=== PATIENT | male | born 1960 | race Caucasian/White ===

== ENCOUNTER 2019-07-16 10:10 | Outpatient (CLI) | payer MEDICARE, MEDICAID, SELFPAY ==
--- NOTE | 2019-07-16 11:00 | NEURO_ITS ---
Patient Number: [id number] Impression: # Known diabetic complains of numbness and feet jerking. # Left Carpal Tunnel Syndrome. # Needle/EMG exam revealed mild neurogenic changes. No fibs or myotonic. # Peroneal responses are of low amplitude Nerve Conduction Studies Anti Sensory Summary Table Stim Site NR Peak (ms) P-T Amp (?V) Site1 Site2 Delta-P (ms) Dist (cm) Nii (m/s) Left Median Anti Sensory (2-3nd Digit) Wrist 4.4 20.1 Wrist 2-3nd Digit 4.4 14.0 32 Wrist 4.2 31.4 Wrist 2-3nd Digit 4.4 14.0 32 Right Median Anti Sensory (2-3nd Digit) Wrist 3.7 17.5 Wrist 2-3nd Digit 3.7 14.0 38 Wrist 3.8 17.8 Wrist 2-3nd Digit 3.7 14.0 38 Left Radial Anti Sensory (Base 1st Digit) Wrist 2.8 22.2 Wrist Base 1st Digit 2.8 0.0 Right Radial Anti Sensory (Base 1st Digit) Wrist 3.1 9.0 Wrist Base 1st Digit 3.1 0.0 Left Sup Fibular Anti Sensory (Ant Lat Mall) 14 cm 3.3 11.8 14 cm Ant Lat Mall 3.3 16.0 48 Right Sup Fibular Anti Sensory (Ant Lat Mall) 14 cm 4.0 4.0 14 cm Ant Lat Mall 4.0 16.0 40 Left Sural Anti Sensory (Lat Mall) Calf 3.8 5.3 Calf Lat Mall 3.8 16.0 42 Right Sural Anti Sensory (Lat Mall) Calf 3.7 10.9 Calf Lat Mall 3.7 16.0 43 Left Ulnar Anti Sensory (5th Digit) Wrist 2.8 32.2 Wrist 5th Digit 2.8 14.0 50 Right Ulnar Anti Sensory (5th Digit) Wrist 3.1 17.2 Wrist 5th Digit 3.1 14.0 45 Motor Summary Table Stim Site NR Onset (ms) O-P Amp (mV) Site1 Site2 Delta-0 (ms) Dist (cm) Nii (m/s) Left Median Motor (Abd Poll Brev) Wrist 5.6 2.0 Elbow Wrist 6.2 29.0 47 Elbow 11.8 0.8 Right Median Motor (Abd Poll Brev) Wrist 3.7 3.2 Elbow Wrist 5.8 28.0 48 Elbow 9.5 1.8 Left Peroneal Motor (Vastus Med) Ankle 5.0 0.3 Popit Ankle 10.4 42.0 40 Popit 15.4 0.5 Right Peroneal Motor (Vastus Med) Ankle 6.2 0.2 Popit Ankle 11.3 47.0 42 Popit 17.5 0.6 Left Tibial Motor (Abd Maynard Brev) Ankle 5.1 0.4 Knee Ankle 10.7 43.0 40 Knee 15.8 1.0 Right Tibial Motor (Abd Maynard Brev) Ankle 6.7 1.5 Knee Ankle 11.1 44.0 40 Knee 17.8 1.6 Left Ulnar Motor (Abd Dig Minimi) Wrist 2.9 5.6 A Elbow Wrist 7.7 33.0 43 A Elbow 10.6 5.1 B Elbow Wrist 5.6 27.0 48 B Elbow 8.5 5.2 Right Ulnar Motor (Abd Dig Minimi) Wrist 3.2 4.4 A Elbow Wrist 6.3 30.0 48 A Elbow 9.5 3.5 F Wave Studies NR F-Lat (ms) L-R F-Lat (ms) Left Median (Mrkrs) (Abd Poll Brev) 33.03 1.29 Right Median (Mrkrs) (Abd Poll Brev) 31.74 1.29 Left Peroneal (Mrkrs) (EDB) 63.51 1.75 Right Peroneal (Mrkrs) (EDB) 65.26 1.75 Left Tibial (Mrkrs) (Abd Hallucis) 62.36 3.55 Right Tibial (Mrkrs) (Abd Hallucis) 65.91 3.55 Left Ulnar (Mrkrs) (Abd Dig Min) 32.50 0.35 Right Ulnar (Mrkrs) (Abd Dig Min) 32.86 0.35 EMG Side Muscle Nerve Root Ins Act Fibs Amp Dur Recrt Comment Right 1stDorInt Ulnar C8-T1 Nml Nml Nml >12ms Nml Right Ext Indicis Radial (Post Int) C7-8 Nml Nml Nml Nml Nml Right Ext Digitorum Radial (Post Int) C7-8 Nml Nml Nml Nml Nml Right BrachioRad Radial C5-6 Nml Nml Nml Nml Nml Right PronatorTeres Median C6-7 Nml Nml Nml Nml Nml Right Abd Poll Brev Median C8-T1 Nml Nml Nml >12ms
== END 2019-07-16 10:11 | disposition home or self-care (01) ==
PROVIDERS: PCP Internal Medicine Infectious Disease; Visit Provider Psychiatry & Neurology Neurology
DX: G56.02 Carpal tunnel syndrome, left upper limb (principal)
CPT/HCPCS: 95886; 95913

== ENCOUNTER 2019-11-11 18:01 | Outpatient (CLI) | payer MEDICARE, MEDICAID, SELFPAY ==
--- NOTE | ~2019-11-11 | CT_ITS ---
EXAMINATION: CT cervical spine wo con DATE: 11/11/2019 19:04 INDICATION: Neck pain. TECHNIQUE: Computed tomography (CT) of the cervical spine was performed without intravenous contrast. Automated exposure control and iterative reconstruction technique were employed. The dose-length pro duct was 476.11 mGy-cm. COMPARISON: Cervical spine MRI 06/05/2017 FINDINGS: There is 5 degrees levocurvature of cervical spine. Vertebral body heights are normal. Ther e is mildly decreased disc height at C2-C3, C3-C4, and C4-C5, severely decreased disc height at C5-C6 , and mildly decreased disc height at C6-C7. There is developmental osseous central canal stenosis fr om C1 to C6. The following disc levels are specifically discussed: C2-C3: There is severe right and mild left uncovertebral joint osteoarthritis. There is severe right and mild left facet joint osteoarthritis. There is mild right neural foraminal stenosis. There is no central canal stenosis. C3-C4: There is severe right and mild left uncovertebral joint osteoarthritis. There is mild right an d severe left facet joint osteoarthritis. There is mild bilateral neural foraminal stenosis. There is mild central canal stenosis. C4-C5: There is mild bilateral uncovertebral joint osteoarthritis. There is mild right and severe lef t facet joint osteoarthritis. There is mild bilateral neural foraminal stenosis. There is mild centra l canal stenosis. C5-C6: There is severe bilateral uncovertebral joint osteoarthritis. There is moderate bilateral face t joint osteoarthritis. There is mild bilateral neural foraminal stenosis. There is moderate central canal stenosis. C6-C7: There is no uncovertebral joint osteoarthritis. There is severe right and mild left facet join t osteoarthritis. There is mild right neural foraminal stenosis. There is no central canal stenosis. C7-T1: There is no uncovertebral joint osteoarthritis. There is mild bilateral facet joint osteoarthr itis. There is no neural foraminal stenosis. There is no central canal stenosis. IMPRESSION: 1. Severe cervical spondylosis, stable from 06/05/2017. Reviewed, dictated and finalized at location A.
--- NOTE | ~2019-11-11 | CT_ITS ---
EXAMINATION: CT thoracic spine wo con DATE: 11/11/2019 19:03 INDICATION: Back pain. TECHNIQUE: Computed tomography (CT) of the thoracic spine was performed without intravenous contrast. Automated exposure control and iterative reconstruction technique were employed. The dose-length pro duct was 1680.65 mGy-cm. COMPARISON: Chest CT 11/09/2017 FINDINGS: There is mild emphysema. Calcified right hilar lymph nodes are consistent with old granulom atous disease. There are coronary artery calcifications. Bone alignment is normal. There is mild burn nurse magnus anterior wedging of T12 and L1 vertebral bodies. There is mildly decreased disc height from T1-T2 through T10-T11. There is multilevel mild facet joint osteoarthritis. There is mild right neural for aminal stenosis at T2-T3, T3-T4, T4-T5, T5-T6, T7-T8, T8-T9, T9-T10, and T10-T11. There is mild left neural foraminal stenosis at T2-T3, T3-T4, T4-T5, T5-T6, T8-T9, T9-T10, and T10-T11. No central canal stenosis. IMPRESSION: 1. Mild thoracic spondylosis. Reviewed, dictated and finalized at location A.
== END 2019-11-11 18:02 | disposition home or self-care (01) ==
PROVIDERS: Visit Provider Psychiatry & Neurology Neurology
DX: M47.894 Other spondylosis, thoracic region (principal); M47.892 Other spondylosis, cervical region
CPT/HCPCS: 72125; 72128

== ENCOUNTER 2020-04-23 15:51 | Inpatient (IN) | payer MEDICARE, MEDICAID, SELFPAY ==
[2020-04-23] VITALS (24 sets, daily range): BP systolic 142–257; BP diastolic 76–126; PULSE 104–132; RESP 11–22; TEMP 37.1–37.3; O2SAT 92–100; BMI 32.5
--- NOTE | ~2020-04-23 | CT_ITS ---
EXAMINATION: CT abdomen pelvis w con INDICATION: Epigastric abdominal pain TECHNIQUE: Computed tomographic images of the abdomen and pelvis were obtained after the administrati on of 100 cc of Omnipaque 350 intravenous contrast. The dose-length product (DLP) was 1039.07 mGy-cm. Automated exposure control and iterative reconstruction technique were employed. COMPARISON: 05/27/2016 FINDINGS: The lung bases are clear. The heart size is normal. The gallbladder is surgically absent. T he liver is diffusely low in attenuation when compared with the spleen, consistent with hepatic steat osis. Punctate calcifications in an otherwise normal spleen likely represent healed granulomatous dis ease. The pancreas and adrenal glands are normal. The right kidney is unremarkable. Cysts of the left kidney measure up to 2.1 cm. There is circumferential wall thickening of the distal esophagus with a small amount of fluid in the distal esophagus. There is circumferential wall thickening of the desce nding and distal transverse colon with adjacent inflammatory fat stranding. There are changes of inte rval right inguinal hernia repair. A fat-containing left inguinal hernia is noted. The appendix is no rmal. There are no dilated loops of bowel. No free intraperitoneal gas is identified. No pathological ly enlarged abdominal or pelvic lymph nodes are identified. There is mild lumbar spondylosis. IMPRESSION: 1. Colitis of the descending and distal transverse colon. 2. Circumferential thickening of the distal esophagus which could reflect esophagitis. Reviewed, dictated and finalized at location A. MENTATION NURSE IMPRESSION: 1. Colitis of the descending and distal transverse colon. 2. Circumferential thickening of the distal esophagus which could reflect esoph agitis.
[2020-04-23 16:16] LABS: Basophils Absolute Auto 0.1 K/mm3 (0.0-0.1); Basophils Percent Auto 0.3 % (0.2-1.2); Hematocrit 54.7 % (42.0-52.0); Hemoglobin 19.4 g/dL (14.0-18.0); Immature Granulocyte Absolute 0.16 K/mm3 (0.00-0.031); Immature Granulocyte Percent A 0.7 % (0-0.5); Lymphocytes Absolute Auto 3.44 K/mm3 (0.9-3.2); Lymphocytes Percent Auto 14.2 % (18.3-44.2); Mean Corpuscular HGB Conc 35.5 g/dl (32-36); Mean Corpuscular Hemoglobin 29.3 pg (26-34); Mean Corpuscular Volume 82.8 fl (80-100); Mean Platelet Volume 9.5 fl (7.4-10.4); Monocytes Absolute Auto 1.4 K/mm3 (0.1-0.6); Monocytes Percent Auto 5.6 % (2.6-8.5); Neutrophils Absolute Auto 19.2 K/mm3 (1.3-6.7); Neutrophils Percent Auto 79.2 % (45.5-73.1); Platelet Count Result 366 k/mm3 (150-375); Red Blood Count 6.61 M/mm3 (4.6-6.20); Red Cell Distribution Width 14.6 % (11.5-14.5); White Blood Count 24.2 K/mm3 (4.5-10.0)
[2020-04-23 16:36] LABS: Alanine Aminotransferase 50 U/L (4-50); Alkaline Phosphatase 79 U/L (38-126); Anion Gap 12 mmol/L (8-16); Aspartate Amino Transferase 54 U/L (17-59); Bilirubin,Total 0.8 mg/dL (0.2-1.3); Blood Urea Nitrogen 24 mg/dL (9-20); Calcium 9.8 mg/dL (8.4-10.2); Carbon Dioxide 29 mmol/L (22-30); Chloride 96 mmol/L (98-107); Estimated CRCL calculation 77 ml/min; Estimated Glomerular Filt Rate > 60; Glucose 295 mg/dL (75-110); Lipase 37 U/L (23-300); Potassium 2.9 mmol/L (3.4-5.0); Sodium 137 mmol/L (137-145)
[2020-04-23 17:05] LABS: Add Urine Microscopic? YES; Appearance Urine Clear (Clear); Bilirubin Urine Negative (Negative); Blood Urine 1+ (Negative); Color Urine Yellow (Yellow); Glucose Urine UA 3+ mg/dL (Negative); Ketones Urine Trace mg/dL (Negative); Leukocyte Esterase Ur Negative LEU/UL (Negative); Mucus Urine Rare /lpf; Nitrate Urine Negative (Negative); Protein Urine 3+ mg/dL (Negative); Specific Grav Ur 1.028 (1.001-1.035); Urobilinogen Urine Negative mg/dL (<2.0); WBC Urine 0-3 /hpf
--- NOTE | 2020-04-23 17:05 | ED.NAVMDI ---
HPI - Nausea/Vomiting/Diarrhea General Chief complaint: Nausea/Vomiting/Diarrhea Stated complaint: vomiting black stuff Time Seen by Provider: 04/23/20 15:59 History of Present Illness HPI Narrative: Patient is a 60-year-old male who presents to the ER with vomiting black stuff. Is been occurring since yesterday. Associated with one large bowel movement yesterday and he has had no additional bowel movement since then. Does not think that his bowel movement was bloody or black yesterday. Said no loss of consciousness. Denies take any blood thinners but he does have clopidogrel on his med list. Denies any NSAIDs. Does report increase in acid reflux-like symptoms over the last several days. Reports upon calling his doctor he was referred here due to vomiting black. He does not think it looks like coffee grounds. Related Data Home Medications Medication Instructions Recorded Confirmed Aspir-81 81 mg PO DAILY 04/23/20 amlodipine 10 mg PO DAILY 04/23/20 clonazepam 1 mg PO TID 04/23/20 clopidogrel 75 mg PO DAILY 04/23/20 fluticasone propion-salmeterol 1 inh INHALATION BID 04/23/20 glimepiride 2 mg PO DAILY 04/23/20 hydrocodone-acetaminophen 1 tablet PO TID PRN 04/23/20 04/23/20 lisinopril-hydrochlorothiazide 1 tablet PO DAILY 04/23/20 04/23/20 metoprolol succinate 25 mg PO DAILY 04/23/20 tizanidine 2 mg PO TID 04/23/20 Allergies Allergy/AdvReac Type Severity Reaction Status Date / Time indomethacin Allergy Unknown Unknown Verified 04/23/20 16:56 Review of Systems Review of Systems: All systems reviewed & are unremarkable except as noted in HPI and below Constitutional: Constitutional: Denies chills, Denies fever(s) and Denies night sweats Cardiovascular: Cardiovascular: Denies chest pain, Denies irregular heart rhythm and Denies dyspnea on exertion Respiratory: Respiratory: Denies cough, Denies hemoptysis and Denies dyspnea Gastrointestinal: Gastrointestinal: Reports abdominal pain, Denies melena, Reports heartburn and Reports vomiting Musculoskeletal: Musculoskeletal: Denies back pain, Denies myalgias and Denies muscle weakness [facility] Past Medical History Medical History (Updated 04/23/20 @ 18:40 by Leo Hermosillo MD) Asthma Bipolar disorder Diabetes GERD (gastroesophageal reflux disease) Hypercholesterolemia Hypertension Surgical History Surgical History (Updated 04/23/20 @ 18:35 by Leo Hermosillo MD) History of cholecystectomy Family History Family History (Updated 01/07/15 @ 10:56 by DOCTOR UNKNOWN) Father Family history of congestive heart failure Sibling Family history of congestive heart failure Other Diabetes mellitus Family history of cardiovascular disease Family history of chronic obstructive pulmonary disease Family history of coronary artery disease Family history of kidney disease Family history of malignant neoplasm Family history of mental disorder Hypertension Social History Social History Smoking status: Current every day smoker Smoking end date: 02/20/06 Alcohol intake: current Exam Narrative: Exam Narrative: GENERAL: Well-appearing, well-nourished, and in no acute distress. HEAD: Normocephalic, atraumatic. EYES: PERRL and EOMI. Left eye strabismus CHEST: Clear to auscultation. No respiratory distress. HEART: R tachycardic and regular. Normal peripheral pulses. ABDOMEN: Soft, nontender, nondistended, heme positive stool on guaiac. EXTREMITIES: Normal range of motion. No edema. SKIN: Warm, dry, no rash. NEURO Alert and oriented x3. PSYCH: Normal mood and affect. Course Course Emergency Course: Admit to the hospitalist service. Patient may be very hemoconcentrated or he could have a primary blood disorder causing his elevated white blood cell count and hemoglobin as past blood counts also appear high. Patient occult positive on BRIAN will be started on IV Protonix. He will be placed on clear liquid diet. Zosyn for colitis. Delaney
[2020-04-23] MEDS: SODIUM CHLORIDE 0.9% IV 1,000 ML 999 ML IV CONT (17:16)
[2020-04-23] MEDS: PROMETHAZINE HCL 25 MG/ML AMPUL 12.5 MG IV PUSH (17:37)
[2020-04-23] MEDS: PANTOPRAZOLE SODIUM IV 40 MG VIAL IV PUSH (19:35)
--- NOTE | 2020-04-23 20:55 | ADMGEN ---
This patient, Rob Banks, was admitted to Medical Room 251-. Patient/family oriented to hospital policies and general routines including ID bracelet, bed and alarms, visiting hours, pain management, procedures, bathroom and other care routines, personal items, smoking policy, room service/diet, and visiting hours. Information on how to activate the Rapid Response Team has been discussed. Patient/Family are encouraged to report perceived risks to care and to ask questions if they do not understand what they are told or what they should do.
--- NOTE | 2020-04-23 21:30 | PM.IMHP ---
H&P: HPI History of Present Illness Date/Time: 04/23/20 21:30 Chief Complaint: Abdominal pain, nausea, vomiting. Narrative: This is a 60-year-old male with gastroesophageal reflux disease, coronary artery disease, diabetes, and hypertension who presented to the emergency department earlier today from home with complaints of abdominal pain, nausea, and vomiting. Yesterday afternoon he passed a large stool, which was loose towards the and and but was otherwise unremarkable. Not long thereafter he developed diffuse abdominal discomfort, which he has a difficult time describing, followed by nausea and vomiting. He describes as emesis is ?black? and he has had innumerable bouts of such since that time. His GERD has been especially bad since the vomiting began, with significant burning pain throughout the epigastrium and up into the throat. He is not on daily medication for GERD, but does take Prilosec here and there as needed. He is on both aspirin and clopidogrel since having a stent placed last year. He takes no NSAIDs and denies significant caffeine and alcohol use. He denies fever, sick contacts, and recent antibiotic use. Review of Systems Review of Systems: Narrative: Twelve systems were reviewed with pertinent positives and negatives as per HPI. No recent cold or flu symptoms. No exposure to those positive for COVID-19 recently. He denies chest pain and shortness of breath. No dysuria. He has not had a bowel movement since yesterday. He believes his diabetes is well controlled. No blurry vision, polydipsia, or polyuria. Except as documented, all other systems were reviewed and are negative. [facility] Past Medical History Medical History (Updated 04/23/20 @ 21:40 by Cherelle Lin PA-C) Anxiety Asthma Bipolar disorder Chronic back pain Coronary artery disease Status post stent x1. Degenerative disc disease Gastroesophageal reflux disease Hypercholesterolemia Hypertension Obstructive sleep apnea Does not use CPAP ?because I toss and turn? due to chronic back pain. Type 2 diabetes mellitus Surgical History Surgical History (Updated 04/23/20 @ 21:36 by Cherelle Lin PA-C) History of arthroscopy of left knee History of cholecystectomy History of heart artery stent Family History Family History Father Family history of congestive heart failure Sibling Family history of congestive heart failure Other Diabetes mellitus Family history of cardiovascular disease Family history of chronic obstructive pulmonary disease Family history of coronary artery disease Family history of kidney disease Family history of malignant neoplasm Family history of mental disorder Hypertension Social History Social History (Updated 04/23/20 @ 21:37 by Cherelle Lin PA-C) Social History: The patient lives in [place] with his and sister. He is on disability. Former cigarette smoker, quit about 25 years ago. Endorses smoking marijuana. No alcohol abuse. His , Carol Banks, as his surrogate decision maker. He wishes to be a full code. Meds Home Medications and Allergies Home Medications Medication Instructions Recorded Confirmed Type Aspir-81 81 mg PO DAILY 04/23/20 04/23/20 History amlodipine 10 mg PO DAILY 04/23/20 04/23/20 History clonazepam 1 mg PO TID 04/23/20 04/23/20 History clopidogrel 75 mg PO DAILY 04/23/20 04/23/20 History fluticasone propion-salmeterol 1 inh INHALATION BID 04/23/20 04/23/20 History glimepiride 2 mg PO DAILY 04/23/20 04/23/20 History hydrocodone-acetaminophen 1 tablet PO TID PRN 04/23/20 04/23/20 History lisinopril-hydrochlorothiazide 1 tablet PO DAILY 04/23/20 04/23/20 History metoprolol succinate 25 mg PO DAILY 04/23/20 04/23/20 History tizanidine 2 mg PO TID 04/23/20 04/23/20 History Allergies Allergy/AdvReac Type Severity Reaction Status Date / Time indomethacin Allergy Unknown Unknown Verifi
[2020-04-23] MEDS: SODIUM CHLORIDE 0.9% IV 1,000 ML 125 ML IV CONT (21:36)
[2020-04-23 22:19] LABS: Hematocrit 52.8 % (42.0-52.0); Hemoglobin 18.6 g/dL (14.0-18.0)
[2020-04-23] MEDS: clonazePAM (*CRX) 0.5 MG TABLET 1 MG PO (22:22)
[2020-04-23 22:28] LABS: Hemoglobin A1C 5.4 % (<5.7)
[2020-04-24] VITALS (12 sets, daily range): BP systolic 124–173; BP diastolic 58–94; PULSE 75–118; RESP 16–18; TEMP 36.1–37; O2SAT 96–98
[2020-04-24] MEDS: hydrALAZINE HCL 20 MG/ML VIAL 10 MG IV PUSH ×2 (00:07→06:53)
[2020-04-24] MEDS: TIZANIDINE HCL 2 MG TABLET PO ×4 (00:08→17:00)
[2020-04-24] MEDS: ONDANSETRON INJ 4 MG/2 ML VIAL IV PUSH ×3 (00:16→15:25)
[2020-04-24 01:06] LABS: Glucose Point of Care 276 (65-105)
[2020-04-24 05:28] LABS: Hematocrit 50.8 % (42.0-52.0); Hemoglobin 17.8 g/dL (14.0-18.0); Mean Corpuscular Hemoglobin 29.4 pg (26-34); Mean Corpuscular Volume 83.8 fl (80-100); Mean Platelet Volume 9.1 fl (7.4-10.4); Platelet Count Result 271 k/mm3 (150-375); Red Blood Count 6.06 M/mm3 (4.6-6.20); Red Cell Distribution Width 14.1 % (11.5-14.5)
[2020-04-24 05:49] LABS: Alanine Aminotransferase 43 U/L (4-50); Albumin Level 4.4 g/dL (3.5-5.1); Alkaline Phosphatase 61 U/L (38-126); Anion Gap 7 mmol/L (8-16); Aspartate Amino Transferase 46 U/L (17-59); Bilirubin,Total 0.9 mg/dL (0.2-1.3); Blood Urea Nitrogen 19 mg/dL (9-20); Carbon Dioxide 28 mmol/L (22-30); Chloride 103 mmol/L (98-107); Estimated CRCL calculation 91 ml/min; Estimated Glomerular Filt Rate > 60; Glucose 169 mg/dL (75-110); Magnesium 2.1 mg/dL (1.6-2.3); Sodium 138 mmol/L (137-145)
[2020-04-24] MEDS: PANTOPRAZOLE SODIUM IV 40 MG VIAL IV PUSH ×2 (07:39→21:07)
[2020-04-24] MEDS: FLUTICASONE/SALMETEROL 45-21 MCG (*SP) INHALER 2 PUFF INHALATION ×2 (07:49→20:17)
[2020-04-24] MEDS: clonazePAM (*CRX) 0.5 MG TABLET 1 MG PO ×3 (07:54→16:59)
[2020-04-24] MEDS: amLODIPine BESYLATE 5 MG TABLET 10 MG PO (07:54)
[2020-04-24] MEDS: METOPROLOL SUCCINATE EXT REL 25 MG TABCR PO (07:54)
[2020-04-24] MEDS: lisinopriL 20 MG TABLET PO (07:54)
[2020-04-24 07:59] LABS: Glucose Point of Care 172 (65-105)
[2020-04-24] MEDS: hydroCHLOROthiazide 12.5 MG CAPSULE PO (09:25)
[2020-04-24] MEDS: SODIUM CHLORIDE 0.9% IV 1,000 ML 125 ML IV CONT ×2 (09:25→16:58)
[2020-04-24 10:09] LABS: Hematocrit 49.2 % (42.0-52.0)
[2020-04-24] MEDS: POTASSIUM CHLORIDE 20 MEQ TABLET 40 MEQ PO (11:44)
[2020-04-24 12:25] LABS: Glucose Point of Care 186 (65-105)
--- NOTE | 2020-04-24 14:59 | PM.IMPN ---
Progress Note: A&P Assessment and Plan (1) Colitis: Code(s): K52.9 - Noninfective gastroenteritis and colitis, unspecified Status: Acute Assessment and Plan: Evident on CT abdomen/pelvis of the descending and distal transverse colon. Etiology unclear at this time. He has marked leukocytosis, therefore infectious etiology considered. He has been having regular bowel movements. Stool was Hemoccult positive in ED Continue IV Zosyn Gentle IV fluids Clear liquid diet Evaluate fecal occult blood test Gastroenterology has been consulted and recommendations are appreciated. (2) Esophagitis: Code(s): K20.90 - Esophagitis, unspecified without bleeding Status: Acute Assessment and Plan: Also evident on CT scan. He noted an episode of black emesis prior to presentation. He complains of constant GERD symptoms. Continue Protonix IV b.i.d. Fecal occult blood test pending Appreciate gastroenterology recommendations Avoid NSAIDs and aspirin (3) Acute hypokalemia: Code(s): E87.6 - Hypokalemia Status: Acute Assessment and Plan: Likely secondary to poor PO intake. Potassium 3.0 today. Replaced with a total of 60 mEq today and then continue with 20 mg once b.i.d. scheduled Monitor serum potassium closely (4) Polycythemia: Code(s): D75.1 - Secondary polycythemia Status: Acute Assessment and Plan: Likely due to hemoconcentration. H&H is within normal limits at this time following IV fluid rehydration. Trend H&H (5) Hypertension: Code(s): I10 - Essential (primary) hypertension Status: Inactive Assessment and Plan: Blood pressure reviewed and is elevated above target. Seems to be improving today, although still quite elevated. Continue amlodipine, lisinopril, metoprolol, and hydrochlorothiazide Monitor BP trends and adjust medication regimen as needed (6) Type 2 diabetes mellitus: Code(s): E11.9 - Type 2 diabetes mellitus without complications Status: Chronic Assessment and Plan: A1c is 5.4. Blood sugars evaluated and have been fairly well controlled today. Continue with Accu-Cheks, sliding scale insulin, hypoglycemic protocol Glimepiride is on hold (7) Coronary artery disease: Code(s): I25.10 - Atherosclerotic heart disease of [place] coronary artery without angina pectoris Status: Inactive Assessment and Plan: S/p coronary artery stent x1 approximately 1 year ago Aspirin and Plavix is on hold given suspected hematemesis. Resume when clinically appropriate Subjective Date/time seen: 04/24/20 14:59 Interval history: Date of service: 04/24/2020 Rob Puente is a 60-year-old male history of CAD, GERD, hyperlipidemia, hypertension, KOURTNEY, type 2 diabetes mellitus who is seen in follow-up for colitis. He is feeling better today. He is still complaining of pretty significant indigestion and heartburn. He denies any abdominal pain. He had a regular, formed bowel movement yesterday. He is passing flatus today. He is still endorsing nausea and is only tolerating small amounts of clear liquids. He has had no episodes of emesis today. He also complains of back pain, which is chronic for him. Otherwise he has no additional concerns. He denies shortness of breath or chest pain. He denies dizziness, lightheadedness, weakness, instability, numbness, or tingling. No fevers or chills. Review of Systems Review of Systems: All systems reviewed & are unremarkable except as noted in HPI and below Exam Narrative: Exam Narrative: Mr. Banks is a well-nourished, well-appearing 60-year-old male who is lying supine in bed. He appears comfortable and is in NARD. HR 88, BP 173/94, R 18, T 97.7?, 97% on room air Neuro: awake, alert and oriented x4, speech clear, no focal neuro deficits noted HEENMT: normocephalic, atraumatic, EOMI, sclerae anicteric, moist oral m
[2020-04-24 16:18] LABS: Hematocrit 51.8 % (42.0-52.0); Hemoglobin 18.2 g/dL (14.0-18.0)
[2020-04-24 16:54] LABS: Glucose Point of Care 144 (65-105)
[2020-04-24] MEDS: POTASSIUM CHLORIDE 20 MEQ TABLET.ER PO (17:00)
--- NOTE | 2020-04-24 17:02 | WPDGICN ---
Assessment and Plan Assessment and plan (1) Esophagitis: Code(s): K20.90 - Esophagitis, unspecified without bleeding Status: Acute Assessment and Plan: CT scan concerning for esophagitis, also more gerd symptoms and had coffee ground emesis still nauseous continue with iv protonix bid will do EGD this Monday (2) Coffee ground emesis: Code(s): K92.0 - Hematemesis Status: Acute Assessment and Plan: iv protonix, stable hb- probably dehydration with hemoconcentration on admission (3) Abnormal CT scan, colon: Code(s): R93.3 - Abnormal findings on diagnostic imaging of other parts of digestive tract Status: Acute Assessment and Plan: possible colitis, no much abdominal pain or more diarrhea (if any then will need stool samples) he never had a colonoscopy, proceed with one this Monday (4) Leukocytosis: Code(s): D72.829 - Elevated white blood cell count, unspecified Status: Acute Assessment and Plan: on antibiotics, monitor (5) Colitis: Code(s): K52.9 - Noninfective gastroenteritis and colitis, unspecified Status: Acute (6) Acute hypokalemia: Code(s): E87.6 - Hypokalemia Status: Acute Assessment and Plan: repleting GI Consult Note Consult date/time: 04/24/20 17:02 Reason for consult: coffee ground emesis, n/v HPI: Rob Banks is a 60 year old male with history of gastroesophageal reflux disease, coronary artery disease on aspirin and plavix, diabetes, and hypertension who came to the emergency department with new onset of severe abdominal pain, nausea, and vomiting of dark color, also yesterday passed a large loose stool, also having more burning sensation in epigastric area, never had egd or colonoscopy. He takes prilosec only as needed basis. He had leukocytosis of 25k, hb 17. CT scan reviewed and showed colitis of the descending and distal transverse colon, circumferential thickening of the distal esophagus which could reflect esophagitis. He is able to tolerate only liquids, feeling slightly better, also started on antibiotics. Denies sick contacts, he thinks that ate a bad chicken Review of Systems Constitutional: Constitutional: Reports no additional constitutional complaints Eyes: Eyes: Reports no additional eye complaints ENT: Reports system reviewed and no additional complaints, except as documented Cardiovascular: Cardiovascular: Denies chest pain Respiratory: Respiratory: Denies dyspnea Gastrointestinal: Gastrointestinal: Reports abdominal pain, Reports nausea and Reports vomiting Genitourinary: Genitourinary: Denies dysuria Musculoskeletal: Musculoskeletal: Reports no additional musculoskeletal complaints Integumentary/Breasts: Skin/Breast: Denies dry skin Neurologic: Reports system reviewed and no additional complaints, except as documented Psychiatric: Psychiatric: Reports no additional psychiatric complaints [facility] Past Medical History Medical History (Updated 04/24/20 @ 17:07 by George Luz MD) Abnormal CT scan, colon Anxiety Asthma Bipolar disorder Chronic back pain Coffee ground emesis Coronary artery disease Status post stent x1. Degenerative disc disease Gastroesophageal reflux disease Hypercholesterolemia Hypertension Leukocytosis Obstructive sleep apnea Does not use CPAP ?because I toss and turn? due to chronic back pain. Type 2 diabetes mellitus Surgical History Surgical History (Updated 04/23/20 @ 21:36 by Cherelle Lin PA-C) History of arthroscopy of left knee History of cholecystectomy History of heart artery stent Family History Family History Father Family history of congestive heart failure Sibling Family history of congestive heart failure Other Diabetes mellitus Family history of cardiovascular disease Family history of chronic obstructive pulmonary disease Family hist
[2020-04-24 22:05] LABS: Glucose Point of Care 109 (65-105)
[2020-04-25] VITALS (8 sets, daily range): BP systolic 127–183; BP diastolic 76–97; PULSE 60–94; RESP 18–20; TEMP 36.1–36.7; O2SAT 97–99
[2020-04-25] MEDS: ONDANSETRON INJ 4 MG/2 ML VIAL IV PUSH ×2 (02:06→11:36)
[2020-04-25] MEDS: SODIUM CHLORIDE 0.9% IV 1,000 ML 125 ML IV CONT (02:06)
[2020-04-25 05:55] LABS: Hemoglobin 15.9 g/dL (14.0-18.0); Mean Corpuscular HGB Conc 33.8 g/dl (32-36); Mean Corpuscular Hemoglobin 28.3 pg (26-34); Mean Corpuscular Volume 83.8 fl (80-100); Mean Platelet Volume 9.3 fl (7.4-10.4); Platelet Count Result 230 k/mm3 (150-375); Red Blood Count 5.61 M/mm3 (4.6-6.20); Red Cell Distribution Width 13.7 % (11.5-14.5); White Blood Count 17.9 K/mm3 (4.5-10.0)
[2020-04-25 06:09] LABS: Anion Gap 7 mmol/L (8-16); Blood Urea Nitrogen 16 mg/dL (9-20); Calcium 8.2 mg/dL (8.4-10.2); Carbon Dioxide 26 mmol/L (22-30); Chloride 105 mmol/L (98-107); Estimated CRCL calculation 91 ml/min; Estimated Glomerular Filt Rate > 60; Glucose 98 mg/dL (75-110); Potassium 3.3 mmol/L (3.4-5.0); Sodium 138 mmol/L (137-145)
[2020-04-25] MEDS: HYDROcodone/acetaminophen (*CRX) 10-325 MG TABLET 1 TAB PO ×2 (06:13→15:51)
[2020-04-25] MEDS: clonazePAM (*CRX) 0.5 MG TABLET 1 MG PO ×3 (08:07→17:26)
[2020-04-25] MEDS: PANTOPRAZOLE SODIUM IV 40 MG VIAL IV PUSH ×2 (08:07→20:52)
[2020-04-25] MEDS: TIZANIDINE HCL 2 MG TABLET PO ×3 (08:08→17:26)
[2020-04-25] MEDS: amLODIPine BESYLATE 5 MG TABLET 10 MG PO (08:08)
[2020-04-25] MEDS: POTASSIUM CHLORIDE 20 MEQ TABLET.ER PO ×2 (08:08→17:26)
[2020-04-25] MEDS: METOPROLOL SUCCINATE EXT REL 25 MG TABCR PO (08:09)
[2020-04-25] MEDS: hydroCHLOROthiazide 12.5 MG CAPSULE PO (08:10)
[2020-04-25] MEDS: lisinopriL 20 MG TABLET PO (08:10)
[2020-04-25 08:17] LABS: Glucose Point of Care 103 (65-105)
[2020-04-25] MEDS: FLUTICASONE/SALMETEROL 45-21 MCG (*SP) INHALER 2 PUFF INHALATION (08:18)
--- NOTE | 2020-04-25 10:58 | PM.IMPN ---
Progress Note: A&P Assessment and Plan (1) Colitis: Code(s): K52.9 - Noninfective gastroenteritis and colitis, unspecified Status: Acute Assessment and Plan: Evident on CT abdomen/pelvis of the descending and distal transverse colon. Etiology unclear at this time. He has marked leukocytosis, therefore infectious etiology considered. He has been having regular bowel movements. Stool was Hemoccult positive in ED. Leukocytosis slowly improving Continue IV Zosyn Gentle IV fluids Full liquid diet Fecal occult blood test and stool cultures have been ordered, awaiting stool specimen Gastroenterology has been consulted and recommendations are appreciated. Planning for colonoscopy on Monday (2) Esophagitis: Code(s): K20.90 - Esophagitis, unspecified without bleeding Status: Acute Assessment and Plan: Also evident on CT scan. He noted an episode of black emesis prior to presentation. He complains of constant GERD symptoms. Of hematemesis. Nausea/vomiting improved but continues to complain indigestion. Continue Protonix IV b.i.d. Fecal occult blood test pending Appreciate gastroenterology recommendations Avoid NSAIDs and aspirin Plan for EGD on Monday (3) Acute hypokalemia: Code(s): E87.6 - Hypokalemia Status: Acute Assessment and Plan: Likely secondary to poor PO intake and nausea/vomiting. Potassium 3.3 today. Continue with 20 mEq KCl b.i.d. PO scheduled Monitor serum potassium closely (4) Polycythemia: Code(s): D75.1 - Secondary polycythemia Status: Acute Assessment and Plan: Likely due to hemoconcentration secondary to dehydration. H&H is within normal limits at this time following IV fluid rehydration. Trend H&H (5) Hypertension: Code(s): I10 - Essential (primary) hypertension Status: Inactive Assessment and Plan: Blood pressure reviewed and is elevated above target. Significant improvement in BP control today. Last BP 145/80. Continue amlodipine, lisinopril, metoprolol, and hydrochlorothiazide Monitor BP trends and adjust medication regimen as needed (6) Type 2 diabetes mellitus: Code(s): E11.9 - Type 2 diabetes mellitus without complications Status: Chronic Assessment and Plan: A1c is 5.4. Blood sugars evaluated and have been well controlled today. Continue with Accu-Cheks, sliding scale insulin, hypoglycemic protocol Glimepiride is on hold (7) Coronary artery disease: Code(s): I25.10 - Atherosclerotic heart disease of [place] coronary artery without angina pectoris Status: Inactive Assessment and Plan: S/p coronary artery stent x1 approximately 1 year ago Aspirin and Plavix is on hold given suspected hematemesis. Resume when clinically appropriate Subjective Date/time seen: 04/25/20 10:58 Interval history: Date of service: 04/25/2020 Rob Puente is a 60-year-old male history of CAD, GERD, hyperlipidemia, hypertension, KOURTNEY, type 2 diabetes mellitus who is seen in follow-up for colitis. He continues to feel a bit better but is still complains of indigestion. He denies nausea, vomiting, or abdominal pain. He has been tolerating his full liquid diet. He has not had a bowel movement. Last BM 2 days ago. No episodes of hematemesis or other episodes of bleeding. Denies dizziness, lightheadedness, shortness of breath, weakness, fatigue. He has been able to ambulate to the restroom without difficulty. He has been sleeping well. No additional concerns. Review of Systems Review of Systems: All systems reviewed & are unremarkable except as noted in HPI and below Exam Narrative: Exam Narrative: Mr. Banks is a well-nourished, well-appearing 60-year-old male who is lying supine in bed. He appears comfortable and is in NARD. HR 74, BP 145/80, R 20 and T 98.0?, 98% on room air Neuro: awake, alert and oriented x4, speech cl
[2020-04-25] MEDS: SODIUM CHLORIDE 0.9% IV 1,000 ML 100 ML IV CONT ×2 (11:36→23:41)
[2020-04-25 11:44] LABS: Glucose Point of Care 87 (65-105)
[2020-04-25] MEDS: SIMETHICONE 80 MG TAB.CHEW PO (13:51)
[2020-04-25] MEDS: PROMETHAZINE HCL 25 MG/ML AMPUL 12.5 MG IV PUSH (15:49)
[2020-04-25] MEDS: hydrALAZINE HCL 20 MG/ML VIAL 10 MG IV PUSH (15:51)
--- NOTE | 2020-04-25 16:00 | PC.NURSE ---
Home medication, Latmayra, tubed down to pharmacy for verification.
--- NOTE | 2020-04-25 16:05 | PHAR ---
The patient's home med of Lurasidone [Latuda] 120 mg tablet has been verified.
[2020-04-25 17:39] LABS: Glucose Point of Care 158 (65-105)
[2020-04-25 21:02] LABS: Glucose Point of Care 122 (65-105)
[2020-04-26] MEDS: PROMETHAZINE HCL 25 MG/ML AMPUL 12.5 MG IV PUSH ×3 (01:24→14:58)
--- NOTE | 2020-04-26 03:11 | PC.NURSE ---
pt did not want advair inhaler this evening, 04/26, kept the medication open in case pt changed his mind. Pt stated he felt fine and did not need a dose. I non administered this dose.
[2020-04-26 05:29] VITALS: BP 144/64; PULSE 74; RESP 18; TEMP 36.1; O2SAT 97
[2020-04-26] MEDS: ONDANSETRON INJ 4 MG/2 ML VIAL IV PUSH ×2 (05:31→16:34)
[2020-04-26 05:40] LABS: Hematocrit 47.4 % (42.0-52.0); Hemoglobin 16.4 g/dL (14.0-18.0); Mean Corpuscular HGB Conc 34.6 g/dl (32-36); Mean Corpuscular Hemoglobin 29.7 pg (26-34); Mean Corpuscular Volume 85.7 fl (80-100); Mean Platelet Volume 9.2 fl (7.4-10.4); Platelet Count Result 216 k/mm3 (150-375); Red Blood Count 5.53 M/mm3 (4.6-6.20); Red Cell Distribution Width 13.8 % (11.5-14.5); White Blood Count 14.9 K/mm3 (4.5-10.0)
[2020-04-26 05:54] LABS: Anion Gap 7 mmol/L (8-16); Blood Urea Nitrogen 16 mg/dL (9-20); Calcium 8.6 mg/dL (8.4-10.2); Carbon Dioxide 23 mmol/L (22-30); Chloride 108 mmol/L (98-107); Estimated CRCL calculation 102 ml/min; Estimated Glomerular Filt Rate > 60; Glucose 103 mg/dL (75-110); Potassium 3.2 mmol/L (3.4-5.0); Sodium 138 mmol/L (137-145)
[2020-04-26] MEDS: HYDROcodone/acetaminophen (*CRX) 10-325 MG TABLET 1 TAB PO ×2 (07:16→19:58)
[2020-04-26 07:53] LABS: Glucose Point of Care 139 (65-105)
[2020-04-26] MEDS: POTASSIUM CHLORIDE 20 MEQ TABLET.ER PO ×2 (07:54→16:14)
[2020-04-26] MEDS: clonazePAM (*CRX) 0.5 MG TABLET 1 MG PO ×3 (07:54→16:21)
[2020-04-26] MEDS: TIZANIDINE HCL 2 MG TABLET PO ×3 (07:55→16:14)
[2020-04-26] MEDS: FLUTICASONE/SALMETEROL 45-21 MCG (*SP) INHALER 2 PUFF INHALATION ×2 (07:55→20:03)
[2020-04-26] MEDS: amLODIPine BESYLATE 5 MG TABLET 10 MG PO (07:55)
[2020-04-26] MEDS: lisinopriL 20 MG TABLET PO (07:55)
[2020-04-26] MEDS: hydroCHLOROthiazide 12.5 MG CAPSULE PO (07:55)
[2020-04-26 07:56] VITALS: PULSE 72
[2020-04-26] MEDS: PANTOPRAZOLE SODIUM IV 40 MG VIAL IV PUSH ×2 (07:56→21:51)
[2020-04-26] MEDS: METOPROLOL SUCCINATE EXT REL 25 MG TABCR PO (07:56)
[2020-04-26] MEDS: SODIUM CHLORIDE 0.9% IV 1,000 ML 100 ML IV CONT (09:45)
--- NOTE | 2020-04-26 10:22 | P.PNIM_ITS ---
Progress Note: A&P Assessment and Plan (1) Colitis: Code(s): K52.9 - Noninfective gastroenteritis and colitis, unspecified Status: Acute Assessment and Plan: Evident on CT abdomen/pelvis of the descending and distal transverse colon. Etiology unclear at this time. He has marked leukocytosis, therefore infectious etiology considered. He denies diarrhea. Stool was Hemoccult positive in ED. Leukocytosis slowly improving * Continue IV Zosyn, started on 04/23/20 * Gentle IV fluids * Full liquid diet * Fecal occult blood test and stool cultures have been ordered, awaiting stool specimen * Gastroenterology has been consulted and recommendations are appreciated. * Planning for colonoscopy tomorrow. Begin prep today and NPO at midnight. * Analgesics and antiemetics as needed for pain (2) Esophagitis: Code(s): K20.90 - Esophagitis, unspecified without bleeding Status: Acute Assessment and Plan: Also evident on CT scan. He noted an episode of black emesis prior to presentation. He complains of constant GERD symptoms. No further episodes of hematemesis. Continues to endorse indigestion and nausea * Continue Protonix IV b.i.d. * Fecal occult blood test pending * Appreciate gastroenterology recommendations * Avoid NSAIDs and aspirin * Plan for EGD on Monday (3) Acute hypokalemia: Code(s): E87.6 - Hypokalemia Status: Acute Assessment and Plan: Likely secondary to poor PO intake and nausea/vomiting. Potassium 3.2 today. * Continue with 20 mEq KCl b.i.d. PO scheduled * Add 40 mEq PO KCl one time dose. * Monitor serum potassium closely (4) Polycythemia: Code(s): D75.1 - Secondary polycythemia Status: Acute Assessment and Plan: Likely due to hemoconcentration secondary to dehydration. H&H now within normal limits following IV fluid rehydration. * Trend H&H (5) Hypertension: Code(s): I10 - Essential (primary) hypertension Status: Inactive Assessment and Plan: Blood pressure reviewed and had been elevated above target. Significant improvement in BP control today. Last BP 144/64. * Continue amlodipine, lisinopril, metoprolol, and hydrochlorothiazide * Monitor BP trends and adjust medication regimen as needed (6) Type 2 diabetes mellitus: Code(s): E11.9 - Type 2 diabetes mellitus without complications Status: Chronic Assessment and Plan: A1c is 5.4. Blood sugars evaluated and have been well controlled today. * Continue with Accu-Cheks, sliding scale insulin, hypoglycemic protocol * Glimepiride is on hold (7) Coronary artery disease: Code(s): I25.10 - Atherosclerotic heart disease of [place] coronary artery without angina pectoris Status: Inactive Assessment and Plan: S/p coronary artery stent x1 approximately 1 year ago * Aspirin and Plavix is on hold given suspected hematemesis. Resume when clinically appropriate Subjective Date/time seen: 04/26/20 10:22 Interval history: Date of service: 04/26/2020 Rob Banks is a 60-year-old male with a history of CAD, GERD, hyperlipidemia, hypertension, KOURTNEY, and type 2 diabetes mellitus who is seen in follow-up for colitis. He reports feeling better today. He is still having nausea and could not keep down his oral potassium pill today. Aside from this, no episodes of emesis. He complains of indigestion and epigastric pain. He has been tolerating full liquids. He has not had a bowel movement since just prior to presentatio
--- NOTE | 2020-04-26 10:22 | PM.IMPN ---
Progress Note: A&P Assessment and Plan (1) Colitis: Code(s): K52.9 - Noninfective gastroenteritis and colitis, unspecified Status: Acute Assessment and Plan: Evident on CT abdomen/pelvis of the descending and distal transverse colon. Etiology unclear at this time. He has marked leukocytosis, therefore infectious etiology considered. He denies diarrhea. Stool was Hemoccult positive in ED. Leukocytosis slowly improving Continue IV Zosyn, started on 04/23/20 Gentle IV fluids Full liquid diet Fecal occult blood test and stool cultures have been ordered, awaiting stool specimen Gastroenterology has been consulted and recommendations are appreciated. Planning for colonoscopy tomorrow. Begin prep today and NPO at midnight. Analgesics and antiemetics as needed for pain (2) Esophagitis: Code(s): K20.90 - Esophagitis, unspecified without bleeding Status: Acute Assessment and Plan: Also evident on CT scan. He noted an episode of black emesis prior to presentation. He complains of constant GERD symptoms. No further episodes of hematemesis. Continues to endorse indigestion and nausea Continue Protonix IV b.i.d. Fecal occult blood test pending Appreciate gastroenterology recommendations Avoid NSAIDs and aspirin Plan for EGD on Monday (3) Acute hypokalemia: Code(s): E87.6 - Hypokalemia Status: Acute Assessment and Plan: Likely secondary to poor PO intake and nausea/vomiting. Potassium 3.2 today. Continue with 20 mEq KCl b.i.d. PO scheduled Add 40 mEq PO KCl one time dose. Monitor serum potassium closely (4) Polycythemia: Code(s): D75.1 - Secondary polycythemia Status: Acute Assessment and Plan: Likely due to hemoconcentration secondary to dehydration. H&H now within normal limits following IV fluid rehydration. Trend H&H (5) Hypertension: Code(s): I10 - Essential (primary) hypertension Status: Inactive Assessment and Plan: Blood pressure reviewed and had been elevated above target. Significant improvement in BP control today. Last BP 144/64. Continue amlodipine, lisinopril, metoprolol, and hydrochlorothiazide Monitor BP trends and adjust medication regimen as needed (6) Type 2 diabetes mellitus: Code(s): E11.9 - Type 2 diabetes mellitus without complications Status: Chronic Assessment and Plan: A1c is 5.4. Blood sugars evaluated and have been well controlled today. Continue with Accu-Cheks, sliding scale insulin, hypoglycemic protocol Glimepiride is on hold (7) Coronary artery disease: Code(s): I25.10 - Atherosclerotic heart disease of [place] coronary artery without angina pectoris Status: Inactive Assessment and Plan: S/p coronary artery stent x1 approximately 1 year ago Aspirin and Plavix is on hold given suspected hematemesis. Resume when clinically appropriate Subjective Date/time seen: 04/26/20 10:22 Interval history: Date of service: 04/26/2020 Rob Banks is a 60-year-old male with a history of CAD, GERD, hyperlipidemia, hypertension, KOURTNEY, and type 2 diabetes mellitus who is seen in follow-up for colitis. He reports feeling better today. He is still having nausea and could not keep down his oral potassium pill today. Aside from this, no episodes of emesis. He complains of indigestion and epigastric pain. He has been tolerating full liquids. He has not had a bowel movement since just prior to presentation. He will begin bowel prep for colonoscopy tonight. Denies dizziness, lightheadedness, weakness, fevers, chills. He has back pain which is chronic. He reports he could not sleep last night. Review of Systems Review of Systems: All systems reviewed & are unremarkable except as noted in HPI and below Exam Narrative: Exam Narrative: Mr. Banks is a well-nourished, well-appearing 60-year-old male who is lying supine in bed. H
[2020-04-26] MEDS: POTASSIUM CHLORIDE 20 MEQ TABLET 40 MEQ PO (11:38)
[2020-04-26 12:20] LABS: Glucose Point of Care 161 (65-105)
[2020-04-26 13:56] VITALS: BP 150/64; PULSE 87; RESP 16; TEMP 36.4; O2SAT 97
[2020-04-26] MEDS: BISACODYL 5 MG TABLET EC 20 MG PO (16:14)
[2020-04-26] MEDS: SIMETHICONE 80 MG TAB.CHEW PO (16:21)
[2020-04-26] MEDS: PEG (High)/E-LYTE SOLN 4,000 ML BTL 4000 ML PO (16:30)
[2020-04-26 17:27] LABS: Glucose Point of Care 113 (65-105)
[2020-04-26 17:27] LABS: Glucose Point of Care 124 (65-105)
[2020-04-26 20:00] VITALS: PULSE 72; RESP 18; O2SAT 98
[2020-04-26 21:49] VITALS: BP 134/78; PULSE 72; RESP 18; TEMP 36.1; O2SAT 98
[2020-04-27] VITALS (9 sets, daily range): BP systolic 106–207; BP diastolic 60–95; PULSE 60–89; RESP 14–20; TEMP 36.1–36.9; O2SAT 96–99
[2020-04-27] MEDS: SODIUM CHLORIDE 0.9% IV 1,000 ML 100 ML IV CONT ×3 (00:15→21:54)
[2020-04-27 00:41] LABS: IFOB Positive Control Positive; Immunochemical Fecal Occult Bl Positive (N)
[2020-04-27 02:13] LABS: Glucose Point of Care 139 (65-105)
[2020-04-27 06:24] LABS: Anion Gap 8 mmol/L (8-16); Blood Urea Nitrogen 16 mg/dL (9-20); Calcium 8.6 mg/dL (8.4-10.2); Carbon Dioxide 25 mmol/L (22-30); Chloride 105 mmol/L (98-107); Estimated CRCL calculation 91 ml/min; Estimated Glomerular Filt Rate > 60; Glucose 130 mg/dL (75-110); Magnesium 2.1 mg/dL (1.6-2.3); Sodium 138 mmol/L (137-145)
--- NOTE | 2020-04-27 06:47 | PC.NURSE ---
called dr faulkner through [facility] and notified him of bowel prep progress. no new orders.
[2020-04-27 06:52] LABS: Hematocrit 46.6 % (42.0-52.0); Mean Corpuscular HGB Conc 34.3 g/dl (32-36); Mean Corpuscular Hemoglobin 28.8 pg (26-34); Mean Platelet Volume 9.3 fl (7.4-10.4); Platelet Count Result 256 k/mm3 (150-375); Red Blood Count 5.55 M/mm3 (4.6-6.20); Red Cell Distribution Width 13.5 % (11.5-14.5); White Blood Count 12.3 K/mm3 (4.5-10.0)
[2020-04-27 07:56] LABS: Glucose Point of Care 117 (65-105)
[2020-04-27] MEDS: FLUTICASONE/SALMETEROL 45-21 MCG (*SP) INHALER 2 PUFF INHALATION ×2 (08:35→21:13)
[2020-04-27] MEDS: clonazePAM (*CRX) 0.5 MG TABLET 1 MG PO ×3 (08:41→16:54)
[2020-04-27] MEDS: lisinopriL 20 MG TABLET PO (10:07)
[2020-04-27] MEDS: PANTOPRAZOLE SODIUM IV 40 MG VIAL IV PUSH ×2 (10:07→20:44)
[2020-04-27] MEDS: hydroCHLOROthiazide 12.5 MG CAPSULE PO (10:07)
[2020-04-27] MEDS: METOPROLOL SUCCINATE EXT REL 25 MG TABCR PO (10:07)
[2020-04-27] MEDS: amLODIPine BESYLATE 5 MG TABLET 10 MG PO (10:07)
[2020-04-27 10:26] LABS: Glucose Point of Care 112 (65-105)
[2020-04-27] MEDS: LACTATED RINGERS 1,000 ML 150 ML IV CONT (10:34)
--- NOTE | 2020-04-27 10:49 | WPDANESEPPF ---
Anes - Initial Pre Proc Eval Procedure: Operation Date: 04/27/20 11:30 Proposed Procedures p Esophagogastroduodenoscopy & Colonoscopy - George Luz MD Date/Time: 04/27/20 10:49 Surgeon: Chance Avery MD Pre Op Diagnosis: colitis, hypokalemia, esophagitis Patient Data Age: 60 Gender: M Height: 5 ft 9 in Weight: 99.9 kg Last Vital Signs Temp 98.5 F 04/27/20 10:28 Pulse 76 04/27/20 10:28 Resp 18 04/27/20 10:28 BP 157/78 H 04/27/20 10:28 Pulse Ox 98 04/27/20 10:28 Allergies Allergy/AdvReac Type Severity Reaction Status Date / Time indomethacin Allergy Unknown Unknown Verified 04/23/20 16:56 Home Medications Medication Instructions Recorded Confirmed Type Aspir-81 81 mg PO DAILY 04/23/20 04/23/20 History amlodipine 10 mg PO DAILY 04/23/20 04/23/20 History clonazepam 1 mg PO TID 04/23/20 04/23/20 History clopidogrel 75 mg PO DAILY 04/23/20 04/23/20 History fluticasone propion-salmeterol 1 inh INHALATION BID 04/23/20 04/23/20 History glimepiride 2 mg PO DAILY 04/23/20 04/23/20 History hydrocodone-acetaminophen 1 tablet PO TID PRN 04/23/20 04/23/20 History lisinopril-hydrochlorothiazide 1 tablet PO DAILY 04/23/20 04/23/20 History metoprolol succinate 25 mg PO DAILY 04/23/20 04/23/20 History tizanidine 2 mg PO TID 04/23/20 04/23/20 History lurasidone [Latuda] 120 mg PO QPM 04/25/20 04/25/20 History Laboratory Tests 04/26/20 04/26/20 04/26/20 12:17 17:01 17:22 WBC RBC Hgb Hct MCV MCH MCHC RDW Plt Count MPV Sodium Potassium Chloride Carbon Dioxide Anion Gap BUN Creatinine Estim Creat Clear Calc Estimated GFR Glucose POC Capillary Glucose 161 mg/dl H mg/dl 113 mg/dl H mg/dl 124 mg/dl H mg/dl (65-105) (65-105) (65-105) Calcium Magnesium Stl Occult Blood (IFOB) 04/26/20 04/26/20 04/27/20 20:05 23:55 06:03 WBC 12.3 K/mm3 H K/mm3 (4.5-10.0) RBC 5.55 M/mm3 M/mm3 (4.6-6.20) Hgb 16.0 g/dL g/dL (14.0-18.0) Hct 46.6 % % (42.0-52.0) MCV 84.0 fl fl (80-100) MCH 28.8 pg pg (26-34) MCHC 34.3 g/dl g/dl (32-36) RDW 13.5 % % (11.5-14.5) Plt Count 256 k/mm3 k/mm3 (150-375) MPV 9.3 fl fl (7.4-10.4) Sodium Potassium Chloride Carbon Dioxide Anion Gap BUN Creatinine Estim Creat Clear Calc Estimated GFR Glucose POC Capillary Glucose 139 mg/dl H mg/dl (65-105) Calcium Magnesium Stl Occult Blood (IFOB) Positive H (N) 04/27/20 04/27/20 04/27/20 06:03 07:51 10:24 WBC RBC Hgb Hct MCV MCH MCHC RDW Plt Count MPV Sodium 138 mmol/L mmol/L (137-145) Potassium 3.0 mmol/L L mmol/L (3.4-5.0) Chloride 105 mmol/L mmol/L (98-107) Carbon Dioxide 25 mmol/L mmol/L (22-30) Anion Gap 8 mmol/L mmol/L (8-16) BUN 16 mg/dL mg/dL (9-20) Creatinine 0.90 mg/dL mg/dL (0.7-1.3) Estim Creat Clear Calc 91 ml/min ml/min Estimated GFR > 60 (59 - ) Glucose 130 mg/dL H mg/dL (75-110) POC Capillary Glucose 117 mg/dl H mg/dl 112 mg/dl H mg/dl (65-105) (65-105) Calcium 8.6 mg/dL mg/dL (8.4-10.2) Magnesium 2.1 mg/dL mg/dL (1.6-2.3) Stl Occult Blood (IFOB) Patient hx anesthesia problems: none Family hx anesthesia problems: none PMFSH [facility]
--- NOTE | 2020-04-27 11:20 | SUR.OPER ---
EGD COMPLETED AT 1117, COLONOSCOPY STARTED AT 1121
[2020-04-27 11:49] LABS: Glucose Point of Care 105 (65-105)
[2020-04-27] MEDS: SIMETHICONE 80 MG TAB.CHEW PO ×2 (13:26→16:18)
[2020-04-27] MEDS: ONDANSETRON INJ 4 MG/2 ML VIAL IV PUSH (13:26)
[2020-04-27] MEDS: hydrALAZINE HCL 20 MG/ML VIAL 10 MG IV PUSH (14:09)
[2020-04-27] MEDS: SUCRALFATE SUSP 100 MG/ML 10 ML UDC 1000 MG PO ×2 (16:18→20:44)
--- NOTE | 2020-04-27 16:28 | P.PNIM_ITS ---
Progress Note: A&P Assessment and Plan (1) Colitis: Code(s): K52.9 - Noninfective gastroenteritis and colitis, unspecified Status: Acute Assessment and Plan: Evident on CT abdomen/pelvis of the descending and distal transverse colon. Etiology unclear at this time. He has marked leukocytosis, therefore infectious etiology considered. He denies diarrhea. Stool was Hemoccult positive in ED and FOBT positive. Leukocytosis slowly improving. He underwent colonoscopy today which showed mild localized colitis probably affecting 5 cm of the descending colon. * Continue IV Zosyn, started on 04/23/20. Plan to transition to p.o. antibiotics tomorrow with hopeful discharge. * Advance diet * Stool cultures pending * Gastroenterology has been consulted and recommendations are appreciated. * Analgesics and antiemetics as needed for pain * Repeat colonoscopy in 5 years. (2) Esophagitis: Code(s): K20.90 - Esophagitis, unspecified without bleeding Status: Acute Assessment and Plan: Evident on CT scan. He noted an episode of black emesis prior to presentation. He complains of constant GERD symptoms. No further episodes of hematemesis. Continues to endorse indigestion and nausea. He had EGD today by Dr. Ramos which showed reflux esophagitis without evidence of bleeding. * Continue Protonix IV b.i.d. This will need to be continue long-term * Carafate with meals for 2 weeks * Appreciate gastroenterology recommendations * Avoid NSAIDs and aspirin * Repeat EGD in 4 months to assess for healing * Advanced to heart healthy diet as tolerated (3) Acute hypokalemia: Code(s): E87.6 - Hypokalemia Status: Acute Assessment and Plan: Likely secondary to poor PO intake and nausea/vomiting, as well as bowel prep. Potassium 3.0 today. * Continue with 20 mEq KCl b.i.d. PO scheduled * Add 40 mEq PO KCl one time dose. * Monitor serum potassium closely (4) Polycythemia: Code(s): D75.1 - Secondary polycythemia Status: Acute Assessment and Plan: Likely due to hemoconcentration secondary to dehydration. H&H now within normal limits following IV fluid rehydration. * Trend H&H (5) Hypertension: Code(s): I10 - Essential (primary) hypertension Status: Inactive Assessment and Plan: Blood pressure reviewed and had been elevated above target initially with overall improvement. Today, BP significantly elevated again following procedure, with highest BP 207/95. Improved following IV hydralazine. * Continue amlodipine, lisinopril, metoprolol, and hydrochlorothiazide * Monitor BP trends and adjust medication regimen as needed * Hydralazine prn SBP >170 (6) Type 2 diabetes mellitus: Code(s): E11.9 - Type 2 diabetes mellitus without complications Status: Chronic Assessment and Plan: A1c is 5.4. Blood sugars evaluated and have been well controlled today. * Continue with Accu-Cheks, sliding scale insulin, hypoglycemic protocol * Glimepiride is on hold (7) Coronary artery disease: Code(s): I25.10 - Atherosclerotic heart disease of [place] coronary artery without angina pectoris Status: Inactive Assessment and Plan: S/p coronary artery stent x1 approximately 1 year ago * Aspirin and Plavix is on hold given suspected hematemesis. Resume when clinically appropriate Subjective Date/time seen: 04/27/20 16:28 Interval history: Date of service: 04/27/2020 Rob Banks is a 60-year-old male with
--- NOTE | 2020-04-27 16:28 | PM.IMPN ---
Progress Note: A&P Assessment and Plan (1) Colitis: Code(s): K52.9 - Noninfective gastroenteritis and colitis, unspecified Status: Acute Assessment and Plan: Evident on CT abdomen/pelvis of the descending and distal transverse colon. Etiology unclear at this time. He has marked leukocytosis, therefore infectious etiology considered. He denies diarrhea. Stool was Hemoccult positive in ED and FOBT positive. Leukocytosis slowly improving. He underwent colonoscopy today which showed mild localized colitis probably affecting 5 cm of the descending colon. Continue IV Zosyn, started on 04/23/20. Plan to transition to p.o. antibiotics tomorrow with hopeful discharge. Advance diet Stool cultures pending Gastroenterology has been consulted and recommendations are appreciated. Analgesics and antiemetics as needed for pain Repeat colonoscopy in 5 years. (2) Esophagitis: Code(s): K20.90 - Esophagitis, unspecified without bleeding Status: Acute Assessment and Plan: Evident on CT scan. He noted an episode of black emesis prior to presentation. He complains of constant GERD symptoms. No further episodes of hematemesis. Continues to endorse indigestion and nausea. He had EGD today by Dr. Ramos which showed reflux esophagitis without evidence of bleeding. Continue Protonix IV b.i.d. This will need to be continue long-term Carafate with meals for 2 weeks Appreciate gastroenterology recommendations Avoid NSAIDs and aspirin Repeat EGD in 4 months to assess for healing Advanced to heart healthy diet as tolerated (3) Acute hypokalemia: Code(s): E87.6 - Hypokalemia Status: Acute Assessment and Plan: Likely secondary to poor PO intake and nausea/vomiting, as well as bowel prep. Potassium 3.0 today. Continue with 20 mEq KCl b.i.d. PO scheduled Add 40 mEq PO KCl one time dose. Monitor serum potassium closely (4) Polycythemia: Code(s): D75.1 - Secondary polycythemia Status: Acute Assessment and Plan: Likely due to hemoconcentration secondary to dehydration. H&H now within normal limits following IV fluid rehydration. Trend H&H (5) Hypertension: Code(s): I10 - Essential (primary) hypertension Status: Inactive Assessment and Plan: Blood pressure reviewed and had been elevated above target initially with overall improvement. Today, BP significantly elevated again following procedure, with highest BP 207/95. Improved following IV hydralazine. Continue amlodipine, lisinopril, metoprolol, and hydrochlorothiazide Monitor BP trends and adjust medication regimen as needed Hydralazine prn SBP >170 (6) Type 2 diabetes mellitus: Code(s): E11.9 - Type 2 diabetes mellitus without complications Status: Chronic Assessment and Plan: A1c is 5.4. Blood sugars evaluated and have been well controlled today. Continue with Accu-Cheks, sliding scale insulin, hypoglycemic protocol Glimepiride is on hold (7) Coronary artery disease: Code(s): I25.10 - Atherosclerotic heart disease of [place] coronary artery without angina pectoris Status: Inactive Assessment and Plan: S/p coronary artery stent x1 approximately 1 year ago Aspirin and Plavix is on hold given suspected hematemesis. Resume when clinically appropriate Subjective Date/time seen: 04/27/20 16:28 Interval history: Date of service: 04/27/2020 Rob Banks is a 60-year-old male with a history of CAD, GERD, hyperlipidemia, hypertension, KOURTNEY, and type 2 diabetes mellitus who is seen in follow-up for colitis. He underwent. He is still endorsing some nausea following the procedure. He continues to complain of indigestion. He denies any abdominal pain today. He does have chronic pain in back which he is currently rating is 6/10. Denies shortness breath, cough, chest pain, dizziness, lightheadedness, fevers, chills. He has
[2020-04-27] MEDS: HYDROcodone/acetaminophen (*CRX) 10-325 MG TABLET 1 TAB PO (16:53)
[2020-04-27] MEDS: POTASSIUM CHLORIDE 20 MEQ TABLET.ER PO (16:54)
[2020-04-27] MEDS: TIZANIDINE HCL 2 MG TABLET PO (16:56)
[2020-04-27] MEDS: POTASSIUM CHLORIDE 20 MEQ TABLET 40 MEQ PO (16:59)
[2020-04-27 19:03] LABS: Glucose Point of Care 156 (65-105)
[2020-04-27] MEDS: MELATONIN 3 MG TABLET PO (20:44)
[2020-04-27 21:57] LABS: Glucose Point of Care 123 (65-105)
[2020-04-28 05:19] LABS: Hematocrit 43.9 % (42.0-52.0); Hemoglobin 15.4 g/dL (14.0-18.0); Mean Corpuscular HGB Conc 35.1 g/dl (32-36); Mean Corpuscular Hemoglobin 29.4 pg (26-34); Mean Corpuscular Volume 83.8 fl (80-100); Platelet Count Result 243 k/mm3 (150-375); Red Blood Count 5.24 M/mm3 (4.6-6.20); Red Cell Distribution Width 13.5 % (11.5-14.5); White Blood Count 12.9 K/mm3 (4.5-10.0)
[2020-04-28 05:40] LABS: Anion Gap 6 mmol/L (8-16); Blood Urea Nitrogen 17 mg/dL (9-20); Calcium 8.4 mg/dL (8.4-10.2); Carbon Dioxide 28 mmol/L (22-30); Chloride 105 mmol/L (98-107); Estimated CRCL calculation 70 ml/min; Estimated Glomerular Filt Rate > 60; Glucose 113 mg/dL (75-110); Potassium 3.2 mmol/L (3.4-5.0); Sodium 139 mmol/L (137-145)
[2020-04-28 06:00] VITALS: BP 149/69; PULSE 62; RESP 20; TEMP 36.2; O2SAT 98
[2020-04-28] MEDS: SIMETHICONE 80 MG TAB.CHEW PO (06:01)
[2020-04-28] MEDS: SUCRALFATE SUSP 100 MG/ML 10 ML UDC 1000 MG PO ×2 (06:40→11:12)
[2020-04-28] MEDS: HYDROcodone/acetaminophen (*CRX) 10-325 MG TABLET 1 TAB PO ×2 (06:43→11:12)
[2020-04-28 08:01] LABS: Glucose Point of Care 130 (65-105)
[2020-04-28] MEDS: POTASSIUM CHLORIDE 20 MEQ TABLET 40 MEQ PO (08:30)
[2020-04-28 08:31] VITALS: PULSE 84
[2020-04-28] MEDS: FLUTICASONE/SALMETEROL 45-21 MCG (*SP) INHALER 2 PUFF INHALATION (08:31)
[2020-04-28] MEDS: POTASSIUM CHLORIDE 20 MEQ TABLET.ER PO (08:31)
[2020-04-28] MEDS: hydroCHLOROthiazide 12.5 MG CAPSULE PO (08:31)
[2020-04-28] MEDS: lisinopriL 20 MG TABLET PO (08:31)
[2020-04-28] MEDS: clonazePAM (*CRX) 0.5 MG TABLET 1 MG PO ×2 (08:31→13:06)
[2020-04-28] MEDS: TIZANIDINE HCL 2 MG TABLET PO ×2 (08:31→13:06)
[2020-04-28] MEDS: METOPROLOL SUCCINATE EXT REL 25 MG TABCR PO (08:31)
[2020-04-28] MEDS: amLODIPine BESYLATE 5 MG TABLET 10 MG PO (08:31)
[2020-04-28] MEDS: PANTOPRAZOLE SODIUM IV 40 MG VIAL IV PUSH (08:32)
[2020-04-28 11:20] LABS: Glucose Point of Care 184 (65-105)
--- NOTE | 2020-04-28 11:59 | PM.DS ---
DS: Admitting Diagnosis Admitting Diagnosis Admitting Diagnosis: Colitis DS: Discharge Diagnosis Discharge Diagnosis (1) Colitis: Code(s): K52.9 - Noninfective gastroenteritis and colitis, unspecified Status: Acute Assessment and Plan: Evident on CT abdomen/pelvis of the descending and distal transverse colon. He had marked leukocytosis, therefore infectious etiology considered and he was started on IV Zosyn. He did not have diarrhea. Stool was Hemoccult positive in ED and FOBT positive. His leukocytosis slowly improved with antibiotics. He underwent colonoscopy on 04/27/[address] Ramos which showed mild localized colitis probably affecting 5 cm of the descending colon. He will continue p.o. Cipro and Flagyl for 3 more days as an outpatient to complete a full course. Stool cultures negative. Blood cultures negative. Diet was advanced and he was able to tolerate a regular diet. He will need a repeat colonoscopy in 5 years. (2) Esophagitis: Code(s): K20.90 - Esophagitis, unspecified without bleeding Status: Acute Assessment and Plan: Evident on CT scan. He noted an episode of black emesis prior to presentation. He complained of constant GERD symptoms, as well as occasional indigestion and nausea. He had EGD on 04/27/[address] Ramos which showed reflux esophagitis without evidence of bleeding. He will continue with Protonix 40 mg b.i.d. long-term as well as Carafate with meals for 2 weeks. NSAIDs should be avoided. Aspirin will be held for 1 week. Need repeat EGD in 4 months to assess for healing. Outpatient GI follow-up. (3) Acute hypokalemia: Code(s): E87.6 - Hypokalemia Status: Acute Assessment and Plan: Likely secondary to poor PO intake and nausea/vomiting, as well as bowel prep. Potassium was replaced and monitored closely. He will continue with 20 mEq KCl b.i.d. and repeat BMP in 1 week to monitor potassium levels. (4) Polycythemia: Code(s): D75.1 - Secondary polycythemia Status: Acute Assessment and Plan: Evident on presentation, likely due to hemoconcentration secondary to dehydration. H&H improved with IV fluid rehydration (5) Hypertension: Code(s): I10 - Essential (primary) hypertension Status: Inactive Assessment and Plan: Blood pressure reviewed and was generally well controlled. He did have a few readings were elevated far above target, requiring IV hydralazine which did improve BP. He is on a BP regimen including amlodipine, lisinopril, metoprolol, and hydrochlorothiazide. He should continue. I encouraged him to monitor his BP at home regularly and provide a log to his PCP for further adjustment. (6) Type 2 diabetes mellitus: Code(s): E11.9 - Type 2 diabetes mellitus without complications Status: Chronic Assessment and Plan: A1c is 5.4. Blood sugars evaluated and were well controlled today. Continue glimepiride (7) Coronary artery disease: Code(s): I25.10 - Atherosclerotic heart disease of [place] coronary artery without angina pectoris Status: Inactive Assessment and Plan: S/p coronary artery stent x1 approximately 1 year ago. Aspirin and Plavix held given suspected hematemesis. Plavix resumed upon discharge. Aspirin will be held for 1 further week and then be resumed. DS: Summary Hospital Course Reason for hospitalization: Nausea/vomiting Hospital Course: Date of admission: 04/23/2020 Date of discharge: 04/28/2020 Rob Bnaks is a 60-year-old male history of CAD, GERD, hyperlipidemia, hypertension, KOURTNEY, type 2 diabetes mellitus who presented to the emergency department on 04/23/2020 with complaints of hematemesis and GERD symptoms. Upon presentation to the emergency department, he was tachycardic and BP was elevated with additional vital signs stable, WBC was 24.2, hemoglobin 19.4, hematocrit 54.7, platelets 366, potassium low at 2.9 with add
--- NOTE | 2020-04-28 13:53 | WPDANESPN ---
Anes - Prog Note Post-Op Date/Time: 04/28/20 13:53 Cardiovascular status: normal Respiratory status: normal Airway patency: baseline Mental status: baseline Post-Op hydration status: normal Vital Signs: Last Vital Signs Temp 36.2 C L 04/28/20 06:00 Pulse 84 04/28/20 08:31 Resp 20 04/28/20 06:00 BP 149/69 H 04/28/20 06:00 Pulse Ox 98 04/28/20 06:00 Pain Score (VAS): 03/01 I/O: Intake & Output 04/27/20 04/28/20 04/28/20 23:59 07:59 15:59 Intake Total 1790 850 720 Output Total 1900 1000 Balance -110 -150 720 Laboratory Tests 04/28/20 05:01 04/28/20 05:01 04/27/20 04/27/20 04/28/20 18:57 20:56 05:01 WBC 12.9 H RBC 5.24 Hgb 15.4 Hct 43.9 MCV 83.8 MCH 29.4 MCHC 35.1 RDW 13.5 Plt Count 243 MPV 9.0 Sodium Potassium Chloride Carbon Dioxide Anion Gap BUN Creatinine Estim Creat Clear Calc Estimated GFR Glucose POC Capillary Glucose 156 H 123 H Calcium 04/28/20 04/28/20 04/28/20 05:01 07:52 11:17 WBC RBC Hgb Hct MCV MCH MCHC RDW Plt Count MPV Sodium 139 Potassium 3.2 L Chloride 105 Carbon Dioxide 28 Anion Gap 6 L BUN 17 Creatinine 1.20 Estim Creat Clear Calc 70 Estimated GFR > 60 Glucose 113 H POC Capillary Glucose 130 H 184 H Calcium 8.4 Microbiology 04/26/20 23:55 Stool Stool for WBCs - Final Post-procedural complaints: none Patient Feedback: Patient satisfied with anesthetic care.
== END 2020-04-28 14:02 | disposition home or self-care (01) | DRG 392 ==
LOC: ANHED 18:40 → ANH2MED 21:02
PROVIDERS: Internal Medicine Gastroenterology; Physician Assistant; Admitting Provider Family Medicine; Emergency Provider Emergency Medicine; PCP Internal Medicine; Visit Provider Internal Medicine
PROC: 0DJ08ZZ Inspection of Upper Intestinal Tract, Via Natural or Artificial Opening Endoscopic (ICD-10-PCS; CPT 43235; principal; 2020-04-27 11:30)
DX: K52.9 Noninfective gastroenteritis and colitis, unspecified (principal); K92.0 Hematemesis; K57.30 Diverticulosis of large intestine without perforation or abscess without bleeding; K63.5 Polyp of colon; K64.8 Other hemorrhoids; K21.00 Gastro-esophageal reflux disease with esophagitis, without bleeding; K29.70 Gastritis, unspecified, without bleeding; K44.9 Diaphragmatic hernia without obstruction or gangrene; G89.29 Other chronic pain; M54.9 Dorsalgia, unspecified; I25.10 Atherosclerotic heart disease of native coronary artery without angina pectoris; E78.5 Hyperlipidemia, unspecified; G47.33 Obstructive sleep apnea (adult) (pediatric); I10 Essential (primary) hypertension; E11.9 Type 2 diabetes mellitus without complications; D75.1 Secondary polycythemia; E87.6 Hypokalemia; Z79.82 Long term (current) use of aspirin; Z79.899 Other long term (current) drug therapy; Z87.891 Personal history of nicotine dependence; Z95.5 Presence of coronary angioplasty implant and graft
CPT/HCPCS: 36415; 74177; 80048; 80053; 81001; 82274; 82948; 83036; 83690; 83735; 85014; 85018; 85025; 85027; 87040; 87045; 87046; 87427; 88305; 89055; 94640; 96361; 96374; 99285; A9270; C9113; J0131; J0360; J2001; J2405; J2543; J2550; J2704; J3480; J7030; J7120; Q9967

== ENCOUNTER 2020-05-23 15:18 | Emergency (ER) | payer MEDICARE, MEDICAID, SELFPAY ==
[2020-05-23 15:19] VITALS: BP 159/94; PULSE 91; RESP 18; TEMP 36.2; O2SAT 99
--- NOTE | 2020-05-23 16:30 | ED.GENADULT ---
HPI - General Adult General Chief complaint: Skin/Abscess/Foreign Body Stated complaint: rash on face Time Seen by Provider: 05/23/20 15:37 History of Present Illness HPI narrative: Patient is a 60-year-old male who presents ER with rash to his face. On 05/19 started having discomfort in his left ear and face. He contacted his PCP yesterday who started him on antibiotic for an ear infection. Patient then started develop pain going into his forehead top of his head developed rash today. He also reports pressure behind his left eye for the last couple of days. No change in vision or hearing. He has noticed that his eyelid is starting to droop slightly on the left side. Patient has had chickenpox as a child. Related Data Home Medications Medication Instructions Recorded Confirmed Aspir-81 81 mg PO DAILY 04/23/20 04/23/20 amlodipine 10 mg PO DAILY 04/23/20 04/23/20 clonazepam 1 mg PO TID 04/23/20 04/23/20 clopidogrel 75 mg PO DAILY 04/23/20 04/23/20 fluticasone propion-salmeterol 1 inh INHALATION BID 04/23/20 04/23/20 glimepiride 2 mg PO DAILY 04/23/20 04/23/20 hydrocodone-acetaminophen 1 tablet PO TID PRN 04/23/20 04/23/20 lisinopril-hydrochlorothiazide 1 tablet PO DAILY 04/23/20 04/23/20 metoprolol succinate 25 mg PO DAILY 04/23/20 04/23/20 tizanidine 2 mg PO TID 04/23/20 04/23/20 lurasidone [Latuda] 120 mg PO QPM 04/25/20 04/25/20 Allergies Allergy/AdvReac Type Severity Reaction Status Date / Time indomethacin Allergy Unknown Unknown Verified 05/23/20 15:32 Review of Systems Review of Systems: All systems reviewed & are unremarkable except as noted in HPI and below Constitutional: Constitutional: Denies chills, Denies fever(s) and Denies weakness Eyes: Eyes: Denies change in vision and Denies photophobia Comments: Eye pain Gastrointestinal: Gastrointestinal: Denies nausea and Denies vomiting Integumentary/Breasts: Skin/Breast: Denies pruritus, Reports erythema and Reports rash [facility] Past Medical History Medical History (Updated 05/23/20 @ 17:32 by Leo Hermosillo MD) Abnormal CT scan, colon Anxiety Asthma Bipolar disorder Chronic back pain Coffee ground emesis Coronary artery disease Status post stent x1. Degenerative disc disease Gastroesophageal reflux disease Hypercholesterolemia Hypertension Leukocytosis Obstructive sleep apnea Does not use CPAP ?because I toss and turn? due to chronic back pain. Type 2 diabetes mellitus Surgical History Surgical History (Updated 04/23/20 @ 21:36 by Cherelle Lin PA-C) History of arthroscopy of left knee History of cholecystectomy History of heart artery stent Family History Family History Father Family history of congestive heart failure Sibling Family history of congestive heart failure Other Diabetes mellitus Family history of cardiovascular disease Family history of chronic obstructive pulmonary disease Family history of coronary artery disease Family history of kidney disease Family history of malignant neoplasm Family history of mental disorder Hypertension Social History Social History (Updated 04/23/20 @ 21:37 by Cherelle Lin PA-C) Social History: The patient lives in [place] with his and sister. He is on disability. Former cigarette smoker, quit about 25 years ago. Endorses smoking marijuana. No alcohol abuse. His , Carol Banks, as his surrogate decision maker. He wishes to be a full code. Smoking packs per day: 2 Smoking cigarettes per day: 40.0 Years smoked: 20 Smoking pack-years: 40.00 Smoking status: Former smoker Tobacco type: cigarettes Second hand tobacco smoke exposure: Yes Alcohol intake: never Substance use: never Substance use type: marijuana Spiritual care concerns: No Exam Narrative: Exam Narrative: GENERAL: Well-appearing, well-nourished, and in no acute distress. HEAD: Normocephalic, a
[2020-05-23 16:36] LABS: Basophils Absolute Auto 0.1 K/mm3 (0.0-0.1); Basophils Percent Auto 0.7 % (0.2-1.2); Eosinophils Percent Auto 0.2 % (0-4.4); Hematocrit 48.2 % (42.0-52.0); Immature Granulocyte Absolute 0.06 K/mm3 (0.00-0.031); Immature Granulocyte Percent A 0.5 % (0-0.5); Lymphocytes Absolute Auto 1.74 K/mm3 (0.9-3.2); Lymphocytes Percent Auto 14.7 % (18.3-44.2); Mean Corpuscular HGB Conc 35.3 g/dl (32-36); Mean Corpuscular Hemoglobin 29.3 pg (26-34); Mean Corpuscular Volume 83.1 fl (80-100); Monocytes Absolute Auto 0.7 K/mm3 (0.1-0.6); Monocytes Percent Auto 5.7 % (2.6-8.5); Neutrophils Absolute Auto 9.3 K/mm3 (1.3-6.7); Neutrophils Percent Auto 78.2 % (45.5-73.1); Platelet Count Result 213 k/mm3 (150-375); Red Cell Distribution Width 13.3 % (11.5-14.5); White Blood Count 11.9 K/mm3 (4.5-10.0)
[2020-05-23 16:58] LABS: Anion Gap 11 mmol/L (8-16); Blood Urea Nitrogen 13 mg/dL (9-20); Calcium 8.9 mg/dL (8.4-10.2); Carbon Dioxide 25 mmol/L (22-30); Chloride 101 mmol/L (98-107); Estimated CRCL calculation 116 ml/min; Estimated Glomerular Filt Rate > 60; Glucose 148 mg/dL (75-110); Potassium 3.4 mmol/L (3.4-5.0); Sodium 137 mmol/L (137-145)
== END 2020-05-23 17:47 | disposition home or self-care (01) ==
PROVIDERS: Emergency Provider Emergency Medicine; PCP Internal Medicine
DX: B02.9 Zoster without complications (principal); J45.909 Unspecified asthma, uncomplicated; E78.00 Pure hypercholesterolemia, unspecified; K21.9 Gastro-esophageal reflux disease without esophagitis; G47.33 Obstructive sleep apnea (adult) (pediatric); E11.9 Type 2 diabetes mellitus without complications; I25.10 Atherosclerotic heart disease of native coronary artery without angina pectoris; F31.9 Bipolar disorder, unspecified; F41.9 Anxiety disorder, unspecified; Z95.5 Presence of coronary angioplasty implant and graft; Z87.891 Personal history of nicotine dependence; Z79.84 Long term (current) use of oral hypoglycemic drugs
CPT/HCPCS: 36415; 80048; 85025; 99283

== ENCOUNTER 2022-05-24 11:30 | Outpatient (CLI) | payer MEDICARE, MEDICAID, SELFPAY ==
--- NOTE | ~2022-05-24 | XR_ITS ---
EXAMINATION: XR_RIBSBI_CR INDICATION: Bilateral lower rib pain TECHNIQUE: AP view of the chest and three views of the bilateral ribs are obtained. COMPARISON: None available FINDINGS: The lungs are free of acute opacities. No pleural effusion or pneumothorax. The cardiomedia stinal silhouette is normal. Calcified pulmonary nodules and calcified right hilar lymph nodes are co nsistent with old granulomatous disease. The visualized bones and soft tissues are unremarkable. No displaced rib fracture is identified. There is moderate osteoarthritis of the shoulders. IMPRESSION: 1. No acute cardiopulmonary abnormality or evidence of displaced rib fracture. Reviewed, dictated and finalized at location L.
--- NOTE | ~2022-05-24 | CT_ITS ---
EXAMINATION: CT thoracic spine wo con DATE: 05/24/2022 12:05 INDICATION: Back pain. TECHNIQUE: Computed tomography (CT) of the thoracic spine was performed without intravenous contrast. Automated exposure control and iterative reconstruction technique were employed. The dose-length pro duct was 1562.14 mGy-cm. COMPARISON: Thoracic spine CT 11/11/2019 FINDINGS: Calcified right hilar lymph nodes are consistent with old adenomatous disease. Calcificatio ns in the spleen are consistent with old granulomatous disease. Bone alignment is normal. There is mi ld chronic anterior wedging of T2, T3, T12, and L1 vertebral bodies. There is mildly decreased disc h eight at multiple levels. There is moderately decreased disc height from T3-T4 through T6-T7. There i s multilevel mild facet joint osteoarthritis. There is mild neural foraminal stenosis at multiple lev els bilaterally. No central canal stenosis in thoracic spine. IMPRESSION: 1. Moderate thoracic spondylosis. Reviewed, dictated and finalized at location A.
== END 2022-05-24 11:31 | disposition home or self-care (01) ==
PROVIDERS: PCP Internal Medicine
DX: R07.81 Pleurodynia (principal); M47.894 Other spondylosis, thoracic region
CPT/HCPCS: 71110; 72128

== ENCOUNTER 2022-05-26 09:25 | Outpatient (CLI) | payer MEDICARE, MEDICAID, SELFPAY ==
--- NOTE | ~2022-05-26 | NM_ITS ---
EXAMINATION: NM bone scan whole body DATE: 05/26/2022 13:09 INDICATION: Back pain TECHNIQUE: 25.6 mCi Tc-99m HDP was administered intravenously. Delayed whole-body scintigrams were o btained. COMPARISON: Thoracic spine CT and rib radiographs dated 05/24/2022 FINDINGS: Mild likely degenerative joint centered uptake at the bilateral acromioclavicular joints. Minimal lik cain enthesopathic uptake at the bilateral patellae. Otherwise physiologic distribution of bone and so ft tissue uptake. No abnormal uptake along the ribs or spine to explain reported back pain. IMPRESSION: 1. No abnormal uptake along the ribs or spine to explain reported back pain. Reviewed, dictated and finalized at location A.
== END 2022-05-26 09:26 | disposition home or self-care (01) ==
PROVIDERS: PCP Internal Medicine
DX: M54.9 Dorsalgia, unspecified (principal)
CPT/HCPCS: 78306; A9503

== ENCOUNTER → 2022-06-10 14:05 | Outpatient (CLI) | payer MEDICARE, MEDICAID, SELFPAY ==
--- NOTE | ~2022-06-10 | CT_ITS ---
Noncontrast CT scan of the lumbar spine CLINICAL HISTORY: Spondylosis TECHNIQUE: Axial noncontrast imaging of the lumbar spine was performed. Sagittal and coronal reformat thais images were constructed. Dose reduction technique was used on this scan by utilizing automated ex posure control and iterative reconstruction technique. The dose-length product (DLP) was 916.41 mGy-c m. FINDINGS: There is no fracture or subluxation of the lumbar spine. Vertebral bodies maintain normal h eight and alignment. There are probable Schmorl's nodes at the superior and inferior plates of L1. Th ere is moderate degenerative disc narrowing at L1-L2. Remaining disc spaces are relatively well-prese rved. At L1-L2, there is no disc bulge or herniation. There is minimal facet joint degenerative change. No spinal canal stenosis or definite neural foraminal narrowing. At L2-L3, there is no significant disc bulge or herniation. There is mild facet joint hypertrophy. No spinal canal stenosis or neural foraminal narrowing. At L3-L4, there is minimal disc bulge with moderate facet arthropathy. No spinal canal stenosis or de finite neural foraminal narrowing. At L4-L5, there is mild disc bulge and mild facet arthropathy. No spinal canal stenosis. There is mod erate left neural foraminal narrowing and probable minimal right neural foraminal narrowing. At L5-S1, there is no significant disc bulge or herniation. There is mild facet arthropathy. No spina l canal stenosis. There is moderate right neural foraminal narrowing and probable minimal left neural foraminal narrowing. Paravertebral soft tissues are unremarkable. Impression: Mild degenerative spondylosis, as above. Reviewed, dictated and finalized at location M. Impression: Mild degenerative spondylosis, as above.
== END ==
PROVIDERS: PCP Internal Medicine; Visit Provider Anesthesiology Pain Medicine
DX: M47.816 Spondylosis without myelopathy or radiculopathy, lumbar region (principal)
CPT/HCPCS: 72131

== ENCOUNTER → 2022-07-19 10:35 | Outpatient (CLI) | payer MEDICARE, MEDICAID, SELFPAY ==
--- NOTE | ~2022-07-19 | CT_ITS ---
EXAMINATION: CT cervical spine wo con DATE: 07/19/2022 10:58 INDICATION: Cervical radiculopathy. TECHNIQUE: Computed tomography (CT) of the cervical spine was performed without intravenous contrast. Automated exposure control and iterative reconstruction technique were employed. The dose-length pro duct was 307.74 mGy-cm. COMPARISON: Cervical spine CT 11/11/2019 FINDINGS: There is 3 degrees levocurvature of cervical spine. There is mild chronic anterior wedging of C5 and C6 vertebral bodies. There is mildly decreased disc height at C3-C4 and C4-C5, severely dec reased disc height at C5-C6, mildly decreased disc height at C6-C7 and C7-T1. The following disc leve ls are specifically discussed: C2-C3: There is severe right uncovertebral joint osteoarthritis. There is severe right and mild left facet joint osteoarthritis. There is moderate right neural foraminal stenosis. There is mild central canal stenosis. C3-C4: There is moderate bilateral uncovertebral joint osteoarthritis. There is moderate right and se aggie left facet joint osteoarthritis. There is mild bilateral neural foraminal stenosis. There is mil d central canal stenosis. C4-C5: There is mild right and severe left uncovertebral joint osteoarthritis. There is mild right an d severe left facet joint osteoarthritis. There is mild bilateral neural foraminal stenosis. There is mild central canal stenosis. C5-C6: There is severe bilateral uncovertebral joint osteoarthritis. There is mild bilateral facet ericka int osteoarthritis. There is mild bilateral neural foraminal stenosis. There is mild central canal st enosis. C6-C7: There is mild bilateral uncovertebral joint osteoarthritis. There is moderate right and mild l eft facet joint osteoarthritis. There is mild right neural foraminal stenosis. There is mild central canal stenosis. C7-T1: There is no uncovertebral joint osteoarthritis. There is moderate right and mild left facet ericka int osteoarthritis. There is no neural foraminal stenosis. There is no central canal stenosis. IMPRESSION: 1. Severe cervical spondylosis, stable from 11/11/2019. Reviewed, dictated and finalized at location L.
== END ==
PROVIDERS: PCP Internal Medicine; Visit Provider Nurse Practitioner Family
DX: M47.22 Other spondylosis with radiculopathy, cervical region (principal)
CPT/HCPCS: 72125

== ENCOUNTER 2022-10-10 08:10 | Outpatient (CLI) | payer MEDICARE, MEDICAID, SELFPAY ==
--- NOTE | 2022-10-10 08:25 | ECG_ITS ---
Measurements Intervals Rachel Rate: 59 P: 60 IN: 161 QRS: 55 QRSD: 114 T: 47 QT: 446 QTc: 445 Interpretive Statements SINUS BRADYCARDIA MILD NONSPECIFIC T-WAVE ABNORMALITY BORDERLINE ECG NO PREVIOUS ECG AVAILABLE FOR COMPARISON Electronically Signed On 10-10-2022 12:06:12 CDT by Terrance West M.D.
[2022-10-10 09:28] LABS: Anion Gap 10 mmol/L (8-16); Blood Urea Nitrogen 14 mg/dL (9-20); Calcium 9.2 mg/dL (8.4-10.2); Carbon Dioxide 30 mmol/L (22-30); Chloride 90 mmol/L (98-107); Estimated Glomerular Filt Rate > 60; Glucose 106 mg/dL (65-110); Potassium 3.9 mmol/L (3.4-5.0); Sodium 130 mmol/L (137-145)
== END 2022-10-10 08:11 | disposition home or self-care (01) ==
LOC: ANHSURGERY 08:18
PROVIDERS: Anesthesiology; PCP Internal Medicine; Visit Provider Surgery
DX: E11.9 Type 2 diabetes mellitus without complications (principal); K40.90 Unilateral inguinal hernia, without obstruction or gangrene, not specified as recurrent; I10 Essential (primary) hypertension; Z01.818 Encounter for other preprocedural examination; R94.31 Abnormal electrocardiogram [ECG] [EKG]
CPT/HCPCS: 36415; 80048; 86850; 86900; 86901; 93005

== ENCOUNTER 2022-10-14 01:17 | Day surgery (SDC) | payer MEDICARE, MEDICAID, SELFPAY ==
[2022-10-07 11:56] VITALS: BMI 32.2
--- NOTE | 2022-10-07 12:25 | PC.NURSE ---
Report to the Outpatient Waiting Room, entrance under the green pavilion located off [facility], at time _8:00AM on date __10/14/22 . Planned Procedure Time: __10:00AM . Time changes happen often and if your time is changed the preop area will call you the afternoon before. - You and your visitor will be asked to self-screen and do not enter if you have any COVID symptoms. - A mask is optional within the hospital at this time. Patients may have clear liquids (water, carbonated beverages, clear teas, apple juice) until 3 hours prior to surgery with a maximum of 20 ounces. - No food from midnight until time of surgery. Take the following medications with a SIP of water the morning of surgery: __ADVAIR DISCUS, AMLODIPINE, CLONAZEPAM, METOPROLOL DO NOT STOP ANY OF YOUR OTHER PRESCRIPTION MEDICATIONS PRIOR TO SURGERY ?EXCEPT THE FOLLOWING Medications to discontinue per physician __HOLD PLAVIX AND ASPIRIN PER DR HILLIARD. (PT INSTRUCTED TO CALL OFFICE IF UNSURE. HE RELAYS UNDERSTANDING.) Please no make-up, nail monegasque, hairspray, perfume, deodorant, or body powder the day of surgery. No jewelry (including any body piercings) or valuables the day of surgery, leave them at home. Please take a shower or bath the night before, or the morning of, surgery with an antibacterial soap. Wear comfortable, loose fitting clothing. - Jewelry must be removed prior to entering the operating room. Rings and piercings that are not removed may be cut off. - The hospital will not accept responsibility for valuables. - Please leave all valuables, including medications, at home the day of surgery. If you are going home after surgery, a licensed transportation driver must drive you home. - NO public transportation without another adult if you receive anesthesia. - We recommend that an adult stay with you for 24 hours following discharge. - We also recommend that you do not drive, make important decision, drink alcoholic beverages, or take any drugs that were not prescribed by your health care provider for at least 24 hours after your discharge time. Follow any additional instructions given to you from your surgeon. If you or anyone in your household have experienced Covid symptoms in the past week, please notify your surgeon or the nurse liaison at the phone number below for possible testing. Telephone instructions given to __PATIENT and asked if any additional questions and then verbalized understanding. Patient advised to call surgeon office or pre surgery nurse liaison [phone] if any additional questions.
[2022-10-14] VITALS (10 sets, daily range): BP systolic 104–152; BP diastolic 58–86; PULSE 64–89; RESP 16–20; TEMP 36.1–36.6; O2SAT 93–100
[2022-10-14] MEDS: ACETAMINOPHEN 500 MG TABLET 1000 MG PO (08:35)
[2022-10-14 08:51] LABS: Glucose Point of Care 129 mg/dl (65-105)
[2022-10-14] MEDS: KETOROLAC 15 MG/ML VIAL (*BKC) IV PUSH ×2 (08:55→13:18)
[2022-10-14 08:59] LABS: Sodium 134 mmol/L (137-145)
--- NOTE | 2022-10-14 09:04 | PM.IMHP ---
H&P: HPI History of Present Illness Date/Time: 10/14/22 09:04 Chief Complaint: Left inguinal hernia Narrative: Rob is a 62 y/o male who presents with bilateral groin pain at the request of Dr. Casper. He states his symptoms have been intermittent for many years but has worsened recently. It is more tender with pressure. There is an old CT abdomen pelvis w con on 04/23/20 which showed a fat-containing left inguinal hernia is noted. He had an open right inguinal hernia repair by Dr. Krishna about 25 years ago. [facility] Medical History? Abnormal CT scan, colon Anxiety Asthma Bipolar disorder Chronic back pain Coffee ground emesis Coronary artery disease Status post stent x1.Degenerative disc disease Gastroesophageal reflux disease Hypercholesterolemia Hypertension Leukocytosis Obstructive sleep apnea Does not use CPAP ?because I toss and turn? due to chronic back pain.Type 2 diabetes mellitus Surgical History? History of arthroscopy of left knee History of cholecystectomy History of heart artery stent Family History? Father Family history of congestive heart failureSibling Family history of congestive heart failureOther Diabetes mellitus Family history of cardiovascular disease Family history of chronic obstructive pulmonary disease Family history of coronary artery disease Family history of kidney disease Family history of malignant neoplasm Family history of mental disorder Hypertension Social History?(Updated 09/14/22 @ 13:56 by Evita Sutton MA) Social History:? The patient lives in [place] with his and sister.? He is on disability.? Former cigarette smoker, quit about 25 years ago.? Endorses smoking marijuana.? No alcohol abuse.? His , Carol Banks, as his surrogate decision maker.? He wishes to be a full code. Smoking packs per day:? 2 Smoking cigarettes per day:? 40.0 Years smoked:? 20 Smoking pack-years:? 40.00 Smoking status:? Former smoker Tobacco type:? cigarettes Second hand tobacco smoke exposure:? Yes Alcohol intake:? never Substance use:? current Substance use type:? marijuana Lack of Transportation:? No Lack of Food:? Never True Current Housing:? I Have Housing Concerned About Future Housing:? No Difficulty Paying Gas/Electric Bills:? No Difficulty Paying for Meds:? No Currently Unemployed:? No Education:? High School Diploma/GED Difficulty w/ Childcare or Family Care:? No Gender identity (if verbalized by the patient):? Male Spiritual care concerns:? No Intake Vital Signs ? 09/13/2309:53 Height 1.75 m Height (Inches) 69 Weight 101.321 kg Weight (Lbs) 223 lbs., 6 oz. BMI 33.0 BP 142/90 H Blood Pressure Location Lt brachial Position Sitting Respiration 16 Pulse 70 Pulse Source Monitor Temp 36.7 C Temp Source Tympanic Pulse Oximetry (%) 97 Oxygen Delivery Method Room Air Visit Reasons:?Hernia Allergies/Adverse Reactions indomethacin Allergy (Unknown, Verified 09/14/22 13:59) Unknown Preferred laboratory: Other ([facility]) Pre-Planning preparation?: Yes Review of Systems Const All systems reviewed & are unremarkable except as noted in HPI and below Denies chills, Denies fever(s), Denies headache(s) and Denies weight loss Eyes Denies change in vision and Denies loss of vision ENT Reports Normal hearing present, Denies headache(s), Denies neck pain and Denies throat swelling Card Denies chest pain and Denies dyspnea Resp Denies cough, Denies dyspnea and Denies wheezing Denies hematuria and Denies difficulty urinating Musc Denies arthralgias, Denies joint swelling and Denies neck pain Neuro Reports Normal hearing present, Denies headache(s) and Denies loss of vision Aller/ Immun Denies throat swelling and Denies wheezing Exam Exam Const General: no acute distress and alert Orientation/Consciousness: oriented
--- NOTE | 2022-10-14 09:10 | WPDHPUPDATE1 ---
History and Physical Update Update Date/Time: 10/14/22 09:10 History and Physical has been reviewed, including an updated exam of the patient. There are NO changes in the patient's condition. Risks, benefits, and alternatives have been discussed and questions answered. Patient agrees to proceed with procedure.
--- NOTE | 2022-10-14 09:17 | WPDANESEPPF ---
Anes - Initial Pre Proc Eval Procedure: Operation Date: 10/14/22 10:00 Proposed Procedures p Robotic Assisted Laparoscopic Left Inguinal Hernia Repair with Mesh, Possible Right Inguinal Hernia Repair, Possible Open - Hussein White MD Date/Time: 10/14/22 09:17 Surgeon: Hussein White MD Pre Op Diagnosis: Reducible Lt Ing Hernia Patient Data Age: 62 Gender: M Height: 1.75 m Weight: 95.1 kg Last Vital Signs Temp 36.1 C L 10/14/22 08:16 Pulse 64 10/14/22 08:16 Resp 16 10/14/22 08:16 BP 138/70 10/14/22 08:16 Pulse Ox 98 10/14/22 08:16 O2 Del Method Room Air 10/14/22 08:16 Allergies Allergy/AdvReac Type Severity Reaction Status Date / Time indomethacin AdvReac Mild Nausea Verified 10/14/22 08:19 Home Medications Medication Instructions Recorded Confirmed Type amlodipine 10 mg tablet 10 mg PO QAM 04/23/20 10/14/22 History clopidogrel 75 mg tablet 75 mg PO DAILY 04/23/20 10/14/22 History lisinopril 20 1 tablet PO QAM 04/23/20 10/07/22 History mg-hydrochlorothiazide 12.5 mg tablet metoprolol succinate 25 mg 25 mg PO QAM 04/23/20 10/14/22 History tablet,extended release 24 hr atorvastatin 20 mg tablet 20 mg PO DAILY 03/02/22 10/07/22 History cyclobenzaprine 10 mg tablet 10 mg PO HS 09/14/22 10/07/22 History aspirin 81 mg tablet,delayed 81 mg PO DAILY 10/07/22 10/07/22 History release azelastine 137 mcg (0.1 %) nasal 2 spray intranasal BID 10/07/22 10/07/22 History spray aerosol escitalopram oxalate 10 mg tablet 10 mg PO HS 10/07/22 10/07/22 History fluticasone 250 mcg-salmeterol 50 1 ea inhalation BID 10/07/22 10/14/22 History mcg/dose blistr powdr for inhalation gabapentin 300 mg capsule 900 mg PO HS 10/07/22 10/07/22 History glimepiride 2 mg tablet 2 mg PO BID 10/07/22 10/07/22 History loratadine 10 mg tablet (Claritin) 10 mg PO DAILY 10/07/22 10/07/22 History lumateperone 42 mg capsule 42 mg PO QACDINNER 10/07/22 10/07/22 History (Caplyta) meloxicam 15 mg tablet 15 mg PO DAILY 10/07/22 10/07/22 History metformin 500 mg tablet,extended 1,000 mg PO BID 10/07/22 10/07/22 History release 24 hr montelukast 10 mg tablet 10 mg PO DAILY 10/07/22 10/07/22 History pantoprazole 40 mg tablet,delayed 40 mg PO BID 10/07/22 10/07/22 History release potassium chloride 20 mEq 40 meq PO DAILY 10/07/22 10/07/22 History tablet,extended release (K-Tab) clonazepam 1 mg tablet 1 mg PO TID #90 tabs 10/11/22 10/14/22 Rx Laboratory Tests 10/14/22 10/14/22 08:44 08:47 Sodium 134 L mmol/L (137-145) POC Capillary Glucose 129 H mg/dl (65-105) Patient hx anesthesia problems: post op nausea/vomiting Family hx anesthesia problems: none Results Review: All pre-operative results and documents have been reviewed as part of the pre-operative evaluation. [facility] Past Medical History Medical History Abnormal CT scan, colon Anxiety Asthma Bipolar disorder Chronic back pain Coffee ground emesis Coronary artery disease Status post stent x1. Degenerative disc disease Gastroesophageal reflux disease Hypercholesterolemia Hypertension Leukocytosis Obstructive sleep apnea Does not use CPAP ?because I toss and turn? due to chronic back pain. Type 2 diabetes mellitus Surgical History Surgical History History of arthroscopy of left knee History of cholecystectomy History of heart artery stent Family History Family History Father Family history of congestive heart failure Sibling Family history of congestive heart failure Other Diabetes mellitus Family history of cardiovascular disease Family history of chronic obstructive pulmonary disease Family history of coronary artery disease Family history of kidney disease Family history of malignant neoplasm Family history of mental disorde
[2022-10-14] MEDS: SCOPOLAMINE 1.5 MG PATCH TRANSDERM (09:29)
[2022-10-14] MEDS: LACTATED RINGERS 1,000 ML 30 ML IV CONT ×2 (09:31→13:57)
[2022-10-14] MEDS: ceFAZolin 2 GM/D5W 50 ML 2 GM/50 ML BAG IVPB (10:52)
[2022-10-14] MEDS: BUPivacaine HCL 0.5% 10 ML AMP 15 ML INFILTRATE (11:43)
[2022-10-14] MEDS: LIDO 1%/EPINEPHRINE 1:100,000 50 ML VIAL 15 ML INFILTRATE (11:45)
--- NOTE | 2022-10-14 13:51 | W.PM.PROC2 ---
Procedure Note - Detailed Date of Procedure 10/14/22 Pre-op Diagnosis Reducible Lt Ing Hernia Post-op Diagnosis Other (Reducible primary pantaloon LIH, reducible recurrent indirect RIH) Procedure Performed Robotic assisted laparoscopic recurrent right inguinal hernia repair with Bard 3D mid weight mesh Robotic assisted laparoscopic primary reducible left inguinal hernia with Bard 3D mid weight mesh. Surgeon Hussein White MD Coffee Grower Rob ARRIOLA Anesthesia General Indications Patient is a year-old gentleman who presented with pain and bulge in the left groin region. He had a prior open right inguinal hernia repair by Dr. Krishna several years ago. He complains of having pain in the right groin again although no hernia could be appreciated on physical examination. He presents now for robotic assisted laparoscopic left inguinal hernia repair with mesh with possible repair of the right inguinal hernia there is recurrent hernia. Findings In the right groin there was a small recurrent right inguinal hernia that was indirect. In the direct space there was the old mesh which appeared to have a pre peritoneal component which had clam shelled and essentially formed a plug. This may have caused the patient's chronic right inguinal pain. On the left side there was a large pantaloon left inguinal hernia without any incarcerated contents. The direct component was much larger than the indirect component. Description of Procedure After informed consent was obtained patient was brought to the operating room was placed supine position and then general endotracheal anesthesia was administered. The bilateral groin regions in the abdomen was then prepped and draped usual sterile fashion. A Rodriguez catheter was placed prior to prepping the abdomen and groins. A time-out was then performed correctly identifying the patient as well as the procedure to be performed and verifying the site marking on the left side. Was given perioperative IV antibiotics. I then started by gaining access in the abdomen by placing a 10mm left upper quadrant Optiview port with a direct optical insertion. Once inside the abdomen insufflated to adequate pneumoperitoneum of 15mmHg of CO2. Looking in the bilateral groin regions I could see there was a small recurrent indirect right inguinal hernia. On the left side there was a pantaloon left inguinal hernia with a larger direct component than the indirect component. The hernia did not have any incarcerated contents. I then placed additional robotic trocar ports across the midportion of the abdomen under direct visualization. The Smartzer robot was then brought to the patient's bedside and was docked to the ports. Robotic instruments were then advanced into the abdomen direct visualization denies scrubbed out the procedure and site down the robotic console to perform to perform the dissection robotically. Since this is going to be a bilateral repair I decided to make 1. Preperitoneal flap across the lower abdomen. I started superior and just medial to the right anterior superior iliac spine and brought across the midline to the left side at the same level. Dissect the preperitoneal space in the midline and dropped the bladder off of the anterior abdominal wall until I identified the pubic symphysis. I then went laterally to the right side and identified adhesions of fatty tissue to what appeared to be a preperitoneal component to the old mesh which appear to have folded upon itself forming a clamshell configuration. This portion of the old mesh was resected with electrocautery and removed from the abdomen discarded. As I continued my dissection laterally I then identified the cord structures and the internal ring and also identified a moderate-sized cord lipoma. The cord lipoma was dissected free of the cord structures and then removed from the abdomen as well. The the preperitoneal flap was developed proximally all the way up to the psoas muscle a
[2022-10-14 14:05] LABS: Glucose Point of Care 157 mg/dl (65-105)
[2022-10-14] MEDS: fentaNYL CITRATE INJ (*CRX) 100 MCG/2 ML VIAL 25 MCG IV PUSH ×2 (14:35→14:44)
[2022-10-14] MEDS: oxyCODONE HCL (*CRX) 5 MG TAB IR PO (15:16)
== END 2022-10-14 16:00 | disposition home or self-care (01) ==
PROVIDERS: Anesthesiology; PCP Internal Medicine; Visit Provider Surgery
PROC: 8E0Y4CZ Robotic Assisted Procedure of Lower Extremity, Percutaneous Endoscopic Approach (ICD-10-PCS; CPT 49650; principal; 2022-10-14 10:00)
DX: K40.90 Unilateral inguinal hernia, without obstruction or gangrene, not specified as recurrent (principal); K40.91 Unilateral inguinal hernia, without obstruction or gangrene, recurrent; I25.10 Atherosclerotic heart disease of native coronary artery without angina pectoris; I10 Essential (primary) hypertension; E78.00 Pure hypercholesterolemia, unspecified; E11.9 Type 2 diabetes mellitus without complications; G47.33 Obstructive sleep apnea (adult) (pediatric); J45.909 Unspecified asthma, uncomplicated; F41.9 Anxiety disorder, unspecified; K21.9 Gastro-esophageal reflux disease without esophagitis; Z95.5 Presence of coronary angioplasty implant and graft; Z87.891 Personal history of nicotine dependence; F12.90 Cannabis use, unspecified, uncomplicated; E66.9 Obesity, unspecified; Z68.31 Body mass index [BMI] 31.0-31.9, adult; Z79.82 Long term (current) use of aspirin; Z79.84 Long term (current) use of oral hypoglycemic drugs
CPT/HCPCS: 49651; 49650; S2900; 36415; 82948; 84295; A9270; C1781; J0690; J1100; J1170; J1885; J2250; J2405; J2704; J3010; J7120

== ENCOUNTER 2023-03-21 15:37 | Inpatient (IN) | payer MEDICARE, MEDICAID, SELFPAY ==
[2023-03-21] VITALS (26 sets, daily range): BP systolic 134–206; BP diastolic 60–100; PULSE 79–101; RESP 17–29; TEMP 36.6–36.9; O2SAT 87–100
--- NOTE | ~2023-03-21 | CT_ITS ---
EXAMINATION: CT abdomen pelvis w con DATE: 03/21/2023 18:51 INDICATION: RLQ pain, N/V/D TECHNIQUE: Computed tomography (CT) of the abdomen and pelvis was performed 04/23/2020 intravenous cont rast. Automated exposure control and iterative reconstruction technique were employed. The dose-lengt h product was 1160.40 mGy-cm. COMPARISON: 04/23/2020. FINDINGS: Lower thorax: Stable 3 mm right lower lobe opacity, likely granuloma. Coronary artery calcifications. Calcified granuloma/hamartoma in the peripheral right lower lobe. Liver: Enlarged. Nodular liver border. Biliary/Gallbladder: Gallbladder is absent. No bile duct dilation. Pancreas: No mass or duct dilation. Spleen: Normal. Adrenals:No mass. Kidneys: No suspicious mass, obstructing stone, or hydronephrosis. Multiple simple left renal cysts. GI tract: Mild distal esophageal and gastric wall edema. No small or large bowel dilation. Normal margo endix. Diverticulosis without diverticulitis. Mesentery/Peritoneum: No ascites, mass, or free air. Retroperitoneum: No mass. Pelvis: Pelvic organs are within normal limits. Soft Tissues: Right internal hernia repair. Uncomplicated small fat-containing left inguinal hernia. Bones: No acute osseous finding. IMPRESSION: Hepatomegaly with cirrhotic changes. Mild esophagitis/gastritis. Otherwise, no acute abdominopelvic process detected. Reviewed, dictated and finalized at location K. HOUSE RECEIVING SUPERVISOR
--- NOTE | ~2023-03-21 | CT_ITS ---
EXAMINATION: CT brain wo con DATE: 03/21/2023 18:45 INDICATION: ams . TECHNIQUE: Computed tomography (CT) of the head was performed without intravenous contrast. The mA wa s adjusted according to patient size. Iterative reconstruction technique was employed. The dose-lengt h product was 908.00 mGy-cm. COMPARISON: None. FINDINGS: No acute intracranial hemorrhage or extra-axial fluid collection. No hydrocephalus, mass, or herniation. No acute ischemic infarct. Unremarkable dural venous sinus attenuation. No acute osseous abnormality. Ethmoid mucosal thickening. Air-fluid level with aerated secretions in the left maxillary sinus, the remaining aerated spaces are clear. Focal encephalomalacia, likely old lacunar infarcts in the right posterior external capsule. IMPRESSION: No acute intracranial process. Left maxillary sinus findings may represent acute sinusitis in the appropriate clinical context. Reviewed, dictated and finalized at location K. ET PRESS OPERATOR HELPER
--- NOTE | ~2023-03-21 | XR_ITS ---
EXAMINATION: XR chest 2V Exam Date/Time: 03/21/2023 19:30 CYTOLOGY SUPERVISOR HISTORY: leukocytosis, lactic acidosis Comparison: 09/26/2010. RESULT: Lines, tubes, and devices: None. Lungs and pleura: Clear. Cardiomediastinal silhouette: Stable. Other: No acute osseous or upper abdominal finding. IMPRESSION: No acute cardiopulmonary process. Reviewed, dictated and finalized at location K. LOGY SUPERVISOR
--- NOTE | 2023-03-21 16:49 | ED.NAVMDI ---
HPI - Nausea/Vomiting/Diarrhea General Chief complaint: Nausea/Vomiting/Diarrhea <Asha Angel PA-C - Last Filed: 03/21/23 17:04> Stated complaint: vomiting <Asha Angel PA-C - Last Filed: 03/21/23 17:04> Time Seen by Provider: 03/21/23 16:45 <Asha Angel PA-C - Last Filed: 03/21/23 17:04> Focused HPI: Patient is a 63 y/o male who presents to the ED via EMS with report of N/V. Patient reports sx's began yesterday. He was seen at [facility] yesterday and discharged. States sx's have since continued. Unable to keep down any food or drink. Reports lower abdominal pain, diarrhea, oliguria, subjective fevers. Denies rectal bleeding, melena. States has been sick, but unsure what symptoms she has had. GENERAL: Ill-appearing, pale, actively vomiting in ED bed. HEAD: Normocephalic, atraumatic. CHEST: Clear to auscultation. ?No respiratory distress. HEART: Tachycardic with regular rhythm.? ABDOMEN: Soft, nondistended, tender in RLQ/RUQ. SKIN: Diaphorectic. NEURO: ?Alert. Confused, unsure of name or location. Patient screened in triage and initial orders placed.? ?Additional care and disposition to be based upon?diagnostic testing and treatment. <Asha Angel PA-C - Last Filed: 03/21/23 17:04> Related Data Home medications: Home Medications Medication Instructions Recorded Confirmed amlodipine 10 mg tablet 10 mg PO QAM 04/23/20 10/14/22 clopidogrel 75 mg tablet 75 mg PO DAILY 04/23/20 10/14/22 lisinopril 20 1 tablet PO QAM 04/23/20 10/07/22 mg-hydrochlorothiazide 12.5 mg tablet metoprolol succinate 25 mg 25 mg PO QAM 04/23/20 10/14/22 tablet,extended release 24 hr atorvastatin 20 mg tablet 20 mg PO DAILY 03/02/22 10/07/22 cyclobenzaprine 10 mg tablet 10 mg PO HS 09/14/22 10/07/22 aspirin 81 mg tablet,delayed 81 mg PO DAILY 10/07/22 10/07/22 release azelastine 137 mcg (0.1 %) nasal 2 spray intranasal BID 10/07/22 10/07/22 spray aerosol escitalopram oxalate 10 mg tablet 10 mg PO HS 10/07/22 10/07/22 fluticasone 250 mcg-salmeterol 50 1 ea inhalation BID 10/07/22 10/14/22 mcg/dose blistr powdr for inhalation gabapentin 300 mg capsule 900 mg PO HS 10/07/22 10/07/22 glimepiride 2 mg tablet 2 mg PO BID 10/07/22 10/07/22 loratadine 10 mg tablet (Claritin) 10 mg PO DAILY 10/07/22 10/07/22 lumateperone 42 mg capsule 42 mg PO QACDINNER 10/07/22 10/07/22 (Caplyta) meloxicam 15 mg tablet 15 mg PO DAILY 10/07/22 10/07/22 metformin 500 mg tablet,extended 1,000 mg PO BID 10/07/22 10/07/22 release 24 hr montelukast 10 mg tablet 10 mg PO DAILY 10/07/22 10/07/22 pantoprazole 40 mg tablet,delayed 40 mg PO BID 10/07/22 10/07/22 release potassium chloride 20 mEq 40 meq PO DAILY 10/07/22 10/07/22 tablet,extended release (K-Tab) <Asha Angel PA-C - Last Filed: 03/21/23 17:04> Allergies/Adverse reactions: Allergies Allergy/AdvReac Type Severity Reaction Status Date / Time indomethacin AdvReac Mild Nausea Verified 10/14/22 08:19 <KACEY Andersen Last Filed: 03/21/23 17:04> Review of Systems Review of Systems: CONSTITUTIONAL: Denies fever ENT: Reports congestion CARDIOVASCULAR: Denies chest pain RESPIRATORY: Reports cough and dyspnea. GASTROINTESTINAL: Reports abdominal pain, nausea, vomiting <KACEY Hassan Last Filed: 03/21/23 23:05> All systems reviewed & are unremarkable except as noted in HPI and below <KACEY Hassan Last Filed: 03/21/23 23:05> PMFSH Past Medical History Medical History: Medical History Abnormal CT scan, colon Anxiety Asthma Bipolar disorder Chronic back pain Coffee ground emesis Coronary artery disease Status post stent x1. Degenerative disc disease Gastroesophageal reflux disease Hypercholesterolemia Hypertension Leukocytosis Obstructive sleep apnea Does not use CPAP ?traci
--- NOTE | 2023-03-21 16:50 | ECG_ITS ---
Measurements Intervals [place] Rate: 84 P: 70 DE: 154 QRS: 62 QRSD: 109 T: 67 QT: 416 QTc: 495 Interpretive Statements SINUS RHYTHM NONSPECIFIC ST & T-WAVE ABNORMALITY- DIFFUSE LEADS BASELINE ARTIFACT- I, III, AVL, V3-V4 BORDERLINE ECG COMPARED TO ECG 10/10/2022 08:49:55 SINUS RHYTHM NOW PRESENT Electronically Signed On 03-21-2023 20:29:30 SALESPERSON [employer] by Demian Colindres D.O.
[2023-03-21] MEDS: ONDANSETRON INJ 4 MG/2 ML VIAL IV PUSH (17:25)
[2023-03-21] MEDS: SODIUM CHLORIDE 0.9% IV 1,000 ML 999 ML IV CONT ×2 (17:26→18:18)
[2023-03-21 17:28] LABS: Hemoglobin 17.7 g/dL (14.0-18.0); Mean Corpuscular HGB Conc 34.7 g/dl (32-36); Mean Corpuscular Hemoglobin 29.1 pg (26-34); Mean Corpuscular Volume 83.9 fl (80-100); Mean Platelet Volume 8.9 fl (7.4-10.4); Platelet Count Result 362 k/mm3 (150-375); Red Blood Count 6.08 M/mm3 (4.6-6.20); Red Cell Distribution Width 13.2 % (11.5-14.5)
--- NOTE | 2023-03-21 17:34 | PC.NURSE ---
pt provided with mouth swab and water. pt states he is unable to use it because his muscles are atrophied. pt was able to hold emesis bag to mouth and reposition himself on stretcher without help.
[2023-03-21 17:37] LABS: Prothrombin Time 13.1 Seconds (11.1-14.7)
[2023-03-21 17:38] LABS: Partial Thromboplastin Time 27.8 SECONDS (22.3-36.8)
[2023-03-21 17:43] LABS: Lactic Acid Reflex 4.1 mmol/L (0.7-2.0)
[2023-03-21 17:44] LABS: Alanine Aminotransferase 65 U/L (6-50); Albumin Level 5.2 g/dL (3.5-5.1); Alkaline Phosphatase 142 U/L (38-126); Anion Gap 18 mmol/L (8-16); Aspartate Amino Transferase 52 U/L (17-59); Bilirubin,Total 1.4 mg/dL (0.2-1.3); Blood Urea Nitrogen 16 mg/dL (9-20); Calcium 10.1 mg/dL (8.4-10.2); Carbon Dioxide 25 mmol/L (22-30); Chloride 95 mmol/L (98-107); Creatine Kinase 75 U/L (55-170); Estimated Glomerular Filt Rate > 60; Glucose 322 mg/dL (65-110); Lipase 130 U/L (23-300); Magnesium 2.2 mg/dL (1.6-2.3); Potassium 3.2 mmol/L (3.4-5.0); Sodium 138 mmol/L (137-145)
[2023-03-21 17:52] LABS: Alveolar/Arterial O2 Gradient 27.2 mmHg; Base Excess ABG 2.5 mEq/l (+/-2.0); Carboxyhemoglobin 0.9 % THb (0-2.0); Fractional Inspired Oxygen 21 %; HCO3 ABG 20.5 mEq/l (22.0-26.0); Methemoglobin ABG 0.5 %THb (0-1.5); Oxygen Content ABG 23.5 %vol (16.0-22.0); Oxygen Saturation ABG 98.5 % (95.0-100.0); Oxyhemoglobin 96.6 % THb (90.0-100.0); PO2 ABG 98.8 mmHg (80.0-100.0); Total Hemoglobin 17.3 g/dL (12.0-18.0)
[2023-03-21 17:54] LABS: pH ABG 7.633 (7.350-7.450)
[2023-03-21 17:55] LABS: PCO2 ABG 19.8 mmHg (35.0-45.0); Site Drawn RIGHT RADIAL
[2023-03-21 17:56] LABS: Device ROOM AIR; Modified Allen's Test Pass
[2023-03-21 17:58] LABS: Band Neutrophils Percent 1 % (0-6); Monocytes Absolute Manual 0.52 K/mm3 (0.1-0.90); Monocytes Percent Manual 2 % (3-9); Neutrophils Absolute Manual 22.88 K/mm3 (1.3-6.7); Neutrophils Percent Manual 87 % (46-73); Platelet Estimate Adequate (Adequate); Total Cells Counted 100
[2023-03-21 17:59] LABS: Schistocytes None Seen (NORMAL)
[2023-03-21 18:03] LABS: Influenza A QL RT-PCR Negative (Negative); Influenza B QL RT-PCR Negative (Negative); RSV RNA, RT-PCR Negative (Negative); SARS-CoV-2 RNA PCR Negative (Negative)
[2023-03-21] MEDS: POTASSIUM CHLORIDE INJ 40 MEQ in SODIUM CHLORIDE 0.9% IV 500 ML 130 MEQ IVPB (18:19)
[2023-03-21 18:33] LABS: Beta-Hydroxybutyrate/Acetoacetate 1.89 mmol/L (0.02-0.27)
--- NOTE | 2023-03-21 19:26 | PC.NURSE ---
Pt was yelling out at 1900, yelling someone help me .. This RN entered the pts room, IV catheter was dislodged, pts hand was bleeding, and IV fluids were running and all over the floor. Pt was not following directions and was stating I need ice chips, my lips are so dry .
[2023-03-21 19:38] LABS: Ethanol < 10 mg/dL (<10)
[2023-03-21] MEDS: PANTOPRAZOLE SODIUM IV 40 MG VIAL IV PUSH (20:05)
[2023-03-21 20:24] LABS: Reflex Lactic Acid Yes or No Add Lactic
[2023-03-21 20:32] LABS: Appearance Urine Clear (Clear); Bacteria Urine None Seen /hpf; Bilirubin Urine Negative (Negative); Blood Urine Negative (Negative); Color Urine Yellow (Yellow); Glucose Urine UA 3+ mg/dL (Negative); Ketones Urine 3+ mg/dL (Negative); Leukocyte Esterase Ur Negative LEU/UL (Negative); Nitrate Urine Negative (Negative); Non Pathogenic Casts 0-2; Protein Urine 3+ mg/dL (Negative); RBC Urine 0-2 /hpf (0-2); Specific Grav Ur 1.028 (1.001-1.035); Squamous Epithelial Cell Urine None seen /hpf (Few); Urobilinogen Urine 0.2 mg/dL (<2.0); WBC Urine 0-5 /hpf
[2023-03-21 20:35] LABS: Add Urine Microscopic? YES
[2023-03-21 20:42] LABS: Amphetamine Screen Urine Negative (Negative); Barbiturate Screen Urine Negative (Negative); Benzodiazepines Screen Urine Negative (Negative); Cannabinoid Screen Urine Positive (Negative); Cocaine Screen Urine Negative (Negative); Methadone Screen Urine Negative (Negative); Opiate Screen Urine Negative (Negative); Phencyclidine Screen Urine Negative (Negative)
[2023-03-21] MEDS: IPRATROPIUM 0.5 MG/ALBUTEROL SULFATE 2.5 MG AMPUL.NEB 3 ML INHALATION (21:14)
[2023-03-21] MEDS: MAGNESIUM SULF 1 GM/D5W 100 ML 1 GM/100 ML BAG IVPB (21:35)
--- NOTE | 2023-03-21 22:36 | PM.IMHP ---
H&P: HPI History of Present Illness Date/Time: 03/21/23 22:36 Chief Complaint: nausea and vomiting Narrative: EXAMINATION: CT brain wo con DATE: 03/21/2023 18:45 INDICATION: ams . TECHNIQUE: Computed tomography (CT) of the head was performed without intravenous contrast. The mA was adjusted according to patient size. Iterative reconstruction technique was employed. The dose-length product was 908.00 mGy-cm. COMPARISON: None. FINDINGS: No acute intracranial hemorrhage or extra-axial fluid collection. No hydrocephalus, mass, or herniation. No acute ischemic infarct. Unremarkable dural venous sinus attenuation. No acute osseous abnormality. Ethmoid mucosal thickening. Air-fluid level with aerated secretions in the left maxillary sinus, the remaining aerated spaces are clear. Focal encephalomalacia, likely old lacunar infarcts in the right posterior external capsule. IMPRESSION:? No acute intracranial process. Left maxillary sinus findings may represent acute sinusitis in the appropriate clinical context. EXAMINATION: CT abdomen pelvis w con DATE: 03/21/2023 18:51 INDICATION: RLQ pain, N/V/D TECHNIQUE: Computed tomography (CT) of the abdomen and pelvis was performed 04/23/2020 intravenous contrast. Automated exposure control and iterative reconstruction technique were employed. The dose-length product was 1160.40 mGy-cm. COMPARISON: 04/23/2020. FINDINGS: Lower thorax: Stable 3 mm right lower lobe opacity, likely granuloma. Coronary artery calcifications. Calcified granuloma/hamartoma in the peripheral right lower lobe. Liver: Enlarged. Nodular liver border.? Biliary/Gallbladder: Gallbladder is absent. No bile duct dilation. Pancreas: No mass or duct dilation. Spleen: Normal. Adrenals:No mass. Kidneys: No suspicious mass, obstructing stone, or hydronephrosis. Multiple simple left renal cysts. GI tract: Mild distal esophageal and gastric wall edema. No small or large bowel dilation. Normal appendix. Diverticulosis without diverticulitis. Mesentery/Peritoneum: No ascites, mass, or free air. Retroperitoneum: No mass. Pelvis: Pelvic organs are within normal limits. Soft Tissues: Right internal hernia repair. Uncomplicated small fat-containing left inguinal hernia. Bones:? No acute osseous finding. IMPRESSION: Hepatomegaly with cirrhotic changes. Mild esophagitis/gastritis. Otherwise, no acute abdominopelvic process detected. EXAMINATION:? XR chest 2V Exam Date/Time:? 03/21/2023 19:30 BUSINESS PLANNING MANAGER HISTORY: leukocytosis, lactic acidosis ? Comparison:? 09/26/2010. RESULT: Lines, tubes, and devices:? None. Lungs and pleura:? Clear. Cardiomediastinal silhouette:? Stable. Other:? No acute osseous or upper abdominal finding. ? IMPRESSION: No acute cardiopulmonary process. Review of Systems Review of Systems: nausea, vomiting, abdominal pain, diarrhea Constitutional: Constitutional: Denies chills, Denies fever(s) and Denies night sweats Eyes: Eyes: Denies change in vision ENT: Denies dysphagia and Denies odynophagia Cardiovascular: Cardiovascular: Denies chest pain, Denies radiating jaw, neck or arm pain and Denies palpitations Respiratory: Respiratory: Denies cough, Denies excessive phlegm production and Denies dyspnea Gastrointestinal: Gastrointestinal: Reports abdominal pain, Denies melena, Denies hematochezia, Denies coffee ground emesis, Denies dyspepsia, Denies heartburn, Reports diarrhea, Reports nausea and Reports vomiting Genitourinary: Genitourinary: Denies dysuria and Denies flank pain Musculoskeletal: Musculoskeletal: Denies arthralgias Integumentary/Breasts: Skin/Breast: Denies rash Neurologic: Denies focal weakness and Denies Sensory deficit (Neuro) Psychiatric: Psychiatric: Reports no additional psychiatric complaints and Reports as per HPI Endocrine: Endocrine: Denies cold intolerance, Denies fatigue, Denies flushing, Denies heat intolerance, Denies polyphagia, Hema
[2023-03-21 23:01] LABS: Glucose Point of Care 197 mg/dl (65-105)
--- NOTE | 2023-03-21 23:10 | PC.NURSE ---
Called Carol, aware of pt being admitted.
[2023-03-22] VITALS (38 sets, daily range): BP systolic 132–191; BP diastolic 65–94; PULSE 65–95; RESP 8–30; TEMP 36.3–36.6; O2SAT 98–100; BMI 26.4
[2023-03-22] MEDS: METOCLOPRAMIDE HCL INJ 10 MG/2 ML VIAL IV PUSH (00:23)
[2023-03-22] MEDS: diphenhydrAMINE HCl INJ 50 MG/ML VIAL 25 MG IV PUSH (00:23)
[2023-03-22] MEDS: HALOPERIDOL LACTATE 5 MG/ML VIAL IM (03:00)
[2023-03-22] MEDS: FLUTICASONE/SALMETEROL 115-21 MCG INHALER 1 PUFF 2 PUFF INHALATION ×2 (03:36→20:37)
--- NOTE | 2023-03-22 05:33 | ECG_ITS ---
Measurements Intervals [place] Rate: 84 P: 58 WA: 146 QRS: 56 QRSD: 114 T: 50 QT: 346 QTc: 410 Interpretive Statements SINUS RHYTHM INTRAVENTRICULAR CONDUCTION DELAY ST-T WAVE ABNORMALITY IN ANTEROLATERAL/INF LEADS- CONSIDER ISCHEMIA ABNORMAL ECG COMPARED TO ECG 03/21/2023 20:25:18 INTRAVENTRICULAR CONDUCTION DELAY NOW PRESENT ST-T WAVE ABNORMALITY NOW PRESENT Electronically Signed On 03-22-2023 6:16:25 FISHING GEAR MECHANIC by Demian Colindres D.O.
[2023-03-22 08:30] LABS: Basophils Absolute Auto 0.1 K/mm3 (0.0-0.1); Basophils Percent Auto 0.3 % (0.2-1.2); Eosinophils Percent Auto 0.1 % (0-4.4); Hemoglobin 16.7 g/dL (14.0-18.0); Immature Granulocyte Absolute 0.08 K/mm3 (0.00-0.031); Immature Granulocyte Percent A 0.4 % (0-0.5); Mean Corpuscular HGB Conc 34.1 g/dl (32-36); Mean Corpuscular Hemoglobin 28.9 pg (26-34); Mean Corpuscular Volume 84.8 fl (80-100); Mean Platelet Volume 8.7 fl (7.4-10.4); Monocytes Percent Auto 5.5 % (2.6-8.5); Neutrophils Absolute Auto 14.8 K/mm3 (1.3-6.7); Neutrophils Percent Auto 79.7 % (45.5-73.1); Platelet Count Result 329 k/mm3 (150-375); Red Blood Count 5.78 M/mm3 (4.6-6.20); Red Cell Distribution Width 13.5 % (11.5-14.5); White Blood Count 18.6 K/mm3 (4.5-10.0)
[2023-03-22 08:40] LABS: Ammonia < 9 umol/L (9-30)
[2023-03-22 08:41] LABS: Lactic Acid Reflex 1.5 mmol/L (0.7-2.0)
[2023-03-22 08:45] LABS: Alanine Aminotransferase 48 U/L (6-50); Albumin Level 4.9 g/dL (3.5-5.1); Alkaline Phosphatase 106 U/L (38-126); Anion Gap 13 mmol/L (8-16); Aspartate Amino Transferase 44 U/L (17-59); Bilirubin,Total 1.2 mg/dL (0.2-1.3); Blood Urea Nitrogen 14 mg/dL (9-20); Calcium 9.6 mg/dL (8.4-10.2); Carbon Dioxide 28 mmol/L (22-30); Chloride 97 mmol/L (98-107); Estimated Glomerular Filt Rate > 60; Glucose 224 mg/dL (65-110); Potassium 2.6 mmol/L (3.4-5.0); Sodium 138 mmol/L (137-145)
--- NOTE | 2023-03-22 10:52 | PM.IMPN ---
Progress Note: A&P Assessment and Plan (1) Nausea & vomiting: Code(s): R11.2 - Nausea with vomiting, unspecified Status: Acute Assessment and Plan: Patient presents with longstanding hx of n/v. Etiology unclear. CT A/P showing hepatomegaly with cirrhotic changes and mild esophagitis/gastritis. Continue PPI. GI consult Diet started but now NPO for EGD in am. (2) Acidosis, lactic: Code(s): E87.20 - Acidosis, unspecified Status: Acute Assessment and Plan: Lactic acidosis was 4.1 but now down to normal. Etiology unclear. Sepsis unlikely. Was treated with IV fluids but now off. Follow (3) Acute hypokalemia: Code(s): E87.6 - Hypokalemia Status: Acute Assessment and Plan: Potassium low related to nausea/vomiting. Replace as needed (4) Leukocytosis: Qualifiers: Leukocytosis type: unspecified Qualified Code(s): D72.829 - Elevated white blood cell count, unspecified Code(s): D72.829 - Elevated white blood cell count, unspecified Status: Acute Assessment and Plan: WBC 26K. UA not consistent with UTI. CXR clear. CT A/P showing no evidence of infection Repeat WBC 18K. [place] likely to be reactive Continue to monitor (5) Esophagitis: Code(s): K20.90 - Esophagitis, unspecified without bleeding Status: Acute Assessment and Plan: As above EGD planned Continue PPI (6) Type 2 diabetes mellitus: Code(s): E11.9 - Type 2 diabetes mellitus without complications Status: Chronic Assessment and Plan: A1c 6.0. The patient's blood glucose was reviewed on 03/22 Glucose up and down Continue AccuCheks covering with sliding scale. Hypoglycemia protocol available as needed. Continue to monitor (7) Obstructive sleep apnea: Code(s): G47.33 - Obstructive sleep apnea (adult) (pediatric) Status: Acute Assessment and Plan: Noncompliance with CPAP Plan Chest pain - EKG showing nonspecific ST-T wave changes diffusely. Trop negative x3. Some of the EKG findings could be related to hypokalemia. Suspect chest pain related to GI symptoms. DVT prophylaxis - SCDs Code status- full Subjective Date/time seen: 03/22/23 10:52 Interval history: 63yo male with HTN, CAD, KOURTNEY, DM and asthma here for nausea and vomiting Assuming care. Chart reviewed. Patient complains of nausea, vomiting and abdominal pain. He denies diarrhea. He was at [facility] yesterday and he was discharged home on Zofran. He states his symptoms have been going on for 2-3 weeks but worse over the past few days. He also complains of shortness of breath with chronic cough related to his asthma. He does not smoke cigarettes but does continue smoke marijuana. Also complains of chest pain although when asked for further details he has trouble providing them. He states the chest pain is been going on for 6 months although no further workup has been done despite being seen at multiple hospitals and seeing multiple doctors. History is difficult at times to obtain. Exam Narrative: AF 97.8 157/82 76 15 100% ra Gen - NARD Chest -lungs clear posteriorly. He has few faint expiratory wheezes anteriorly. CV - RRR S1/S2. Abd -soft. Nondistended. Positive bowel sounds. Tenderness and guarding in the right upper and lower quadrants. Ext - No pedal edema Neuro - Alert and oriented. Nonfocal exam. Psych - Nml mood but odd affect Skin - Warm and dry Objective Data Vital Signs Vital Signs: Vital Signs - 24 hr 03/21/23 15:38 03/21/23 18:20 03/21/23 18:30 Temperature 97.9 F Pulse Rate 89 97 Respiratory Rate 18 21 H 29 H Blood Pressure 206/82 H Pulse Oximetry 100 Oxygen Delivery Room Air 03/21/23 18:51 03/21/23 20:19 03/21/23 20:20 Temperature Pulse Rate 96 80 80 Respiratory Rate 29 H 20 17 Blood Pressure Pulse Oximetry 100 100 100 Oxygen Delivery 03/21/23 20:2
[2023-03-22] MEDS: QUEtiapine FUMARATE 25 MG TABLET PO ×2 (11:40→20:37)
[2023-03-22] MEDS: amLODIPine BESYLATE 5 MG TABLET 10 MG PO (11:40)
[2023-03-22] MEDS: CLOPIDOGREL BISULFATE 75 MG TABLET PO (11:40)
[2023-03-22] MEDS: TIZANIDINE HCL 2 MG TABLET PO (11:40)
[2023-03-22] MEDS: lisinopriL 20 MG TABLET PO (11:40)
[2023-03-22] MEDS: PANTOPRAZOLE SODIUM IV 40 MG VIAL IV PUSH ×2 (11:41→20:37)
[2023-03-22] MEDS: POTASSIUM CHLORIDE INJ 40 MEQ in SODIUM CHLORIDE 0.9% IV 500 ML 130 MEQ IVPB (11:45)
[2023-03-22 11:54] LABS: Troponin I < 0.012 ng/mL (0.000-0.034)
--- NOTE | 2023-03-22 11:57 | PC.NURSE ---
diet tray requested
--- NOTE | 2023-03-22 12:40 | ADMGEN ---
This patient, Rob Banks, was admitted to 2 Medical Room 256-. Patient/family oriented to hospital policies and general routines including ID bracelet, bed and alarms, visiting hours, pain management, procedures, bathroom and other care routines, personal items, smoking policy, room service/diet, and visiting hours. Information on how to activate the Rapid Response Team has been discussed. Patient/Family are encouraged to report perceived risks to care and to ask questions if they do not understand what they are told or what they should do.
[2023-03-22 13:09] LABS: Glucose Point of Care 247 mg/dl (65-105)
--- NOTE | 2023-03-22 14:26 | WPDGICN ---
GI Consult Note Consult date/time: 03/22/23 14:26 Reason for consult: nausea- consult should have been dated 03/22/23 (see full note 03/23/23) HPI: Rob Banks is a 63 year old male [facility] Past Medical History Medical History Abnormal CT scan, colon Anxiety Asthma Bipolar disorder Chronic back pain Cirrhosis Coffee ground emesis Coronary artery disease Status post stent x1. Degenerative disc disease Gastroesophageal reflux disease Hypercholesterolemia Hypertension Leukocytosis Obstructive sleep apnea Does not use CPAP ?because I toss and turn? due to chronic back pain. Type 2 diabetes mellitus Surgical History Surgical History History of arthroscopy of left knee History of cholecystectomy History of heart artery stent Family History Family History Father Family history of congestive heart failure Sibling Family history of congestive heart failure Other Diabetes mellitus Family history of cardiovascular disease Family history of chronic obstructive pulmonary disease Family history of coronary artery disease Family history of kidney disease Family history of malignant neoplasm Family history of mental disorder Hypertension Social History Social History Social History: The patient lives in [place] with his and sister. He is on disability. Former cigarette smoker, quit about 25 years ago. Endorses smoking marijuana. No alcohol abuse. His , Carol Banks, as his surrogate decision maker. He wishes to be a full code. Smoking packs per day: 1.25 Smoking cigarettes per day: 25.0 Years smoked: 22 Smoking pack-years: 27.50 Smoking status: Former smoker Tobacco type: cigarettes Second hand tobacco smoke exposure: Yes Smoking end date: 08/20/94 Alcohol intake: former Substance use: current Substance use type: marijuana Other substance usage details: SMOKES MARIJUANA 4 TIMES/DAY Last use: 03/20/2023 Do You Feel Safe in your Home?: Yes Lack of Transportation: YES Lack of Food: Never True Current Housing: I Have Housing Concerned About Future Housing: No Difficulty Paying Gas/Electric Bills: No Difficulty Paying for Meds: No Currently Unemployed: No Education: High School Diploma/GED Difficulty w/ Childcare or Family Care: No Living arrangements: with family Additional living arrangements comments: & SISTER Gender identity (if verbalized by the patient): Male Spiritual care concerns: No Meds Home Medications and Allergies Home Medications Medication Instructions Recorded Confirmed Type albuterol 90 mcg/actuation aerosol See Rx Instructions .Route .COMPLEX 03/22/23 03/22/23 History inhaler amlodipine 10 mg tablet 10 mg PO DAILY 03/22/23 03/22/23 History atorvastatin 20 mg tablet 20 mg PO DAILY 03/22/23 03/22/23 History clopidogrel 75 mg tablet (Plavix) 75 mg PO DAILY 03/22/23 03/22/23 History cyclobenzaprine 10 mg tablet 10 mg PO HS 03/22/23 03/22/23 History escitalopram oxalate 20 mg tablet 20 mg PO DAILY 03/22/23 03/22/23 History fluticasone 500 mcg-salmeterol 50 1 inh inhalation Q12H 03/22/23 03/22/23 History mcg/dose blistr powdr for inhalation fluticasone propionate 50 2 spray intranasal DAILY 03/22/23 03/22/23 History mcg/actuation nasal spray,suspension (Allergy Relief (fluticasone)) gabapentin 300 mg tablet 900 mg PO HS 03/22/23 03/22/23 History glipizide 10 mg tablet 10 mg PO DAILY 03/22/23 03/22/23 History lisinopril 20 mg tablet 20 mg PO DAILY 03/22/23 03/22/23 History lumateperone 42 mg capsule 42 mg PO DAILY 03/22/23 03/22/23 History (Caplyta) meloxicam 15 mg tablet 15 mg PO DAILY 03/22/23 03/22/23 History metformin 500 mg tablet,extended 500 mg PO BID
[2023-03-22 14:46] LABS: Troponin I < 0.012 ng/mL (0.000-0.034)
[2023-03-22] MEDS: PROMETHAZINE HCL 25 MG/ML AMPUL IM (16:53)
[2023-03-22 16:54] LABS: Glucose Point of Care 119 mg/dl (65-105)
[2023-03-22 17:53] LABS: Troponin I < 0.012 ng/mL (0.000-0.034)
[2023-03-22 20:49] LABS: Glucose Point of Care 100 mg/dl (65-105)
[2023-03-23] VITALS (13 sets, daily range): BP systolic 123–170; BP diastolic 63–83; PULSE 61–74; RESP 16–26; TEMP 36–36.6; O2SAT 96–100
[2023-03-23] MEDS: ONDANSETRON INJ 4 MG/2 ML VIAL IV PUSH ×3 (05:10→17:43)
[2023-03-23 06:25] LABS: Basophils Absolute Auto 0.1 K/mm3 (0.0-0.1); Basophils Percent Auto 0.6 % (0.2-1.2); Eosinophils Absolute Auto 0.2 K/mm3 (0-0.3); Eosinophils Percent Auto 1.2 % (0-4.4); Hematocrit 46.2 % (42.0-52.0); Hemoglobin 15.3 g/dL (14.0-18.0); Immature Granulocyte Absolute 0.07 K/mm3 (0.00-0.031); Immature Granulocyte Percent A 0.4 % (0-0.5); Lymphocytes Absolute Auto 4.56 K/mm3 (0.9-3.2); Lymphocytes Percent Auto 28.7 % (18.3-44.2); Mean Corpuscular HGB Conc 33.1 g/dl (32-36); Mean Corpuscular Hemoglobin 28.8 pg (26-34); Mean Corpuscular Volume 86.8 fl (80-100); Monocytes Absolute Auto 1.2 K/mm3 (0.1-0.6); Monocytes Percent Auto 7.4 % (2.6-8.5); Neutrophils Absolute Auto 9.8 K/mm3 (1.3-6.7); Neutrophils Percent Auto 61.7 % (45.5-73.1); Platelet Count Result 279 k/mm3 (150-375); Red Blood Count 5.32 M/mm3 (4.6-6.20); Red Cell Distribution Width 13.6 % (11.5-14.5); White Blood Count 15.9 K/mm3 (4.5-10.0)
[2023-03-23 06:33] LABS: Alanine Aminotransferase 55 U/L (6-50); Albumin Level 4.7 g/dL (3.5-5.1); Alkaline Phosphatase 95 U/L (38-126); Anion Gap 10 mmol/L (8-16); Aspartate Amino Transferase 66 U/L (17-59); Bilirubin,Total 1.4 mg/dL (0.2-1.3); Blood Urea Nitrogen 15 mg/dL (9-20); Calcium 9.6 mg/dL (8.4-10.2); Carbon Dioxide 29 mmol/L (22-30); Chloride 102 mmol/L (98-107); Estimated CRCL calculation 95 ml/min; Estimated Glomerular Filt Rate > 60; Glucose 148 mg/dL (65-110); Lipase 58 U/L (23-300); Phosphorus 2.3 mg/dL (2.5-4.5); Potassium 3.2 mmol/L (3.4-5.0); Sodium 141 mmol/L (137-145)
[2023-03-23 07:56] LABS: Glucose Point of Care 168 mg/dl (65-105)
[2023-03-23] MEDS: PANTOPRAZOLE SODIUM IV 40 MG VIAL IV PUSH ×2 (08:24→19:56)
[2023-03-23] MEDS: FLUTICASONE/SALMETEROL 115-21 MCG INHALER 1 PUFF 2 PUFF INHALATION ×2 (08:59→20:31)
--- NOTE | 2023-03-23 09:26 | WPDGICN ---
Assessment and Plan Assessment and plan (1) Nausea & vomiting: Code(s): R11.2 - Nausea with vomiting, unspecified Status: Acute Assessment and Plan: noted again abnormal CT scan of esophagus, will proceed with egd- last time with severe esophagitis continue with protonix (2) Acidosis, lactic: Code(s): E87.20 - Acidosis, unspecified Status: Acute Assessment and Plan: dehydration, n/v (3) Acute hypokalemia: Code(s): E87.6 - Hypokalemia Status: Acute Assessment and Plan: repleting (4) Cirrhosis: Code(s): K74.60 - Unspecified cirrhosis of liver Status: Acute Assessment and Plan: probably fatty liver with DM and other comorbidities will order blood work to assess for other chronic liver conditions will need liver imaging every 6 months at least egd to assess for portal hypertension (5) Leukocytosis: Qualifiers: Leukocytosis type: unspecified Qualified Code(s): D72.829 - Elevated white blood cell count, unspecified Code(s): D72.829 - Elevated white blood cell count, unspecified Status: Acute (6) Esophagitis: Code(s): K20.90 - Esophagitis, unspecified without bleeding Status: Acute Assessment and Plan: ppi GI Consult Note Consult date/time: 03/23/23 09:26 Reason for consult: n/v, gerd HPI: Rob Banks is a 63 year old male with history of gastroesophageal reflux disease, coronary artery disease on aspirin and plavix, diabetes, and hypertension?here with new onset of nausea and vomiting, feeling sick. CT scan Hepatomegaly with cirrhotic changes. Mild esophagitis/gastritis. 09/2020 came to hospital with hematemesis, EGD with severe esophagitis, small hiatal hernia, also had colonoscopy with TA polyp removed. He also had CT scan 2020 that showed fatty liver, no report of cirrhosis. Tb 1.4, transaminases 50-60. Review of Systems Review of Systems: nausea, vomiting, abdominal pain, diarrhea Constitutional: Constitutional: Denies chills, Denies fever(s) and Denies night sweats Eyes: Eyes: Denies change in vision ENT: Denies dysphagia and Denies odynophagia Cardiovascular: Cardiovascular: Denies chest pain, Denies radiating jaw, neck or arm pain and Denies palpitations Respiratory: Respiratory: Denies cough, Denies excessive phlegm production and Denies dyspnea Gastrointestinal: Gastrointestinal: Reports abdominal pain, Denies melena, Reports nausea and Reports vomiting Genitourinary: Genitourinary: Denies dysuria and Denies flank pain Musculoskeletal: Musculoskeletal: Denies arthralgias Integumentary/Breasts: Skin/Breast: Denies rash Neurologic: Denies focal weakness and Denies Sensory deficit (Neuro) Psychiatric: Psychiatric: Reports no additional psychiatric complaints and Reports as per HPI Endocrine: Endocrine: Denies cold intolerance Hematologic/Lymphatic: Hematologic/Lymphatic: Reports no additional hematologic/lymphatic complaints and Reports as per HPI Allergic/Immunologic: Allergic/Immunologic: Reports no additional allergic/immunologic complaints and Reports as per HPI [facility] Past Medical History Medical History (Updated 03/23/23 @ 09:32 by George Luz MD) Abnormal CT scan, colon Anxiety Asthma Bipolar disorder Chronic back pain Cirrhosis Coffee ground emesis Coronary artery disease Status post stent x1. Degenerative disc disease Gastroesophageal reflux disease Hypercholesterolemia Hypertension Leukocytosis Obstructive sleep apnea Does not use CPAP ?because I toss and turn? due to chronic back pain. Type 2 diabetes mellitus Surgical History Surgical History History of arthroscopy of left knee History of cholecystectomy History of heart artery stent Family History Family History Father Family history of congestive h
--- NOTE | 2023-03-23 10:55 | PC.NURSE ---
pt to GI lab via ayse
--- NOTE | 2023-03-23 11:00 | WPDANESEPPF ---
Anes - Initial Pre Proc Eval Procedure: Operation Date: 03/23/23 14:30 Proposed Procedures p Esophagogastroduodenoscopy - George Luz MD Date/Time: 03/23/23 11:00 Surgeon: Ines Fisher MD Pre Op Diagnosis: Lactic Acidosis, Hypokalemia Patient Data Age: 63 Gender: M Height: 1.75 m Weight: 81 kg Last Vital Signs Temp 36.0 C L 03/23/23 09:41 Pulse 66 03/23/23 09:41 Resp 16 03/23/23 09:41 BP 147/75 H 03/23/23 09:41 Pulse Ox 99 03/23/23 09:41 O2 Del Method Room Air 03/23/23 08:25 Allergies Allergy/AdvReac Type Severity Reaction Status Date / Time indomethacin AdvReac Mild Nausea Verified 10/14/22 08:19 Home Medications Medication Instructions Recorded Confirmed Type albuterol 90 mcg/actuation aerosol See Rx Instructions .Route .COMPLEX 03/22/23 03/22/23 History inhaler amlodipine 10 mg tablet 10 mg PO DAILY 03/22/23 03/22/23 History atorvastatin 20 mg tablet 20 mg PO DAILY 03/22/23 03/22/23 History clopidogrel 75 mg tablet (Plavix) 75 mg PO DAILY 03/22/23 03/22/23 History cyclobenzaprine 10 mg tablet 10 mg PO HS 03/22/23 03/22/23 History cyclobenzaprine 10 mg tablet 10 mg PO HS 03/22/23 03/22/23 History escitalopram oxalate 20 mg tablet 20 mg PO DAILY 03/22/23 03/22/23 History fluticasone 500 mcg-salmeterol 50 1 inh inhalation Q12H 03/22/23 03/22/23 History mcg/dose blistr powdr for inhalation fluticasone propionate 50 2 spray intranasal DAILY 03/22/23 03/22/23 History mcg/actuation nasal spray,suspension (Allergy Relief (fluticasone)) gabapentin 300 mg tablet 900 mg PO HS 03/22/23 03/22/23 History glipizide 10 mg tablet 10 mg PO DAILY 03/22/23 03/22/23 History lisinopril 20 mg tablet 20 mg PO DAILY 03/22/23 03/22/23 History lumateperone 42 mg capsule 42 mg PO DAILY 03/22/23 03/22/23 History (Caplyta) meloxicam 15 mg tablet 15 mg PO DAILY 03/22/23 03/22/23 History metformin 500 mg tablet,extended 500 mg PO BID 03/22/23 03/22/23 History release 24hr (osmotic) metoprolol succinate 25 mg 25 mg PO DAILY 03/22/23 03/22/23 History tablet,extended release 24 hr pantoprazole 40 mg tablet,delayed 40 mg PO QAM 03/22/23 03/22/23 History release (Protonix) quetiapine 25 mg tablet 25 mg PO BID 03/22/23 03/22/23 History Laboratory Tests 03/22/23 03/22/23 03/22/23 08:21 11:26 13:01 WBC RBC Hgb Hct MCV MCH MCHC RDW Plt Count MPV Immature Gran % (Auto) Neut % (Auto) Lymph % (Auto) [place] % (Auto) Eos % (Auto) Baso % (Auto) Lymph # (Auto) [place] # (Auto) Eos # (Auto) Baso # (Auto) Abs Immat Gran (auto) Absolute Neuts (auto) Absolute Nucleated RBC Nucleated RBC % Sodium Potassium Chloride Carbon Dioxide Anion Gap BUN Creatinine Estim Creat Clear Calc Estimated GFR Glucose POC Capillary Glucose 247 H mg/dl (65-105) Hemoglobin A1c 6.0 H % (<5.7) Calcium Phosphorus Magnesium Total Bilirubin AST ALT Alkaline Phosphatase Troponin I < 0.012 ng/mL (0.000-0.034) Total Protein Albumin Lipase Vitamin B12 565.0 pg/mL (239-931) 03/22/23 03/22/23 03/22/23 14:04 16:49 17:18 WBC RBC Hgb Hct MCV MCH MCHC RDW Plt Count MPV Immature Gran % (Auto) Neut % (Auto) Lymph % (Auto) [place] % (Auto) Eos
[2023-03-23] MEDS: LACTATED RINGERS 1,000 ML 150 ML IV CONT (11:15)
[2023-03-23 11:22] LABS: Glucose Point of Care 156 mg/dl (65-105)
--- NOTE | 2023-03-23 12:36 | PM.IMPN ---
Progress Note: A&P Assessment and Plan (1) Nausea & vomiting: Code(s): R11.2 - Nausea with vomiting, unspecified Status: Acute Assessment and Plan: Patient presents with longstanding hx of n/v. Etiology unclear. CT A/P showing hepatomegaly with cirrhotic changes and mild esophagitis/gastritis. Started on PPI. GI consulted EGD showing no esophagitis. He had mild gastritis. No retained food. No duodenal changes. Diet started. Follow (2) Acidosis, lactic: Code(s): E87.20 - Acidosis, unspecified Status: Acute Assessment and Plan: Lactic acidosis was 4.1 but now down to normal. Etiology unclear. Sepsis unlikely. Was treated with IV fluids but now off. Continue to monitor (3) Acute hypokalemia: Code(s): E87.6 - Hypokalemia Status: Acute Assessment and Plan: Potassium low related to nausea/vomiting. Replacement ordered Continue to monitor and replace as needed (4) Leukocytosis: Qualifiers: Leukocytosis type: unspecified Qualified Code(s): D72.829 - Elevated white blood cell count, unspecified Code(s): D72.829 - Elevated white blood cell count, unspecified Status: Acute Assessment and Plan: WBC 26K. UA not consistent with UTI. CXR clear. CT A/P showing no evidence of infection Repeat WBC 16K. [place] likely to be reactive Continue to monitor (5) Type 2 diabetes mellitus: Code(s): E11.9 - Type 2 diabetes mellitus without complications Status: Chronic Assessment and Plan: A1c 6.0. The patient's blood glucose was reviewed on 03/23 Glucose well controlled Continue AccuCheks covering with sliding scale. Hypoglycemia protocol available as needed. Continue to monitor (6) Obstructive sleep apnea: Code(s): G47.33 - Obstructive sleep apnea (adult) (pediatric) Status: Acute Assessment and Plan: Noncompliance with CPAP (7) Esophagitis: Code(s): K20.90 - Esophagitis, unspecified without bleeding Status: Acute Assessment and Plan: EGD showing no esophagitis. Continue PPI Plan Chest pain - EKG showing nonspecific ST-T wave changes diffusely. Trop negative x3. Some of the EKG findings could be related to hypokalemia. Suspect chest pain related to GI symptoms. No recurrence DVT prophylaxis - SCDs Code status- full Subjective Date/time seen: 03/23/23 12:36 Interval history: 63yo male with HTN, CAD, KOURTNEY, DM and asthma here for nausea and vomiting Still having significant abdominal pain with 'acid reflux'. Slept poorly. +nausea. No CP or SOB. (seen prior to EGD) Exam Narrative: AF 97.9 129/71 65 24 96% ra Gen - NARD Chest - CTA bilaterally, nml RR CV - RRR S1/S2. Abd -soft. Nondistended. Positive bowel sounds. Tenderness and guarding in the epigastric area Ext - No pedal edema Psych - Nml mood but odd affect Skin - Warm and dry Objective Data Vital Signs Vital Signs: Vital Signs - 24 hr 03/22/23 13:07 03/22/23 12:39 03/22/23 17:48 Temperature 97.7 F 97.5 F L Pulse Rate 77 82 69 Respiratory Rate 18 16 Blood Pressure 132/74 151/66 H Pulse Oximetry 99 98 Oxygen Delivery Oxygen Flow Rate 03/22/23 16:00 03/22/23 19:48 03/22/23 20:00 Temperature 97.6 F Pulse Rate 78 65 Respiratory Rate 17 Blood Pressure 153/71 H Pulse Oximetry 99 Oxygen Delivery Room Air Oxygen Flow Rate 03/22/23 20:37 03/22/23 20:31 03/22/23 20:31 Temperature 97.6 F 97.3 F L Pulse Rate 71 67 85 Respiratory Rate 19 17 18 Blood Pressure 150/71 H 167/94 H Pulse Oximetry 100 100 Oxygen Delivery Oxygen Flow Rate 03/22/23 20:00 03/23/23 00:00 03/23/23 00:00 Temperature 97.6 F Pulse Rate 69 74 65 Respiratory Rate 17 Blood Pressure 153/76 H Pulse Oximetry 99 Oxygen Delivery Oxygen Flow Rate 03/23/23 04:00 03/23/23 04:26 03/23/23 04:00 Temperature 97.3 F L 97.6 F Pulse Rate 70 70 68 Resp
[2023-03-23] MEDS: ACETAMINOPHEN 325 MG TABLET 650 MG PO (13:28)
[2023-03-23] MEDS: CLOPIDOGREL BISULFATE 75 MG TABLET PO (13:28)
[2023-03-23] MEDS: QUEtiapine FUMARATE 25 MG TABLET PO ×2 (13:28→19:56)
[2023-03-23] MEDS: amLODIPine BESYLATE 5 MG TABLET 10 MG PO (13:28)
[2023-03-23] MEDS: ATORVASTATIN 20 MG TABLET PO (13:29)
[2023-03-23] MEDS: METOPROLOL SUCCINATE EXT REL 25 MG TABCR PO (13:29)
[2023-03-23] MEDS: lisinopriL 20 MG TABLET PO (13:29)
[2023-03-23] MEDS: POTASSIUM/PHOSPHORUS/SODIUM 1.5 GM PACKET 1 PACKET PO (13:30)
[2023-03-23] MEDS: POTASSIUM CHLORIDE 20 MEQ PACKET (FOR LIQUID) 40 MEQ PO (13:30)
[2023-03-23 17:13] LABS: Glucose Point of Care 122 mg/dl (65-105)
--- NOTE | 2023-03-23 20:16 | PC.NURSE ---
preceptor for [facility] [place] license pending RN, all documentation reviewed, assessments completed as charted
[2023-03-23 21:02] LABS: Glucose Point of Care 134 mg/dl (65-105)
[2023-03-24] VITALS: BP 127/70; PULSE 60; RESP 20; TEMP 36; O2SAT 100
[2023-03-24] MEDS: ACETAMINOPHEN 325 MG TABLET 650 MG PO ×2 (00:14→08:15)
[2023-03-24] MEDS: ONDANSETRON INJ 4 MG/2 ML VIAL IV PUSH (00:18)
[2023-03-24 04:00] VITALS: BP 161/76; PULSE 62; RESP 20; TEMP 36; O2SAT 100
[2023-03-24 05:42] LABS: Basophils Absolute Auto 0.1 K/mm3 (0.0-0.1); Basophils Percent Auto 0.9 % (0.2-1.2); Eosinophils Absolute Auto 0.2 K/mm3 (0-0.3); Eosinophils Percent Auto 1.7 % (0-4.4); Hematocrit 45.7 % (42.0-52.0); Hemoglobin 15.7 g/dL (14.0-18.0); Immature Granulocyte Absolute 0.05 K/mm3 (0.00-0.031); Immature Granulocyte Percent A 0.3 % (0-0.5); Lymphocytes Absolute Auto 4.52 K/mm3 (0.9-3.2); Lymphocytes Percent Auto 31.6 % (18.3-44.2); Mean Corpuscular HGB Conc 34.4 g/dl (32-36); Mean Corpuscular Hemoglobin 29.6 pg (26-34); Mean Corpuscular Volume 86.2 fl (80-100); Mean Platelet Volume 9.1 fl (7.4-10.4); Monocytes Absolute Auto 0.9 K/mm3 (0.1-0.6); Monocytes Percent Auto 6.1 % (2.6-8.5); Neutrophils Absolute Auto 8.5 K/mm3 (1.3-6.7); Neutrophils Percent Auto 59.4 % (45.5-73.1); Platelet Count Result 299 k/mm3 (150-375); Red Cell Distribution Width 13.4 % (11.5-14.5); White Blood Count 14.3 K/mm3 (4.5-10.0)
[2023-03-24 05:50] LABS: Alanine Aminotransferase 66 U/L (6-50); Albumin Level 4.8 g/dL (3.5-5.1); Alkaline Phosphatase 101 U/L (38-126); Anion Gap 14 mmol/L (8-16); Aspartate Amino Transferase 69 U/L (17-59); Bilirubin,Total 1.4 mg/dL (0.2-1.3); Blood Urea Nitrogen 15 mg/dL (9-20); Calcium 9.5 mg/dL (8.4-10.2); Carbon Dioxide 26 mmol/L (22-30); Chloride 100 mmol/L (98-107); Estimated CRCL calculation 95 ml/min; Estimated Glomerular Filt Rate > 60; Glucose 141 mg/dL (65-110); Sodium 140 mmol/L (137-145)
[2023-03-24 05:51] LABS: Iron 141 ug/dL (49-181)
[2023-03-24 06:00] LABS: Percent Iron Saturation 46 % (20-50)
[2023-03-24 06:25] LABS: Hepatitis B Surface Antigen Negative (Negative)
[2023-03-24 06:31] LABS: HAV RESULT Negative (Negative); Hepatitis B Core IgM Result Negative (Negative)
[2023-03-24 06:43] LABS: Hepatitis C Virus Antibody Negative (Negative)
--- NOTE | 2023-03-24 07:19 | WPDANESPN ---
Anes - Prog Note Post-Op Date/Time: 03/24/23 07:19 Cardiovascular status: normal Respiratory status: normal Airway patency: baseline Mental status: baseline Post-Op hydration status: normal Vital Signs: Last Vital Signs Temp 96.8 F L 03/24/23 04:00 Pulse 62 03/24/23 04:00 Resp 20 03/24/23 04:00 BP 161/76 H 03/24/23 04:00 Pulse Ox 100 03/24/23 04:00 O2 Del Method Room Air 03/23/23 19:52 O2 Flow Rate 8 03/23/23 11:27 Pain Score (VAS): 0 I/O: Intake & Output 03/23/23 03/23/23 03/24/23 15:59 23:59 07:59 Intake Total 290 240 490 Balance 290 240 490 Laboratory Tests 03/24/23 05:04 03/24/23 05:04 03/23/23 03/23/23 03/23/23 07:44 11:13 17:08 WBC RBC Hgb Hct MCV MCH MCHC RDW Plt Count MPV Immature Gran % (Auto) Neut % (Auto) Lymph % (Auto) [place] % (Auto) Eos % (Auto) Baso % (Auto) Lymph # (Auto) [place] # (Auto) Eos # (Auto) Baso # (Auto) Abs Immat Gran (auto) Absolute Neuts (auto) Absolute Nucleated RBC Nucleated RBC % Sodium Potassium Chloride Carbon Dioxide Anion Gap BUN Creatinine Estim Creat Clear Calc Estimated GFR Glucose POC Capillary Glucose 168 H 156 H 122 H Calcium Phosphorus Iron TIBC % Saturation Ferritin Total Bilirubin AST ALT Alkaline Phosphatase Total Protein Albumin Alpha-1-AT Phenotype Ceruloplasmin SHELLEY Screen Mitochondria M2 IgG Ab Hepatitis A IgM Ab Hep Bs Antigen Hep B Core IgM Ab Hepatitis C Ab Screen 03/23/23 03/24/23 19:38 05:04 WBC 14.3 H RBC 5.30 Hgb 15.7 Hct 45.7 MCV 86.2 MCH 29.6 MCHC 34.4 RDW 13.4 Plt Count 299 MPV 9.1 Immature Gran % (Auto) 0.3 Neut % (Auto) 59.4 Lymph % (Auto) 31.6 [place] % (Auto) 6.1 Eos % (Auto) 1.7 Baso % (Auto) 0.9 Lymph # (Auto) 4.52 H [place] # (Auto) 0.9 H Eos # (Auto) 0.2 Baso # (Auto) 0.1 Abs Immat Gran (auto) 0.05 H Absolute Neuts (auto) 8.5 H Absolute Nucleated RBC 0.0 Nucleated RBC % 0.0 Sodium 140 Potassium 3.0 L Chloride 100 Carbon Dioxide 26 Anion Gap 14 BUN 15 Creatinine 0.70 Estim Creat Clear Calc 95 Estimated GFR > 60 Glucose 141 H POC Capillary Glucose 134 H Calcium 9.5 Phosphorus 4.0 Iron 141 TIBC 306 % Saturation 46 Ferritin 524.00 H Total Bilirubin 1.4 H AST 69 H ALT 66 H Alkaline Phosphatase 101 Total Protein 9.0 H Albumin 4.8 Alpha-1-AT Phenotype Pending Ceruloplasmin Pending SHELLEY Screen Pending Mitochondria M2 IgG Ab Pending Hepatitis A IgM Ab Negative Hep Bs Antigen Negative Hep B Core IgM Ab Negative Hepatitis C Ab Screen Negative Post-procedural complaints: none Patient Feedback: Patient satisfied with anesthetic care.
[2023-03-24 08:00] VITALS: BP 164/80; PULSE 64; RESP 16; TEMP 36.3; O2SAT 97
[2023-03-24] MEDS: FLUTICASONE/SALMETEROL 115-21 MCG INHALER 1 PUFF 2 PUFF INHALATION (08:06)
[2023-03-24 08:13] LABS: Glucose Point of Care 220 mg/dl (65-105)
[2023-03-24] MEDS: POTASSIUM CHLORIDE 20 MEQ ER TABLET PO (08:14)
[2023-03-24 08:15] VITALS: PULSE 66
[2023-03-24] MEDS: ATORVASTATIN 20 MG TABLET PO (08:15)
[2023-03-24] MEDS: POTASSIUM CHLORIDE 20 MEQ ER TABLET 40 MEQ PO (08:15)
[2023-03-24] MEDS: QUEtiapine FUMARATE 25 MG TABLET PO (08:15)
[2023-03-24] MEDS: CLOPIDOGREL BISULFATE 75 MG TABLET PO (08:15)
[2023-03-24] MEDS: lisinopriL 20 MG TABLET PO (08:15)
[2023-03-24] MEDS: amLODIPine BESYLATE 5 MG TABLET 10 MG PO (08:15)
[2023-03-24] MEDS: METOPROLOL SUCCINATE EXT REL 25 MG TABCR PO (08:15)
[2023-03-24] MEDS: TIZANIDINE HCL 2 MG TABLET PO (08:16)
[2023-03-24] MEDS: PANTOPRAZOLE SODIUM IV 40 MG VIAL IV PUSH (08:22)
[2023-03-24] MEDS: INSULIN ASPART (*BKC) 100 UNITS/ML SUB-Q (08:22)
--- NOTE | 2023-03-24 11:23 | PM.DS ---
DS: Admitting Diagnosis Discharge Date 03/24/23 Admitting Diagnosis Nausea and vomiting DS: Discharge Diagnosis Discharge Diagnosis (1) Nausea & vomiting: Code(s): R11.2 - Nausea with vomiting, unspecified Status: Acute (2) Acidosis, lactic: Code(s): E87.20 - Acidosis, unspecified Status: Acute (3) Acute hypokalemia: Code(s): E87.6 - Hypokalemia Status: Acute (4) Leukocytosis: Qualifiers: Leukocytosis type: unspecified Qualified Code(s): D72.829 - Elevated white blood cell count, unspecified Code(s): D72.829 - Elevated white blood cell count, unspecified Status: Acute (5) Type 2 diabetes mellitus: Code(s): E11.9 - Type 2 diabetes mellitus without complications Status: Chronic (6) Obstructive sleep apnea: Code(s): G47.33 - Obstructive sleep apnea (adult) (pediatric) Status: Acute (7) Chest pain: Code(s): R07.9 - Chest pain, unspecified Status: Acute DS: Summary Hospital Course Reason for hospitalization: 63yo male with HTN, CAD, KOURTNEY, DM and asthma here for nausea and vomiting. Please see H&P for details. Hospital Course: Patient presents with longstanding hx of n/v. CT A/P showing hepatomegaly with cirrhotic changes and possibly mild esophagitis/gastritis. He was started on PPI. Lactic acidosis was 4.1 befor normalizing. Etiology unclear. Sepsis felt unlikely. He was treated with IV fluids with improvement. Potassium low related to nausea/vomiting and this was replaced. WBC 26K. UA not consistent with UTI. CXR was clear. CT A/P showing no evidence of infection. He was not started on abx. Repeat WBC 10K. [place] likely to be reactive. He did complain of chest pain early in his course. EKG showing nonspecific ST-T wave changes diffusely. Trop negative x3. Some of the EKG findings could be related to hypokalemia. Suspect chest pain related to GI symptoms. No recurrence of symptoms. GI was consulted. EGD showing no esophagitis but he did have mild gastritis. No retained food. No duodenal changes. Pathology showing chronic nonspecific gastritis without intestinal metaplasia. No evidence of H.pylori, duodenitis or celiac disease. Diet started and he was tolerating oral intake without symptoms. He overall did well and was able to be discharged home on 03/24/23. Status at Discharge Cognitive/behavioral status at discharge: stable Time Spent with Patient Time attestation: Total time spent providing and/or coordinating discharge services: 35 minutes Time spent: Greater than 30 minutes Exam Narrative: AF 97.4 164/80 66 16 97% ra Gen - NARD Chest - CTA bilaterally, nml RR CV - RRR S1/S2. Abd -soft. NT/ND. +BS Ext - No pedal edema Psych - Nml mood but odd affect Skin - Warm and dry DS: Data Data Completed and Pending Completed studies during hospitalization: Pending at discharge 03/23/23 11:26 Surgical [PTH] Routine Labs on day of discharge: Labs from last 24 hours 03/24/23 03/24/23 03/23/23 08:05 05:04 19:38 WBC 14.3 H RBC 5.30 Hgb 15.7 Hct 45.7 MCV 86.2 MCH 29.6 MCHC 34.4 RDW 13.4 Plt Count 299 MPV 9.1 Immature Gran % (Auto) 0.3 Neut % (Auto) 59.4 Lymph % (Auto) 31.6 [place] % (Auto) 6.1 Eos % (Auto) 1.7 Baso % (Auto) 0.9 Lymph # (Auto) 4.52 H [place] # (Auto) 0.9 H Eos # (Auto) 0.2 Baso # (Auto) 0.1 Abs Immat Gran (auto) 0.05 H Absolute Neuts (auto) 8.5 H Absolute Nucleated RBC 0.0 Nucleated RBC % 0.0 Sodium 140 Potassium 3.0 L Chloride 100 Carbon Dioxide 26 Anion Gap 14 BUN 15 Creatinine 0.70 Estim Creat Clear Calc 95 Estimated GFR > 60 Glucose 141 H POC Capillary Glucose 220 H 134 H Calcium 9.5 Phosphorus 4.0 Iron 141 TIBC 306 % Saturation 46 Ferritin 524.00 H Total Bilirubin 1.4 H AST 69 H ALT 66 H Alkaline Phosphatase 101 [place]
[2023-03-24 12:05] LABS: Glucose Point of Care 168 mg/dl (65-105)
[2023-03-28 09:48] LABS: Ceruloplasmin 23 mg/dL (18-36)
--- NOTE | 2023-03-28 10:41 | PC.NURSE ---
Blood cx are negative. Dr. Micaela enciso.
[2023-03-29 21:41] LABS: Anti Nuclear Antibody Pattern Nuclear, Speckled; Anti Nuclear Antibody Titer 1:40 (Negative)
[2023-03-30 13:40] LABS: Mitochondrial (M2) Ab (IgG) <=20.0 U (<=20.0)
--- NOTE | 2023-04-05 08:47 | PC.NURSE ---
A1At- Alpha 1 AT is PI*IM SHELLEY positve at 1:40. Speckled. Ceruloplasm- 23 Mitochondrial WNL Blood cx are negative. Dr. Hinojosa aware. Results faxed to PCP
== END 2023-03-24 13:50 | disposition home or self-care (01) | DRG 392 ==
LOC: ANHED 23:04 → ANH3MEDSUR 23:40 → ANH2MED 03-22 12:02
PROVIDERS: Internal Medicine Gastroenterology; Physician Assistant; Admitting Provider Internal Medicine; Emergency Provider Physician Assistant; PCP Internal Medicine; Visit Provider Internal Medicine
PROC: 0DJ08ZZ Inspection of Upper Intestinal Tract, Via Natural or Artificial Opening Endoscopic (ICD-10-PCS; CPT 43235; principal; 2023-03-23 14:30)
DX: K29.50 Unspecified chronic gastritis without bleeding (principal); E87.21 Acute metabolic acidosis; R11.2 Nausea with vomiting, unspecified; K29.70 Gastritis, unspecified, without bleeding; Z20.822 Contact with and (suspected) exposure to COVID-19; G47.33 Obstructive sleep apnea (adult) (pediatric); E11.42 Type 2 diabetes mellitus with diabetic polyneuropathy; D72.829 Elevated white blood cell count, unspecified; E87.6 Hypokalemia; R07.9 Chest pain, unspecified; I25.10 Atherosclerotic heart disease of native coronary artery without angina pectoris; I10 Essential (primary) hypertension; E86.0 Dehydration; J45.909 Unspecified asthma, uncomplicated; K74.60 Unspecified cirrhosis of liver; F31.9 Bipolar disorder, unspecified; K21.9 Gastro-esophageal reflux disease without esophagitis; Z95.5 Presence of coronary angioplasty implant and graft; Z90.49 Acquired absence of other specified parts of digestive tract; Z87.891 Personal history of nicotine dependence; Z79.82 Long term (current) use of aspirin; Z79.02 Long term (current) use of antithrombotics/antiplatelets
CPT/HCPCS: 36415; 36600; 70450; 71046; 74177; 80053; 80074; 80307; 81001; 82010; 82104; 82140; 82375; 82390; 82550; 82607; 82728; 82746; 82805; 82948; 83036; 83050; 83520; 83540; 83550; 83605; 83690; 83735; 84100; 84443; 84484; 85025; 85610; 85730; 86038; 86039; 87040; 87637; 88305; 93005; 94640; 96361; 96365; 96366; 96368; 96372; 96375; 99285; A9270; C9113; G0378; J1200; J1630; J1815; J2001; J2405; J2550; J2704; J2765; J3475; J3480; J7030; J7040; J7120; Q9967

== ENCOUNTER 2023-11-11 02:56 | Emergency (ER) | payer MEDICARE, MEDICAID, SELFPAY ==
--- NOTE | ~2023-11-11 | CT_ITS ---
EXAMINATION: CT abdomen pelvis wo con DATE: 11/11/2023 06:04 INDICATION: Abdominal pain. TECHNIQUE: The topogram for a computed tomography (CT) of the abdomen and pelvis was performed withou t intravenous contrast. The patient fused the exam after the topogram. The dose-length product was 0. 00 mGy-cm. COMPARISON: CT abdomen and pelvis 03/21/2023 FINDINGS: There are no dilated loops of bowel. Surgical clips in the right upper quadrant are likely from cholecystectomy. IMPRESSION: 1. Nonobstructive bowel gas pattern. The patient refused the CT after the topogram. Reviewed, dictated and finalized at location A. IMPRESSION: 1. Nonobstructive bowel gas pattern. The patient refused the CT after the topog sg.
[2023-11-11 03:04] VITALS: BP 157/82; PULSE 79; RESP 14; TEMP 36.4; O2SAT 97
[2023-11-11] MEDS: MORPHINE SULFATE (*CRX) 4 MG/ML INJ IV PUSH (03:12)
[2023-11-11] MEDS: ONDANSETRON INJ 4 MG/2 ML VIAL IV PUSH (03:12)
[2023-11-11] MEDS: SODIUM CHLORIDE 0.9% IV 1,000 ML 999 ML IV CONT (03:12)
[2023-11-11 03:20] LABS: Basophils Absolute Auto 0.1 K/mm3 (0.0-0.1); Basophils Percent Auto 0.6 % (0.2-1.2); Eosinophils Absolute Auto 0.3 K/mm3 (0-0.3); Eosinophils Percent Auto 2.6 % (0-4.4); Hematocrit 40.6 % (42.0-52.0); Hemoglobin 13.7 g/dL (14.0-18.0); Immature Granulocyte Absolute 0.07 K/mm3 (0.00-0.031); Immature Granulocyte Percent A 0.6 % (0-0.5); Lymphocytes Percent Auto 16.4 % (18.3-44.2); Mean Corpuscular HGB Conc 33.7 g/dl (32-36); Mean Corpuscular Hemoglobin 29.6 pg (26-34); Mean Corpuscular Volume 87.7 fl (80-100); Mean Platelet Volume 9.2 fl (7.4-10.4); Monocytes Absolute Auto 0.9 K/mm3 (0.1-0.6); Monocytes Percent Auto 7.1 % (2.6-8.5); Neutrophils Absolute Auto 8.9 K/mm3 (1.3-6.7); Neutrophils Percent Auto 72.7 % (45.5-73.1); Platelet Count Result 190 k/mm3 (150-375); Red Blood Count 4.63 M/mm3 (4.6-6.20); Red Cell Distribution Width 13.5 % (11.5-14.5); White Blood Count 12.2 K/mm3 (4.5-10.0)
--- NOTE | 2023-11-11 03:24 | ED.GENADULT ---
HPI - General Adult General Chief complaint: Abdominal Pain Stated complaint: Abd pain/weakness/nausea Time Seen by Provider: 11/11/23 02:59 History of Present Illness HPI narrative: Patient is a 63-year-old gentleman who presents emergency department with chief complaint of abdominal pain. The patient reports that he has been having pain in his abdomen radiates into his groin for the last several days ports that he hernia before this feels similar to that patient reports nausea and vomiting. Related Data Home Medications Medication Instructions Recorded Confirmed albuterol 90 mcg/actuation aerosol See Rx Instructions .Route .COMPLEX 03/22/23 03/22/23 inhaler amlodipine 10 mg tablet 10 mg PO DAILY 03/22/23 03/22/23 atorvastatin 20 mg tablet 20 mg PO DAILY 03/22/23 03/22/23 clopidogrel 75 mg tablet (Plavix) 75 mg PO DAILY 03/22/23 03/22/23 cyclobenzaprine 10 mg tablet 10 mg PO HS 03/22/23 03/22/23 escitalopram oxalate 20 mg tablet 20 mg PO DAILY 03/22/23 03/22/23 fluticasone 500 mcg-salmeterol 50 1 inh inhalation Q12H 03/22/23 03/22/23 mcg/dose blistr powdr for inhalation fluticasone propionate 50 2 spray intranasal DAILY 03/22/23 03/22/23 mcg/actuation nasal spray,suspension (Allergy Relief (fluticasone)) gabapentin 300 mg tablet 900 mg PO HS 03/22/23 03/22/23 glipizide 10 mg tablet 10 mg PO DAILY 03/22/23 03/22/23 lisinopril 20 mg tablet 20 mg PO DAILY 03/22/23 03/22/23 lumateperone 42 mg capsule 42 mg PO DAILY 03/22/23 03/22/23 (Caplyta) meloxicam 15 mg tablet 15 mg PO DAILY 03/22/23 03/22/23 metformin 500 mg tablet,extended 500 mg PO BID 03/22/23 03/22/23 release 24hr (osmotic) metoprolol succinate 25 mg 25 mg PO DAILY 03/22/23 03/22/23 tablet,extended release 24 hr quetiapine 25 mg tablet 25 mg PO BID 03/22/23 03/22/23 Allergies Allergy/AdvReac Type Severity Reaction Status Date / Time indomethacin AdvReac Mild Nausea Verified 10/14/22 08:19 Review of Systems Review of Systems: A 10 system review of systems was completed on the patient and is negative except for what is stated in the HPI. Nursing and ancillary documentation was reviewed. [facility] Past Medical History Medical History Abnormal CT scan, colon Anxiety Asthma Bipolar disorder Chronic back pain Cirrhosis Coffee ground emesis Coronary artery disease Status post stent x1. Degenerative disc disease Gastroesophageal reflux disease Hypercholesterolemia Hypertension Leukocytosis Obstructive sleep apnea Does not use CPAP ?because I toss and turn? due to chronic back pain. Type 2 diabetes mellitus Surgical History Surgical History History of arthroscopy of left knee History of cholecystectomy History of heart artery stent Family History Family History Father Family history of congestive heart failure Sibling Family history of congestive heart failure Other Diabetes mellitus Family history of cardiovascular disease Family history of chronic obstructive pulmonary disease Family history of coronary artery disease Family history of kidney disease Family history of malignant neoplasm Family history of mental disorder Hypertension Social History Social History Social History: The patient lives in [place] with his and sister. He is on disability. Former cigarette smoker, quit about 25 years ago. Endorses smoking marijuana. No alcohol abuse. His , Carol Banks, as his surrogate decision maker. He wishes to be a full code. Smoking packs per day: 1.25 Smoking cigarettes per day: 25.0 Years smoked: 22 Smoking pack-years: 27.50 Smoking status: Former smoker Tobacco type: cigarettes Second hand tobacco smoke exposure: Yes Smoking end
[2023-11-11 03:49] LABS: Alanine Aminotransferase 46 U/L (6-50); Albumin Level 4.3 g/dL (3.5-5.1); Alkaline Phosphatase 137 U/L (38-126); Anion Gap 9 mmol/L (4-12); Aspartate Amino Transferase 55 U/L (17-59); Bilirubin,Total 0.5 mg/dL (0.2-1.3); Blood Urea Nitrogen 12 mg/dL (9-20); Calcium 8.9 mg/dL (8.4-10.2); Carbon Dioxide 24 mmol/L (22-30); Chloride 103 mmol/L (98-107); Estimated Glomerular Filt Rate > 60; Glucose 135 mg/dL (65-110); Lactic Acid Reflex 1.6 mmol/L (0.7-2.0); Lipase 179 U/L (23-300); Potassium 3.8 mmol/L (3.4-5.0); Sodium 136 mmol/L (137-145)
[2023-11-11 03:56] LABS: Add Urine Microscopic? YES; Appearance Urine Cloudy (Clear); Bacteria Urine None Seen /hpf; Bilirubin Urine Negative (Negative); Blood Urine Negative (Negative); Color Urine Yellow (Yellow); Glucose Urine UA Negative (Negative); Ketones Urine Negative (Negative); Leukocyte Esterase Ur Trace LEU/UL (Negative); Nitrate Urine Negative (Negative); Non Pathogenic Casts 0-2; Protein Urine Negative (Negative); RBC Urine 0-2 /hpf (0-2); Specific Grav Ur 1.006 (1.001-1.035); Squamous Epithelial Cell Urine None Seen /hpf (Few); Urobilinogen Urine 0.2 mg/dL (<2.0); WBC Urine 0-5 /hpf (0-3); pH Urine 7.5 (5.0-9.0)
[2023-11-11 04:11] LABS: Magnesium 2.1 mg/dL (1.6-2.3)
[2023-11-11 04:15] VITALS: BP 157/82; PULSE 79; RESP 14; TEMP 37; O2SAT 97
[2023-11-11] MEDS: HYDROmorphone HCL INJ (*CRX) 1 MG/ML SYR IV PUSH (04:18)
[2023-11-11] MEDS: PROCHLORPERAZINE EDISYLATE 10 MG/2 ML VIAL IV PUSH (05:23)
[2023-11-11] MEDS: diphenhydrAMINE HCl INJ 50 MG/ML VIAL 25 MG IV PUSH (05:24)
[2023-11-11] MEDS: LORazepam INJ (*CRX) 2 MG/ML VIAL 0.5 MG IV PUSH (05:27)
[2023-11-11 05:46] VITALS: BP 140/73; PULSE 90; RESP 14; TEMP 36.5; O2SAT 100
== END 2023-11-11 06:00 | disposition left against medical advice (07) ==
PROVIDERS: Emergency Provider Emergency Medicine; PCP Internal Medicine
DX: R10.9 Unspecified abdominal pain (principal); I25.10 Atherosclerotic heart disease of native coronary artery without angina pectoris; I10 Essential (primary) hypertension; E78.00 Pure hypercholesterolemia, unspecified; E11.9 Type 2 diabetes mellitus without complications; J45.909 Unspecified asthma, uncomplicated; G47.33 Obstructive sleep apnea (adult) (pediatric); K74.60 Unspecified cirrhosis of liver; K21.9 Gastro-esophageal reflux disease without esophagitis; F31.9 Bipolar disorder, unspecified; F41.9 Anxiety disorder, unspecified; Z95.5 Presence of coronary angioplasty implant and graft; Z87.891 Personal history of nicotine dependence; Z90.49 Acquired absence of other specified parts of digestive tract; Z79.84 Long term (current) use of oral hypoglycemic drugs; Z79.02 Long term (current) use of antithrombotics/antiplatelets; Z79.899 Other long term (current) drug therapy
CPT/HCPCS: 36415; 74176; 80053; 81001; 83605; 83690; 83735; 85025; 96361; 96374; 96375; 99284; J0780; J1170; J1200; J2060; J2270; J2405; J7030

== ENCOUNTER 2023-11-26 08:49 | Emergency (ER) | payer MEDICARE, MEDICAID, SELFPAY ==
--- NOTE | ~2023-11-26 | CT_ITS ---
EXAMINATION: CT abdomen pelvis w con DATE: 11/26/2023 12:21 INDICATION: Abdominal pain TECHNIQUE: Computed tomography (CT) of the abdomen and pelvis was performed with 100 mL Omnipaque-350 intravenous contrast. Automated exposure control and iterative reconstruction technique were employe d. The dose-length product was 1096.00 mGy-cm. COMPARISON: 03/21/2023 and 04/23/2020 FINDINGS: Calcified right lower lobe nodules consistent with old granulomatous disease. Heart size normal. Franc[place] nary artery calcification. Aortic valve calcification. No pericardial or pleural effusion. Cholecyste ctomy clips the gallbladder fossa. There subtle liver surface nodularity mild hypertrophy of the late ral segment of the left hepatic lobe and atrophy of the posterior segment of the right hepatic lobe c onsistent with cirrhosis. Mild splenomegaly measuring 14.1 cm consistent with secondary portal venous hypertension. Multiple scattered splenic calcifications consistent with old granulomatous disease. P ancreas and bilateral adrenal glands are normal. Chronic mild bilateral hydronephrosis without eviden t obstructing stone or mass at the transition point at the ureteropelvic junctions at 2.2 similar lef t renal cyst. Mild scattered colonic diverticulosis without adjacent comparison to suggest diverticul itis. Small bowel and appendix are normal. Bladder is normal. Small fat-containing left inguinal lawrence ia. No free intraperitoneal gas or fluid. No pathologically enlarged abdominal or pelvic lymphadenopa thy. Mild thoracic and lumbar spondylosis. IMPRESSION: 1. No acute intra-abdominal/pelvic process. 2. Cirrhosis with mild splenomegaly suggesting associated portal venous hypertension. 2. Chronic moderate degenerative structures with persistent mild bilateral hydronephrosis. 3. Diverticulosis. 4. Small fat-containing umbilical hernia. Reviewed, dictated and finalized at location A. IMPRESSION: 1. No acute intra-abdominal/pelvic process. 2. Cirrhosis with mild splenomegaly suggesting associated portal venous hyperte nsion. 2. Chronic moderate degenerative structures with persistent mild bilateral hydr onephrosis. 3. Diverticulosis. 4. Small fat-containing umbilical hernia.
--- NOTE | ~2023-11-26 | XR_ITS ---
EXAMINATION: XR chest 2V DATE: 11/26/2023 10:45 INDICATION: Shortness of breath. Sinus infection. Congestion. TECHNIQUE: PA and lateral views of the chest were obtained. COMPARISON: Chest radiograph dated 03/21/2023 FINDINGS: Calcified right lower lobe nodule consistent with old granulomatous disease. No other airspace opacit ies, pulmonary edema, pleural effusion or pneumothorax. The cardiomediastinal silhouette is normal. M oderate thoracic spondylosis. IMPRESSION: 1. No acute cardiopulmonary disease. Reviewed, dictated and finalized at location A.
[2023-11-26 10:49] LABS: Basophils Absolute Auto 0.1 K/mm3 (0.0-0.1); Basophils Percent Auto 0.9 % (0.2-1.2); Eosinophils Absolute Auto 0.3 K/mm3 (0-0.3); Eosinophils Percent Auto 2.1 % (0-4.4); Hematocrit 44.6 % (42.0-52.0); Hemoglobin 14.5 g/dL (14.0-18.0); Immature Granulocyte Absolute 0.03 K/mm3 (0.00-0.031); Immature Granulocyte Percent A 0.2 % (0-0.5); Lymphocytes Absolute Auto 2.88 K/mm3 (0.9-3.2); Lymphocytes Percent Auto 23.7 % (18.3-44.2); Mean Corpuscular HGB Conc 32.5 g/dl (32-36); Mean Corpuscular Hemoglobin 28.6 pg (26-34); Mean Platelet Volume 9.2 fl (7.4-10.4); Monocytes Absolute Auto 0.7 K/mm3 (0.1-0.6); Monocytes Percent Auto 5.9 % (2.6-8.5); Neutrophils Absolute Auto 8.2 K/mm3 (1.3-6.7); Neutrophils Percent Auto 67.2 % (45.5-73.1); Platelet Count Result 247 k/mm3 (150-375); Red Blood Count 5.07 M/mm3 (4.6-6.20); Red Cell Distribution Width 13.5 % (11.5-14.5); White Blood Count 12.2 K/mm3 (4.5-10.0)
[2023-11-26 10:57] LABS: Lipase 616 U/L (23-300); Magnesium 2.3 mg/dL (1.6-2.3)
[2023-11-26 10:58] LABS: Alanine Aminotransferase 39 U/L (6-50); Albumin Level 4.9 g/dL (3.5-5.1); Alkaline Phosphatase 134 U/L (38-126); Anion Gap 12 mmol/L (4-12); Aspartate Amino Transferase 50 U/L (17-59); Bilirubin,Total 0.6 mg/dL (0.2-1.3); Blood Urea Nitrogen 12 mg/dL (9-20); Calcium 9.6 mg/dL (8.4-10.2); Carbon Dioxide 26 mmol/L (22-30); Chloride 101 mmol/L (98-107); Estimated CRCL calculation 130 ml/min; Estimated Glomerular Filt Rate > 60; Glucose 138 mg/dL (65-110); Lipase 621 U/L (23-300); Potassium 3.9 mmol/L (3.4-5.0); Sodium 139 mmol/L (137-145)
[2023-11-26 11:00] LABS: Prothrombin Time 13.4 Seconds (11.1-14.7)
[2023-11-26 11:01] LABS: Partial Thromboplastin Time 27.9 Seconds (22.3-36.8)
[2023-11-26 11:10] LABS: Troponin I < 0.012 ng/mL (0.000-0.034)
--- NOTE | 2023-11-26 11:41 | ED.GENADULT ---
HPI - General Adult General Chief complaint: Shortness of Breath/Dyspnea Stated complaint: trouble breathing Time Seen by Provider: 11/26/23 10:40 History of Present Illness HPI narrative: 63-year-old male present to the emergency department for evaluation for multiple days of complaints including sinus congestion cough, shortness of breath and abdominal pain. Patient reports symptoms have been going on for the last week and have been worsening. Patient does have cardiac stents, patient denies any current chest pain. Related Data Home Medications Medication Instructions Recorded Confirmed albuterol 90 mcg/actuation aerosol See Rx Instructions .Route .COMPLEX 03/22/23 03/22/23 inhaler amlodipine 10 mg tablet 10 mg PO DAILY 03/22/23 03/22/23 atorvastatin 20 mg tablet 20 mg PO DAILY 03/22/23 03/22/23 clopidogrel 75 mg tablet (Plavix) 75 mg PO DAILY 03/22/23 03/22/23 cyclobenzaprine 10 mg tablet 10 mg PO HS 03/22/23 03/22/23 escitalopram oxalate 20 mg tablet 20 mg PO DAILY 03/22/23 03/22/23 fluticasone 500 mcg-salmeterol 50 1 inh inhalation Q12H 03/22/23 03/22/23 mcg/dose blistr powdr for inhalation fluticasone propionate 50 2 spray intranasal DAILY 03/22/23 03/22/23 mcg/actuation nasal spray,suspension (Allergy Relief (fluticasone)) gabapentin 300 mg tablet 900 mg PO HS 03/22/23 03/22/23 glipizide 10 mg tablet 10 mg PO DAILY 03/22/23 03/22/23 lisinopril 20 mg tablet 20 mg PO DAILY 03/22/23 03/22/23 lumateperone 42 mg capsule 42 mg PO DAILY 03/22/23 03/22/23 (Caplyta) meloxicam 15 mg tablet 15 mg PO DAILY 03/22/23 03/22/23 metformin 500 mg tablet,extended 500 mg PO BID 03/22/23 03/22/23 release 24hr (osmotic) metoprolol succinate 25 mg 25 mg PO DAILY 03/22/23 03/22/23 tablet,extended release 24 hr quetiapine 25 mg tablet 25 mg PO BID 03/22/23 03/22/23 Allergies Allergy/AdvReac Type Severity Reaction Status Date / Time indomethacin AdvReac Mild Nausea Verified 11/26/23 08:52 Review of Systems Review of Systems: All systems reviewed & are unremarkable except as noted in HPI and below PMFSH Past Medical History Medical History Abnormal CT scan, colon Anxiety Asthma Bipolar disorder Chronic back pain Cirrhosis Coffee ground emesis Coronary artery disease Status post stent x1. Degenerative disc disease Gastroesophageal reflux disease Hypercholesterolemia Hypertension Leukocytosis Obstructive sleep apnea Does not use CPAP ?because I toss and turn? due to chronic back pain. Type 2 diabetes mellitus Surgical History Surgical History History of arthroscopy of left knee History of cholecystectomy History of heart artery stent Family History Family History Father Family history of congestive heart failure Sibling Family history of congestive heart failure Other Diabetes mellitus Family history of cardiovascular disease Family history of chronic obstructive pulmonary disease Family history of coronary artery disease Family history of kidney disease Family history of malignant neoplasm Family history of mental disorder Hypertension Social History Social History Social History: The patient lives in [place] with his and sister. He is on disability. Former cigarette smoker, quit about 25 years ago. Endorses smoking marijuana. No alcohol abuse. His , Carol Banks, as his surrogate decision maker. He wishes to be a full code. Smoking packs per day: 1.25 Smoking cigarettes per day: 25.0 Years smoked: 22 Smoking pack-years: 27.50 Smoking status: Former smoker Tobacco type: cigarettes Second hand tobacco smoke exposure: Yes Smoking end date: 08/20/94 Alcohol intake: former Substance use: current Sub
[2023-11-26 12:01] VITALS: BP 135/54; PULSE 68; RESP 16; TEMP 36.8; O2SAT 95
[2023-11-26] MEDS: SODIUM CHLORIDE 0.9% IV 1,000 ML 999 ML IV CONT (12:44)
[2023-11-26] MEDS: ONDANSETRON INJ 4 MG/2 ML VIAL IV PUSH (12:44)
[2023-11-26] MEDS: HYDROmorphone HCL INJ (*CRX) 1 MG/ML SYR 0.5 MG IV PUSH (12:46)
[2023-11-26 13:00] VITALS: BP 138/58; PULSE 69; RESP 16; TEMP 36.6; O2SAT 96
[2023-11-26 14:00] VITALS: BP 142/80; PULSE 82; RESP 20; TEMP 36.6; O2SAT 100
[2023-11-26] MEDS: AZITHROMYCIN 250 MG TABLET 500 MG PO (14:24)
[2023-11-26] MEDS: AMOXICILLIN/CLAVULANATE K 875-125 MG TAB 1 TABLET PO (14:24)
== END 2023-11-26 14:31 | disposition home or self-care (01) ==
PROVIDERS: Emergency Provider Emergency Medicine; PCP Internal Medicine
DX: J18.9 Pneumonia, unspecified organism (principal); R09.81 Nasal congestion; I10 Essential (primary) hypertension; I25.10 Atherosclerotic heart disease of native coronary artery without angina pectoris; J45.909 Unspecified asthma, uncomplicated; E78.00 Pure hypercholesterolemia, unspecified; E11.9 Type 2 diabetes mellitus without complications; K74.60 Unspecified cirrhosis of liver; K21.9 Gastro-esophageal reflux disease without esophagitis; G47.33 Obstructive sleep apnea (adult) (pediatric); Z95.5 Presence of coronary angioplasty implant and graft; Z87.891 Personal history of nicotine dependence; Z90.49 Acquired absence of other specified parts of digestive tract; Z79.84 Long term (current) use of oral hypoglycemic drugs; Z79.899 Other long term (current) drug therapy; K57.90 Diverticulosis of intestine, part unspecified, without perforation or abscess without bleeding; K42.9 Umbilical hernia without obstruction or gangrene; R16.1 Splenomegaly, not elsewhere classified
CPT/HCPCS: 36415; 71046; 74177; 80053; 83690; 83735; 84484; 85025; 85610; 85730; 96361; 96374; 96375; 99284; A9270; J1171; J2405; J7030; Q9967

== ENCOUNTER 2023-11-30 08:18 | Emergency (ER) | payer MEDICARE, MEDICAID, SELFPAY ==
[2023-11-30] VITALS (8 sets, daily range): BP systolic 139–169; BP diastolic 70–86; PULSE 65–78; RESP 16–22; TEMP 36.5; O2SAT 97–100
--- NOTE | ~2023-11-30 | XR_ITS ---
Clinical Indication: Cough PA and lateral views of the chest: Comparison: 11/26/2023 Findings: Stable calcified right basilar granuloma. The lungs are otherwise clear, without evidence o f focal consolidation or pleural effusion. Cardiomediastinal silhouette is within normal limits. Bon es and soft tissues are unremarkable. Impression: No acute reality. Reviewed, dictated and finalized at location . Impression: No acute reality.
--- NOTE | 2023-11-30 08:21 | ECG_ITS ---
Test Date: 2023-11-30 08:24:22 Measurements Intervals [place] Rate: 71 P: 40 [place]: 153 QRS: 34 QRSD: 105 T: 32 QT: 403 QTc: 438 Interpretive Statements SINUS RHYTHM LOW QRS VOLTAGE OTHERWISE UNREMARKABLE ECG No previous ECG available for comparison Electronically Signed On 11-30-2023 16:02:55 CDT by Terrance West M.D.
--- NOTE | 2023-11-30 08:27 | ED.CHESTPAIN ---
HPI - Chest Pain General Chief Complaint: Abdominal Pain Stated Complaint: CP, abd pain Time Seen by Provider: 11/30/23 08:21 History of Present Illness HPI narrative: patient presents here after recent diagnosis of pneumonia, reporting that his lungs hurt, his chest feels funny, and he has some stomach pains and feels nauseous. Has been taking antibiotics for last 2 days. Related Data Home Medications Medication Instructions Recorded Confirmed albuterol 90 mcg/actuation aerosol See Rx Instructions .Route .COMPLEX 03/22/23 03/22/23 inhaler amlodipine 10 mg tablet 10 mg PO DAILY 03/22/23 03/22/23 atorvastatin 20 mg tablet 20 mg PO DAILY 03/22/23 03/22/23 clopidogrel 75 mg tablet (Plavix) 75 mg PO DAILY 03/22/23 03/22/23 cyclobenzaprine 10 mg tablet 10 mg PO HS 03/22/23 03/22/23 escitalopram oxalate 20 mg tablet 20 mg PO DAILY 03/22/23 03/22/23 fluticasone 500 mcg-salmeterol 50 1 inh inhalation Q12H 03/22/23 03/22/23 mcg/dose blistr powdr for inhalation fluticasone propionate 50 2 spray intranasal DAILY 03/22/23 03/22/23 mcg/actuation nasal spray,suspension (Allergy Relief (fluticasone)) gabapentin 300 mg tablet 900 mg PO HS 03/22/23 03/22/23 glipizide 10 mg tablet 10 mg PO DAILY 03/22/23 03/22/23 lisinopril 20 mg tablet 20 mg PO DAILY 03/22/23 03/22/23 lumateperone 42 mg capsule 42 mg PO DAILY 03/22/23 03/22/23 (Caplyta) meloxicam 15 mg tablet 15 mg PO DAILY 03/22/23 03/22/23 metformin 500 mg tablet,extended 500 mg PO BID 03/22/23 03/22/23 release 24hr (osmotic) metoprolol succinate 25 mg 25 mg PO DAILY 03/22/23 03/22/23 tablet,extended release 24 hr quetiapine 25 mg tablet 25 mg PO BID 03/22/23 03/22/23 glimepiride 2 mg tablet mg 11/30/23 Allergies Allergy/AdvReac Type Severity Reaction Status Date / Time indomethacin AdvReac Mild Nausea Verified 11/30/23 08:27 Review of Systems Review of Systems: All systems reviewed & are unremarkable except as noted in HPI and below PMFSH Past Medical History Medical History Abnormal CT scan, colon Anxiety Asthma Bipolar disorder Chronic back pain Cirrhosis Coffee ground emesis Coronary artery disease Status post stent x1. Degenerative disc disease Gastroesophageal reflux disease Hypercholesterolemia Hypertension Leukocytosis Obstructive sleep apnea Does not use CPAP ?because I toss and turn? due to chronic back pain. Type 2 diabetes mellitus Surgical History Surgical History History of arthroscopy of left knee History of cholecystectomy History of heart artery stent Family History Family History Father Family history of congestive heart failure Sibling Family history of congestive heart failure Other Diabetes mellitus Family history of cardiovascular disease Family history of chronic obstructive pulmonary disease Family history of coronary artery disease Family history of kidney disease Family history of malignant neoplasm Family history of mental disorder Hypertension Social History Social History Social History: The patient lives in [place] with his and sister. He is on disability. Former cigarette smoker, quit about 25 years ago. Endorses smoking marijuana. No alcohol abuse. His , Carol Banks, as his surrogate decision maker. He wishes to be a full code. Smoking packs per day: 1.25 Smoking cigarettes per day: 25.0 Years smoked: 22 Smoking pack-years: 27.50 Smoking status: Former smoker Tobacco type: cigarettes Second hand tobacco smoke exposure: Yes Smoking end date: 08/20/94 Alcohol intake: former Substance use: current Substance use type: marijuana Other substance usage details: SMOKES MARIJUANA 4 TIMES/DAY Last use: 03/20/2023
[2023-11-30] MEDS: HALOPERIDOL LACTATE 5 MG/ML VIAL 2.5 MG IV PUSH (09:06)
[2023-11-30 09:09] LABS: Basophils Absolute Auto 0.1 K/mm3 (0.0-0.1); Eosinophils Absolute Auto 0.2 K/mm3 (0-0.3); Eosinophils Percent Auto 1.9 % (0-4.4); Hematocrit 39.5 % (42.0-52.0); Hemoglobin 13.4 g/dL (14.0-18.0); Immature Granulocyte Absolute 0.05 K/mm3 (0.00-0.031); Immature Granulocyte Percent A 0.5 % (0-0.5); Lymphocytes Absolute Auto 1.82 K/mm3 (0.9-3.2); Lymphocytes Percent Auto 17.1 % (18.3-44.2); Mean Corpuscular HGB Conc 33.9 g/dl (32-36); Mean Corpuscular Hemoglobin 29.6 pg (26-34); Mean Corpuscular Volume 87.2 fl (80-100); Mean Platelet Volume 9.1 fl (7.4-10.4); Monocytes Absolute Auto 0.5 K/mm3 (0.1-0.6); Monocytes Percent Auto 4.3 % (2.6-8.5); Neutrophils Percent Auto 75.2 % (45.5-73.1); Platelet Count Result 220 k/mm3 (150-375); Red Blood Count 4.53 M/mm3 (4.6-6.20); Red Cell Distribution Width 13.4 % (11.5-14.5); White Blood Count 10.7 K/mm3 (4.5-10.0)
[2023-11-30 09:16] LABS: NT Pro B Type Natriuretic Pept 62 pg/mL (19.9-100); Troponin I 0.024 ng/mL (0.000-0.034)
[2023-11-30 09:39] LABS: D Dimer 0.47 ug/mL (<0.48)
[2023-11-30] MEDS: ASPIRIN 81 MG CHEWABLE TABLET 324 MG PO (10:22)
[2023-11-30 10:24] LABS: Alanine Aminotransferase 36 U/L (6-50); Albumin Level 4.6 g/dL (3.5-5.1); Alkaline Phosphatase 149 U/L (38-126); Anion Gap 11 mmol/L (4-12); Aspartate Amino Transferase 42 U/L (17-59); Bilirubin,Total 0.3 mg/dL (0.2-1.3); Blood Urea Nitrogen 13 mg/dL (9-20); Calcium 9.2 mg/dL (8.4-10.2); Carbon Dioxide 24 mmol/L (22-30); Chloride 101 mmol/L (98-107); Estimated CRCL calculation 154 ml/min; Estimated Glomerular Filt Rate > 60; Glucose 179 mg/dL (65-110); Lipase 300 U/L (23-300); Potassium 4.1 mmol/L (3.4-5.0); Sodium 136 mmol/L (137-145)
[2023-11-30] MEDS: PANTOPRAZOLE SODIUM IV 40 MG VIAL IV PUSH (10:25)
--- NOTE | 2023-11-30 10:29 | PC.NURSE ---
Pt requesting breathing tx, EDP made aware and orders placed.
[2023-11-30] MEDS: IPRATROPIUM 0.5 MG/ALBUTEROL SULFATE 2.5 MG AMPUL.NEB 3 ML INHALATION (10:36)
--- NOTE | 2023-11-30 12:00 | ECG_ITS ---
Test Date: 2023-11-30 11:54:16 Measurements Intervals [place] Rate: 75 P: 51 [place]: 161 QRS: 42 QRSD: 116 T: 29 QT: 435 QTc: 488 Interpretive Statements SINUS RHYTHM MINOR ST SEGMENT ABNORMALITY WITHIN NORMAL LIMITS Compared to ECG 11/30/2023 08:24:22 NO SIGNIFICANT CHANGE Electronically Signed On 11-30-2023 16:08:19 CDT by Terrance West M.D.
[2023-11-30 12:30] LABS: Troponin I < 0.012 ng/mL (0.000-0.034)
== END 2023-11-30 13:10 | disposition home or self-care (01) ==
PROVIDERS: Emergency Provider Emergency Medicine; PCP Internal Medicine
DX: J20.9 Acute bronchitis, unspecified (principal); R11.0 Nausea; I25.10 Atherosclerotic heart disease of native coronary artery without angina pectoris; I10 Essential (primary) hypertension; E11.9 Type 2 diabetes mellitus without complications; E78.00 Pure hypercholesterolemia, unspecified; J45.909 Unspecified asthma, uncomplicated; G47.33 Obstructive sleep apnea (adult) (pediatric); K21.9 Gastro-esophageal reflux disease without esophagitis; K74.60 Unspecified cirrhosis of liver; F31.9 Bipolar disorder, unspecified; F41.9 Anxiety disorder, unspecified; Z95.5 Presence of coronary angioplasty implant and graft; Z87.01 Personal history of pneumonia (recurrent); Z87.891 Personal history of nicotine dependence; Z90.49 Acquired absence of other specified parts of digestive tract; Z79.899 Other long term (current) drug therapy; Z79.84 Long term (current) use of oral hypoglycemic drugs; Z79.02 Long term (current) use of antithrombotics/antiplatelets
CPT/HCPCS: 36415; 71046; 80053; 83690; 83880; 84484; 85025; 85380; 93005; 94640; 96374; 96375; 99284; A9270; J1630; J2470

== ENCOUNTER 2024-01-24 10:58 | Emergency (ER) | payer MEDICARE, MEDICAID, SELFPAY ==
[2024-01-24 11:10] VITALS: BP 152/72; PULSE 59; RESP 16; TEMP 36.8; O2SAT 98
[2024-01-24 11:15] VITALS: BP 152/72; PULSE 59; RESP 16; TEMP 36.8; O2SAT 98
--- NOTE | 2024-01-24 11:30 | ED.URI ---
HPI - URI/Sore Throat General Chief Complaint: Upper Respiratory Infection Stated Complaint: ears hurt,sore throat,congestion Time Seen by Provider: 01/24/24 11:30 Source: patient Mode of arrival: ambulatory Limitations: no limitations History of Present Illness HPI Narrative: 63 yo M presents with c/o nasal and sinus congestion, PND, SOre throat, cough for 2 months. Called his PCP today to schedule appointment and was told to take OTC meds. Pt reports intermittent fever. Some SOB with exertion. All systems reviewed and negative except as noted above. Related Data Home Medications Medication Instructions Recorded Confirmed albuterol 90 mcg/actuation aerosol See Rx Instructions .Route .COMPLEX 03/22/23 01/24/24 inhaler amlodipine 10 mg tablet 10 mg PO DAILY 03/22/23 01/24/24 atorvastatin 20 mg tablet 20 mg PO DAILY 03/22/23 01/24/24 clopidogrel 75 mg tablet (Plavix) 75 mg PO DAILY 03/22/23 01/24/24 cyclobenzaprine 10 mg tablet 10 mg PO HS 03/22/23 01/24/24 escitalopram oxalate 20 mg tablet 20 mg PO DAILY 03/22/23 01/24/24 fluticasone 500 mcg-salmeterol 50 1 inh inhalation Q12H 03/22/23 01/24/24 mcg/dose blistr powdr for inhalation fluticasone propionate 50 2 spray intranasal DAILY 03/22/23 01/24/24 mcg/actuation nasal spray,suspension (Allergy Relief (fluticasone)) gabapentin 300 mg tablet 900 mg PO HS 03/22/23 01/24/24 glipizide 10 mg tablet 10 mg PO DAILY 03/22/23 01/24/24 lisinopril 20 mg tablet 20 mg PO DAILY 03/22/23 01/24/24 lumateperone 42 mg capsule 42 mg PO DAILY 03/22/23 01/24/24 (Caplyta) meloxicam 15 mg tablet 15 mg PO DAILY 03/22/23 01/24/24 metformin 500 mg tablet,extended 500 mg PO BID 03/22/23 01/24/24 release 24hr (osmotic) metoprolol succinate 25 mg 25 mg PO DAILY 03/22/23 01/24/24 tablet,extended release 24 hr quetiapine 25 mg tablet 25 mg PO BID 03/22/23 01/24/24 glimepiride 2 mg tablet 2 mg PO DAILY 11/30/23 01/24/24 Allergies Allergy/AdvReac Type Severity Reaction Status Date / Time indomethacin AdvReac Mild Nausea Verified 01/24/24 11:10 Review of Systems Review of Systems: CONSTITUTIONAL: Denies fever, chills, or sweats. reports fatigue. EYES: Denies visual changes, redness, or discharge. ENT: Reports rhinorrhea, congestion, sore throat and otalgia. CARDIOVASCULAR: Denies chest pain, palpitations, or edema. RESPIRATORY: D reports cough and dyspnea with exertion. GASTROINTESTINAL: Denies abdominal pain, nausea, vomiting, or diarrhea. GENITOURINARY: Denies dysuria or hematuria. SKIN: Denies rash or itching. MUSCULOSKELETAL: Denies back pain, joint pain, or myalgia. NEUROLOGIC: Denies headache, numbness, or weakness. PSYCHIATRIC: Denies anxiety or depression. All other systems reviewed are negative, except as documented in HPI. ON LICENSE OF [facility] Past Medical History Medical History Abnormal CT scan, colon Anxiety Asthma Bipolar disorder Chronic back pain Cirrhosis Coffee ground emesis Coronary artery disease Status post stent x1. Degenerative disc disease Gastroesophageal reflux disease Hypercholesterolemia Hypertension Leukocytosis Obstructive sleep apnea Does not use CPAP ?because I toss and turn? due to chronic back pain. Type 2 diabetes mellitus Surgical History Surgical History History of arthroscopy of left knee History of cholecystectomy History of heart artery stent Family History Family History Father Family history of congestive heart failure Sibling Family history of congestive heart failure Other Diabetes mellitus Family history of cardiovascular disease Family history of chronic obstructive pulmonary disease Family history of coronary artery disease Family history of kidney disease Family history of malignant neoplasm Family history of mental disorder Hypertension Social History Social History Social History: The patient lives in [place] with his and sister. He is on disability. Former cigarette smoker, quit about 25 years ago. Endorses smoking marijuana. No alcohol abuse. His , Carol Banks, as his surrogate decision maker. He wishes to be a full code. Smoking packs per day: 1.25 Smoking cigarettes per day: 25.0 Years smoked: 22 Smoking pack-years: 27.50 Smoking status: Former smoker Tobacco type: cigarettes Second hand tobacco smoke exposure: Yes Smoking end date: 08/20/94 Alcohol intake: former Substance use: current Substance use type: marijuana Other substance usage details: SMOKES MARIJUANA 4 TIMES/DAY Last use: 03/20/2023 Do You Feel Safe in your Home?: Yes Lack of Transportation: YES Lack of Food: Never True Current Housing: I Have Housing Concerned About Future Housing: No Difficulty Paying Gas/Electric Bills: No Difficulty Paying for Meds: No Currently Unemployed: No Education: High School Diploma/GED Difficulty w/ Childcare or Family Care: No Living arrangements: with family Additional living arrangements comments: & SISTER Gender identity (if verbalized by the patient): Male Spiritual care concerns: No Comments At time of signature, agree with nursing past medical, surgical, social and family history. There is no relevant family history pertinent to the presenting complaint. Exam Narrative: GENERAL: This is a well-nourished, well-developed patient, in no apparent distress. HEAD: normocephalic, atraumatic. EYES: PERRL. Sclera clear/white. Vision is grossly intact. EARS: External ears normal, auditory canals clear and without drainage, TMs normal without perforation. Hearing grossly intact. NOSE: External nose normal with Moderate congestion, erythema and swelling to bilateral nares, frontal and maxillary sinus tenderness on palpation THROAT: Mucous membranes moist, postnasal drainage with erythema NECK: Neck supple, non-tender without lymphadenopathy, masses or thyromegaly. CARDIOVASCULAR: Regular rate and rhythm without murmurs, gallops, or rubs. RESPIRATORY: Clear to auscultation. Breath sounds equal bilaterally. No wheezes, rales, or rhonchi. SKIN: warm, Dry, intact with no suspicious lesions or rash, good texture and turgor. NEURO: awake, alert, and oriented to person, place and time. There were no obvious focal neurologic abnormalities. EXTREMITIES: No joint tenderness, effusion, or edema noted. Course Course Level of Care: Express Care Visit Vital Signs Vital signs: Vital Signs Temperature 36.8 C 01/24/24 11:10 Pulse Rate 59 L 01/24/24 11:10 Respiratory Rate 16 01/24/24 11:10 Blood Pressure 152/72 H 01/24/24 11:10 Pulse Oximetry 98 01/24/24 11:10 Oxygen Delivery Room Air 01/24/24 11:10 Temperature 36.8 C 01/24/24 11:15 Pulse Rate 59 L 01/24/24 11:15 Respiratory Rate 16 01/24/24 11:15 Blood Pressure 152/72 H 01/24/24 11:15 Pulse Oximetry 98 01/24/24 11:15 Oxygen Delivery Room Air 01/24/24 11:15 reviewed MDM - URI/Sore Throat MDM Narrative Medical decision making narrative: Patient is aware of diagnosis, understands and agrees to treatment plan. Anticipatory guidance given. Patient agrees to follow-up as directed and is aware of reasons to seek care at the emergency department. Portions of this record may have been created with voice recognition software will treat patient for bacterial sinusitis due to duration of symptoms and exam findings. Lungs are clear to auscultation. Patient well-appearing, nontoxic. Lab Data Labs: Lab Results 01/24/24 Range/Units 11:44 POC Grp A Strep Screen Negative (Negative) Discharge Plan Discharge Clinical Impression: Acute bacterial sinusitis Patient Disposition: Home, Self-Care Condition: Stable Instructions: Antibiotic Form, Sinusitis (ED) Additional Instructions: your strep test was negative today. Take medications as prescribed. Take a daily antihistamine such as Claritin or Zyrtec. Drink at least 64 oz of water a day. Place cool mist humidifier in bedroom where you sleep. Follow-up with your primary care physician if symptoms are not improving. Prescriptions: New doxycycline hyclate 100 mg capsule 100 mg PO BID 7 Days Qty: 14 0RF fluticasone propionate [24 Hour Allergy Relief] 50 mcg/actuation spray,suspension 2 spray intranasal DAILY Qty: 16 0RF Rx Instructions: administer into each nostril benzonatate 200 mg capsule 200 mg PO TID PRN (Reason: cough) Qty: 20 0RF No Action lisinopril 20 mg Tablet 20 mg PO DAILY glipizide 10 mg Tablet 10 mg PO DAILY amlodipine 10 mg Tablet 10 mg PO DAILY escitalopram oxalate 20 mg Tablet 20 mg PO DAILY metformin 500 mg Tablet Extended Release 24 Hr 500 mg PO BID gabapentin 300 mg Tablet 900 mg PO HS albuterol 90 mcg/actuation Aerosol See Rx Instructions .ROUTE .COMPLEX Rx Instructions: 2 puffs every 4-6 hours as needed for difficulty breathing quetiapine 25 mg Tablet 25 mg PO BID atorvastatin 20 mg Tablet 20 mg PO DAILY meloxicam 15 mg Tablet 15 mg PO DAILY clopidogrel [Plavix] 75 mg Tablet 75 mg PO DAILY fluticasone propion-salmeterol 500-50 mcg/dose Blister With Device 1 inh INHALATION Q12H fluticasone propionate [Allergy Relief (fluticasone)] 50 mcg/actuation [place],Suspension 2 spray INTRANASAL DAILY Rx Instructions: administer into each nostril Caplyta 42 mg Capsule 42 mg PO DAILY cyclobenzaprine 10 mg Tablet 10 mg PO HS metoprolol succinate 25 mg Tablet Extended Release 24 Hr 25 mg PO DAILY pantoprazole [Protonix] 40 mg Tablet,Delayed Release (Dr/Ec) 40 mg PO BID Qty: 60 0RF glimepiride 2 mg tablet 2 mg PO DAILY albuterol sulfate 90 mcg/actuation HFA aerosol inhaler 2 puff inhalation QID PRN (Reason: shortness of breath or wheezing) Qty: 8.5 0RF famotidine 20 mg tablet 20 mg PO DAILY Qty: 30 0RF ondansetron 4 mg tablet,disintegrating 4 mg PO Q8H PRN (Reason: nausea and vomiting) Qty: 10 0RF Follow-up/Referrals: Tremayne,Ziggy Morgan MD [Primary Care Provider] - Time of Disposition: 11:49
[2024-01-24 11:46] LABS: EDSTREPNEGPOS1 Negative (Negative)
== END 2024-01-24 12:00 | disposition home or self-care (01) ==
PROVIDERS: Emergency Provider Nurse Practitioner Family; PCP Internal Medicine
DX: J01.90 Acute sinusitis, unspecified (principal); Z87.891 Personal history of nicotine dependence; J45.909 Unspecified asthma, uncomplicated; K74.60 Unspecified cirrhosis of liver; I25.10 Atherosclerotic heart disease of native coronary artery without angina pectoris; Z95.5 Presence of coronary angioplasty implant and graft; K21.9 Gastro-esophageal reflux disease without esophagitis; E78.00 Pure hypercholesterolemia, unspecified; I10 Essential (primary) hypertension; E11.9 Type 2 diabetes mellitus without complications; G47.33 Obstructive sleep apnea (adult) (pediatric); Z91.198 Patient's noncompliance with other medical treatment and regimen for other reason; F41.9 Anxiety disorder, unspecified; F31.9 Bipolar disorder, unspecified; Z79.01 Long term (current) use of anticoagulants; Z79.84 Long term (current) use of oral hypoglycemic drugs
CPT/HCPCS: 87081; 87880; 99213; G0463

== ENCOUNTER 2024-01-31 14:48 | Emergency (ER) | payer MEDICARE, MEDICAID, SELFPAY ==
--- NOTE | ~2024-01-31 | XR_ITS ---
XR chest 2V 01/31/2024 16:01 Indication: Cough for one month Procedure: 2 view chest Comparison: 11/30/2023 Findings: Heart size normal. No focal air space disease, pulmonary edema, pleural effusion or suspect ed pneumothorax. Calcified granuloma right lower lobe. No acute osseous abnormality. Impression: 1: No acute cardiopulmonary disease. Reviewed, dictated and finalized at location [facility] [employer] Impression: 1: No acute cardiopulmonary disease.
[2024-01-31 14:57] VITALS: BP 139/65; PULSE 64; RESP 19; TEMP 36.8; O2SAT 98
--- NOTE | 2024-01-31 15:19 | ED.URI ---
HPI - URI/Sore Throat General Chief Complaint: Upper Respiratory Infection Stated Complaint: head/ear/throat pain Time Seen by Provider: 01/31/24 15:49 Source: patient and RN notes reviewed Mode of arrival: ambulatory Limitations: no limitations History of Present Illness HPI Narrative: 64-year-old male presents with concern for ongoing nasal congestion, sinus pressure, ear pressure, sore throat, cough for several months. Reports his lungs hurt when he takes a deep breath. He was seen a week ago and was prescribed doxycycline which he finished yesterday. He has also been using Flonase, saline nasal spray Mucinex without relief MD elicited complaint: cough, sore throat and nasal congestion Related Data Home Medications ?Medication ?Instructions ?Recorded ?Confirmed ?Last Taken ?Type amlodipine 10 mg tablet 10 mg PO DAILY 03/22/23 01/24/24 11/30/23 History atorvastatin 20 mg tablet 20 mg PO DAILY 03/22/23 01/24/24 11/30/23 History clopidogrel 75 mg tablet (Plavix) 75 mg PO DAILY 03/22/23 01/24/24 11/30/23 History cyclobenzaprine 10 mg tablet 10 mg PO HS 03/22/23 01/24/24 Unknown History escitalopram oxalate 20 mg tablet 20 mg PO DAILY 03/22/23 01/24/24 11/30/23 History fluticasone 500 mcg-salmeterol 50 1 inh inhalation Q12H 03/22/23 01/24/24 Unknown History mcg/dose blistr powdr for inhalation fluticasone propionate 50 2 spray intranasal DAILY 03/22/23 01/24/24 Unknown History mcg/actuation nasal spray,suspension (Allergy Relief (fluticasone)) gabapentin 300 mg tablet 900 mg PO HS 03/22/23 01/24/24 Unknown History glipizide 10 mg tablet 10 mg PO DAILY 03/22/23 01/24/24 Unknown History lisinopril 20 mg tablet 20 mg PO DAILY 03/22/23 01/24/24 11/30/23 History lumateperone 42 mg capsule 42 mg PO DAILY 03/22/23 01/24/24 11/30/23 History (Caplyta) meloxicam 15 mg tablet 15 mg PO DAILY 03/22/23 01/24/24 11/30/23 History metformin 500 mg tablet,extended 500 mg PO BID 03/22/23 01/24/24 11/30/23 History release 24hr (osmotic) metoprolol succinate 25 mg 25 mg PO DAILY 03/22/23 01/24/24 11/30/23 History tablet,extended release 24 hr quetiapine 25 mg tablet 25 mg PO BID 03/22/23 01/24/24 11/30/23 History glimepiride 2 mg tablet 2 mg PO DAILY 11/30/23 01/24/24 11/30/23 History Allergies Allergy/AdvReac Type Severity Reaction Status Date / Time indomethacin AdvReac Mild Nausea Verified 01/31/24 14:59 Review of Systems Review of Systems: CONSTITUTIONAL: Denies malaise, chills, sweats, or fever. EYES: Denies visual changes, redness, or discharge. ENT: Reports rhinorrhea, congestion, sinus pain, otalgia and sore throat. CARDIOVASCULAR: Denies chest pain, palpitations, or edema. RESPIRATORY: Reports cough. Denies dyspnea. GASTROINTESTINAL: Denies abdominal pain, nausea, vomiting, diarrhea SKIN: Denies rash or itching. MUSCULOSKELETAL: Denies myalgia. NEUROLOGIC: Denies headache. All systems reviewed & are unremarkable except as noted in HPI and below PMFSH Past Medical History Medical History Abnormal CT scan, colon Anxiety Asthma Bipolar disorder Chronic back pain Cirrhosis Coffee ground emesis Coronary artery disease Status post stent x1. Degenerative disc disease Gastroesophageal reflux disease Hypercholesterolemia Hypertension Leukocytosis Obstructive sleep apnea Does not use CPAP ?because I toss and turn? due to chronic back pain. Type 2 diabetes mellitus Surgical History Surgical History History of arthroscopy of left knee History of cholecystectomy History of heart artery stent Family History Family History Father Family history of congestive heart failure Sibling Family history of congestive heart failure Other Diabetes mellitus Family history of cardiovascular disease Family history of chronic obstructive pulmonary disease Family history of coronary artery disease Family history of kidney disease Family history of malignant neoplasm Family history of mental disorder Hypertension Social History Social History Social History: The patient lives in [place] with his and sister. He is on disability. Former cigarette smoker, quit about 25 years ago. Endorses smoking marijuana. No alcohol abuse. His , Carol Banks, as his surrogate decision maker. He wishes to be a full code. Smoking packs per day: 1.25 Smoking cigarettes per day: 25.0 Years smoked: 22 Smoking pack-years: 27.50 Smoking status: Former smoker Tobacco type: cigarettes Second hand tobacco smoke exposure: Yes Smoking end date: 08/20/94 Alcohol intake: former Substance use: current Substance use type: marijuana Other substance usage details: SMOKES MARIJUANA 4 TIMES/DAY Last use: 03/20/2023 Do You Feel Safe in your Home?: Yes Lack of Transportation: YES Lack of Food: Never True Current Housing: I Have Housing Concerned About Future Housing: No Difficulty Paying Gas/Electric Bills: No Difficulty Paying for Meds: No Currently Unemployed: No Education: High School Diploma/GED Difficulty w/ Childcare or Family Care: No Living arrangements: with family Additional living arrangements comments: & SISTER Gender identity (if verbalized by the patient): Male Spiritual care concerns: No Comments At time of signature, agree with nursing past medical, surgical, social and family history. There is no relevant family history pertinent to the presenting complaint Exam Narrative: GENERAL: Well-appearing, well-nourished, and in no acute distress. HEAD: Normocephalic EYES: PERRLA, conjunctivae clear ENT: Nares clear, clear discharge. Mucous membranes moist. TM pearly foster with dull light reflex bilaterally; no tragal tenderness. Oropharynx not erythematous without lesions. Tonsils not enlarged and without exudate, no drooling, no hoarseness, no trismus, uvula midline. NECK: Supple. No lymphadenopathy CHEST: Clear to auscultation, breath sounds equal. No wheezing, rhonchi, rales, or stridor. No respiratory distress, speaks in full sentences. HEART: Regular rate and rhythm. No murmur heard. SKIN: Warm, dry, no rash. NEURO: Alert and oriented x3. PSYCH: Normal mood and affect Course Course Emergency Course: Patient is aware of diagnosis, understands and agrees to treatment plan. Anticipatory guidance given. Patient agrees to follow-up as directed and is aware of reasons to seek care at the emergency department. Portions of this record may have been created with voice recognition software Level of Care: Express Care Visit Vital Signs Vital signs: Vital Signs Temperature 98.2 F 01/31/24 14:57 Pulse Rate 64 01/31/24 14:57 Respiratory Rate 19 01/31/24 14:57 Blood Pressure 139/65 01/31/24 14:57 Pulse Oximetry 98 01/31/24 14:57 Oxygen Delivery Room Air 01/31/24 14:57 Temperature 98.2 F 01/31/24 14:57 Pulse Rate 64 01/31/24 14:57 Respiratory Rate 19 01/31/24 14:57 Blood Pressure 139/65 01/31/24 14:57 Pulse Oximetry 98 01/31/24 14:57 Oxygen Delivery Room Air 01/31/24 14:57 Reviewed. MDM - URI/Sore Throat MDM Narrative Medical decision making narrative: Differential diagnosis considered: [place] virus, strep pharyngitis, allergic rhinitis, upper respiratory tract infection, sinusitis, rhinosinusitis, nasopharyngitis. viral pharyngitis, otitis media, otitis externa, pneumonia, bronchitis, viral cough syndrome, viral syndrome, and influenza. Exam findings show no acute concerns or changes; patient is non-toxic appearing and is in no distress. Patient is appropriate for outpatient treatment and follow-up. Lab Data Attestation: I reviewed the patient's lab results. Imaging Data My impression: Images reviewed, interpreted by radiologist, agree, see report. Radiologist's impression: XR chest 2V 01/31/2024 16:01 Indication: Cough for one month Procedure: 2 view chest Comparison: 11/30/2023 Findings: Heart size normal. No focal air space disease, pulmonary edema, pleural effusion or suspected pneumothorax. Calcified granuloma right lower lobe. No acute osseous abnormality. Impression: 1: No acute cardiopulmonary disease. Critical Care Time Critical Care Time Critical Care Time: No Discharge Plan Discharge Clinical Impression: Cough Patient Disposition: Home, Self-Care Condition: Stable Instructions: Acute Cough (ED) Additional Instructions: Recommend antihistamine such as Benadryl at night time and Zyrtec or Hanh during the day Cough syrup may cause drowsiness; avoid driving or take it at night time. Use your inhaler as needed for cough, wheezing, shortness of breath or chest tightness. Also, recommend symptomatic treatment includes: rest, fluids, and increase humidity of the air at home. Recommend Acetaminophen as directed on the bottle to reduce fever, pain, headache. Avoid smoking/second-hand smoke. Please schedule a follow-up visit with your personal physician for further evaluation and treatment within 3-5days. If your symptoms persist, change or worsen significantly before you can contact your personal physician then please, without delay, go to the emergency department for further evaluation. Patient Language: Com[place]an Prescriptions: New promethazine-DM 6.25-15 mg/5 mL syrup 5 ml PO Q4-6H PRN (Reason: cough) Qty: 120 0RF prednisone 20 mg tablet 40 mg PO DAILY 5 Days Qty: 10 0RF No Action doxycycline hyclate 100 mg capsule 100 mg PO BID 7 Days Qty: 14 0RF lisinopril 20 mg Tablet 20 mg PO DAILY glipizide 10 mg Tablet 10 mg PO DAILY amlodipine 10 mg Tablet 10 mg PO DAILY escitalopram oxalate 20 mg Tablet 20 mg PO DAILY metformin 500 mg Tablet Extended Release 24 Hr 500 mg PO BID gabapentin 300 mg Tablet 900 mg PO HS quetiapine 25 mg Tablet 25 mg PO BID atorvastatin 20 mg Tablet 20 mg PO DAILY meloxicam 15 mg Tablet 15 mg PO DAILY clopidogrel [Plavix] 75 mg Tablet 75 mg PO DAILY fluticasone propion-salmeterol 500-50 mcg/dose Blister With Device 1 inh INHALATION Q12H fluticasone propionate [Allergy Relief (fluticasone)] 50 mcg/actuation [place],Suspension 2 spray INTRANASAL DAILY Rx Instructions: administer into each nostril Caplyta 42 mg Capsule 42 mg PO DAILY cyclobenzaprine 10 mg Tablet 10 mg PO HS metoprolol succinate 25 mg Tablet Extended Release 24 Hr 25 mg PO DAILY pantoprazole [Protonix] 40 mg Tablet,Delayed Release (Dr/Ec) 40 mg PO BID Qty: 60 0RF glimepiride 2 mg tablet 2 mg PO DAILY albuterol sulfate 90 mcg/actuation HFA aerosol inhaler 2 puff inhalation QID PRN (Reason: shortness of breath or wheezing) Qty: 8.5 0RF famotidine 20 mg tablet 20 mg PO DAILY Qty: 30 0RF ondansetron 4 mg tablet,disintegrating 4 mg PO Q8H PRN (Reason: nausea and vomiting) Qty: 10 0RF Follow-up/Referrals: Tremayne,Ziggy Morgan MD [Primary Care Provider] - Time of Disposition: 16:11
== END 2024-01-31 16:15 | disposition home or self-care (01) ==
PROVIDERS: Emergency Provider Nurse Practitioner; PCP Internal Medicine
DX: R05.9 Cough, unspecified (principal); Z87.891 Personal history of nicotine dependence; F41.9 Anxiety disorder, unspecified; F31.9 Bipolar disorder, unspecified; K74.60 Unspecified cirrhosis of liver; I25.10 Atherosclerotic heart disease of native coronary artery without angina pectoris; Z95.5 Presence of coronary angioplasty implant and graft; K21.9 Gastro-esophageal reflux disease without esophagitis; E78.00 Pure hypercholesterolemia, unspecified; I10 Essential (primary) hypertension; J45.909 Unspecified asthma, uncomplicated; E11.9 Type 2 diabetes mellitus without complications; G47.33 Obstructive sleep apnea (adult) (pediatric); Z91.198 Patient's noncompliance with other medical treatment and regimen for other reason
CPT/HCPCS: 71046; 99213; G0463

== ENCOUNTER 2024-02-06 07:14 | Emergency (ER) | payer MEDICARE, MEDICAID, SELFPAY ==
[2024-02-06] VITALS (7 sets, daily range): BP systolic 130–167; BP diastolic 71–95; PULSE 82–98; RESP 12–19; TEMP 36.6; O2SAT 98–100
--- NOTE | ~2024-02-06 | XR_ITS ---
EXAMINATION: XR chest 2V 02/06/2024 08:36 INDICATION: Chest pain PROCEDURE: PA and lateral views of the chest COMPARISON: Comparison to multiple prior studies sequentially, with oldest reviewed study dated 03/21. FINDINGS: The lungs are clear. The cardiomediastinal silhouette is within normal limits. There are no pleural effusions. There is no pneumothorax suspected. Calcified granuloma present in the right lung base. IMPRESSION: 1: NO ACUTE CARDIOPULMONARY DISEASE. Reviewed, dictated and finalized at location B. ITY ENGINEER
--- NOTE | ~2024-02-06 | CT_ITS ---
CT chest abdomen pelvis w con Ordering provider: David Mclain MD History: 64 years Male with . pneumonia and ab pain . Comparison: None. Technique: CT chest with IV contrast. CT abdomen and pelvis CT abdomen and pelvis with IV and with or al contrast. The dose-length product was 1384.73 mGy-cm. 100 mL Omnipaque 350 was given IV. FINDINGS: CHEST: --VISUALIZED THORACIC INLET: Normal. --MEDIASTINUM: Aorta/coronary arteries: Mild atheromatous disease. Ascending aorta measures 4.1 cm. Heart/other: The heart is not enlarged. Lymph nodes: No mediastinal or hilar adenopathy. Right hilar calcification. --LUNGS: No pulmonary nodules or masses. No infiltrates or effusions. No pneumothorax. --MUSCULOSKELETAL: Soft tissues: The superficial soft tissues are normal. Bones: Age appropriate degenerative changes of the spine. No suspicious bony lytic or sclerotic lesio ns. ABDOMEN/PELVIS: --MUSCULOSKELETAL: Bones: Age appropriate degenerative changes of the spine. No suspicious bony lytic or sclerotic lesio ns. Superficial soft tissues: The superficial soft tissues are normal. --UPPER ABDOMINAL ORGANS: Liver: Fat infiltration. Minimal lobulation of the outline is seen which may indicate cirrhotic motley es. Clinical correlation advised. Hepatomegaly. Gallbladder: Status post cholecystectomy. Spleen: Normal.-Benign calcifications. Stomach/duodenum: Normal. Pancreas: Normal. Adrenals: Slightly prominent left adrenal gland medial limb. Kidneys: Cyst in the left kidney lower pole measuring 2.4 cm. Mild right hydronephrotic changes with no ureteric stone. Bilateral perinephric fat stranding. --PELVIC ORGANS: The bladder is normal. No bladder stones. --BOWEL AND MESENTERY: Colon: No evidence of diverticulitis. Fecal material seen in the colon. Appendix is not demonstrated. Small Bowel: Normal. No obstruction. Peritoneum/mesentery: No free air or free fluid. No mesenteric lymphadenopathy. --RETROPERITONEUM: Mild atheromatous disease of the abdominal aorta. No retroperitoneal lymphadenop athy. IMPRESSION: CHEST: 1. No acute cardiopulmonary pathology. ABDOMEN/PELVIS: 1. Fat infiltration with possible cirrhosis. Hepatomegaly. 2. Constipation. 3. Bilateral mild hydronephrotic changes with no ureteric stones. Bilateral perinephric fat strandin g. Reviewed, dictated and finalized at location A. ER CULLER IMPRESSION: CHEST: 1. No acute cardiopulmonary pathology. ABDOMEN/PELVIS: 1. Fat infiltration with possible cirrhosis. Hepatomegaly. 2. Constipation. 3. Bilateral mild hydronephrotic changes with no ureteric stones. Bilateral pe rinephric fat stranding.
--- NOTE | 2024-02-06 07:20 | ECG_ITS ---
Test Date: 2024-02-06 07:23:32 Measurements Intervals [place] Rate: 84 P: 52 NE: 146 QRS: 45 QRSD: 110 T: 37 QT: 426 QTc: 506 Interpretive Statements SINUS RHYTHM NONSPECIFIC ST & T-WAVE ABNORMALITY PROLONGED QT INTERVAL Compared to ECG 11/30/2023 11:54:16 Prolonged QT interval now present Electronically Signed On 02-06-2024 16:17:31 [employer] by Jarred Desir M.D.
--- NOTE | 2024-02-06 07:33 | ED.GENADULT ---
HPI - General Adult General Chief complaint: Abdominal Pain Stated complaint: abd pain, CP History of Present Illness HPI narrative: 64-year-old male presents emergency department for evaluation for shortness of breath and abdominal pain. Patient states over the course of the last 2 weeks he has been on antibiotics for suspected bronchitis and pneumonia. Patient reports that is finished antibiotics yesterday. Patient reports yesterday he had worsening generalized illness and now has increased shortness of breath and abdominal pain. Patient is diabetic and does report increased urination. Patient's blood sugar was 160 by EMS. Related Data Home Medications ?Medication ?Instructions ?Recorded ?Confirmed ?Last Taken ?Type amlodipine 10 mg tablet 10 mg PO DAILY 03/22/23 01/24/24 11/30/23 History atorvastatin 20 mg tablet 20 mg PO DAILY 03/22/23 01/24/24 11/30/23 History clopidogrel 75 mg tablet (Plavix) 75 mg PO DAILY 03/22/23 01/24/24 11/30/23 History cyclobenzaprine 10 mg tablet 10 mg PO HS 03/22/23 01/24/24 Unknown History escitalopram oxalate 20 mg tablet 20 mg PO DAILY 03/22/23 01/24/24 11/30/23 History fluticasone 500 mcg-salmeterol 50 1 inh inhalation Q12H 03/22/23 01/24/24 Unknown History mcg/dose blistr powdr for inhalation fluticasone propionate 50 2 spray intranasal DAILY 03/22/23 01/24/24 Unknown History mcg/actuation nasal spray,suspension (Allergy Relief (fluticasone)) gabapentin 300 mg tablet 900 mg PO HS 03/22/23 01/24/24 Unknown History glipizide 10 mg tablet 10 mg PO DAILY 03/22/23 01/24/24 Unknown History lisinopril 20 mg tablet 20 mg PO DAILY 03/22/23 01/24/24 11/30/23 History lumateperone 42 mg capsule 42 mg PO DAILY 03/22/23 01/24/24 11/30/23 History (Caplyta) meloxicam 15 mg tablet 15 mg PO DAILY 03/22/23 01/24/24 11/30/23 History metformin 500 mg tablet,extended 500 mg PO BID 03/22/23 01/24/24 11/30/23 History release 24hr (osmotic) metoprolol succinate 25 mg 25 mg PO DAILY 03/22/23 01/24/24 11/30/23 History tablet,extended release 24 hr quetiapine 25 mg tablet 25 mg PO BID 03/22/23 01/24/24 11/30/23 History glimepiride 2 mg tablet 2 mg PO DAILY 11/30/23 01/24/24 11/30/23 History Allergies Allergy/AdvReac Type Severity Reaction Status Date / Time indomethacin AdvReac Mild Nausea Verified 01/31/24 14:59 Review of Systems Review of Systems: All systems reviewed & are unremarkable except as noted in HPI and below PMFSH Past Medical History Medical History Abnormal CT scan, colon Anxiety Asthma Bipolar disorder Chronic back pain Cirrhosis Coffee ground emesis Coronary artery disease Status post stent x1. Degenerative disc disease Gastroesophageal reflux disease Hypercholesterolemia Hypertension Leukocytosis Obstructive sleep apnea Does not use CPAP ?because I toss and turn? due to chronic back pain. Type 2 diabetes mellitus Surgical History Surgical History History of arthroscopy of left knee History of cholecystectomy History of heart artery stent Family History Family History Father Family history of congestive heart failure Sibling Family history of congestive heart failure Other Diabetes mellitus Family history of cardiovascular disease Family history of chronic obstructive pulmonary disease Family history of coronary artery disease Family history of kidney disease Family history of malignant neoplasm Family history of mental disorder Hypertension Social History Social History Social History: The patient lives in [place] with his and sister. He is on disability. Former cigarette smoker, quit about 25 years ago. Endorses smoking marijuana. No alcohol abuse. His , Carol Banks, as his surrogate decision maker. He wishes to be a full code. Smoking packs per day: 1.25 Smoking cigarettes per day: 25.0 Years smoked: 22 Smoking pack-years: 27.50 Smoking status: Former smoker Tobacco type: cigarettes Second hand tobacco smoke exposure: Yes Smoking end date: 08/20/94 Alcohol intake: former Substance use: current Substance use type: marijuana Other substance usage details: SMOKES MARIJUANA 4 TIMES/DAY Last use: 03/20/2023 Do You Feel Safe in your Home?: Yes Lack of Transportation: YES Lack of Food: Never True Current Housing: I Have Housing Concerned About Future Housing: No Difficulty Paying Gas/Electric Bills: No Difficulty Paying for Meds: No Currently Unemployed: No Education: High School Diploma/GED Difficulty w/ Childcare or Family Care: No Living arrangements: with family Additional living arrangements comments: & SISTER Gender identity (if verbalized by the patient): Male Spiritual care concerns: No Exam Narrative: APPEARANCE: Uncomfortable appearing HEAD: normocephalic, atraumatic. EYES: PERRLA/EOMI, conjunctivae clear. NOSE: Normal no drainage EARS:TMS clear with good light reflex. THROAT: Pharynx clear, no exudate. NECK: Supple. No adenopathy, no masses. RESPIRATORY: Airway patent, respirations nonlabored. Clear to auscultation bilaterally, no rales, rhonchi, wheezing. CARDIOVASCULAR: Regular rate and rhythm without murmurs rubs or gallops. ABDOMINAL: Soft, nontender, nondistended, normal bowel sounds MUSCULOSKELETAL: Moves all extremities. Strength/ROM intact, No edema, No calf tenderness. NEURO: Alert. Cranial nerves II through XII intact. Good gait. Good coordination SKIN: Warm, dry. Normal Color PSYCHIATRIC: Normal affect/mood. Course Vital Signs Vital signs: Vital Signs Temperature 97.9 F 02/06/24 07:22 Pulse Rate 86 02/06/24 07:22 Respiratory Rate 12 02/06/24 07:22 Blood Pressure 167/79 H 02/06/24 07:22 Pulse Oximetry 98 02/06/24 07:22 Temperature 97.9 F 02/06/24 07:22 Pulse Rate 95 02/06/24 10:17 Respiratory Rate 18 02/06/24 10:17 Blood Pressure 145/72 H 02/06/24 10:17 Pulse Oximetry 100 02/06/24 10:17 Medical Decision Making [facility] Narrative Medical decision making narrative: 64-year-old male presenting emergency department for evaluation for shortness of breath and diffuse abdominal pain. Patient is afebrile but does have an elevated leukocytosis of 17.9 stable hemoglobin of 15.7. Patient does have chronic leukocytosis. Patient has no significant abnormalities on his CMP. Patient is a type 2 diabetic and does have an elevated blood sugar of 200. Patient was treated with IV fluids. UA shows no underlying evidence of urinary tract infection patient was negative for influenza RSV and for COVID. Chest x-ray showed no acute cardiopulmonary abnormality and CT chest abdomen pelvis with contrast showed no acute abnormalities. Patient was concerned about his potassium and magnesium and both these were within normal limits. Patient was strongly encouraged close follow-up with primary care physician and on reasons to return to the emergency department. All questions concerns were addressed Differential Diagnosis Differential Diagnosis: Colitis, diverticulitis, appendicitis, pneumonia, COVID, RSV, influenza Vital Signs Vital Signs: Vital Signs Temperature 97.9 F 02/06/24 07:22 Pulse Rate 86 02/06/24 07:22 Respiratory Rate 12 02/06/24 07:22 Blood Pressure 167/79 H 02/06/24 07:22 Pulse Oximetry 98 02/06/24 07:22 Temperature 97.9 F 02/06/24 07:22 Pulse Rate 95 02/06/24 10:17 Respiratory Rate 18 02/06/24 10:17 Blood Pressure 145/72 H 02/06/24 10:17 Pulse Oximetry 100 02/06/24 10:17 Lab Data Lab results reviewed: Yes I reviewed the patient's lab results. 02/06/24 07:46 02/06/24 07:51 Labs: Lab Results 02/06/24 02/06/24 02/06/24 Range/Units 07:32 07:46 07:51 WBC 17.9 H (4.5-10.0) K/mm3 RBC 5.34 (4.6-6.20) M/mm3 Hgb 15.7 (14.0-18.0) g/dL Hct 45.0 (42.0-52.0) % MCV 84.3 (80-100) fl MCH 29.4 (26-34) pg MCHC 34.9 (32-36) g/dl RDW 13.3 (11.5-14.5) % Plt Count 274 (150-375) k/mm3 MPV 9.0 (7.4-10.4) fl Immature Gran % (Auto) 1.0 H (0-0.5) % Neut % (Auto) 71.5 (45.5-73.1) % Lymph % (Auto) 19.1 (18.3-44.2) % [place] % (Auto) 5.6 (2.6-8.5) % Eos % (Auto) 2.0 (0-4.4) % Baso % (Auto) 0.8 (0.2-1.2) % Lymph # (Auto) 3.42 H (0.9-3.2) K/mm3 [place] # (Auto) 1.0 H (0.1-0.6) K/mm3 Eos # (Auto) 0.4 H (0-0.3) K/mm3 Baso # (Auto) 0.2 H (0.0-0.1) K/mm3 Abs Immat Gran (auto) 0.18 H (0.00-0.031) K/mm3 Absolute Neuts (auto) 12.8 H (1.3-6.7) K/mm3 Absolute Nucleated RBC 0.000 (0.0-0.012) K/mm3 Nucleated RBC % 0.0 (0.0-0.2) % PT 13.0 (11.1-14.7) Seconds INR 1.0 APTT 24.6 (22.3-36.8) Seconds Sodium 136 L (137-145) mmol/L Potassium 3.4 (3.4-5.0) mmol/L Chloride 99 (98-107) mmol/L Carbon Dioxide 26 (22-30) mmol/L Anion Gap 11 (4-12) mmol/L BUN 17 (9-20) mg/dL Creatinine 0.60 L 0.60 L (0.7-1.3) mg/dL Estim Creat Clear Calc 131 131 ml/min Estimated GFR > 60 > 60 (59 - ) Glucose 221 H (65-110) mg/dL POC Capillary Glucose 218 H (65-105) mg/dl Calcium 9.2 (8.4-10.2) mg/dL Magnesium 2.0 (1.6-2.3) mg/dL Total Bilirubin 0.7 (0.2-1.3) mg/dL AST 46 (17-59) U/L ALT 47 (6-50) U/L Alkaline Phosphatase 127 H (38-126) U/L Troponin I < 0.012 (0.000-0.034) ng/mL Total Protein 9.0 H (6.3-8.2) g/dL Albumin 4.8 (3.5-5.1) g/dL Lipase 222 (23-300) U/L Urine Color (Yellow) Urine Appearance (Clear) Urine pH (5.0-9.0) Ur Specific [place] (1.001-1.035) Urine Protein (Negative) mg/dL Urine Glucose (UA) (Negative) mg/dL Urine Ketones (Negative) mg/dL Ur Blood (Man) (Negative) Urine Nitrate (Negative) Urine Bilirubin (Negative) Urine Urobilinogen (<2.0) mg/dL Leukocyte Esterase Rfl (Negative) NIGHAT/UL Urine RBC (0-2) /hpf Urine WBC (0-3) /hpf Ur Squamous Epith Cells (Few) /hpf Urine Bacteria /hpf Urine Casts Influenza A (RT-PCR) (Negative) Influenza B (RT-PCR) (Negative) RSV (RT-PCR) (Negative) SARS-CoV-2 RNA (RT-PCR) (Negative) 02/06/24 02/06/24 Range/Units 09:07 09:22 WBC (4.5-10.0) K/mm3 RBC (4.6-6.20) M/mm3 Hgb (14.0-18.0) g/dL Hct (42.0-52.0) % MCV (80-100) fl MCH (26-34) pg MCHC (32-36) g/dl RDW (11.5-14.5) % Plt Count (150-375) k/mm3 MPV (7.4-10.4) fl Immature Gran % (Auto) (0-0.5) % Neut % (Auto) (45.5-73.1) % Lymph % (Auto) (18.3-44.2) % [place] % (Auto) (2.6-8.5) % Eos % (Auto) (0-4.4) % Baso % (Auto) (0.2-1.2) % Lymph # (Auto) (0.9-3.2) K/mm3 [place] # (Auto) (0.1-0.6) K/mm3 Eos # (Auto) (0-0.3) K/mm3 Baso # (Auto) (0.0-0.1) K/mm3 Abs Immat Gran (auto) (0.00-0.031) K/mm3 Absolute Neuts (auto) (1.3-6.7) K/mm3 Absolute Nucleated RBC (0.0-0.012) K/mm3 Nucleated RBC % (0.0-0.2) % PT (11.1-14.7) Seconds INR APTT (22.3-36.8) Seconds Sodium (137-145) mmol/L Potassium (3.4-5.0) mmol/L Chloride (98-107) mmol/L Carbon Dioxide (22-30) mmol/L Anion Gap (4-12) mmol/L BUN (9-20) mg/dL Creatinine (0.7-1.3) mg/dL Estim Creat Clear Calc ml/min Estimated GFR (59 - ) Glucose (65-110) mg/dL POC Capillary Glucose (65-105) mg/dl Calcium (8.4-10.2) mg/dL Magnesium (1.6-2.3) mg/dL Total Bilirubin (0.2-1.3) mg/dL AST (17-59) U/L ALT (6-50) U/L Alkaline Phosphatase (38-126) U/L Troponin I (0.000-0.034) ng/mL Total Protein (6.3-8.2) g/dL Albumin (3.5-5.1) g/dL Lipase (23-300) U/L Urine Color Yellow (Yellow) Urine Appearance Clear (Clear) Urine pH 8.0 (5.0-9.0) Ur Specific [place] 1.024 (1.001-1.035) Urine Protein 2+ H (Negative) mg/dL Urine Glucose (UA) 1+ H (Negative) mg/dL Urine Ketones Negative (Negative) mg/dL Ur Blood (Man) Negative (Negative) Urine Nitrate Negative (Negative) Urine Bilirubin Negative (Negative) Urine Urobilinogen 0.2 (<2.0) mg/dL Leukocyte Esterase Rfl Negative (Negative) NIHGAT/UL Urine RBC 0-2 (0-2) /hpf Urine WBC 0-5 (0-3) /hpf Ur Squamous Epith Cells None seen (Few) /hpf Urine Bacteria None seen /hpf Urine Casts 0-2 Influenza A (RT-PCR) Negative (Negative) Influenza B (RT-PCR) Negative (Negative) RSV (RT-PCR) Negative (Negative) SARS-CoV-2 RNA (RT-PCR) Negative (Negative) Imaging Data Radiologist's impression: Impressions Chest/Abdomen/Pelvis CT 02/06/24 08:32 IMPRESSION: CHEST: 1. No acute cardiopulmonary pathology. ABDOMEN/PELVIS: 1. Fat infiltration with possible cirrhosis. Hepatomegaly. 2. Constipation. 3. Bilateral mild hydronephrotic changes with no ureteric stones. Bilateral perinephric fat stranding. Chest X-Ray 02/06/24 08:38 IMPRESSION: 1: NO ACUTE CARDIOPULMONARY DISEASE. Discharge Plan Discharge Clinical Impression: Type 2 diabetes mellitus, Body aches Leukocytosis Qualifiers: Leukocytosis type: unspecified Qualified Code(s): D72.829 - Elevated white blood cell count, unspecified Patient Disposition: Home, Self-Care Condition: Stable Instructions: Antibiotic Form, Abdominal Pain (ED) Additional Instructions: Tylenol and ibuprofen for fever and for body aches. Closely monitor your blood sugars. Have close follow-up with your primary care physician. If you have any worsening symptoms then please call or return to the emergency department. Patient Language: Maltese Prescriptions: No Action doxycycline hyclate 100 mg capsule 100 mg PO BID 7 Days Qty: 14 0RF promethazine-DM 6.25-15 mg/5 mL syrup 5 ml PO Q4-6H PRN (Reason: cough) Qty: 120 0RF prednisone 20 mg tablet 40 mg PO DAILY 5 Days Qty: 10 0RF lisinopril 20 mg Tablet 20 mg PO DAILY glipizide 10 mg Tablet 10 mg PO DAILY amlodipine 10 mg Tablet 10 mg PO DAILY escitalopram oxalate 20 mg Tablet 20 mg PO DAILY metformin 500 mg Tablet Extended Release 24 Hr 500 mg PO BID gabapentin 300 mg Tablet 900 mg PO HS quetiapine 25 mg Tablet 25 mg PO BID atorvastatin 20 mg Tablet 20 mg PO DAILY meloxicam 15 mg Tablet 15 mg PO DAILY clopidogrel [Plavix] 75 mg Tablet 75 mg PO DAILY fluticasone propion-salmeterol 500-50 mcg/dose Blister With Device 1 inh INHALATION Q12H fluticasone propionate [Allergy Relief (fluticasone)] 50 mcg/actuation [place],Suspension 2 spray INTRANASAL DAILY Rx Instructions: administer into each nostril Caplyta 42 mg Capsule 42 mg PO DAILY cyclobenzaprine 10 mg Tablet 10 mg PO HS metoprolol succinate 25 mg Tablet Extended Release 24 Hr 25 mg PO DAILY pantoprazole [Protonix] 40 mg Tablet,Delayed Release (Dr/Ec) 40 mg PO BID Qty: 60 0RF glimepiride 2 mg tablet 2 mg PO DAILY albuterol sulfate 90 mcg/actuation HFA aerosol inhaler 2 puff inhalation QID PRN (Reason: shortness of breath or wheezing) Qty: 8.5 0RF famotidine 20 mg tablet 20 mg PO DAILY Qty: 30 0RF ondansetron 4 mg tablet,disintegrating 4 mg PO Q8H PRN (Reason: nausea and vomiting) Qty: 10 0RF Follow-up/Referrals: Tremayne,Ziggy Morgan MD [Primary Care Provider] -
[2024-02-06 07:35] LABS: Glucose Point of Care 218 mg/dl (65-105)
[2024-02-06] MEDS: METOCLOPRAMIDE HCL INJ 10 MG/2 ML VIAL IV PUSH (07:36)
[2024-02-06] MEDS: SODIUM CHLORIDE 0.9% IV 1,000 ML 999 ML IV CONT (07:36)
[2024-02-06 07:55] LABS: Basophils Absolute Auto 0.2 K/mm3 (0.0-0.1); Basophils Percent Auto 0.8 % (0.2-1.2); Eosinophils Absolute Auto 0.4 K/mm3 (0-0.3); Hemoglobin 15.7 g/dL (14.0-18.0); Immature Granulocyte Absolute 0.18 K/mm3 (0.00-0.031); Lymphocytes Absolute Auto 3.42 K/mm3 (0.9-3.2); Lymphocytes Percent Auto 19.1 % (18.3-44.2); Mean Corpuscular HGB Conc 34.9 g/dl (32-36); Mean Corpuscular Hemoglobin 29.4 pg (26-34); Mean Corpuscular Volume 84.3 fl (80-100); Monocytes Percent Auto 5.6 % (2.6-8.5); Neutrophils Absolute Auto 12.8 K/mm3 (1.3-6.7); Neutrophils Percent Auto 71.5 % (45.5-73.1); Platelet Count Result 274 k/mm3 (150-375); Red Blood Count 5.34 M/mm3 (4.6-6.20); Red Cell Distribution Width 13.3 % (11.5-14.5); White Blood Count 17.9 K/mm3 (4.5-10.0)
[2024-02-06 07:58] LABS: Estimated CRCL calculation 131 ml/min; Estimated Glomerular Filt Rate > 60
[2024-02-06 08:02] LABS: Alanine Aminotransferase 47 U/L (6-50); Albumin Level 4.8 g/dL (3.5-5.1); Alkaline Phosphatase 127 U/L (38-126); Anion Gap 11 mmol/L (4-12); Aspartate Amino Transferase 46 U/L (17-59); Bilirubin,Total 0.7 mg/dL (0.2-1.3); Blood Urea Nitrogen 17 mg/dL (9-20); Calcium 9.2 mg/dL (8.4-10.2); Carbon Dioxide 26 mmol/L (22-30); Chloride 99 mmol/L (98-107); Estimated CRCL calculation 131 ml/min; Estimated Glomerular Filt Rate > 60; Glucose 221 mg/dL (65-110); Lipase 222 U/L (23-300); Potassium 3.4 mmol/L (3.4-5.0); Sodium 136 mmol/L (137-145)
[2024-02-06] MEDS: LORazepam INJ (*CRX) 2 MG/ML VIAL 0.5 MG IV PUSH (08:11)
[2024-02-06 08:14] LABS: Troponin I < 0.012 ng/mL (0.000-0.034)
[2024-02-06 09:21] LABS: Add Urine Microscopic? YES; Appearance Urine Clear (Clear); Bacteria Urine None Seen /hpf; Bilirubin Urine Negative (Negative); Blood Urine Negative (Negative); Color Urine Yellow (Yellow); Glucose Urine UA 1+ mg/dL (Negative); Ketones Urine Negative (Negative); Leukocyte Esterase Ur Negative LEU/UL (Negative); Nitrate Urine Negative (Negative); Non Pathogenic Casts 0-2; Protein Urine 2+ mg/dL (Negative); RBC Urine 0-2 /hpf (0-2); Specific Grav Ur 1.024 (1.001-1.035); Squamous Epithelial Cell Urine None Seen /hpf (Few); Urobilinogen Urine 0.2 mg/dL (<2.0); WBC Urine 0-5 /hpf (0-3)
[2024-02-06 09:40] LABS: Partial Thromboplastin Time 24.6 Seconds (22.3-36.8)
[2024-02-06 10:04] LABS: Influenza A QL RT-PCR Negative (Negative); Influenza B QL RT-PCR Negative (Negative); RSV RNA, RT-PCR Negative (Negative); SARS-CoV-2 RNA PCR Negative (Negative)
== END 2024-02-06 10:31 | disposition home or self-care (01) ==
PROVIDERS: Emergency Provider Emergency Medicine; PCP Internal Medicine
DX: R10.9 Unspecified abdominal pain (principal); D72.829 Elevated white blood cell count, unspecified; E11.9 Type 2 diabetes mellitus without complications; Z20.822 Contact with and (suspected) exposure to COVID-19; I25.10 Atherosclerotic heart disease of native coronary artery without angina pectoris; I10 Essential (primary) hypertension; E78.00 Pure hypercholesterolemia, unspecified; J45.909 Unspecified asthma, uncomplicated; K74.60 Unspecified cirrhosis of liver; K21.9 Gastro-esophageal reflux disease without esophagitis; G47.33 Obstructive sleep apnea (adult) (pediatric); F31.9 Bipolar disorder, unspecified; F41.9 Anxiety disorder, unspecified; Z95.5 Presence of coronary angioplasty implant and graft; Z87.891 Personal history of nicotine dependence; Z90.49 Acquired absence of other specified parts of digestive tract; Z79.84 Long term (current) use of oral hypoglycemic drugs; Z79.899 Other long term (current) drug therapy; Z79.02 Long term (current) use of antithrombotics/antiplatelets; K59.00 Constipation, unspecified; R94.31 Abnormal electrocardiogram [ECG] [EKG]
CPT/HCPCS: 36415; 71046; 71260; 74177; 80053; 81001; 82948; 83690; 83735; 84484; 85025; 85610; 85730; 87040; 87637; 93005; 96361; 96374; 96375; 99284; J2060; J2765; J7030; Q9967

== ENCOUNTER 2024-06-11 05:49 | Emergency (ER) | payer MEDICARE, MEDICAID, SELFPAY ==
[2024-06-11] VITALS (10 sets, daily range): BP systolic 168–198; BP diastolic 72–92; PULSE 68–88; RESP 14–20; TEMP 36.6; O2SAT 95–100
--- NOTE | ~2024-06-11 | CT_ITS ---
CT diagnostic chest wo [facility] Ordering provider: Ge Hinton MD History: 64 years Male with . Dyspnea, productive cough . Comparison: None. Technique: CT chest without IV contrast. Radiation reduction technique utilized.The dose-length produ ct was 658.1 mGy-cm. FINDINGS: VISUALIZED THORACIC INLET: Normal. MEDIASTINUM: Aorta/coronary arteries: Mild atheromatous disease. Heart/other: The heart is not enlarged. Lymph nodes: No mediastinal or hilar adenopathy. LUNGS: No pulmonary nodules or masses. No infiltrates or effusions. No pneumothorax. Calcified granul chikis is seen in the right lower lobe. VISUALIZED UPPER ABDOMEN: Fat infiltration of the liver. Status post cholecystectomy. Slightly promin ent left adrenal gland. Otherwise, the visualized upper abdomen is normal. MUSCULOSKELETAL: Soft tissues: The superficial soft tissues are normal. Bones: Age appropriate degenerative changes of the spine. IMPRESSION: 1. No acute cardiopulmonary pathology. 2. Fat infiltration of the liver. Reviewed, dictated and finalized at location A.
--- NOTE | ~2024-06-11 | CT_ITS ---
EXAMINATION: CTA chest abdomen pelvis DATE: 06/11/2024 09:58 INDICATION: Chest and abdominal pain. Dyspnea. TECHNIQUE: Computed tomographic angiography (CTA) of the chest, abdomen, and pelvis was performed wit hout and with 100 mL Omnipaque-350 intravenous contrast. Volume-rendered 3D-reconstructions of the ao rta and large arteries were constructed by the technologist on a separate workstation. Automated expo sure control and iterative reconstruction technique were employed. The dose-length product was 1334.2 3 mGy-cm. COMPARISON: Chest CT dated 06/11/[address] chest, abdomen and pelvis dated 02/16/2024 FINDINGS: Chest: Calcified nodule right lower lobe along with calcified right hilar lymph nodes consistent with old gr anulomatous disease. 2 mm noncalcified left upper lobe nodule unchanged since 11/09/2017 also consiste nt with old granulomatous disease. No pneumonia, pulmonary edema, pleural effusion or pneumothorax. H eart size is normal. Atherosclerotic coronary artery calcification. Aortic valve calcification. Mild fusiform aneurysm of the ascending thoracic aorta measuring up to 4.3 cm with no dissection. Although not performed as a dedicated PE protocol there is good contrast opacification of the pulmonary arter ies demonstrating no pulmonary embolism. No pathologically enlarged thoracic lymphadenopathy. Severe lower cervical and moderate thoracic spondylosis. Chronic appearing mild anterior wedging at T12 and L1. Abdomen and pelvis: Diffuse hepatic steatosis. There is suggestion of subtle liver surface along with hypertrophy lateral segment of the left hepatic lobe and atrophy of the posterior segment of the right buttock lobe cons istent with cirrhosis. Cholecystectomy clips at the gallbladder fossa. Multiple splenic calcification s consistent with old granulomatous disease. Pancreas, right kidney and bilateral adrenal glands are normal. 2.5 cm left renal cyst. Mild diverticulosis along the descending and sigmoid colon without ad jacent from trace stranding to suggest diverticulitis. Small bowel and appendix are normal. Bladder i s normal. Mild prostatomegaly measuring 4.5 x 3.4 cm. No free intraperitoneal gas or fluid. Small fat -containing left inguinal hernia. No free intraperitoneal gas or fluid. No pathologically enlarged ab dominal or pelvic lymphadenopathy. Mild lumbar spondylosis. There is small amount of nonhemodynamical ly significant calcified atherosclerosis of the normal caliber aorta and bilateral iliac arteries. IMPRESSION: 1. Mild aneurysmal dilation of the ascending thoracic aorta measuring up to 4.3 cm in maximal diamete r. No aortic dissection or other acute cardiopulmonary disease. 2. No acute intra-abdominal/pelvic process. 3. Cirrhosis. 4. Mild diverticulosis. 5. Prostatomegaly. 6. Small fat-containing left inguinal hernia. Reviewed, dictated and finalized at location A. IMPRESSION: 1. Mild aneurysmal dilation of the ascending thoracic aorta measuring up to 4.3 cm in maximal diameter. No aortic dissection or other acute cardiopulmonary di sease. 2. No acute intra-abdominal/pelvic process. 3. Cirrhosis. 4. Mild diverticulosis. 5. Prostatomegaly. 6. Small fat-containing left inguinal hernia.
--- NOTE | ~2024-06-11 | XR_ITS ---
EXAMINATION: XR chest 1V portable 06/11/2024 08:16 INDICATION: Shortness of breath PROCEDURE: AP portable chest COMPARISON: Comparison to multiple prior studies sequentially, with oldest reviewed study dated 07/2023. FINDINGS: The lungs are clear. The cardiomediastinal silhouette is within normal limits. There are no pleural effusions. There is no pneumothorax suspected. IMPRESSION: 1: NO ACUTE CARDIOPULMONARY DISEASE. Reviewed, dictated and finalized at location A.
--- NOTE | 2024-06-11 05:52 | ECG_ITS ---
Test Date: 2024-06-11 05:55:30 Measurements Intervals [place] Rate: 76 P: 59 VT: 172 QRS: 62 QRSD: 111 T: 50 QT: 442 QTc: 500 Interpretive Statements SINUS RHYTHM INTRAVENTRICULAR CONDUCTION DELAY BORDERLINE ST ABNORMALITY- INFERIOR LEADS PROLONGED QT INTERVAL BASELINE WANDER- II, III, AVF, V2 ABNORMAL ECG Compared to ECG 02/06/2024 07:23:32 NO SIGNIFICANT CHANGE Electronically Signed On 06-11-2024 09:01:46 CDT by Demian Colindres D.O.
[2024-06-11 06:03] LABS: Basophils Absolute Auto 0.1 K/mm3 (0.0-0.1); Basophils Percent Auto 0.9 % (0.2-1.2); Eosinophils Absolute Auto 0.3 K/mm3 (0-0.3); Eosinophils Percent Auto 2.6 % (0-4.4); Hemoglobin 14.7 g/dL (14.0-18.0); Immature Granulocyte Absolute 0.05 K/mm3 (0.00-0.031); Immature Granulocyte Percent A 0.4 % (0-0.5); Lymphocytes Absolute Auto 2.24 K/mm3 (0.9-3.2); Lymphocytes Percent Auto 19.1 % (18.3-44.2); Mean Corpuscular HGB Conc 33.4 g/dl (32-36); Mean Corpuscular Hemoglobin 28.6 pg (26-34); Mean Corpuscular Volume 85.6 fl (80-100); Mean Platelet Volume 8.8 fl (7.4-10.4); Monocytes Absolute Auto 0.7 K/mm3 (0.1-0.6); Monocytes Percent Auto 5.5 % (2.6-8.5); Neutrophils Absolute Auto 8.4 K/mm3 (1.3-6.7); Neutrophils Percent Auto 71.5 % (45.5-73.1); Platelet Count Result 221 k/mm3 (150-375); Red Blood Count 5.14 M/mm3 (4.6-6.20); Red Cell Distribution Width 13.2 % (11.5-14.5); White Blood Count 11.8 K/mm3 (4.5-10.0)
[2024-06-11 06:16] LABS: Alanine Aminotransferase 46 U/L (6-50); Albumin Level 4.8 g/dL (3.5-5.1); Alkaline Phosphatase 94 U/L (38-126); Anion Gap 15 mmol/L (4-12); Aspartate Amino Transferase 50 U/L (17-59); Bilirubin,Total 0.8 mg/dL (0.2-1.3); Blood Urea Nitrogen 11 mg/dL (9-20); Calcium 9.2 mg/dL (8.4-10.2); Carbon Dioxide 23 mmol/L (22-30); Chloride 99 mmol/L (98-107); Estimated CRCL calculation 129 ml/min; Estimated Glomerular Filt Rate > 60; Glucose 230 mg/dL (65-110); Potassium 3.3 mmol/L (3.4-5.0); Sodium 137 mmol/L (137-145)
--- NOTE | 2024-06-11 06:36 | PC.NURSE ---
Patient refused CXR. States he wants a breathing treatment and a CT.
[2024-06-11 06:41] LABS: Influenza A QL RT-PCR Negative (Negative); Influenza B QL RT-PCR Negative (Negative); RSV RNA, RT-PCR Negative (Negative); SARS-CoV-2 RNA PCR Negative (Negative)
--- OUTSIDE RECORDS SUMMARY | 2024-06-11 07:21 | XMS_ITS | Clinical Summary ---
Author Organization [facility] Address [address] [place] [address] Care Team Providers Care Aadc Plans Staff Officer Name Role Phone Unavailable Primary Care Provider Unavailabl e Source Comments [facility],non-owned Affiliates and Associated Physician Practices is amultiple site organization consisting of ambulatory clinics and hospital sitesin [place], [place], [place] and [place]. This disclosure is being madepursuant to the Care Everywhere program and may not contain all information available regarding this patient. Last updated 17.[facility] [email or web address] Allergies Active Allergy Reactions Criticality Noted Date Comments Indomethacin Nausea and/or Vomiting 05/26/2020 Medications * Be aware that medications may not be up to date on this document. Alwaysverify current medications with the patient. amLODIPine (NORVASC) 10 MG tablet Take 10 mg by mouth once daily 1 Active clopidogrel (PLAVIX) 75 MG tablet Take 75 mg by mouth once daily 1 Active glimepiride (AMARYL) 1 MG tablet Take 2 mg by mouth once daily 1 Active lisinopril-hydro CHLOROthiazide (PRINZIDE; ZESTORETIC) 20-12.5 MG tablet Take 1 tablet by mouth once daily 1 Active metoprolol succinate XL 24hr (TOPROL XL) 25 MG tablet Take 25 mg by mouth once daily 1 Active tiZANidine (ZANAFLEX) 2 MG tablet Take 4 mg by mouth 3 times daily 1 Active clonazePAM (KLONOPIN) 1 MG tablet Take 1 mg by mouth 3 times daily 1 Active HYDROcodone-acet aminophen (NORCO) 10-325 MG tablet Take 1 tablet by mouth every 6 hours as needed pain 1 Active LATUDA 120 MG tablet TAKE 1 TABLET BY MOUTH ONCE DAILY IN THE EVENING 1 Active meloxicam (MOBIC) 15 MG tablet Take 15 mg by mouth once daily 1 Active fenofibrate (TRICOR) 145 MG tablet 1 Active pantoprazole EC (PROTONIX) 40 MG tablet Take 40 mg by mouth 2 times daily 1 Active amitriptyline (ELAVIL) 75 MG tablet Take 75 mg by mouth once daily Active aspirin EC (ECOTRIN) 81 MG tablet Take 81 mg by mouth once daily 0 Active rosuvastatin (CRESTOR) 10 MG tablet Take 10 mg by mouth once daily Active fluticasone-salm eterol (ADVAIR DISKUS) 250-50 MCG/DOSE inhaler Take by mouth 2 times daily Active erythromycin (ROMYCIN) 5 MG/GM ophthalmic ointment Apply to skin lesions surrounding left side of face as well as both the upper and lower eyelids three times a day 7 g 4 1 Active polyethyl glycol-propyl glycol PF (SYSTANE PRESERVATIVE FREE) 0.4-0.3 % ophth solution Place 1 drop in both eyes 6-8 times per day as well as additionally as needed for dry eye 1 Active Active Problems Problem Noted Date Diagnosed Date Blepharitis of left upper eyelid 06/10/2020 Meibomian gland dysfunction (MGD) of both eyes 0 06/10/2020 Dry eye syndrome of both eyes 06/10/2020 Herpes zoster ophthalmicus of left eye 1 Exotropia of left eye 05/26/2020 Overview (05/26/2020): Since childhood Coronary arteriosclerosis 11/15/2019 Diabetes mellitus 11/15/2019 Diabetic neuropathy 11/15/2019 Gout 11/15/2019 Obesity 11/15/2019 Osteoarthrosis 11/15/2019 Asthma 11/15/2019 Solitary pulmonary nodule 07/11/2019 Essential (primary) hypertension 04/12/2019 Hypercholesterolemia 04/12/2019 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 Onychomycosis 12/03/2018 Paronychia of toe 12/03/2018 Social History Tobacco Use Types Packs/Day Years Used Date Smoking Tobacco: Never Assessed Sex and Gender Information Value Date Recorded Sex Assigned at Not on file Legal 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 Gender Identity Not on file Sexual Orientation Not on file Plan of Treatment Health Maintenance Due Date Last Done Comments COLOGUARD (AGES 45-75) - COL ON CA SCREENING 1962 COLON MONITORING 1962 COLONOSCOPY - COLON CA SCREENING 1962 CT COLONOGRAPHY - COLON CA SCREENING 1962 Colorectal Cancer Screening 1962 FIT - COLON CA SCREENING 1962 FLEX SIG - COLON CA SCREENING 1962 MEDICARE AWV 12 MONTHS 1962 HIV SCREENING 1977 HEPATITIS C SCREENING 01/22/1980 DIABETES-SERUM CREATININE 01/27/1980 DTAP/TDAP/TD VACCINES (1 - Tdap) 1981 PNEUMOCOCCAL VACCINE 50+ (1 of 2 - PCV) 1981 ZOSTER VACCINE (1 of 2) 01/27/2012 DIABETES-FOOT EXAM WITH MONOFILAMENT 06/02/2020 DIABETES-HGB A1C 06/02/2020 Respiratory Syncytial Virus (RSV) Vaccine Pt: or over 60 yrs (1 - Risk 60-74 years 1-dose series) 2022 DIABETES RETINOPATHY SCREENING 05/26/2022 05/26/2020 COVID-19 VACCINE (1 - 2023-2 5 season) 2023 DEPRESSION SCREENING 02/21/2024 DIABETES - URINE PROTEIN SCREENING 02/21/2024 INFLUENZA VACCINE (Season Ended) 2024 HEPATITIS B VACCINE Aged Out No longe r eligible based on patient's age to complete this topic HIB VACCINE Aged Out No longer eligi ble based on patient's age to complete this topic HPV VACCINE Aged Out No longer eligi ble based on patient's age to complete this topic MENINGOCOCCAL (Group B) VACC INE SHARED DECISION-MAKING Aged Out No longer eligibl e based on patient's age to complete this topic MENINGOCOCCAL GROUPS A/C/Y/W VACCINE Aged Out No longer eligible b ased on patient's age to complete this topic Insurance MEDICARE MEDICAID - OUT OF [facility] MEDICARE [place]IC[place]
--- OUTSIDE RECORDS SUMMARY | 2024-06-11 07:21 | XMS_ITS ---
Author Organization [facility] Address [address] [place] [address] Care Team Providers Care Appraiser Timber Name Role Phone Ziggy Casper MD Primary Care Provider Unavail able Raji Ng Unavailable [phone] REASON FOR VISIT no calls or messages Social History Sex Assigned At : Social History Observation Description Sex Assigned At Male Encounters Encounter Location Date Provider Diagnosis [facility] [place] [address] [place] [address] 06/04/2024 Raji Ng Plan Of Treatment No Information Progress Notes * GWENDOLYN MASTERSONDOB:1960 ( 64 yo M)Acc No.[id number]:06/04/2024 Patient: GWENDOLYN ARMSTRONG Provider: DAMIEN IQBAL :1960 A ge:64 Y S ex:Male Date:06/04/2024 Phone: Address:[address] [place], [place] [id number] Pcp:Ziggy Casper MD Subjective: * Chief Complaints: * 1 . No calls or messages. * Medical History: Objective: * Vitals: Assessment: Plan: * Treatment: * Billing Information: * Visit Code: * Procedure Codes: * Electronic signature of DAMIEN Watkins on 06/11/2024 at 07:21 AM CDT Sign off status: Pending * Provider: DAMIEN IQBAL Date: 0 06/04/2024 Generated for Anaisi yosi/Fabrittany/eTransmitting on: 06/11/2024 07:21 AM CDT
--- OUTSIDE RECORDS SUMMARY | 2024-06-11 07:22 | XMS_ITS | Data Portability ---
Author Organization [facility] Address [address] [place] [address] Care Team Providers Care Intelligence Agent Name Role Phone MARY THAKKAR Psychiatrist Assessment No assessment recorded. Plan of Treatment Reminders Order Date Submit Date Provider Last Modified By Organization Details Last Modified Time Details Appointments None recorde d. Lab CK (creati ne kinase) , total, serum 2019 020 [facility], 2022 Karen Reynoso, [address], [place], [address], 0 08:15:41 magnesi um, serum or plasma 2019 020 [facility], 2022 Karen Reynoso, [address], [place], [address], 0 08:15:41 TSH, ultra-s ensitiv e, serum 2019 020 [facility], 2022 Karen Reynoso, [address], [place], [address], 0 08:15:40 CBC w/ auto diff 2019 020 [facility], 2022 Karen Reynoso, [address], [place], [address], 0 03:05:38 lipid panel, serum 2019 020 [facility], 2022 Karen Reynoso, [address], [place], [address], 0 03:05:38 BMP, serum or plasma 2019 020 [facility], 2022 Karen Reynoso, [address], [place], [address], 0 08:15:39 uric acid, serum or plasma 2019 020 [facility], [address] [place], [place] [address]glo Krishna, [facility] [address], [place], [address], 0 11:54:47 lipid panel, serum 2019 020 [facility], [address] [place], [place] [address], [facility] [address], [place], [address], 0 07:10:19 microal bumin, urine 2019 020 [facility], [address] [place], [place] [address]glo Krishna, [facility] [address], [place], [address], 0 11:54:16 HbA1c (hemogl obin A1c), blood 2019 020 [facility], [address] [place], [place] [address]glo Krishna, [facility] [address], [place], [address], 0 11:54:16 colon cancer screeni ng, stool 2019 020 [facility] ([facility]olog[facility]ard Orders Only), [address], [address], [place], [address], 1 05:37:51 CBC w/ auto diff 2019 020 [facility], [address] [place], [place] [address]glo Krishna, [address], [place], [address], 0 07:10:19 uric acid, serum or plasma 2018 019 [facility], 2022 Karen Reynoso, [address], [place], [address], 9 14:27:41 HbA1c (hemogl obin A1c), blood 2018 019 [facility], 2022 Karen Reynoso, [address], [place], [address], 9 06:07:33 lipid panel, serum 2018 019 [facility], 2022 Karen Reynoso, [address], [place], [address], 9 06:07:33 microal bumin, urine 2018 019 [facility], 2022 Karen Reynoso, [address], [place], [address], 9 06:07:34 Referral physica l therapi st referra l - Please call patient to schedul e appt. Thank you 2019 020 [facility], [address] [place], [address], 0 13:48:56 pulmono logist referra l - Please call patient to schedul e appt. Thank you 2019 020 [facility], [address], [address], [place], [address], 0 09:49:20 psychia trist referra l 2019 020 [facility], [address] [facility] , [place], [address], 0 16:41:05 pulmono logist referra l - RLL 5.5 mmMinor fissure 1.5 mm 2019 020 [facility], [address] [facility], [address], [place], [address], 0 16:46:22 diabeti c ophthal mology referra l - Please call patient to schedul e appt. Thank you 2019 020 [email or web address] Ray Bernstein MD, [address] , [place], [address], 0 17:07:47 podiatr ist referra l - Please call patient to schedul e appt. Thank you 2018 019 [facility] Not available 9 11:51:59 diabeti c ophthal mology referra l - Please call patient to schedul e appt. Thank you 2018 019 [email or web address] Ray Bernstein MD, [address], [place], [address], 9 14:36:57 Procedures None recorde d. Surgeries None recorde d. Imaging XR, shoulde r - Pain 2019 020 [facility] ([facility]), [address] [place], [address], 0 10:41:09 CT, chest, w/ contras t - 6 month follow up 2019 020 [facility] ([facility] Sched[facility]), [address] [place], [address], 0 12:06:51 XR, shoulde r - Pain 2019 020 [facility] ([facility] Sched[facility]), [address] [place], [address], 0 12:06:51 XR, foot - Pain and swellin g of the 3rd toe of john right foot 2018 019 [facility] ([facility] Scheduling), [address] [place], [address], 9 14:38:32 LDCT, chest, for lung cancer screeni ng 2018 019 [facility] ([facility] Call Scheduling), [address] [place], [address], 9 18:51:26 Medication Orders rosuvas tatin 10 mg tablet 2019 INTERFACE [facility], [address] [place] [address], [address], 0 16:35:21 cyclobe nzaprin e 10 mg tablet 2019 INTERFACE [facility], [address] [place] [address], [address], 0 16:32:10 Advair Diskus 100 mcg-50 mcg/dos e powder for inhalat ion 2019 020 [facility], [address] [place], [address], 0 16:25:47 atorvas tatin 40 mg tablet 2019 020 [facility], [address] [place], [address], 0 19:48:42 metopro lol succina te ER 25 mg tablet, extende d release 24 hr 2019 INTERFACE [facility], [address] [place], [address], 0 11:56:39 ketorol ac 60 mg/2 mL intramu scular solutio n 2018 019 oajao Not available 0 11:44:14 Keflex 500 mg capsule 2018 019 [email or web address] [facility], [address] [place], [address], 1 09:10:38 Advair Diskus 100 mcg-50 mcg/dos e powder for inhalat ion 2018 019 [facility] [address], [address] [place], [address], 0 16:24:10 albuter ol sulfate HFA 90 mcg/act uation aerosol inhaler 2018 019 [facility], [address] [place] [address], [address], 9 15:11:35 montelu kast 10 mg tablet 2018 019 [facility], [address] [place] [address], [address], 0 11:43:37 Amaryl 1 mg tablet 2018 019 [facility] [address], [address] [place] [address], [address], 9 14:46:08 atorvas tatin 40 mg tablet [address] [place] [address] 361, [address] [place] [address], [address], 0 11:38:28 Patient TargetsNo targets recorded. Patient Instructions Encounter Date Encounter Id Patient Instructions Last Modified By Organization Details Last Modified Time 10/26/2018 [id number] Quitting Tobacco : Care Instructions oajao Not available 10/26/2018 14:46:08 controlling your asthma: care instructions oajao Not available 10/26/2018 14:46:07 learning about asthma oajao Not available 10/26/2018 14:46:07 type 2 diabetes: care instructions oajao Not available 10/26/2018 14:46:07 LDCT as previous ly ordered Amaryl/Atorvastatin /Advair/Albuterol/M ontelukast Labs Follow up in 7-8 weeks Records BS testing once a day oajao Not available 10/26/2018 14:59:37 Detailed discussion, the side effects of Advair were discussed in detail and he was reminded to tinse his mouth after using it. oajao Not available 10/26/2018 14:58:41 11/09/2018 [id number] ER report Labs Podiatry Keflex oajao Not available 11/09/2018 14:30:11 03/25/2019 [id number] type 2 diabetes: care instructions oajao Not available 03/25/2019 11:50:59 high blood pressure: care instructions oajao Not available 03/25/2019 11:50:59 learning about h igh blood pressure oajao Not available 03/25/2019 11:50:59 The last two ER reports from [facility], please Lab results from [facility] Appeals Coordinator Decrease Metprolol to [address] chest Xray Follow up in 6 weeks Addendum Ophthalmology oajao Not available 03/25/2019 13:47:27 Detailed visit A n updated medication list was given to the patient, he is certain that he is on Advair. oajao Not available 03/25/2019 13:46:55 04/09/2019 [id number] controlling your asthma: care instructions oajao Not available 04/09/2019 12:01:58 learning about asthma oajao Not available 04/09/2019 12:01:58 complete PFT w/ post bronchodilator spirometry* ATHENAFAX Not available 04/09/2019 12:20:58 learning about h igh white blood cell counts oajao Not available 04/09/2019 11:47:16 fatigue: care instructions oajao Not available 04/09/2019 11:51:56 Psychiatrist ASA P Labs (2 orders) Avoid second hand tobacco Hospital discharge summaries, please ER reports please TTE results if done at [facility] He has a MÓNICA in place and CAD, he really should be on a statin. PFTS Follow up with Psychiatry oajao Not available 04/09/2019 19:45:46 Detailed discuss ion with Mr Banks and his . I have explained to him that I need an accurate medication list on each and every visit. I have also explained to him that it is important to find out why he has MSK pain, and since he is not taking the Atorvastatin, that is probably not the cause. The use of Cyclobenzaprine is usually short term, he was prescribed #20 and he aparently has only used 3, he really should have enough left. He shoould discuss his needs with his psychiatrist, however, I should not be expected to be managing his anxiety. Extended visit oakye Not available 04/09/2019 19:48:01 04/16/2019 [id number] controlling your asthma: care instructions oamarto Not available 04/16/2019 16:31:59 learning about asthma oajao Not available 04/16/2019 16:31:59 Stop Atorvastati n Switch to Rosuvastatin QOD, side effects were discussed Cyclobenzaprine PRN only Addendum Xray PT oakye Not available 04/16/2019 19:48:20 Ideally, the bet ter option would have been for him to stop the Atorvastatin and see if his symptoms improve, he is emphatic that the MSK pain preceeded the initiation of the statin. oamarto Not available 04/16/2019 19:47:44 Reason for Referral Diabetic Ophthalmology Refer ral for Uncontrolled type 2 diabetes mellitus Please call patient to schedule appt. Thank you Referring Physician: Veda Becerril, Internal Medicine, Encounter Date: 10/26/2018 Dip [place] Referral for Pain of toe of right foot Onychomycosis, pain 3rd toe of the right foot Please call patient to schedule appt. Thank you Referring Physician: Veda Becerril, Internal Medicine, Encounter Date: 11/09/2018 Appeals Coordinator Referral for I maging of lung abnormal RLL 5.5 mm Minor fissure 1.5mm RLL 5.5 mmMinor fissure 1.5 mm Referring Physician: Veda Becerril, Internal Medicine, Encounter Date: 03/25/2019 Diabetic Ophthalmology Refer ral for Uncontrolled type 2 diabetes mellitus Please call patient to schedule appt. Thank you Referring Physician: Veda Becerril Internal Medicine, Encounter Date: 03/25/2019 Psychiatrist Referral for An xiety Referring Physician: Veda Becerril Internal Medicine, Encounter Date: 04/09/2019 Appeals Coordinator Referral for A sthma Please call patient to schedule appt. Thank you Referring Physician: Veda Becerril, Internal Medicine, Encounter Date: 04/16/2019 Physical Therapist Referral for Pain of left shoulder joint Please call patient to schedule appt. Thank you Referring Physician: Veda Becerril, Internal Medicine, Encounter Date: 04/16/2019 Results Created Date Observation Date Name Description Value Unit Range Abnormal Flag Note LastModifiedBy Organization Detail LastModifiedTime 03/24/19 21 03/24/2020 nonin vasiv e color ectal cance r DNA + occul t blood scree connie, stool cologuard result Cancel led - Order d not applic able This order has expir ed becau se it has excee ded 365 days from the initi al order . Pleas e conta ct the labor atory to reord er this test if clini bertha indic ated. Test Type: [place] site algor ithmi c marquita sis of stool DNA-b elisa barahona with hemog lobin immun oassa y. Quant itati ve value s of indiv idual bioma rkers are not repor table and are not assoc iated with indiv idual bioma rker resul t refer ence range s. Preca ution s and Limit ation s: Colog uard is inten ded for color ectal cance r scree connie of adult s of eithe r sex, 45 years or older , who are at [facility] for CRC. Colog uard has been appro murtaza for use by the U.[place]. FDA. Colog uard may produ ce a false negat derrick or false posit derrick resul t. A negat derrick Colog uard test resul t does not guara ntee the absen ce of color ectal cance r (CRC) or advan juan adeno ma (pre- cance r). Patie nts with a negat derrick Colog uard test resul t shoul d be advis ed to clara nue parti cipat ing in a color ectal cance r scree connie progr am. The scree connie inter karine for Colog uard is curre ntly recom adarsh d at an inter karine of every 3 years by the Ameri can Cance r Socie ty and U.S. Multi -Soci ety Task Force . A false posit derrick resul t occur s when Colog uard produ sary a posit derrick resul t, even thoug h a colon oscop y may not find color ectal cance r or preca ncero us polyp s. The perfo rmanc e of Colog uard has been estab lishe d in a cross secti onal study (i.e. , singl e point in time) of [facility] adult s aged 50-84 . Colog uard perfo rmanc e in patie nts ages 45 to 49 years was estim ated by zohreh-cinthia tripp marquita sis of near- age group s. Colog uard perfo rmanc e data in a ,00 0 patie nt pivot al study using colon oscop y as the refer ence metho d can be acces sed at the follo wing locat ion: www.e xactl abs.c om/re suljustyn . Addit ional descr iptio n of the Colog uard test proce ss, warni ngs and preca ution s can be found at www.c [facility].wi m. Rx only. Not Available [facility] (Cologuard Orders Only) [address], [place], [address], 03/24/2020 05:37:51 04/09/19 20 04/10/2019 BMP, serum or plasm a glucose 135 mg/dL 65-99 above high normal Not Available [facility] [address] [place], [address], 04/10/2019 08:15:39 04/09/19 20 04/10/2019 BMP, serum or plasm a BUN 14 mg/dL 6-24 Not Available [facility] [address] [place], [address], 04/10/2019 08:15:39 04/09/19 20 04/10/2019 BMP, serum or plasm a creatinine 1.02 mg/dL 0.76-1 .27 Not Available [facility] [address] [facility] [place], [address], 04/10/2019 08:15:39 04/09/19 20 04/10/2019 BMP, serum or plasm a eGFR if nonafricn AM 81 mL/mi n/1.7 3 >59 Not Available [facility] [address] [facility] [place], [address], 04/10/2019 08:15:39 04/09/19 20 04/10/2019 BMP, serum or plasm a eGFR if africn AM 94 mL/mi n/1.7 3 >59 Not Available [facility] [address] [facility] [place], [address], 04/10/2019 08:15:39 04/09/19 20 04/10/2019 BMP, serum or plasm a BUN/creatini ne ratio 14 9-20 Not Available [facility] [address] [facility] [place], [address], 04/10/2019 08:15:39 04/09/19 20 04/10/2019 BMP, serum or plasm a sodium 141 mmol/ L 134-14 4 Not Available [facility] [address] [facility] [place], [address], 04/10/2019 08:15:39 04/09/19 20 04/10/2019 BMP, serum or plasm a potassium 4.3 mmol/ L 3.5-5. 2 Not Available [facility] [address] [facility] [place], [address], 04/10/2019 08:15:39 04/09/19 20 04/10/2019 BMP, serum or plasm a chloride 99 mmol/ L 96-106 Not Available [facility] [address] [facility] [place], [address], 04/10/2019 08:15:39 04/09/19 20 04/10/2019 BMP, serum or plasm a carbon dioxide, total 25 mmol/ L 20- Not Available [facility] [address] [place], [address], 04/10/2019 08:15:39 04/09/19 20 04/10/2019 TSH, ultra -sens itive , serum TSH 2.050 uIU/m L 0.450- 4.500 Not Available [facility] [address] [place], [address], 04/10/2019 08:15:40 04/09/1904/10/2019 CK (crea carolyn kinas e), total , serum creatine kinase,total 102 U/L 24- Not Available [facility] [address] [place], [address], 04/10/2019 08:15:40 04/09/1904/10/2019 magne sium, serum or plasm a magnesium 2.6 mg/dL 1.6-2. 3 above high normal Not Available [facility] [address] [place], [address], 04/10/2019 08:15:41 04/25/19 20 04/26/2019 CBC w/ auto diff WBC 12.3 x10e3 /uL 3.4-10 .8 above high normal Not Available [facility] [address] [place], [address], 04/26/2019 07:10:19 04/25/1904/26/2019 CBC w/ auto diff RBC 6.09 x10e6 /uL 4.14-5 .80 above high normal Not Available [facility] [address] [place], [address], 04/26/2019 07:10:19 04/25/1904/26/2019 CBC w/ auto diff hemoglobin 16.4 g/dL 13.0-1 7.7 Not Available [facility] [address] [facility], [place], [address], 04/26/2019 07:10:19 04/25/1904/26/2019 CBC w/ auto diff hematocrit 50.3 % 37.5-5 1.0 Not Available [facility] [address] [facility], [place], [address], 04/26/2019 07:10:19 04/25/1904/26/2019 CBC w/ auto diff MCV 83 fL 79-97 Not Available [facility] [address] [facility], [place], [address], 04/26/2019 07:10:19 04/25/1904/26/2019 CBC w/ auto diff MCH 26.9 pg 26.6-3 3.0 Not Available [facility] [address] [facility], [place], [address], 04/26/2019 07:10:19 04/25/1904/26/2019 CBC w/ auto diff MCHC 32.6 g/dL 31.5-3 5.7 Not Available [facility] [address] [facility], [place], [address], 04/26/2019 07:10:19 04/25/1904/26/2019 CBC w/ auto diff RDW 13.9 % 11.6-1 5.4 Not Available [facility] [address] [place], [address], 04/26/2019 07:10:19 04/25/1904/26/2019 CBC w/ auto diff platelets 261 x10e3 /uL 150-45 0 Not Available [facility] [address] [place], [address], 04/26/2019 07:10:19 04/25/19 20 04/26/2019 CBC w/ auto diff neutrophils 56 % not estab. Not Available [facility] [address] [facility], [place], [address], 04/26/2019 07:10:19 04/25/19 20 04/26/2019 CBC w/ auto diff lymphs 34 % not estab. Not Available [facility] [address] [facility], [place], [address], 04/26/2019 07:10:19 04/25/19 20 04/26/2019 CBC w/ auto diff monocytes 6 % not estab. Not Available [facility] [address] [place], [address], 04/26/2019 07:10:19 04/25/1904/26/2019 CBC w/ auto diff eos 3 % not estab. Not Available [facility] [address] [place], [address], 04/26/2019 07:10:19 04/25/1904/26/2019 CBC w/ auto diff basos 1 % not estab. Not Available [facility] [address] [facility], [place], [address], 04/26/2019 07:10:19 04/25/1904/26/2019 CBC w/ auto diff immature cells [employer]IC Not Available [facility] [address] [place], [address], 04/26/2019 07:10:19 04/25/1904/26/2019 CBC w/ auto diff neutrophils (absolute) 6.9 x10e3 /uL 1.4-7. 0 Not Available [facility] [address] [place], [address], 04/26/2019 07:10:19 04/25/19 20 04/26/2019 CBC w/ auto diff lymphs (absolute) 4.1 x10e3 /uL 0.7-3. 1 above high normal Not Available [facility] [address] [place], [address], 04/26/2019 07:10:19 04/25/19 20 04/26/2019 CBC w/ auto diff monocytes(ab solute) 0.7 x10e3 /uL 0.1-0. 9 Not Available [facility] [address] [facility], [place], [address], 04/26/2019 07:10:19 04/25/1904/26/2019 CBC w/ auto diff eos (absolute) 0.4 x10e3 /uL 0.0-0. 4 Not Available [facility] [address] [facility], [place], [address], 04/26/2019 07:10:19 04/25/1904/26/2019 CBC w/ auto diff baso (absolute) 0.2 x10e3 /uL 0.0-0. 2 Not Available [facility] [address] [place], [address], 04/26/2019 07:10:19 04/25/1904/26/2019 CBC w/ auto diff immature granulocytes 0 % not estab. Not Available [facility] [address] [place], [address], 04/26/2019 07:10:19 04/25/1904/26/2019 CBC w/ auto diff immature grans (abs) 0.0 x10e3 /uL 0.0-0. 1 Not Available [facility] [address] [place], [address], 04/26/2019 07:10:19 04/25/1904/26/2019 CBC w/ auto diff NRBC [employer]CH[employer]IC Not Available [facility] [address] [place], [address], 04/26/2019 07:10:19 04/25/1904/26/2019 CBC w/ auto diff hematology comments: [employer]CH[employer]IC Not Available [facility] [address] [facility], [place], [address], 04/26/2019 07:10:19 04/25/19 20 04/26/2019 lipid panel , serum cholesterol, total 188 mg/dL 100-19 9 Not Available [facility] [address] [place], [address], 04/26/2019 07:10:19 04/25/1904/26/2019 lipid panel , serum triglyceride s 509 mg/dL 0-149 above high normal Not Available [facility] [address] [place], [address], 04/26/2019 07:10:19 04/25/19 20 04/26/2019 lipid panel , serum HDL cholesterol 30 mg/dL >39 below low normal Not Available [facility] [address] [place], [address], 04/26/2019 07:10:19 04/25/1904/26/2019 lipid panel , serum VLDL cholesterol larisa Commen t mg/dL 5-40 The calcu latio n for the VLDL mita stero l is not valid when trigl yceri de level is >400 mg/dL . Not Available [facility] [address] [facility], [place], [address], 04/26/2019 07:10:19 04/25/1904/26/2019 lipid panel , serum LDL cholesterol calc Commen t mg/dL 0-99 Trigl yceri de resul t indic ated is too high for an accur ate LDL mita stero l estim ation . Not Available [facility] [address] [place], [address], 04/26/2019 07:10:19 03/05/20 20 04/26/2019 lipid panel , serum comment: [employer]CH[employer]IC Not Available [facility] [address], [place], [address], 04/26/2019 07:10:19 10/28/19 19 10/27/2018 XR, chest , 2 view No observ ation record ed. [facility] ([facility]) [address] [place], [address], 11/09/2018 14:12:26 11/08/19 19 11/07/2018 CT, head, w/o contr ast No observ ation record ed. [facility] ([facility]) [address] [place], [address], 11/09/2018 14:12:26 11/08/19 19 11/07/2018 XR, chest , 2 view No observ ation record ed. [facility] ([facility]) [address] [place], [address], 11/09/2018 14:12:26 11/15/19 19 11/14/2018 LDCT, chest , for lung cance r scree connie No observ ation record ed. [facility] ([facility]) [address] [place], [address], 03/25/2019 13:38:48 04/01/1904/01/2019 XR, chest No observ ation record ed. [facility] ([facility]) [address] [place], [address], 04/09/2019 19:25:30 04/02/1904/02/2019 cardi ac stres s test No observ ation record ed. [facility] ([facility]) [address] [place], [address], 04/09/2019 11:35:48 04/02/19 20 04/02/2019 cardi ac stres s test No observ ation record ed. [facility] [address] [place], [address], 04/09/2019 11:35:48 04/07/19 20 04/07/2019 XR, chest No observ ation record ed. [facility] (Im[facility]) [address] [place], [address], 04/09/2019 11:43:09 04/16/19 20 04/15/2019 vascu lar exami natio n (PROC ) No observ ation record ed. [facility] [address], [place], [address], 04/16/2019 16:19:55 07/22/19 20 07/16/2019 nerve condu ction study No observ ation record ed. [place] [address] [facility] [address], [place], [address], 07/29/2019 10:13:06 01/31/20 22 01/30/2022 XR, chest No observ ation record ed. [facility] [address] [place], [address], 01/30/2022 23:09:17 01/31/20 22 01/30/2022 CT, abdom en + pelvi s, w/o contr ast No observ ation record ed. [facility] [address] [place], [address], 01/30/2022 23:09:52 03/31/19 23 03/31/2022 CT, neck, soft tissu e, w/ contr ast No observ ation record ed. [facility] On [facility] Orders [address] [place], [address], 04/04/2022 10:42:38 09/11/19 23 09/10/2022 arter ial study , lower extre mity, compl ete No observ ation record ed. [facility] [address], [place], [address], 09/11/2022 21:16:49 Result Notes None recorded. Problems No Known Problems Procedures Surgical History Date Name Laterality Status Provider Name and Address Organization Details Recorded Time 02/20/19 18 hernia repair completed Veda Becerril MD Attn: Accounting, [address] [facility], [place], [address], [facility] 03/27/2018 14:47:33 cholecystectomy completed Josselyn Duke MA [place] - [facility] 03/27/2018 14:36:06 repair of ligament of knee joint completed Veda Becerril MD Attn: Accounting, [address] [facility], [place], [address], [facility] 03/27/2018 14:47:16 Imaging Results Imaging Date Name Status LastModified by [email or web address] Details LastModified Time 10/27/2018 XR, chest, 2 view completed [facility] (Imaging) [address] [place], [address], 11/09/2018 14:12:26 11/07/2018 CT, head, w/o contrast completed [facility] (Imaging) [address] [place], [address], 11/09/2018 14:12:26 11/07/2018 XR, chest, 2 view completed [facility] (Imaging) [address] [place], [address], 11/09/2018 14:12:26 11/14/2018 LDCT, chest, for lung cancer screening completed [facility] (Imaging) [address] [place], [address], 03/25/2019 13:38:48 04/01/2019 XR, chest completed [facility] (Imaging) [address] [place], [address], 04/09/2019 19:25:30 04/02/2019 cardiac stress test completed [facility] (Imaging) [address] [place], [address], 04/09/2019 11:35:48 04/02/2019 cardiac stress test completed [facility] [address] [place], [address], 04/09/2019 11:35:48 04/07/2019 XR, chest completed [facility] (Imaging) [address] [place], [address], 04/09/2019 11:43:09 04/15/2019 vascular examination (PROC) completed [facility] [address], [place], [address], 04/16/2019 16:19:55 07/16/2019 nerve conduction study completed [address], [address], 07/29/2019 10:13:06 01/30/2022 XR, chest completed [facility] [address] [place], [address], 01/30/2022 23:09:17 01/30/2022 CT, abdomen + pelvis, w/o contrast completed [facility] On [facility] Orders [address] [place], [address], 01/30/2022 23:09:52 03/31/2022 CT, neck, soft tissue, w/ contrast completed [facility] Add On Lab Orders [address] [place], [address], 04/04/2022 10:42:38 09/10/2022 arterial study, lower extremity, complete completed [facility] [address], [place], [address], 09/11/2022 21:16:49 Procedure Notes None recorded. Medical Equipment None Reported. Allergies Allergen ID Allergen Name Allergen Category Reaction Reaction Severity Criticality Documentation Date Start Date Code Code System Note Provider Name and Address Organization Details Recorded Time 813902 Indocin medicatio n Not available Not available Not available 03/27/201829750 5 RxNorm Nause a Not Available Not Available Not Available Medications Name Sig Start Date Stop Date Status Note LastModified by Organization Details LastModified Time OneTouch Ultra Blue Test Strips Once a day testing (ICD 10 E 11.65) 2019 active Not Available Not Available Not Avai lable cyclobenz aprine 10 mg tablet Take 1 tablet every day by oral route as needed for 30 days. active Not Available Not Available No t Available atorvasta tin 40 mg tablet Take 1 tablet every day by oral route as directed for 90 days. active Changed to Rosuvast atin Not Available Not Available Not Available lamotrigi ne 150 mg tablet Take 1 tablet every day by oral route at bedtime. active Not Available Not Available No t Available fluticaso ne 250 mcg-salme terol 50 mcg/dose blistr powdr for inhalatio n active Not Available Not Available Not Available prednison e 10 mg tablet 05/19 completed Not Available Not Available Not Available tizanidin e 2 mg tablet active Not Available Not Available Not Available lisinopri l 20 mg-hydroc hlorothia zide 12.5 mg tablet Take 1 tablet by mouth once daily active Not Available Not Available No t Available azithromy gaudencio 250 mg tablet TAKE 2 TABLETS (500 MG) BY ORAL ROUTE ONCE DAILY FOR 1 DAY THEN 1 TABLET (250 MG) BY ORAL ROUTE ONCE DAILY FOR 4 DAYS 04/09 completed Not Available Not Available Not Available metoprolo l succinate ER 50 mg tablet,ex tended release 24 hr TAKE 1 TABLET BY MOUTH ONCE DAILY 03/25 completed Not Available Not Available Not Available metoprolo l succinate ER 50 mg tablet,ex tended release Take 1 tablet(s ) every day by oral route. 03/21 completed Changed to 100 mg (Half daily) Not Available Not Available Not Available metoprolo l succinate ER 100 mg tablet,ex tended release 24 hr Half po daily 03/25 completed Changed to 25 mg from 50 mg (Half of a 100 mg) Not Available Not Available Not Available sertralin e 100 mg tablet Take 1 tablet every day by oral route. 03/25 completed Not Available Not Available Not Available clonazepa m 1 mg tablet Take 1 tablet 3 times a day by oral route for 30 days. active Not Available Not Available No t Available hydroxyzi ne HCl 50 mg tablet Take 1 tablet every day by oral route as directed for 90 days. active Not Available Not Available No t Available acetamino phen 300 mg-codein e 30 mg tablet 03/25 completed Not Available Not Available Not Available clopidogr el 75 mg tablet Take 1 tablet every day by oral route for 30 days. active Not Available Not Available No t Available hydrocodo ne 10 mg-acetam inophen 325 mg tablet active Not Available Not Available Not Available aspirin 81 mg tablet,de layed release Take 1 tablet every day by oral route. active Not Available Not Available No t Available tramadol 50 mg tablet active Not Available Not Available Not Available glimepiri de 1 mg tablet TAKE 1 TABLET BY MOUTH TWICE DAILY BEFORE MEAL(S) active Not Available Not Available No t Available trazodone 100 mg tablet Take 1 tablet every day by oral route at bedtime for 30 days. active Not Available Not Available No t Available baclofen 10 mg tablet active Not Available Not Available Not Available amlodipin e 10 mg tablet Take 1 tablet by mouth once daily active Not Available Not Available No t Available doxycycli ne monohydra te 100 mg capsule 03/25 completed Not Available Not Available Not Available cephalexi n 500 mg capsule Take 1 capsule every 6 hours by oral route as directed for 7 days. 05/19 completed Not Available Not Available Not Available monteluka st 10 mg tablet Take 1 tablet every day by oral route around the clock for 90 days. 03/25 completed Not Available Not Available Not Available hydroxyzi ne HCl 25 mg tablet Take 1 tablet every day by oral route. 03/25 completed Not Available Not Available Not Available gabapenti n 100 mg capsule Take 1 capsule 3 times a day by oral route for 30 days. active Not Available Not Available No t Available metoprolo l succinate ER 25 mg tablet,ex tended release 24 hr TAKE 1 TABLET BY MOUTH ONCE DAILY DIRECTED active Not Available Not Available No t Available diazepam 10 mg tablet active Not Available Not Available Not Available fluticaso ne 100 mcg-salme terol 50 mcg/dose blistr powdr for inhalatio n Inhale 1 puff twice a day by inhalati on route as directed for 30 days. active Not Available Not Available No t Available levofloxa gaudencio 500 mg tablet 04/16 completed Not Available Not Available Not Available colchicin e 0.6 mg tablet Take 1 tablet every day by oral route. 03/25 completed Not Available Not Available Not Available ketorolac 60 mg/2 mL intramusc ular solution Inject 1 mL every day by intramus cular route as directed for 1 day. 03/25 completed Not Available Not Available Not Available rosuvasta tin 10 mg tablet Take 1 tablet every other day by oral route as directed for 30 days. active Not Available Not Available No t Available Afrin (oxymetaz oline) active Not Available Not Available Not Available ProAir HFA 90 mcg/actua tion aerosol inhaler Inhale 2 puffs every 6-8 hours by inhalati on route as directed for 30 days. active Not Available Not Available No t Available OneTouch Delica Lancets 33 gauge Once a day testing (ICD 10 E 11.65) 2019 active Not Available Not Available Not Avai lable Latuda 60 mg tablet active Not Available Not Available No t Available Vraylar 6 mg capsule Take 1 capsule every day by oral route at bedtime for 30 days. 03/25 completed Not Available Not Available Not Available OneTouch Ultra Blue Test Strip active Not Available Not Available Not Available OneTouch Ultra2 Meter active Not Available Not Available Not Available Vitals Date Recorded Body height Body mass index (BMI) Body weight Body temperature Oxygen saturation Oxygen saturation in Arterial blood by Pulse oximetry Heart rate Respiratory rate Systolic blood pressure Diastolic blood pressure Provider Name and Address Organization Details Last Updated DateTime 9 177.8 cm 32 kg/m2 435027. 53 g 98.2 [degF] 97 % 97 % 60 /min 16 /min 130 mm[Hg] 76 mm[Hg] Elizabeth Capone [place] - [facility] 9 14:16:19 Date Recorded Body height Body mass index (BMI) Body weight Body temperature Oxygen saturation Oxygen saturation in Arterial blood by Pulse oximetry Heart rate Respiratory rate Systolic blood pressure Diastolic blood pressure Provider Name and Address Organization Details Last Updated DateTime 9 177.8 cm 32 kg/m2 395644. 38 g 98.6 [degF] 98 % 98 % 58 /min 14 /min 116 mm[Hg] 74 mm[Hg] Elizabeth Capone MA [facility] 9 14:09:39 Date Recorded Body height Heart rate Body mass index (BMI) Body weight Body temperature Oxygen saturation Oxygen saturation in Arterial blood by Pulse oximetry Systolic blood pressure Diastolic blood pressure Provider Name and Address Organization Details Last Updated DateTime 0 177.8 cm 79 /min 33.9 kg/m2 336851. 8 g 98.2 [degF] 97 % 97 % 132 mm[Hg] 82 mm[Hg] Ariella Campos MA [facility] 0 11:26:34 Date Recorded Body height Body mass index (BMI) Body weight Body temperature Heart rate Oxygen saturation Oxygen saturation in Arterial blood by Pulse oximetry Respiratory rate Systolic blood pressure Diastolic blood pressure Provider Name and Address Organization Details Last Updated DateTime 0 177.8 cm 32.9 kg/m2 258177. 65 g 97.7 [degF] 66 /min 97 % 97 % 18 /min 112 mm[Hg] 80 mm[Hg] Elizabeth Capone MA [facility] 0 11:08:29 Date Recorded Body height Body mass index (BMI) Body weight Body temperature Oxygen saturation Oxygen saturation in Arterial blood by Pulse oximetry Heart rate Systolic blood pressure Diastolic blood pressure Provider Name and Address Organization Details Last Updated DateTime 0 177.8 cm 33.2 kg/m2 853071. 27 g 97.7 [degF] 99 % 99 % 64 /min 110 mm[Hg] 80 mm[Hg] Elizabeth Capone MA [facility] 0 16:18:32 Social History Question Answer Notes LastModified by Organizat ion Details LastModified Time Tobacco Smoking Status Current Some Day Smoker Elizabeth Capone MA null, [facility] 04/16/2019 16:16:59 What Is Your Level Of Alcohol Consumption? None Information not available 03/27/2018 What Is Your Level Of Caffeine Consumption? None Information not available 03/27/2018 What Type Of Diet Are You Following? REGULAR Information not available 03/27/2018 Which Illicit Or Recreational Drugs Have You Used? Marijuana Information not available 03/27/2018 Do You Or Have You Ever Used E-cigarettes Or Vape? Never Used Electronic Cigarettes Information not available 10/26/2018 Marital Status Informatio n not available 03/27/2018 What Was The Date Of Your Most Recent Tobacco Screening? 04/16/2019 Information not available 04/16/2019 Do You Or Have You Ever Used Smokeless Tobacco? Never Used Smokeless Tobacco Information not available 10/26/2018 How Much Tobacco Do You Smoke? 0.25 PPD Information not available 04/16/2019 On What Date Was Tobacco Cessation Counseling Provided? 04/16/2019 Information not available 04/16/2019 How Many Years Have You Smoked Tobacco? 40 Information not available 03/27/2018 Sex: Unknown Functional Status Question Answer Note LastModified by Organizat ion Details LastModified Time What is your exercise level? Occasional Information not available 03/27/2018 Mental Status None recorded. Family History Relationship Description Onset Age of this Age Resolved Age Notes LastModified by Organization Details LastModified Time Father No current problems or disability [email or web address] Not available 03/27 14:33:55 Father Heart disease [email or web address] Not available 2018 14:34:03 Mother No current problems or disability [email or web address] Not available 03/27 14:33:55 Mother Malignant tumor of lung mnelsonma Not available 2018 14:34:18 Medical History Condition Response Coronary Artery Disease N High Blood Pressure Y Atrial Fibrillation N Kidney or Bladder Problems N Thyroid Problems N GI Problems N Depression Y COPD Y Blood Clots N Skin Problems N Anemia N Heart Attack (NC) N Anxiety Disorder Y Diabetes N Muscle, Joint, or Bone Problems Y Seizures/Epilepsy N Acid Reflux (GERD) Y Cancer N Stroke N Asthma Y Allergies Y High Cholesterol Y Hepatitis N Liver Disease N Headaches Y Osteoporosis N Heart Failure N Past Encounters Encounter ID Performer Location Encounter Start Date Encounter Closed Date Diagnosis/Indication Diagnosis SNOMED-CT Code Diagnosis ICD10 Code Diagnosis Note [id number] MD Rosmery Vasquez (Adult Med) [address] [place] [address] 03/27/2018 13:10:54 03/28/2018 08:49:53 Influenza vaccination declined 443395918 Z28.21 Tetanus va ccination declined by patient 677668272 Z28.21 Colonoscopy declined 164 5199051 87784 Z53.20 Nicotine dependence 5629 4008 Z87.891 General ex amination of patient 426976240 Z00.01 Screening for malignant neoplasm of prostate 836878503 Z12.5 Asthma 292759461 J45.90 9 Onset in childhood Bipolar disorder 2442094 4 F31.9 Gastroesop hageal reflux disease without esophagitis 729631168 K21.9 Benign ess ential hypertension 2223341 I10 [id number] [facility] [address] [place] [phone] 10/26/2018 14:06:48 10/29/2018 09:26:29 Asthma 994711500 J45.909 Onset in childhood, previously on Advair (Symbicort ) until 8-9 months ago.Restar t Advair as he seems resigned to combinatio n therapy.Re start Albuterol HFA inhalerSta r Montelukas tStop smoking Uncontroll ed type 2 diabetes mellitus 384674561 E11.65 Start Amaryl 1 mg po dailyLabs Nicotine dependence 5629 4008 Z87.891 Stop smokingThe LDCT has been reordered. Pneumococc al vaccination declined 210724418 Z28.21 Discussed Influenza vaccination declined 763174749 Z28.21 Discussed [id number] [facility] [address] [place] [phone] 11/09/2018 13:56:15 11/09/2018 14:38:32 Transient neurological symptoms 272332681 R29.90 [place] to be due to his anxiety Pain of to e of right foot 5879119210 30662 M79.674 I do not think that this is vascular, most likely an infectious process or Gout.Kefle xXrayPodia tryLabsKet orolac History of gout 94760285 4 Z87.39 Onychomyco sis of toenails 199173436 B35.1 [id number] MD Rosmery Vasquez (Adult Med) [address] [place] [id number] 03/25/2019 11:18:53 03/25/2019 12:06:51 Colon cancer screening declined 3994040163 9109 Z53.20 Screening for malignant neoplasm of colon 536088021 Z12.11 Feeling faint 158084362 R40.4 Decrease Metoprolol to 25 mg Benign ess ential hypertension 0037893 I10 Decrease Metoprolol to 25 mg Uncontroll ed type 2 diabetes mellitus 042530291 E11.65 Imaging of lung abnormal 985664363 R91.8 Discussed, he had an abnormal LDCT on October 29, 2018, the plan was a follow up appointmen t on December 14, 2018. It appears that he missed that appointmen t, he however needs a follow up LDCT. RLL 5.5 mm Minor fissure 1.5 He needs an appointmen t with the pulmonolog ist. History of gout 52733047 4 Z87.39 Pain of le ft shoulder joint 5683796268 6125431 M25.512 Nicotine dependence 5629 4008 Z87.891 Stop smokingThe LDCT has been reordered. [id number] MD Rosmery Vasquez (Adult Med) [address] [place] [id number] 04/09/2019 10:55:26 04/09/2019 12:17:44 Tobacco dependence in remission 205957125 F17.201 History of placement of stent for coronary artery disease 488417618 Z95.5 Anxiety 12335626 F41.9 Leukocytosis 219616612 D 72.829 CXR 04/07 no acute changes Spasm 26532286 R25.2 Long-term drug therapy 399652703 Z79.899 Malaise and fatigue 2717 49794 R53.81 Asthma 632804893 J45.90 9 Onset in childhood, currently on AdvairCont inue/resta rt Advair.Con tinue Albuterol HFA inhaler PRN only, the side effects were discussedP FTS History of exposure to second hand smoke 383614064 Z77.22 Musculoskeletal pain 279 341309 M79.10 Meds?Atorv astatin can cause MSK pain, we however have no confirmati on that he has been taking this medication . [id number] MD Rosmery Vasquez (Adult Med) [address] [place] [phone] 04/16/2019 16:07:22 04/17/2019 11:14:40 Myalgia/myositis - multiple 377513902 M79.10 I would prefer that he holds the Atorvastat in although he is certain he had muscle pain before this was ever started. Pain of le ft shoulder joint 4449585720 7607355 M25.512 Asthma 970318899 J45.90 9 Onset in childhood, currently on AdvairCont inue Albuterol HFA inhaler PRN onlyPFTS as previously orderedPul steward/stewardess to see History of placement of stent for coronary artery disease 852324414 Z95.5 He needs a statin in addition to his dual anticoagul ant therapy (DON) Health Concerns Section Related Observation LastModified by Organization Detai ls LastModified Time None Recorded Concern Status LastModified by Organization Details LastModified Time None Recorded Advance Directives Directive None Recorded Payers Encounter Date Sequence Insurance Name Policy Number Policy Ervin Covered Member ID Ervin Member ID Guarantor Name 10/26/2018 2 [place] Rob Banks [id number] Rob Banks 10/26/2018 1 [facility] [id number] Rob Banks [id number] Rob Banks 11/09/2018 2 [place] Rob Banks [id number] Rob Banks 11/09/2018 1 [facility] (MEDICARE REPLACEMENT/A DVANTAGE - HMO) [id number] Rob Banks [id number] Rob Banks 03/25/2019 1 [place] Rob Banks [id number] Rob Banks 04/09/2019 1 [place] Rob Banks [id number] Rob Banks 04/16/2019 1 [place] Rob Banks [id number] Rob Banks Notes Date Note Type Note Provider Name and Address Organization Details Recorded Time 10/26/2018 text/html Asthma F/UReport ed bypatient.Quality:symp toms worse in the evening Severity:not able to sleep during episode;interferes with daily activities Onset/Timing:chronic Context:worsening Modifying Factors:smoking Associated Symptoms:no fever; no fatigue; no irritability; no cough; normal appetite; no changes in productivity; no shortness of breath Dr Booker and them told me I was diabetic It seems like when I take medicine for it, it seems like it was worse I am wanting to see if I can geta a puffer for my asthma Mr Darren savage, he has been more short of breath lately and he has not had a rescue inhaler, Advair or Symbicort in a few months to a year.He is aware of his diagnosis of DM and previously tried and failed Metformin. Veda Becerril MD Attn: Accounting,[address] [facility], [place], [address], [facility] 10/26/2018 14:59:55 11/09/2018 text/html FootReported bypatient.Location[facility] Quality:aching Severity:severe Duration:3 weeks Timing:acute Context:cannot identify Alleviating Factors:nothing helps Aggravating Factors:cannot identify Associated Symptoms:no weakness; no numbness; no tingling; no swelling; no redness; no warmth; no ecchymosis; no catching/locking; no popping/clicking; no buckling; no grinding; no instability; no radiation down leg; no drainage; no fever; no chills; no weight loss; no change in bowel/bladder habits Previous Surgery:none Prior Imaging:none Previous Injections:none Previous PT:none Work Related:no My third toe is getting discolored and its really hurting me bad It just started hurting about three weeks ago The gout, I have been taking medicine for 6-7 days They told me it was my anxiety, I had SOB, chest pain Mr Darren savage with atraumatic pain in the 3rd toe of the right foot, he apparently has a history of gout and he started his Colchicine with no response.He was in the ER recently after developing SOB, chest pain, facial tingling and transient bilateral blurred vision, the work up was negative and he was discharged. He admits that he was anxious. Veda Becerril MD Attn: Accounting,[address] [facility], [place], [address], [facility] 11/09/2018 14:40:35 03/25/2019 text/html Poor historian I really don't want to, to be honest My muscles feel like they .... I just feel like I am going to pass out When I have to get up, it feels like my muscles are ignacio I am not having any chest pain or nothing I am just having pain and numbness Mr Banks returns with multiple complaints, he describes intermittent near syncopal symptoms that are not necessarily orthostatic. He denies any precordial chest pain and did not report palpitations. He has non specific muscle pain and he also has L shoulder and LUE neuropathic symptoms.He apparently has been to the ER twice in the last few months, the symptoms were attributed to his anxiety and he disagrees. With regards to the colonoscopy, he is not interested. He had an abnormal LDCT on October 29, 2018, the plan was a follow up appointment on December 14, 2018. It appears that he missed that appointment, he however needs a follow up LDCT. Veda Becerril MD Attn: Accounting,[address] [facility], [place], [address], [facility] 03/25/2019 13:47:38 04/09/2019 text/html She told me, sh e can't give me anything for my anxiety because I smoke Marijuana Nervous and flushed When they gave that muscle relaxant and Ativan, it seemed to help me a whole bunch I feel real flushed Are you going to put me on a muscle relaxant? I have got two different doctors and neither one of you prescribe me nothing for my anxiety Mr Banks returns, in the interim he was in the ER twice, on the initial visit on 03/31/19 or 04/01/19 he was admitted and had an abnormal stress test and needed a cardiac catheterization. He required a stent (MÓNICA) to the RCA.He presented again to the ER on 04/07 and was observed overnight with non specific symptoms including weakness and spasms in his hands and legs, the workup was normal and he improved on Flexeril and Ativan. His symptoms persist and he also describes SOB, according to his he previously was on Advair 250/50 for his Asthma while under the care of his previous provider and it is unclear if the Advair 100/50 that he now has at home has . His hospital medication list suggests that he is on Atorvastatin and his office chart confirm that this was prescribed on 10/26/2018, he cannot confirm that he is taking this medication. He states that he was told that all his records will be sent to us. He did not report any chest pain and he has no cough but apparently he had a high white count and he was discharged home on Levofloxacin. It is unclear if he had an echocardiogram. He has a psychiatrist and he is on antianxiety medications, it appears that specific medications may have been denied. He stopped smoking but he is still exposed to second hand smoke. I have explained to the patient that I do not have all the details of his hospital stays, they have however been requested. Veda Becerril MD Attn: Accounting, [place], [address], [facility] 04/09/2019 19:48:11 04/16/2019 text/html ShoulderReported bypatient.Hand Dominance:right Location:left Quality:aching Severity:moderate Timing:cannot identify Context:cannot identify Alleviating Factors:nothing helps Aggravating Factors:lifting; ROM Associated Symptoms:no weakness; no numbness; no tingling; no swelling; no redness; no warmth; no ecchymosis; no catching/locking; no popping/clicking; no buckling; no grinding; no instability; no radiation down arm; no drainage; no fever; no chills; no weight loss; no change in bowel/bladder habits Previous Surgery:none Prior Imaging:none Previous Injections:none Previous PT:none Work Related:no Working:no A little better Seems like there is something wrong with my muscles, they are tightening up on me, I am afraid to drive My left arm and my left shoulder is still bothering me too Mr Banks returns, he is quite certain that his MSK pain started before he was started on Atorvasatin. He was seen by his it consulting manager, Dr Hugo who apparently recommended that he see a hand sole sewer, he is yet to get the PFTS ordered on the last visit done. He also complains of left shoulder pain. Veda Becerril MD Attn: Accounting, [place], [address], [facility] 04/16/2019 19:49:46
--- OUTSIDE RECORDS SUMMARY | 2024-06-11 07:22 | XMS_ITS | Clinical Summary ---
Author Organization [facility] Address [address] [place] [id number] Care Team Providers Care Bat Lathe Operator Name Role Phone Abelardo Booker MD Primary Care Provider [phone] Social History Tobacco Use Types Packs/Day Years Used Date Smoking Tobacco: Never Assessed Sex and Gender Information Value Date Recorded Sex Assigned at Not on file Legal Sex Male 10:46 PM CDT Gender Identity Not on file Sexual Orientation Not on file Plan of Treatment Health Maintenance Due Date Last Done Comments Colorectal Cancer Screening Colonoscopy (10 Years) 1962 Annual Physical 1965 Hepatitis C 01/27/1980 DTaP, Tdap and Td Vaccines ( 1 - Tdap) 1981 Pneumococcal Vaccine: 50+ Ye ars (1 of 1 - PCV) 01/27/2012 Zoster Vaccines (1 of 2) 01/27/2012 COVID-19 Vaccine ( - 2023-2 5 season) 2023 RSV Immunization or 60+ Years (1 - 1-dose 75+ series) 2037 Meningococcal B Vaccine Aged Out No l onger eligible based on patient's age to complete this topic Meningococcal Vaccine Aged Out No mert don eligible based on patient's age to complete this topic RSV Immunizations Under 20 Months Aged Out No longer eligible based on patient's age to complete this topic Care Teams Bat Lathe Operator Relationship Specialty Start Date End Date Abelardo Booker MD PCP - General 10/06/10
--- OUTSIDE RECORDS SUMMARY | 2024-06-11 07:22 | XMS_ITS | Patient Health Record ---
Author Organization [facility] Address [address] [place] [address] Care Team Providers Care World Travel Counselor Name Role Phone Ziggy Casper MD Primary Care Provider Unavail able Raji Ng Unavailable [phone] Migration, Provider Unavailable Unavailable Allergies No Known Allergies Reason For Referral No Information Medications Medication SIG (Take, Route, Frequency, Duration) Notes Start Date End Date Status OneTouch Delica Plus [id number] 04/12/2023 Active Metoprolol Succinate ER 25 MG Oral 04/12/2023 Active Atorvastatin Calcium 40 MG Oral 04/12/2023 Active Gabapentin 300 MG Oral 04/12/2023 A ctive Fluticasone Propionate Diskus 50 MCG/ACT Inhalation *Reorder from [employer] for eRx and Interaction Alerts* 04/12/2023 Active ProAir HFA 108 (90 Base) MCG/ACT Inhalation 04/12/2023 Active metFORMIN HCl 1000 MG Oral 04/12/2023 Active amLODIPine Besylate 10 MG Oral 04/12/2023 Active MARIJUANA (CANNABIS) BUDS/LEAVES FOR SMOKING *Reorder from [employer] for eRx and Interaction Alerts* 04/12/2023 Active Pantoprazole Sodium 40 MG Oral 04/12/2023 Active Clopidogrel Bisulfate 75 MG Oral 04/12/2023 Active Montelukast Sodium 10 MG Oral 04/12/2023 Active glipiZIDE 10 MG Oral 04/12/2023 Act derrick Azelastine HCl 137 MCG/SPRAY Nasal 04/12/2023 Active OneTouch Ultra In Vitro 04/12/2023 Acti ve Benzonatate 100 MG Oral 04/12/2023 Active Cyclobenzaprine HCl 10 MG Oral 04/12/2023 Active Lisinopril 20 MG Oral 04/12/2023 Ac tive Escitalopram Oxalate 10 MG Take 1 tablet by mouth once daily for 30 Active FLUTICASONE 250 MCG-SALMETEROL 50 MCG/DOSE BLISTR POWDR FOR INHALATION *Reorder from [facility] for eRx and Interaction Alerts* 04/12/2023 Active Ondansetron HCl 4 MG Oral 04/12/2023 Active Glimepiride 2 MG Oral 04/12/2023 Ac tive Caplyta 42 MG 1 capsule Oral Once a day for 90 days *Reorder from [facility] for eRx and Interaction Alerts* 04/12/2023 Active Escitalopram Oxalate 5 MG 1 tablet Orally Once a day for 7 days 10/19/2023 Active OneTouch Ultra 2 w/Device 04/12/2023 Active Lisinopril-hydroCHLOROt hiazide 20-12.5 MG Oral 04/12/2023 Active QUEtiapine Fumarate 50 MG 1 tablet Oral twice daily for 30 days appointment needed Active Immunizations Vaccine Route Administration Date Status Comme nts Pfizer [employer] Covid-19 Vac cine 2nd dose Unknown 05/18/2020 Administered Pfizer [employer] Covid-19 Vac cine 2nd dose Unknown 06/14/2020 Administered Social History Sex Assigned At : Social History Observation Description Sex Assigned At Male Vital Signs Heart Rate 57 /min 10/19/2023 Height-cm 177.80 cm 10/19/2023 Blood pressure diastolic 66 mm Hg 10/19/2023 Weight-kg 101.6 kg 10/19/2023 Height 70.00 in 10/19/2023 Blood pressure systolic 106 mm Hg 10/19/2023 Weight 224 lbs 10/19/2023 BMI 32.14 kg/m2 10/19/2023 Encounters Encounter Location Date Provider Diagnosis [facility] [address] [facility] [address] [place] [address] 06/04/2024 Raji Ng [facility] [address] [facility] [address] [place] [address] 10/19/2023 Raji Ng Bipolar disorder, current episode depressed, severe, without psychotic features F31.4 ; Generalized anxiety disorder F41.1 ; Other insomnia G47.09 ; Other shelter (current) drug therapy Z79.899 and Cannabis dependence, uncomplicated F12.20 [facility] [address] [facility] [address] [place] [address] 06/13/2023 Provider Migration [facility] [address] [facility] [address] [facility] [address] [place] [address] 07/08/2023 Provider Migration [place] [id number] [facility] [address] [facility] [address] [place] [address] 07/09/[address] [facility] [address] [place] [address] 11/13/2023 Raji Ng Generalized anxiety disorder F41.[address] [facility] [address] [place] [address] 11/14/2023 Rajiasuncion Murciaoza Generalized anxiety disorder F41.1 Assessments Encounter Date Diagnosis (ICD Code) Assessment Notes Treatment Notes Treatment Clinical Notes Section Notes 10/19/2023 Bipolar disorder, current episode depressed, severe, without psychotic features (ICD-10 - F31.4) Caplyta 42mg daily, Quetiapine 50mg bid Lumateperone capsule (Caplyta)THC/CB D may affect the metabolism of Lumateperone capsuleby decreasing its drug effect by the CY Substrateby increasing its drug effect by the CYP2C8 Substrateby increasing or decreasing its drug effect by the CY Substrate 1. Bipolar Disorder: - Continue Caplyta 42mg daily - Continue quetiapine 50mg twice a day 2. Anxiety: Plan: - Taper off escitalopram: decrease to 10mg once a day for a week, then 5mg once a day for a week, and then discontinue 3. Insomnia: Plan: - Monitor sleep quality after tapering off escitalopram - Encourage patient to maintain good sleep hygiene 4. Depression: Plan: - Monitor depressive symptoms after tapering off escitalopram 5. Sleep apnea: Plan: - Encourage patient to use CPAP machine consistently Follow-up: - Schedule a follow-up appointment in approximately six weeks to assess patient's response to medication changes and overall mental health status - Review recent lab results during the follow-up visit 10/19/2023 Generalized anxiety disorder (ICD-10 - F41.1) Escitalopram 20mg daily 1. Bipolar Disorder: - Continue Caplyta 42mg daily - Continue quetiapine 50mg twice a day 2. Anxiety: Plan: - Taper off escitalopram: decrease to 10mg once a day for a week, then 5mg once a day for a week, and then discontinue 3. Insomnia: Plan: - Monitor sleep quality after tapering off escitalopram - Encourage patient to maintain good sleep hygiene 4. Depression: Plan: - Monitor depressive symptoms after tapering off escitalopram 5. Sleep apnea: Plan: - Encourage patient to use CPAP machine consistently Follow-up: - Schedule a follow-up appointment in approximately six weeks to assess patient's response to medication changes and overall mental health status - Review recent lab results during the follow-up visit 11/13/2023 Generalized anxiety disorder (ICD-10 - F41.1) 11/14/2023 Generalized anxiety disorder (ICD-10 - F41.1) 10/19/2023 Other insomnia (ICD-10 - G47.09) persistent 1. Bipolar Disorder: - Continue Caplyta 42mg daily - Continue quetiapine 50mg twice a day 2. Anxiety: Plan: - Taper off escitalopram: decrease to 10mg once a day for a week, then 5mg once a day for a week, and then discontinue 3. Insomnia: Plan: - Monitor sleep quality after tapering off escitalopram - Encourage patient to maintain good sleep hygiene 4. Depression: Plan: - Monitor depressive symptoms after tapering off escitalopram 5. Sleep apnea: Plan: - Encourage patient to use CPAP machine consistently Follow-up: - Schedule a follow-up appointment in approximately six weeks to assess patient's response to medication changes and overall mental health status - Review recent lab results during the follow-up visit 10/19/2023 Other institution director (current) drug therapy (ICD-10 - Z79.899) 1. Bipolar Disorder: - Continue Caplyta 42mg daily - Continue quetiapine 50mg twice a day 2. Anxiety: Plan: - Taper off escitalopram: decrease to 10mg once a day for a week, then 5mg once a day for a week, and then discontinue 3. Insomnia: Plan: - Monitor sleep quality after tapering off escitalopram - Encourage patient to maintain good sleep hygiene 4. Depression: Plan: - Monitor depressive symptoms after tapering off escitalopram 5. Sleep apnea: Plan: - Encourage patient to use CPAP machine consistently Follow-up: - Schedule a follow-up appointment in approximately six weeks to assess patient's response to medication changes and overall mental health status - Review recent lab results during the follow-up visit 10/19/2023 Cannabis dependence, uncomplicated (ICD-10 - F12.20) daily cannabis use 1. Bipolar Disorder: - Continue Caplyta 42mg daily - Continue quetiapine 50mg twice a day 2. Anxiety: Plan: - Taper off escitalopram: decrease to 10mg once a day for a week, then 5mg once a day for a week, and then discontinue 3. Insomnia: Plan: - Monitor sleep quality after tapering off escitalopram - Encourage patient to maintain good sleep hygiene 4. Depression: Plan: - Monitor depressive symptoms after tapering off escitalopram 5. Sleep apnea: Plan: - Encourage patient to use CPAP machine consistently Follow-up: - Schedule a follow-up appointment in approximately six weeks to assess patient's response to medication changes and overall mental health status - Review recent lab results during the follow-up visit Plan Of Treatment No Information Insurance Providers Payer Name Payer Address Payer Phone Subscriber Number Group Number Insured Name Patient Relationship to Insured Coverage Start Date Coverage End Date Medicare-I l Medicare [address] [place] [address] [id number] GWENDOLYN MASTERSON Self - patient is the insured Medicaid-I l Medicaid [address] [address] [place] [address] [id number] GWENDOLYN MASTERSON Self - patient is the insured Medical (General) History Medical History History ICD Code Problems: Bipolar affective disorder, cu rrent episode depression Cannabis dependence Generalized anxiety disorder Long-term current use of drug therapy Obstructive sleep apnea syndrome Persistent insomnia , Surgical History Surgery Date(Month/Year) Removal of gallbladder (25701) Cardiac stent
--- OUTSIDE RECORDS SUMMARY | 2024-06-11 07:22 | XMS_ITS | CONTINUITY OF CARE DOCUMENT ---
Author Name darleen morejon Address Unknown Organization [facility] Address [address] [facility] [address] [place] [address] Phone [phone] Care Team Providers Care Community Service Manager Name Role Phone Lo REAL, Brian Choudhury Unavailable Bobbi REAL, Ge Unavailable Tremayne REAL, Ziggy Pagan Unavailable PROBLEMS Condition Status Date Provider Notes Chest pain active Brian Blanchard MD HTN essential active Brian Blanchard MD Hypercholesterolemia active Brian ortega MD Leg pain active Brian Blanchard MD Coronary Heart Disease active Brian hammond MD Asthma active Brian Blanchard MD (Hist ory of) Hyperlipidemia active Brian Blanchard MD Hypertension active Brian Blanchard MD Preop cardiovasc. examination active Solomon Blanchard MD Shortness of breath active Brian Blanchard MD Sleep apnea active Brian Blanchard MD ENCOUNTERS Date Type Provider Location Encounter Diag nosis - In-person encounter Office Visit Brian Blanchard MD [facility] Shortness of breathSleep apnea - In-person encounter Office Visit Brian Blanchard MD [facility] Coronary Heart DiseaseAsthmaHyperlipidemiaHypertensionPreop cardiovasc. examination - In-person encounter Office Visit Brian Blanchard MD [facility] Chest painHTN essentialHypercholesterole miaLeg pain VITAL SIGNS Date Observation Value Provider Body Mass Index (Ratio) 31.99 kg/m2 Mk Blanchard MD blood pressure, diastolic 82 mm[Hg] Li nkLog blood pressure, systolic 143 mm[Hg] Kimberlyn kLog respiratory rate E&M 20 /min Marine Guillen pulse rate 69 /min Marine Guillen oxygen saturation, oximetry 96 % Marine Guillen blood pressure, diastolic 82 mm[Hg] paulo Guillen blood pressure, systolic 143 mm[Hg] She tiburcio Guillen weight E&M 223 [lb_av] Marine Guillen blood pressure, cuff size regular paulo Guillen height E&M 70 [in_i] Marine Guillen Body Mass Index (Ratio) 33.86 kg/m2 Mk Blanchard MD blood pressure, cuff size large Ke rri Kennyaracelismehdi blood pressure, diastolic 70 mm[Hg] Ke rri Giana blood pressure, systolic 110 mm[Hg] Carrie ri Giana oxygen saturation, oximetry 96 % Katlin Giana respiratory rate E&M 14 /min Katlin G ruenenfelder pulse rate 53 /min Katlin Olege lder weight E&M 236 [lb_av] Katlin Gruenenfe lder height E&M 70 [in_i] Katlin Kennyuenenfe lder Body Mass Index (Ratio) 34.66 kg/m2 Mk Blanchard MD blood pressure, diastolic 79 mm[Hg] Kinsey Ray blood pressure, systolic 122 mm[Hg] Shahana Ray oxygen saturation, oximetry 97 % Nancy Ray respiratory rate E&M 18 /min Yessi Ray pulse rate 75 /min Nancy mejia weight E&M 241.6 [lb_av] Nancy burnhamon height E&M 70 [in_i] Nancy mejia ALLERGIES Allergy Name Onset Date Reaction Criticality Status INDOCIN High Criticality active HISTORY OF MEDICATION USE Medication Status Instructions Dates Provider Indications Com ments ADVAIR DISKUS 100-50 MCG/DOSE INHALATION AEROSOL POWDER BREATH ACTIVATED active 1 puff twice a day Nancy Ray LISINOPRIL active 1 tablet once a day Nancy Ray AMLODIPINE BESYLATE active 1 tablet once a day Nancy Ray rosuvastatin 5 mg tablet active 1 tablet once a day Nancy Ray LEVAQUIN 500 MG ORAL TABLET active 1 tablet once a day Nancy Ray aspirin 81 mg tablet,delayed release (DR/EC) active 1 tablet by mouth once a day Nancy Ray clopidogrel 75 mg tablet active Take 1 tablet by mouth once a day 3 Katlin Faria SOCIAL HISTORY Date Observation Value Provider smoking status Former smoker Marine mathis social history E&M S moking History: Kim kebede is a former smoker. Brian Blanchard MD social history reviewed E&M revi ewed - no changes required Brian Blanchard MD number of years as a smoker 35 a Katlin Faria smoking history, tot al pack/day 2 ppd Katlin Faria smoking, year quit 1991 Katlin naidu cigarette use yes Katlin cali smoking status Former smoker Katlin alexandre number of years as a smoker 40 a Nancy Ray smoking history, tot al pack/day 1.5 Nancy Ray cigarette use yes Nancy holcomb smoking status Current every day smoker Anum Ray FUNCTIONAL STATUS Date Observation Value Provider HRA, CV Assess/Plan, Angina (inactive) Management Plan continue current therapy Brian Blanchard MD FAMILY HISTORY Family Member Condition Full Sister Family History of Di abetes: Full Brother Family History of Di abetes: Father Family History of Co ngestive Heart Failure: INSURANCE PROVIDERS Payer name Policy type / Coverage type [place] [employer] party ID [place] Medicare [id number] ADVANCE DIRECTIVES Name Date DISCUSSED - NO DECISION MADE TREATMENT PLAN Date Name Performer [id number],S,KELLEE repeat Sa juana Blanchard MD [id number],C,R CA stent H is updated medication list for this problem includes: Clopidogrel 75 Mg Tablet (Clopidogrel) ..... Take 1 tablet by mouth once a day Aspirin 81 Mg Tablet,delayed Release (dr/ec) (Aspirin) ..... 1 tablet by mouth once a day Brian Blanchard MD [id number],C, H is updated medication list for this problem includes: Aspirin 81 Mg Tablet,delayed Release (dr/ec) (Aspirin) ..... 1 tablet by mouth once a day BP today: 143/82 P rior BP: 110/70 (06/03/2022) Brian Blanchard MD [id number],C,j ust had a recent sleep study. he cnt use the machine and may be a candidate for inspire. may need to talk to dr. Tremayne Blanchard MD [id number],C,maybe a resul t from the sleep apnea Brian Blanchard MD [id number],C,N o new CP O tomi to proceed with pain management Brian Blanchard MD [id number],S, L ipitor 40 mg Brian Blanchard MD [id number],C, H is updated medication list for this problem includes: Aspirin 81 Mg Tablet,delayed Release (dr/ec) (Aspirin) ..... 1 tablet by mouth once a day BP today: 110/70 P rior BP: 122/79 (04/12/2019) Brian Blanchard MD [id number],C,U carmen review of invasive and noninvasive testing and recent exam the patient is an acceptable candidate for the planned surgical procedure for INTERVENTIONAL PAIN MANAGEMENT recommend to maintain his blood pressure range of 110 to 140 mmHg and a heart rate of 60-80 B p.m.. It is okay to use IV beta blockers calcium channel blockers nitrates and afterload reducing agents to maintain the aforementioned hemodynamics parameters. Tele monitoring and EKG should be done if the patient has arrhythmia during procedure OKAY TO HOLD ASPIRIN AND PLAVIX FOR 7 DAYS PRIOR TO PROCEDURE, CAN RESUME WHEN OKAY WITH PAIN SPECIALIST Brian Blanchard MD [id number],C,continue with advair elma Blanchard MD Cardiology:KELLEE repeat Brian Blanchard MD Cardiology:RCA stent H is updated medication list for this problem includes: Clopidogrel 75 Mg Tablet (Clopidogrel) ..... Take 1 tablet by mouth once a day Aspirin 81 Mg Tablet,delayed Release (dr/ec) (Aspirin) ..... 1 tablet by mouth once a day Brian Blanchard MD Cardiology: H is updated medication list for this problem includes: Aspirin 81 Mg Tablet,delayed Release (dr/ec) (Aspirin) ..... 1 tablet by mouth once a day BP today: 143/82 P rior BP: 110/70 (06/03/2022) Brian Blanchard MD Cardiology:just had a recent sleep study. he cnt use the machine and may be a candidate for inspire. may need to talk to dr. Tremayne Blanchard MD Cardiology:maybe a result from t he sleep apnea Brian Blanchard MD Cardiology:No new CP O tomi to proceed with pain management Brian Blanchard MD Cardiology: L ipitor 40 mg Brian Blanchard MD Cardiology: H is updated medication list for this problem includes: Aspirin 81 Mg Tablet,delayed Release (dr/ec) (Aspirin) ..... 1 tablet by mouth once a day BP today: 110/70 P rior BP: 122/79 (04/12/2019) Brian Blanchard MD Cardiology:Upon revi ew of invasive and noninvasive testing and recent exam the patient is an acceptable candidate for the planned surgical procedure for INTERVENTIONAL PAIN MANAGEMENT recommend to maintain his blood pressure range of 110 to 140 mmHg and a heart rate of 60-80 B p.m.. It is okay to use IV beta blockers calcium channel blockers nitrates and afterload reducing agents to maintain the aforementioned hemodynamics parameters. Tele monitoring and EKG should be done if the patient has arrhythmia during procedure OKAY TO HOLD ASPIRIN AND PLAVIX FOR 7 DAYS PRIOR TO PROCEDURE, CAN RESUME WHEN OKAY WITH PAIN SPECIALIST Brian Blanchard MD Cardiology:continue with millie Blanchard MD Cardiology: B P today: 122/79 His updated medication list for this problem includes: Aspirin Adult Low Dose 81 Mg Oral Tablet Delayed Release (Aspirin) ..... One tab by mouth daily Brian Blanchard MD Cardiology: H is updated medication list for this problem includes: Rosuvastatin Calcium Tablet (Rosuvastatin calcium tabs) ..... 1 tab once daily Brian Blanchard MD Cardiology:ABN stres s. CAD. MÓNICA to RCA. DAPT ASA/Plavix for 12 mo. Brian Blanchard MD Cardiology:R groin e chymosis. Likely blood tracking from arteriotomy site. Did not have closure device. Brian Blanchard MD Date Name Complete Echo Arterial Duplex Bi-L ower EX Complete Echo Arterial Duplex to r /o pseudoanuerysm HISTORY OF PROCEDURES Procedure Date Procedure Name Provider Procedure Notes S tatus EKG Brian Blanchard MD compl eted EKRosa Blanchard MD compl eted EKRosa Blanchard MD compl eted
--- OUTSIDE RECORDS SUMMARY | 2024-06-11 07:23 | XMS_ITS | Data Portability ---
Author Organization [facility], Main Office Address [address] [place] [address] Care Team Providers [employer] Paraprofessional Name Role Phone EZEKIEL CASPER Primary Care Provider MARY NG Psychiatrist ELIZABETH COKER Primary Care Provider [phone] ELIZABETH COKER Referring Provider Assessment Encounter Date Assessment Date Assessment LastModified by Organization Details LastModified Time 12/08/2023 12/08/2023 overall feeling better after going to the ER and they told him he has bronchitis, still just feels a little tight with breathing but using his inhailers and is overall doing better, will give medrol dose angelo and f/u if not improving, watch sugar intake while taking he has some chronic pain and he uses flexeril at bedtime and asking for refill and if ok to take during the day has hx of anxiety and and feels extra stress lately, we discussed clonazepam and buspar and he will f/u if the buspar is helping ok to refill [email or web address] Not available 12/08/2023 15:42:31 Plan of Treatment Reminders Order Date Submit Date Provider Last Modified By Organization Details Last Modified Time Details Appointments Any 15 2024 02:45P M Ezekiel Casper MD Not available Not available Not available Lab None recorded. Referral general surgeon referral - Please call patient to schedule. 2023 024 [email or web address] 2 Hussein White MD, [address] [facility] [address], [place], [address], 05/13/2024 10:57:38 diabetic ophthalmo logy referral 2023 024 [email or web address] Gt Sanchez, [address], [address], [place], [address], 11/01/2023 08:37:41 Procedures None recorded. Surgeries septoplas ty (SURG) 2023 024 Not available 07/03/2023 11:17:32 submucous resection inferior turbinate (SURG) 2023 024 Not available 07/03/2023 11:17:32 Imaging None recorded. Medication Orders lactulose 10 gram/15 mL oral solution 2023 [facility], [address] [place] [address], [address], 02/13/2024 11:29:05 levofloxa gaudencio 500 mg tablet 2023 [facility], [address] [place] [address], [address], 02/13/2024 11:32:48 prednison e 10 mg tablet 2023 [facility], [address] [place] [address], [address], 02/13/2024 11:32:49 cyclobenz aprine 5 mg tablet 2023 024 [facility], [address] [place] [address], [address], 12/08/2023 15:42:28 Medrol (Angelo) 4 mg tablets in a dose pack 2023 024 [facility], [address] [place] [address], [address], 12/08/2023 15:42:17 buspirone 10 mg tablet 2023 024 [facility], [facility] [place], [address], 12/08/2023 15:42:27 clonazepa m 0.5 mg tablet 2023 024 ANGELO [facility] [address], [address] [place] [address], [address], 12/08/2023 15:42:31 cefdinir 300 mg capsule 2023 024 [email or web address] 2 [facility] [address], [address] [place] [address], [address], 09/11/2023 10:11:01 Medrol (Angelo) 4 mg tablets in a dose pack 2023 [email or web address] [place] [address] [address], [address] [place] [address], [address], 09/11/2023 10:11:16 cefdinir 300 mg capsule 2023 [email or web address] [place] [address] [address], [address] [place] [address], [address], 09/11/2023 10:11:01 Ciprodex 0.3 %-0.1 % ear drops,priti pension 2023 024 [email or web address] [facility] [address], [address] [place] [address], [address], 07/24/2023 16:32:16 Patient TargetsNo targets recorded. Patient InstructionsNo instructions recorded. Reason for Referral Diabetic Ophthalmology Refer ral for Diabetes mellitus Referring Physician: Ezekiel Casper, Internal Medicine, Encounter Date: 10/04/2023 General Surgeon Referral for Bilateral inguinal hernia Please call patient to schedule. Referring Physician: Ingrid Thomas, Family Medicine, Encounter Date: 02/13/2024 Results Created Date Observation Date Name Description Value Unit Range Abnormal Flag Note LastModifiedBy Organization Detail LastModifiedTime 06/13/19 24 06/13/2023 BASIC METAB OLIC PANEL sodium 139 mmol/ L 137-14 5 Not Available [facility] (Lab) [address] [place], [address], 06/13/2023 20:47:12 06/13/19 24 06/13/2023 BASIC METAB OLIC PANEL potassium 3.9 mmol/ L 3.5-5. 1 Not Available [facility] (Lab) [address] [place], [address], 06/13/2023 20:47:12 06/13/19 24 06/13/2023 BASIC METAB OLIC PANEL chloride 100 mmol/ L 98-107 Not Available [facility] (Lab) [address] [place], [address], 06/13/2023 20:47:12 06/13/19 24 06/13/2023 BASIC METAB OLIC PANEL carbon dioxide 31 mmol/ L 22-30 high Not Available [facility] (Lab) [address] [place], [address], 06/13/2023 20:47:12 06/13/19 24 06/13/2023 BASIC METAB OLIC PANEL anion gap 11.9 mmol/ L 14-22 low Not Available [facility] (Lab) [address] [place], [address], 06/13/2023 20:47:12 06/13/19 24 06/13/2023 BASIC METAB OLIC PANEL glucose 130 mg/dL 70-99 high Not Available [facility] (Lab) [address] [place], [address], 06/13/2023 20:47:12 06/13/19 24 06/13/2023 BASIC METAB OLIC PANEL BUN 15 mg/dL 8-19 Not Available [facility] (Lab) [address] [place], [address], 06/13/2023 20:47:12 06/13/19 24 06/13/2023 BASIC METAB OLIC PANEL creatinine 0.65 mg/dL 0.66-1 .25 low Not Available [facility] (Lab) [address] [place], [address], 06/13/2023 20:47:12 06/13/19 24 06/13/2023 BASIC METAB OLIC PANEL GFR >60 Refer ence Range : [place] [facility] GFR Healt hy Adult : >60 mL/mi n/1.7 3 m2 Chron ic Kidne y Disea se: 15-60 mL/mi n/1.7 3 m2 Kidne y Failu re: <15/m L/min /1.73 m2 www.n iddk. nih.g ov The MDRD study equat ion has not been valid ated in child bernadette <18 years of age; pregn ant women ; the elder ly >85 years of age; or in some racia l or ethni c subgr oups, such as Hispa nics. Outsi de the valid ated percy eters , estim ated GFR is less accur ate, requi ring clini larisa judgm ent on a case- by-ca se basis . Clini larisa inter preta tion for other races and ages must be made by the clini rock. The MDRD study equat ion has not been valid ated for the evalu ation of serum creat inine relat ed to nutri jessú l statu s or medic ation usage . For perso ns <18 years of age, a pedia tric GFR calcu lator is avail able on the [facility] websi te: https ://laya haskins.geraldo verduzco.o rg/pr ofess ional s/kdo qi/gf r_cal culat or Not Available [facility] (Lab) [address] [place], [address], 06/13/2023 20:47:12 06/13/19 24 06/13/2023 BASIC METAB OLIC PANEL calcium 9.2 mg/dL 8.4-10 .2 Not Available [facility] (Lab) [address] [place], [address], 06/13/2023 20:47:12 07/14/19 24 07/14/2023 POTAS SIUM potassium 4.3 mmol/ L 3.5-5. 1 Not Available [facility] (Lab) [address] [place], [address], 07/14/2023 08:46:42 07/14/1907/14/2023 GLUCO SE (POIN T OF CARE) glucose (point of care) 164 mg/dL 74-99 high Not Available [facility] (Lab) [address] [place], [address], 07/14/2023 09:18:32 07/14/19 24 07/14/2023 HEMOG LOBIN /MARELY TOCRI T hemoglobin 14.6 g/dL 13.2-1 7.0 Not Available [facility] (Lab) [address] [place], [address], 07/14/2023 10:01:35 07/14/19 24 07/14/2023 HEMOG LOBIN /MARELY TOCRI T hematocrit 42.5 % 39.3-5 0.0 Not Available [facility] (Lab) [address] [place], [address], 07/14/2023 10:01:35 07/14/19 24 07/14/2023 PLATE LET COUNT platelets 226 x10'3 /uL 150-40 0 Not Available [facility] (Lab) [address] [place], [address], 07/14/2023 10:01:41 07/14/19 24 07/14/2023 GLUCO SE (POIN T OF CARE) glucose (point of care) 95 mg/dL 74-99 Not Available [facility] (Lab) [address] [place], [address], 07/14/2023 12:16:09 06/05/19 24 06/05/2023 CT, maxil lofac ial, w/o contr ast [facility] [address] [place], [place] [id number] Patien t Name: GWENDOLYN BANKS Access ion #: [id number] Sex: M : 1959 1 Dictat ed By: Vicky Bravo ing Physic bjorn: SHANEMarcela SNOWDEN RAUL Orderi ng Physic bjorn: ZENON SPRAUL Exam Date: 2023 07:58 AM Exam Name: CT MAXILL OFACIA L WO Admitt ing Diagno sis(es ): CLINIC AL INFORM ATION: Chroni c sinusi tis. TECHNI QUE: Axial CT images of the parana david sinuse s were obtain ed withou t contra st. Martinez l and sagitt al reform atted images were obtain ed, review ed, and stored . One or more of the follow ing dose reduct ion techni ques were used: Automa thais exposu re contro l. Adjust ment of mA and/or kV accord ing to patien t size. CTDIvo l = 23.69 mGy DLP = 536.3 mGy-cm COMPAR HUMBERTO: Prior CT dated 024. FINDIN GS: The maxill mackenzie sinuse s are clear. Ostiom eatal comple xes are patent . Minima l mucosa l thicke connie of the anteri or ethmoi d air cells. Fronta l sinuse s are clear. Fronta l recess es are patent . Mucosa l thicke connie causin g occlus ion at the spheno ethmoi epifanio recess es. Minima l mucosa l thicke connie in the left side of the spheno id sinus. Sinus hernandez are intact with no eviden ce of dehisc ence. Cribri form plate and lamina papyra cea are intact . No mass or polyp identi fied in the nasal cavity . There is pneuma tizati on of the vertic al lamell a of the right middle nasal turbin ate, withou t pneuma tizati on of the bulbou s compon ent. Modera te nasal septal deviat ion to the left with promin ent left-s ided septal spur. IMPRES EBONI: Mild parana david sinus diseas e. Modera te nasal septal deviat ion to the left with promin ent left-s ided septal spur. Electr onical ly Signed by: Vicky rosa at 2023 09:31: 34 AM Page [address] (Imaging) [address] [place], [address], 06/07/2023 08:56:57 06/05/19 24 06/05/2023 CT, sinus es, w/o contr ast No observ ation record ed. [address] [place], [address], 06/07/2023 08:56:57 06/12/19 24 06/12/2023 CT, sinus es, w/o contr ast No observ ation record ed. [facility] ([facility]) [address] [place], [address], 06/12/2023 12:42:31 12/04/19 24 11/30/2023 XR, chest , 2 view No observ ation record ed. [facility] Not Available 2023 17:22:58 02/13/20 24 02/06/2024 CT, chest + abdom en + pelvi s, w/ contr ast No observ ation record ed. [facility] Not Available 2023 13:23:16 Result Notes None recorded. Problems Name Problem SNOMED Code Status Onset Date Resolution Date Notes Provider Name and Address Organization Details Recorded Time Acute bronchiti s 52961845 Completed 202105/30/2022 LYNDA Burgos, [employer] 3 08:16:43 Celluliti s of right foot 81726786280 455239 Completed 201810/15/2021 Not Available [facility] 3 01:12:04 Acute sinusitis 82276073 Completed 202110/15/2021 DYLAN Lozano, [employer] 3 14:07:10 Esophagit is 27814312 Active 2020 Not Available [facility] 4 17:32:34 Asthma 247079202 Active 2019 Not Available [facility] 4 17:32:34 Neuropath y due to diabetes mellitus 570283431 Active 2019 Not Available [facility] 4 17:32:34 Adult health examinati on Active 2020 Not Available [facility] 4 17:32:34 Burping 993119959 Completed 202101/25/2022 Not Available [facility] 3 01:12:05 Mass of neck 615261002 Active 2021 Not Available [facility] 4 17:32:34 Hypertrig lyceridem ia 487687975 Active 2019 Not Available [facility] 4 17:32:34 Lymphaden opathy 42449320 Active 2022 Not Available [facility] 4 17:32:34 Type 2 diabetes mellitus without complicat ion 308377892 Active 2021 Not Available [facility] 4 17:32:34 Vitamin D deficienc y 38892344 Active 2021 Not Available [facility] 4 17:32:35 Paronychi a of toe 739432728 Completed 201810/15/2021 Not Available [facility] 3 01:12:06 Osteoarth ritis 056157198 Active 2019 Not Available [facility] 4 17:32:35 Obesity 551021951 Active 2019 Not Available [facility] 4 17:32:35 Onychomyc osis 359882517 Completed 201810/15/2021 Not Available [facility] 3 01:12:06 Solitary nodule of lung 007021249 Active 2019 Not Available [facility] 4 17:32:35 Hypokalem ia 97456029 Active 2021 Not Available [facility] 4 17:32:35 Screening for malignant neoplasm of prostate Completed 202010/15/2021 Not Available [facility] 3 01:12:07 Cough 63758656 Completed 202105/30/2022 Abigail cross RMA null, [employer] 3 13:14:20 Thromboan giitis obliteran s 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 Active 2018 Not Available [facility] 4 17:32:35 Coronary arteriosc lerosis 56072410 Active 2019 Not Available [facility] 4 17:32:35 Hyperlipi demia 02459574 Active 2019 Not Available [facility] 4 17:32:35 Disorder of bursa of shoulder region 98181697 Completed Not Available [facility] 3 01:12:08 Essential hypertens ion 10446645 Active 2019 Not Available [facility] 4 17:32:35 Pain in testicle 74553261 Completed 202107/29/2022 Abigail cross RMA null, [employer] 3 11:00:52 Diabetes mellitus 79384256 Active 2021 Not Available [facility] 4 17:32:35 Sleep apnea 82332927 Active 2019 Not Available [facility] 4 17:32:35 Ex-smoker 2195526 Active 2019 Not Available [facility] 4 17:32:35 Gout 33455938 Active 2019 Not Available [facility] 4 17:32:35 Neck pain 11326887 Completed 202205/30/2022 Otilia Simms CMA null, [employer] [facility] 3 14:08:38 Low back pain 241292261 Active 2022 Not Available [facility] 4 17:32:34 Mass of right parotid gland 68451680810 280321 Active 2022 Not Available [facility] 4 17:32:34 Liver function tests outside reference range 136767723 Active 2022 Not Available [facility] 4 17:32:34 Acute sinusitis 59349188 Completed 202207/29/2022 Clary Pedersen, DYLAN null, [facility] 3 14:07:10 Otalgia of right ear 0072994639 Completed 202207/29/2022 Abigail Alejandrokenzie cross, RMA null, [facility] 3 11:00:42 Allergic rhinitis 61595835 Active 2022 Not Available [facility] 4 17:32:35 Viral gastroent eritis 533685747 Active 2022 Not Available [facility] 4 17:32:34 Cramp in lower limb 190583540 Active 2022 Not Available [facility] 4 17:32:35 Pain of left knee joint 81778940796 4107 Active 2022 Not Available [facility] 4 17:32:35 Neck pain 16020341 Active 2022 Not Available [facility] 4 17:32:35 Abdominal pain 18264416 Active 2022 Not Available [facility] 4 17:32:34 Diabetic periphera l neuropath y 109803340 Active 2022 Not Available [facility] 4 17:32:35 Chronic sinusitis 41705180 Active 2022 Not Available [facility] 4 17:32:35 Acute sinusitis 79188488 Active 2022 Not Available [facility] 4 17:32:34 Cough 31012293 Active 2022 Not Available [facility] 4 17:32:35 Neuropath y 714588193 Active 2022 Not Available [facility] 4 17:32:35 Nausea, vomiting and diarrhea 7764785 Active 2022 Not Available [facility] 4 17:32:34 Diarrhea 84602395 Active 2022 Not Available [facility] 4 17:32:35 Nausea 799305311 Active 2022 Not Available [facility] 4 17:32:35 Hypomagne semia 270562785 Active 2022 Not Available [facility] 4 17:32:34 Facial laceratio n 884496251 Active 2022 Not Available [facility] 4 17:32:35 Open wound of face 191374259 Active 2022 Not Available [facility] 4 17:32:34 Upper respirato ry infection 89230819 Active 2022 Not Available [facility] 4 17:32:35 Persisten t cough 258006151 Active 2022 Not Available [facility] 4 17:32:34 Deviated nasal septum 353879227 Active 2023 Not Available [facility] 4 17:32:34 Gastritis 6964560 Active 2023 Ezekiel Casper MD [address], [address], [place], [address] , [facility] 4 12:11:46 Acute left otitis media 772050497 Active 2023 Ezekiel Casper MD [address], [address], [place], [address] , [facility] 4 12:21:34 Sinusitis 41807633 Active 2023 Em Bains MA null, [place] [facility] 4 12:36:53 Sensorine ural hearing loss 53187691 Active 2023 Asha King RN null, [place] [facility] 4 16:35:15 Chronic serous otitis media 44901073 Active 2023 Raul Engel MD [address], [address], [place], [address] , [facility] 4 16:41:28 Hypertrop hy of nasal turbinate s 20980387 Active 2023 Raul Engel MD [address], [address], [place], [address] , [facility] 4 17:14:27 Acute otitis externa 55637861 Active 2023 Raul Engel MD [address], [address], [place], [address] , [facility] 4 17:14:56 Postopera tive pain 975346701 Active 2023 Asha King RN null, [facility] 4 17:16:45 Anxiety 66875870 Active 2023 Ingrid Thomas NP [address], [address], [place], [address] , [facility] 4 15:32:35 Bilateral inguinal hernia 49022467 Active 2023 Ingrid Thomas NP [address] [facility], [place], [address] , [facility] 4 11:20:44 Constipat ion 99435373 Active 2023 Ingrid Thomas NP [address] [facility], [place], [address] , [facility] 4 11:27:41 Notes:[facility] home sleep study 10/27/21 AHI = 8, supine AHI = 12 [facility] titration sleep study 04/19/22 [employer] medium Vitera full face mask @ 5 cmH2O Medical History: Deviated nasal septum Obesity with mild OSAHS, AHI = 8, 10/27/21, on CPAP c/o [employer] Hypertension Mixed hyperlipidemia T2DM with neuropathy CAD LINO with esophagitis Hepatic steatosis Diverticulosis Colonic polyps Left renal cysts PLMD Vit D deficiency Lumbar spondylosis OA Gout Thromboangiitis obliterans Procedure History: Cholecystectomy Right inguinal herniorrhaphy Colonoscopy with polypectomy 2020 Some problems listed in Documents: #[id number], #[id number], #[id number] could not be added to this patient's chart. Please review these documents and add these problems to the patient's chart manually as needed. Problem Notes None recorded. Procedures Surgical History Date Name Laterality Status Provider Name and Address Organization Details Recorded Time 07/14/19 nasal septoplasty completed [facility] 07/24/2023 16:32:45 07/14/19 24 reduction of nasal turbinate completed ADELSO Howard [facility] 07/24/2023 16:32:56 07/14/19 24 SEPTOPLASTY (SURG) completed Asha King RN [facility] 07/25/2023 08:11:10 03/31/19 24 Transitional_Care_ Management completed Mag Bangura RN [facility] 03/31/2023 11:31:48 09/15/19 Medicare Wellness CPT Code, subsequent completed Georgia Moralse RN [facility] 09/14/2022 10:04:51 Unlisted px cardiac surgery completed Not Available [facility] 04/20/2022 00:58:42 Orthopedic Surgery completed Not Available [facility] 04/20/2022 00:58:42 cholecystectomy completed Not Available [facility] 04/20/2022 00:58:42 Imaging Results Imaging Date Name Status LastModified by Organiz ation Details LastModified Time 06/05/2023 CT, maxillofacial , w/o contrast completed [address] (Imaging) [address] [place], [address], 06/07/2023 08:56:57 06/05/2023 CT, sinuses, w/o contrast completed [address] [place], [address], 06/07/2023 08:56:57 06/12/2023 CT, sinuses, w/o contrast completed [facility] ([facility]) [address] [place], [address], 06/12/2023 12:42:31 11/30/2023 XR, chest, 2 view completed [facility] Information not available 12/04/2023 17:22:58 02/06/2024 CT, chest + abdomen + pelvis, w/ contrast completed [facility] Information not available 02/13/2024 13:23:16 Procedure Notes None recorded. Medical Equipment None Reported. Allergies Allergen ID Allergen Name Allergen Category Reaction Reaction Severity Criticality Documentation Date Start Date Code Code System Note Provider Name and Address Organization Details Recorded Time 2635 indometha gaudencio medicatio n vomiting Not available Not available 04/20/2022 5781 RxNorm Not Available [facility] 3 01:31:11 Medications Name Sig Start Date Stop Date Status Note LastModified by Organization Details LastModified Time quetiapine 25 mg tablet TAKE 1 TABLET BY MOUTH TWICE DAILY NEEDED 05/30 completed Not Available Not Available Not Available cyclobenzap rine 10 mg tablet TAKE 1 TABLET BY MOUTH ONCE DAILY AT BEDTIME MUST CONTACT MD FOR REFILLS active Not Available Not Available No t Available amoxicillin 500 mg capsule TAKE 1 CAPSULE BY MOUTH 4 TIMES DAILY UNTIL ALL TAKEN active Not Available Not Available No t Available atorvastati n 40 mg tablet TAKE 1 TABLET BY MOUTH ONCE DAILY DIRECTED active Not Available Not Available No t Available lamotrigine 150 mg tablet TAKE 1 TABLET BY MOUTH ONCE DAILY AT BEDTIME active Not Available Not Available No t Available promethazin e-DM 6.25 mg-15 mg/5 mL oral syrup TAKE 5 ML BY MOUTH EVERY 4 TO 6 HOURS NEEDED FOR COUGH active Not Available Not Available No t Available fluticasone 250 mcg-salmete rol 50 mcg/dose blistr powdr for inhalation INHALE 1 DOSE BY MOUTH TWICE DAILY active Not Available Not Available No t Available potassium chloride ER 10 mEq capsule,ext ended release TAKE 1 CAPSULE BY MOUTH ONCE DAILY 01/27 completed Not Available Not Available Not Available prednisone 10 mg tablet TAKE 3 TABS DAILY FOR 3 DAYS; THEN TAKE 2 TABS DAILY FOR 3 DAYS THEN TAKE 1 TAB DAILY FOR 3 DAYS active Not Available Not Available No t Available doxycycline hyclate 100 mg capsule TAKE 1 CAPSULE BY MOUTH TWICE DAILY FOR 7 DAYS 04/08 completed Not Available Not Available Not Available atorvastati n 20 mg tablet Take 1 tablet by mouth once daily active Not Available Not Available No t Available tizanidine 2 mg tablet TAKE 3 TABLETS BY MOUTH THREE TIMES DAILY 01/27 completed Not Available Not Available Not Available lisinopril 20 mg-hydrochl orothiazide 12.5 mg tablet TAKE 1 TABLET BY MOUTH ONCE DAILY 11/16 completed Not Available Not Available Not Available azithromyci n 250 mg tablet take entire pack as directed on prepacked prescript ion active Not Available Not Available No t Available amitriptyli ne 75 mg tablet TAKE 1 TABLET BY MOUTH ONCE DAILY AT BEDTIME FOR 30 DAYS 08/04 completed Not Available Not Available Not Available benzonatate 200 mg capsule Take 1 capsule 3 times a day by oral route as needed. 02/06 completed Not Available Not Available Not Available metoprolol succinate ER 50 mg tablet,exte nded release 24 hr TAKE 1 TABLET BY MOUTH ONCE DAILY 10/14 completed Not Available Not Available Not Available valacyclovi r 1 gram tablet TAKE 1 TABLET BY MOUTH EVERY 8 HOURS 11/24 completed Not Available Not Available Not Available hydrocodone 5 mg-acetamin ophen 325 mg tablet TAKE 1 TABLET BY MOUTH EVERY 6 HOURS NEEDED FOR PAIN 11/24 completed Not Available Not Available Not Available sucralfate 100 mg/mL oral suspension TAKE 10 ML BY MOUTH BEFORE MEAL(S) AND AT BEDTIME 11/[address] Flori wolff Not Available Not Available Not Available meloxicam 15 mg tablet TAKE 1 TABLET BY MOUTH ONCE DAILY NEEDED active Not Available Not Available No t Available lisinopril 20 mg tablet TAKE 1 TABLET BY MOUTH ONCE DAILY active Not Available Not Available No t Available ondansetron HCl 4 mg tablet TAKE 1 TABLET BY MOUTH 4 TIMES DAILY NEEDED active Not Available Not Available No t Available glipizide 10 mg tablet Take 1 tablet by mouth once daily active Not Available Not Available No t Available prednisone 20 mg tablet TAKE 2 TABLETS BY MOUTH ONCE DAILY FOR 5 DAYS active Not Available Not Available No t Available clonazepam 0.5 mg tablet TAKE 1 TABLET BY MOUTH TWICE DAILY NEEDED FOR SEVERE ANXIETY ATTACK NOT RELIEVED BY BUSPAR DOSE active Not Available Not Available No t Available sertraline 100 mg tablet TAKE 1 & 1 2 (ONE & ONE HALF) TABLETS BY MOUTH ONCE DAILY 11/14 completed Not Available Not Available Not Available clonazepam 1 mg tablet TAKE 1 TABLET BY MOUTH THREE TIMES DAILY 10/31 completed Not Available Not Available Not Available penicillin V potassium 500 mg tablet TK 1 T PO QID 10/14 completed Not Available Not Available Not Available olanzapine 10 mg tablet TK 1 T PO QD 10/14 completed Not Available Not Available Not Available potassium chloride ER 10 mEq tablet,exte nded release TAKE 1 TABLET BY MOUTH ONCE DAILY 09/19 completed Not Available Not Available Not Available metronidazo le 500 mg tablet TAKE 1 TABLET BY MOUTH EVERY 8 HOURS 05/04 completed Not Available Not Available Not Available hydroxyzine HCl 50 mg tablet TAKE 1 TABLET BY MOUTH THREE TIMES DAILY NEEDED active Not Available Not Available No t Available acetaminoph en 300 mg-codeine 30 mg tablet TAKE 1 TABLET BY MOUTH 4 TIMES DAILY NEEDED active Not Available Not Available No t Available clopidogrel 75 mg tablet TAKE 1 TABLET BY MOUTH ONCE DAILY NO FURTHER REFILLS UNTIL APPOINTME NT 2024 active NOV Not Available Not Available Not Available ciprofloxac in 500 mg tablet TAKE 1 TABLET BY MOUTH EVERY 12 HOURS 05/04 completed Not Available Not Available Not Available hydrocodone 10 mg-acetamin ophen 325 mg tablet TAKE 1 TABLET BY MOUTH EVERY 6 HOURS NEEDED FOR PAIN 05/28 completed Not Available Not Available Not Available aspirin 81 mg tablet,aleksandar yed release Take 1 tablet every day by oral route. 2019 active Not Available Not Available Not Avai lable tramadol 50 mg tablet TAKE 1 TABLET BY MOUTH EVERY 8 HOURS NEEDED active Not Available Not Available No t Available amitriptyli ne 50 mg tablet TAKE 1 TABLET BY MOUTH ONCE DAILY AT BEDTIME active Not Available Not Available No t Available acyclovir 800 mg tablet TAKE 1 TABLET BY MOUTH FIVE TIMES DAILY 11/24 completed Not Available Not Available Not Available glimepiride 2 mg tablet Take 1 tablet by mouth twice daily active Not Available Not Available No t Available glimepiride 1 mg tablet TAKE 1 TABLET BY MOUTH TWICE DAILY BEFORE MEAL(S) 10/27 completed Not Available Not Available Not Available ketorolac 10 mg tablet TAKE 1 TABLET BY MOUTH THREE TIMES DAILY NEEDED 08/04 completed Not Available Not Available Not Available prednisone 10 mg tablets in a dose pack Take 1 tab by mouth, 3 times a day for 3 daysTake 1 tab by mouth 2 times a day for 2 daysTake 1 tab by mouth once a day for 1 day 11/14 completed Not Available Not Available Not Available potassium chloride ER 20 mEq tablet,exte nded release(par t/cryst) TAKE 2 BY MOUTH ONCE DAILY WITH MEALS 10/19 completed Not Available Not Available Not Available famotidine 20 mg tablet TAKE 1 TABLET BY MOUTH ONCE DAILY active Not Available Not Available No t Available amitriptyli ne 25 mg tablet TAKE 2 TABLETS BY MOUTH ONCE DAILY FOR 7 DAYS THEN TAKE ONE TABLET BY MOUTH DAILY X7 DAYS 08/04 completed Not Available Not Available Not Available prednisolon e acetate 1 % eye drops,suspe nsion PLACE 1 DROP IN THE LEFT EYE FOUR TIMES DAILY 11/24 completed Not Available Not Available Not Available Imodium A-D 2 mg tablet Take 1 tablet 4 times a day by oral route as needed for 7 days. 01/27 completed Not Available Not Available Not Available trazodone 100 mg tablet TAKE 1 TABLET BY MOUTH ONCE DAILY AT BEDTIME active Not Available Not Available No t Available OneTouch Ultra Test strips USE 1 STRIP TO CHECK GLUCOSE ONCE DAILY active Not Available Not Available No t Available baclofen 10 mg tablet TAKE 1 TABLET BY MOUTH THREE TIMES DAILY active Not Available Not Available No t Available amlodipine 10 mg tablet Take 1 tablet by mouth once daily 2024 active JUAN 02/12 NOV ok to rf Not Available Not Available Not Available benzonatate 100 mg capsule TAKE 1 CAPSULE BY MOUTH EVERY 8 HOURS NEEDED 03/30 completed Not Available Not Available Not Available doxycycline monohydrate 100 mg capsule Take 1 capsule twice a day by oral route with meals for 7 days. active Not Available Not Available No t Available hydrocodone 7.5 mg-acetamin ophen 325 mg tablet TAKE 1 TABLET BY MOUTH EVERY 6 HOURS 07/25 completed Not Available Not Available Not Available cephalexin 500 mg capsule TAKE 1 CAPSULE BY MOUTH EVERY 8 HOURS FOR 10 DAYS 12/09 completed Not Available Not Available Not Available pantoprazol e 40 mg tablet,aleksandar yed release TAKE 1 TABLET BY MOUTH TWICE DAILY WITH MEALS active Not Available Not Available No t Available erythromyci n 5 mg/gram (0.5 %) eye ointment APPLY TO SKIN LESIONS SURROUNDI NG LEFT SIDE OF FACE WELL BOTH THE UPPER AND LOWER EYELIDS THREE TIMES DAILY active Not Available Not Available No t Available oseltamivir 75 mg capsule TAKE 1 CAPSULE BY MOUTH EVERY 12 HOURS FOR 5 DAYS 10/31 completed Not Available Not Available Not Available metformin 1,000 mg tablet Take 1 tablet twice a day by oral route. 12/21 completed Not Available Not Available Not Available buspirone 10 mg tablet TAKE 1 TABLET BY MOUTH TWICE DAILY NEEDED active Not Available Not Available No t Available indomethaci n 50 mg capsule Take 1 capsule 3 times a day by oral route for 30 days. 11/14 completed Not Available Not Available Not Available gabapentin 300 mg capsule TAKE 3 CAPSULES BY MOUTH ONCE DAILY AT BEDTIME active Not Available Not Available No t Available lidocaine HCl 2 % mucosal solution active Not Available Not Available Not Available montelukast 10 mg tablet TAKE 1 TABLET BY MOUTH ONCE DAILY AROUND THE CLOCK 01/27 completed Not Available Not Available Not Available hydroxyzine HCl 25 mg tablet TAKE 1 TABLET BY MOUTH THREE TIMES DAILY NEEDED 04/29 completed Not Available Not Available Not Available olanzapine 15 mg tablet TK ONE T PO QHS. 10/14 completed Not Available Not Available Not Available aspirin 81 mg tablet Take by oral route. 05/04 completed Not Available Not Available Not Available gabapentin 100 mg capsule TAKE 1 CAPSULE BY MOUTH THREE TIMES DAILY 10/19 completed Not Available Not Available Not Available metoprolol succinate ER 25 mg tablet,exte nded release 24 hr TAKE 1 TABLET BY MOUTH ONCE DAILY DIRECTED active Not Available Not Available No t Available ergocalcife rol (vitamin D2) 1,250 mcg (50,000 unit) capsule Take 1 capsule every week by oral route for 90 days. 08/04 completed Not Available Not Available Not Available azelastine 137 mcg (0.1 %) nasal spray USE 2 SPRAY(S) IN EACH NOSTRIL TWICE DAILY active Not Available Not Available No t Available diazepam 10 mg tablet TAKE ONE TABLET BY MOUTH [address] SCAN MAY REPEAT 1 DOSE RIGHT BEFORE ENTERING CT active Not Available Not Available No t Available fluticasone 100 mcg-salmete rol 50 mcg/dose blistr powdr for inhalation INHALE 1 DOSE BY MOUTH TWICE DAILY DIRECTED active Not Available Not Available No t Available levofloxaci n 500 mg tablet Take 1 tablet every 24 hours by oral route for 7 days. active Not Available Not Available No t Available methylpredn isolone 4 mg tablets in a dose pack Take 1 dose pk every day by oral route as directed for 6 days. active Not Available Not Available No t Available albuterol sulfate HFA 90 mcg/actuati on aerosol inhaler INHALE 2 PUFFS BY MOUTH EVERY 4 HOURS active Not Available Not Available No t Available ondansetron 4 mg disintegrat ing tablet DISSOLVE 1 TABLET IN MOUTH EVERY 8 HOURS NEEDED FOR NAUSEA AND VOMITING active Not Available Not Available No t Available cefdinir 300 mg capsule TAKE 1 CAPSULE BY MOUTH EVERY 12 HOURS 09/10 completed Not Available Not Available Not Available fluticasone propionate 50 mcg/actuati on nasal spray,suspe nsion USE 2 SPRAY(S) IN EACH NOSTRIL ONCE DAILY active Not Available Not Available No t Available metformin ER 500 mg tablet,exte nded release 24 hr Take 2 tablets by mouth twice daily active Not Available Not Available No t Available doxycycline hyclate 100 mg tablet TAKE 1 TABLET BY MOUTH TWICE DAILY FOR 10 DAYS 02/10 completed Not Available Not Available Not Available naproxen 500 mg tablet TK 1 T PO BID WITH FOOD 10/14 completed Not Available Not Available Not Available amoxicillin 875 mg-potassiu m clavulanate 125 mg tablet TAKE 1 TABLET BY MOUTH TWICE A DAY FOR 10 DAYS. 11/30 completed Not Available Not Available Not Available oxycodone 5 mg tablet TAKE 1 TABLET BY MOUTH EVERY 6 HOURS NEEDED FOR PAIN 01/27 completed Not Available Not Available Not Available neomycin-po lymyxin-hyd rocort 3.5 mg-10,000 unit/mL-1 % ear drops,susp active Not Available Not Available N ot Available escitalopra m 10 mg tablet TAKE 1 TABLET BY MOUTH ONCE DAILY active Not Available Not Available No t Available escitalopra m 20 mg tablet TAKE 1 TABLET BY MOUTH ONCE DAILY active Not Available Not Available No t Available cyclobenzap rine 5 mg tablet TAKE 1 TABLET BY MOUTH THREE TIMES DAILY NEEDED active Not Available Not Available No t Available moxifloxaci n 0.5 % eye drops INSTILL 1 DROP INTO LEFT EYE 4 TIMES DAILY 11/24 completed Not Available Not Available Not Available ciprofloxac in 0.3 %-dexametha sone 0.1 % ear drops,suspe nsion INSTILL 4 DROPS INTO AFFECTED EAR(S) TWICE DAILY FOR 7 DAYS 06/03 /2024 completed Not Available Not Available Not Available rosuvastati n 10 mg tablet TAKE 1 TABLET BY MOUTH EVERY OTHER DAY DIRECTED active Not Available Not Available No t Available bupropion HCl XL 300 mg 24 hr tablet, extended release TK ONE T PO D 10/14 completed Not Available Not Available Not Available escitalopra m 5 mg tablet TAKE 1 TABLET BY MOUTH ONCE DAILY FOR 7 DAYS active Not Available Not Available No t Available lactulose 10 gram/15 mL oral solution Take 15 mL every 4 hours by oral route, for 3 doses. active Not Available Not Available No t Available chlorhexidi ne gluconate 0.12 % mouthwash active Not Available Not Available No t Available hydrocodone 5 mg-acetamin ophen 300 mg tablet TAKE 1 TABLET BY MOUTH EVERY 4 TO 6 HOURS NEEDED FOR PAIN 10/14 completed Not Available Not Available Not Available metformin ER 500 mg 24 hr tablet,exte nded release (gastric retention) take 2 tabs bid 2023 active Not Available Not Available Not Avai lable quetiapine 50 mg tablet TAKE 1 TABLET BY MOUTH TWICE DAILY APPOINTME NT NEEDED active Not Available Not Available No t Available fenofibrate nanocrystal lized 145 mg tablet TAKE 1 TABLET BY MOUTH ONCE DAILY active Not Available Not Available No t Available ondansetron HCl (PF) 4 mg/2 mL injection syringe Take 4 mL by injection route. 10/19 completed 8mg/4 ML Not Available Not Available Not Available Latuda 40 mg tablet TAKE 1 TABLET BY MOUTH ONCE DAILY FOR 30 DAYS 10/21 completed Not Available Not Available Not Available Latuda 80 mg tablet TAKE 1 TABLET BY MOUTH ONCE DAILY active Not Available Not Available No t Available Latuda 120 mg tablet TAKE 1 TABLET BY MOUTH ONCE DAILY IN THE EVENING . APPOINTME NT REQUIRED FOR FUTURE REFILLS 05/28 completed Not Available Not Available Not Available Latuda 60 mg tablet TAKE 1 TABLET BY MOUTH ONCE DAILY active Not Available Not Available No t Available potassium chloride ER 20 mEq tablet,exte nded release TAKE 2 TABLET BY MOUTH DAILY WITH MEALS 11/16 completed Not Available Not Available Not Available Vraylar 6 mg capsule TAKE 1 CAPSULE BY MOUTH ONCE DAILY FOR 90 DAYS 10/14 completed Not Available Not Available Not Available OneTouch Ultra Blue Test Strip USE 1 STRIP TO CHECK GLUCOSE ONCE DAILY active Not Available Not Available No t Available OneTouch Ultra2 Meter USE DIRECTED active Not Available Not Available No t Available OneTouch Delica Plus Lancet 33 gauge USE 1 TO CHECK GLUCOSE ONCE DAILY active Not Available Not Available No t Available Caplyta 42 mg capsule TAKE 1 CAPSULE BY MOUTH ONCE DAILY FOR 90 DAYS active Not Available Not Available No t Available Vitals Date Recorded Body height Body mass index (BMI) Body weight Body temperature Provider Name and Address Organization Details Last Updated DateTime 06/29/2023 175.26 cm 33.1 kg/m2 333588.41 g 97.8 [degF] Asha King RN [facility] 06/29/2023 14:11:49 Date Recorded Body height Body mass index (BMI) Body weight Provider Name and Address Organization Details Last Updated DateTime 07/26/2023 175.26 cm 33.3 kg/m2 417336 g Asha King RN [facility] 07/26/2023 10:36:06 Date Recorded Body weight Body mass index (BMI) Body height Body temperature Heart rate Oxygen saturation Oxygen saturation in Arterial blood by Pulse oximetry Systolic blood pressure Diastolic blood pressure Provider Name and Address Organization Details Last Updated DateTime 4 879730. 1 g 32.9 kg/m2 175.26 cm 97 [degF] 69 /min 96 % 96 % 144 mm[Hg] 80 mm[Hg] Abigail noguera Marzena [facility] Bday 4 08:56:23 Date Recorded Body height Body mass index (BMI) Body weight Body temperature Heart rate Oxygen saturation Oxygen saturation in Arterial blood by Pulse oximetry Pain severity - 0-10 verbal numeric rating [Score] - Reported Systolic blood pressure Diastolic blood pressure Provider Name and Address Organization Details Last Updated DateTime 4 175.26 cm 33.8 kg/m2 378012. 35 g 98.1 [degF] 107 /min 98 % 98 % 1 132 mm[Hg] 80 mm[Hg] Amanda Lieberman RN [facility] [place] [facility] 4 14:58:36 Date Recorded Body height Body mass index (BMI) Body weight Body temperature Oxygen saturation Oxygen saturation in Arterial blood by Pulse oximetry Heart rate Systolic blood pressure Diastolic blood pressure Provider Name and Address Organization Details Last Updated DateTime 4 175.26 cm 33.7 kg/m2 960294. 06 g 97.8 [degF] 96 % 96 % 67 /min 128 mm[Hg] 68 mm[Hg] Janessa mathis [facility] [employer] [facility] 4 11:00:10 Social History Question Answer Notes LastModified by Organizat ion Details LastModified Time Tobacco Smoking Status Former Smoker Georgia Morales RN [facility], [facility] [employer] [facility] 09/14/2022 10:06:43 Do You Have An Advance Directive? No [id number] Information not available 04/20/2022 What Is Your Level Of Alcohol Consumption? None [id number].[id number] Information not available 04/20/2022 What Is Your Level Of Caffeine Consumption? None [id number] Information not available 04/20/2022 How Much Tobacco Do You Chew? None [id number].[id number] Information not available 04/20/2022 In The 14 Days Before Symptom Onset, Have You Had Close Contact With A Laboratory-confi rmed COVID-19 While That Case Was Ill? No [id number] Information not available 04/20/2022 In The 14 Days Before Symptom Onset, Have You Had Close Contact With A Person Who Is Under Investigation For COVID-19 While That Person Was Ill? No [id number] Information not available 04/20/2022 What Type Of Diet Are You Following? REGULAR [id number] Information not available 04/20/2022 Which Illicit Or Recreational Drugs Have You Used? Marijuana Smokes [email or web address] Information not available 09/14/2022 Do You Or Have You Ever Used E-cigarettes Or Vape? Never Used Electronic Cigarettes [id number].[id number] Information not available 04/20/2022 Have There Been Any Changes To Your Family Or Social Situation? No MIGRATION.[id number] Information not available 04/20/2022 What Is The Fluoride Status Of Your Home? Fluoridated [id number].[id number] Information not available 04/20/2022 When Did You Quit Smoking? 16+yearssincel astcigarette 30 Yrs Ago [email or web address] Information not available 09/14/2022 Presence Of Domestic Violence No Information not available 09/14/2022 Are You Able To Care For Yourself? Yes Sometimes Needs Help From For Basic Self Care [email or web address] Information not available 09/14/2022 Are You Blind Or Do Yo Have Difficulty Seeing? No Information not available 09/14/2022 Are You Deaf Or Do You Have Serious Difficulty Hearing? No [email or web address] Information not available 09/14/2022 Live Alone Of With Others? With Others Information not available 09/14/2022 Do You Have A Medical Power Of [employer] Reports Developer? No [id number] Information not available 04/20/2022 What Was The Date Of Your Most Recent Tobacco Screening? 09/14/2022 Information not available 09/14/2022 What Is Your Relationship Status? [email or web address] Information not available 09/14/2022 Do You Use Your Seat Belt Or Car Seat Routinely? Yes [id number] Information not available 04/20/2022 Do You Have Smoke And Carbon Monoxide Detectors In Your Home? Yes MIGRATION.55793 [id number] Information not available 04/20/2022 Are You Passively Exposed To Smoke? No MIGRATION.79110 [id number] Information not available 04/20/2022 Do You Or Have You Ever Used Smokeless Tobacco? Never Used Smokeless Tobacco MIGRATION.[id number] Information not available 04/20/2022 Are There Any Smokers In Your House? No MIGRATION.69323 [id number] Information not available 04/20/2022 How Much Tobacco Do You Smoke? No MIGRATION.[id number] Information not available 04/20/2022 Do You Use Sunscreen Routinely? No MIGRATION.38144 [id number] Information not available 04/20/2022 Have You Recently Traveled Abroad? No MIGRATION.07242 [id number] Information not available 04/20/2022 Do You Have Any Dietary Restrictions? No MIGRATION.68325 09142 Information not available 04/20/2022 Sex: Unknown Functional Status Question Answer Note LastModified by Organizat ion Details LastModified Time What is your exercise level? None [id number] Information not available 04/20/2022 Mental Status None recorded. Family History Relationship Description Onset Age of this Age Resolved Age Notes LastModified by Organization Details LastModified Time Brother Diabetes mellitus [id number] Not available 04/20/2022 00:58:49 Sister Diabetes mellitus [id number] Not available 04/20/2022 00:58:49 Sister Kidney disease [id number].[id number] Not available 04/20/2022 00:58:49 Sister Depressive disorder [id number] [id number] Not available 04/20/2022 00:58:49 Father Heart disease [id number].532 [id number] Not available 04/20/2022 00:58:49 Mother Family history of malignant neoplasm Lung/t hyroid [id number] Not available 04/20/2022 00:58:49 Notes:NO ENT Medical History Condition Response HEART DISEASE/HEART PROBLEMS Y Past Encounters Encounter ID Performer Location Encounter Start Date Encounter Closed Date Diagnosis/Indication Diagnosis SNOMED-CT Code Diagnosis ICD10 Code Diagnosis Note [id number] [facility] [address] [place] [address] 05/04/2020 00:00:00 05/04/2020 16:42:24 [id number] [facility] [address] [place] [address] 05/20/2020 00:00:00 05/20/2020 14:32:35 [id number] [facility] [address] [place] [address] 11/24/2020 00:00:00 11/24/2020 12:30:36 [id number] [facility] [address] [place] [address] 05/28/2021 00:00:00 05/28/2021 13:12:39 [id number] [facility] [address] [place] [address] 10/21/2021 00:00:00 10/21/2021 13:40:38 [id number] [facility] [address] [place] [address] 11/18/2021 00:00:00 11/18/2021 12:21:49 [id number] [facility] [address] [place] [address] 2022 00:00:00 2022 12:25:28 [id number] Ezekiel Casper MD [facility] [address] [place] [address] 04/27/2022 14:30:02 04/27/2022 15:03:57 Diabetes mellitus 10710603 E11.9 accu checks are high Hyperlipidemia 12174820 E78.5 labs Gout 06113730 M10.9 no flare ups Essential hypertension 52610622 I10 under control Coronary arteriosclerosis 12039702 I25.10 stable Obesity 828522503 E66.9 advised to lose Asthma 576421822 J45.90 9 under control Ex-smoker 9608963 Z87.89 1 Neuropathy due to diabetes mellitus 933365602 E11.40 on meds form neuro Osteoarthritis 335346451 M19.90 on otc Sleep apnea 94272683 G47 .30 to get titration Mass of neck 022281306 R 22.1 has appt with ENT Adult heal th examination 717481421 Z00.00 colonoscop y- 05/10PSA- 06/11Pneumo vax- neverflu- does not get, made him sickCOVID- 2 pfizer vaccines Neck pain 24168171 M54.2 Screening for malignant neoplasm of prostate 123758143 Z12.5 Low back pain 185808572 M54.50 PAIN MANAGEMENT [id number] Raul Engel MD [facility] [place] [address] [place] [address] 05/11/2022 14:32:29 05/11/2022 16:24:45 Mass of right parotid gland 9633529317 8993647 R22.1 [id number] MD LILIANA [facility] [address] [facility] [place] [address] 07/13/2022 15:47:10 07/13/2022 16:06:20 Otalgia of right ear 3825730625 H92.01 Allergic rhinitis 797560 04 J30.9 [id number] Ezekiel Casper MD [facility] [address] [facility] [place] [address] 07/29/2022 10:54:08 07/29/2022 11:26:40 Viral gastroenteritis 571415528 A08.4 imodium Cramp in lower limb 4499 89730 R25.2 drink electrolyt e fluids [id number] Ezekiel Casper MD [facility] Internal Med [address] [place] [address] 08/29/2022 14:04:31 08/29/2022 14:42:23 Diabetes mellitus 03932306 E11.9 accu checks are better Hyperlipidemia 69835946 E78.5 under control Gout 71083507 M10.9 no flare ups Essential hypertension 30617991 I10 under control Coronary arteriosclerosis 59321198 I25.10 stable Obesity 337821846 E66.9 advised to lose Asthma 318654690 J45.90 9 under control Ex-smoker 6801412 Z87.89 1 Neuropathy due to diabetes mellitus 168243999 E11.40 on meds form neuro Osteoarthritis 925810450 M19.90 on otc Sleep apnea 52221186 G47 .30 could not tolerate cpap Mass of neck 285274601 R 22.1 s/p benign biopsy Adult heal th examination 442749115 Z00.00 colonoscop y- 3/PSA- 05/12Pneum ovax- neverflu- does not get, made him sickCOVID- 2 pfizer vaccines Neck pain 81929900 M54.2 pain management Low back pain 329526365 M54.50 seeing PAIN MANAGEMENT Hypokalemia 11662799 E87 .6 on meds Abdominal pain 58088238 R10.9 [id number] Ezekiel Casper MD [facility] Internal Med [address] [facility] [place] [address] 09/14/2022 09:46:53 09/14/2022 10:36:36 Adult health examination 726640825 Z00.00 colonoscop y- 3/21PSA- 23Pneum ovax- neverflu- does not get, made him sickCOVID- 2 pfizer vaccines Screening for disorder 839173204 Z13.9 Diabetic p eripheral neuropathy 987659791 E11.40 try cyclobenza prin qhs, low dose gabapentin [id number] Ezekiel Casper MD [facility] Internal [facility] [address] [facility] [place] [address] 10/31/2022 09:51:07 10/31/2022 10:23:38 Neuropathy due to diabetes mellitus 219871115 E11.40 gabapentin and flexeril helps Abdominal pain 00490820 R10.9 advise dto f/u with surgeon, had surgery 2 weeks ago, must be abd wall pain due to coughing Hypokalemia 59014055 E87 .6 on meds and better [id number] Ezekiel Casper MD [facility] Internal [address] [place] [address] 11/16/2022 10:42:02 11/16/2022 12:09:15 Hypomagnesemia 012366178 E83.42 Hypokalemia 75576158 E87 .6 on meds, 20 meq qd Facial laceration 220667 008 S01.81XA to remove stitches next week [id number] Ezekiel Casper MD [facility] Internal [address] [facility] [place] [address] 11/21/2022 11:15:05 11/21/2022 11:59:32 Open wound of face 224218167 S01.80XA all the 3 stitches removed Hypokalemia 70730954 E87 .6 now k is high, stop taking any, bmp in 2 weeks [id number] Ezekiel Casper MD [facility] Internal [address] [address] 12/21/2022 14:01:04 12/21/2022 14:22:25 Acute sinusitis 08384693 J01.90 Allergic rhinitis 417160 04 J30.9 [id number] Ezekiel Casper MD [facility] Internal [address] [address] 01/27/2023 11:32:08 01/27/2023 12:06:36 Persistent cough 897779799 R05.3 advised to go to ER, needs cxr, treatment, too sick [id number] Raul Engel MD [facility] [place] [address] [place] [address] 4 03/01/2023 14:50:09 03/01/2023 16:26:49 Chronic sinusitis 56249169 J32.9 Deviated nasal septum 12 1830936 J34.2 [id number] Ezekiel Casper MD [facility] Internal [address] [place] [address] 03/31/2023 11:28:29 03/31/2023 12:33:02 Transition of care 1412913013 105 Z75.8 Gastritis 8595961 K29.70 on pantoprazo le Hypokalemia 07818323 E87 .6 labs, not on meds Hypomagnesemia 525860473 E83.42 not on meds Liver func tion tests outside reference range 120328649 R94.5 liver ultra sound Diabetes mellitus 699217 09 E11.9 accu checks are better Acute left otitis media 183953551 H66.92 [id number] Raul Engel MD [facility] [place] [place] [address] [place] [address] 05/31/2023 15:57:26 06/01/2023 08:45:08 Sinusitis 19513174 J01.90 Chronic sinusitis 728540 00 J32.9 Chronic se mario otitis media 34008442 H65.22 [id number] Raul Engel MD [facility] [place] [address] [place] [address] 06/29/2023 13:59:42 06/30/2023 10:52:09 Deviated nasal septum 804672724 J34.2 Otitis media 66739438 H6 5.22 Chronic sinusitis 647756 00 J32.9 Hypertroph y of nasal turbinates 42667506 J34.3 Acute otitis externa 302 92514 H60.699 [id number] Raul Engel MD [facility] [place] [address] [place] [address] 07/26/2023 10:10:10 07/27/2023 15:00:21 Acute sinusitis 48351049 J01.90 [id number] Ezekiel Casper MD [facility] Internal Med [address] [facility] [place] [address] 10/04/2023 08:51:51 10/04/2023 09:27:28 Diabetes mellitus 46705534 E11.9 under control Hyperlipidemia 89934617 E78.5 under control Gout 50485283 M10.9 no flare ups Essential hypertension 03312817 I10 watch Coronary arteriosclerosis 40890100 I25.10 stable Obesity 726337528 E66.9 advised to lose Asthma 980325570 J45.90 9 under control Ex-smoker 6586943 Z87.89 1 Neuropathy due to diabetes mellitus 866389685 E11.40 on meds form neuro Osteoarthritis 286208503 M19.90 on otc Sleep apnea 33471908 G47 .30 could not tolerate cpap Mass of neck 641286655 R 22.1 s/p benign biopsy Adult heal th examination 411222282 Z00.00 colonoscop y- 05/10PSA- 05/12 - due, willget with next labsPneumo vax- neverflu- does not get, made him sickCOVID- 2 pfizer vaccines Neck pain 49457874 M54.2 seen pain management Low back pain 513600976 M54.50 not seeing PAIN MANAGEMENT Hypokalemia 24509774 E87 .6 on meds [id number] Ingrid Thomas NP [facility] Internal Med [facility] [address] [facility] [place] [address] 12/08/2023 14:46:24 12/08/2023 16:24:35 Asthma 018211871 J45.909 Osteoarthritis 003285573 M19.90 Anxiety 94556796 F41.9 [id number] Ingrid Thomas NP [facility] Internal Med [facility] [address] [place] [place] [address] 02/13/2024 10:48:40 02/13/2024 11:36:08 Bilateral inguinal hernia 43912952 K40.20 WILL send referral for him to be checked by the surgeon who did his hernias Acute sinusitis 48916604 J01.90 will treat for acute sinusitis Constipation 83497636 K5 9.00 will try to have him empty colon and see if painful belly symptoms get any better, his CT scan from [place] show colon full of stool Health Concerns Section Related Observation LastModified by Organization Detai ls LastModified Time None Recorded Concern Status LastModified by Organization Details LastModified Time None Recorded Advance Directives Directive N: Payers Encounter Date Sequence Insurance Name Policy Number Policy Ervin Covered Member ID Ervin Member ID Guarantor Name 06/29/2023 1 [place] Gwendolyn Banks [id number] Gwendolyn Banks 06/29/2023 2 [place] [facility] A[facility] Gwendolyn Banks [id number] Gwendolyn Banks 07/26/2023 1 [employer] (MEDICARE REPLACEMENT PPO) [id number] Gwendolyn Banks [id number] Gwendolyn Banks 07/26/2023 2 [place] [facility] PUBLIC [facility] Gwendolyn Banks [id number] Gwendolyn Banks 10/04/2023 1 [employer] (MEDICARE REPLACEMENT PPO) [id number] Gwendolyn Banks [id number] Gwendolyn Banks 10/04/2023 2 [place] [facility] PUBLIC [facility] Gwendolyn Banks [id number] Gwendolyn Banks 12/08/2023 1 [employer] (MEDICARE REPLACEMENT PPO) [id number] Gwendolyn Banks [id number] Gwendolyn Banks 12/08/2023 2 [place] [facility] Gwendolyn Banks [id number] Gwendolyn Banks 02/13/2024 1 [employer] (MEDICARE REPLACEMENT PPO) [id number] Gwendolyn Banks [id number] Gwendolyn Banks 02/13/2024 2 [place] [facility] Gwendolyn Banks [id number] Gwendolyn Banks Notes Date Note Type Note Provider Name and Address Organization Details Recorded Time text/html the patient is doing fairly well and is here to discuss surgery following his sinus CT. His CT demonstrated septal deviation and turbinate hypertrophy. Paranasal sinuses were minimally affected Raul Engel MD [address] [place] [address], [facility] [address], [place], [address], [facility] [employer] [facility] 06/29/2023 17:15:21 4 text/html this patient had sinus surgery and specifically had septoplasty and turbinate reduction. He reports left-sided nasal congestion and left-sided earache and left-sided cheek pain. He has been using his saline rinses and reports that he has had clearance of the right side. Raul Engel MD [address] [facility], [place], [address], [facility] 07/26/2023 11:15:13 4 text/html Pt is here for his routine follow upPT IS NOT FASTING- Would like labs to check potassiumHypertension- WAS controlled with meds , HIGH TODAYMeds- Amlodipine 10mg daily, Metoprolol 25mg daily, Lisinopril 20mg/HCTZ 12.5mg dailyDiabetes- Accu checks in 120's, A1c was 5.8 (03/31/23)No hypoglycemialast eye exam was 2020 - Pt aware that he is DUE, DISCUSSED EYE EXANMeds- Glimepiride 2mg BID, Metformin 500mg BID,Diabetic Neuropathy- was seeing Dr. Sethi , now seeing Dr Pratt,Meds- WAS on hydrocodone any more OTizanidine 2mg 2 tab TID, Clonazepam 1mg TID,now on gabapentinCoronary artery disease- Sees Dr. Blanchard , had 80% blockage - stent placed 03/2019Meds- Plavix 75mg daily, asa 81 mg qdAsthma- meds help, no wheezing or coughMeds- Advair 250mcg/50mcg, Proair as neededDepression- sees David Ng , symptoms are under controlMeds- caplytaGout- no recent flare upHypertriglyceridemia- Does not take any meds, Never started Atorvastatin,Trig 292 and TC- 212 (05/2021)Arthritis- on Meloxicam [address] of neck/upper back, showed arthritisSleep apnea- could not sleep with cpap,Insomnia- not bad Hypokalemia- on kcl and cramps are better Ex- smoker- quit long time agoEsophagitis- on meds EGD 05/10h/o diverticulitis 05/10, no recurrence He had hernia repair long time ago, gets pain at the site some timesUsing marijuana s/p Right parotid biopsy 05/12 Ezekiel Casper MD [address], [address], [place], [address], [employer] 10/04/2023 09:25:41 4 text/html patient is here for hospital follow up. States has been to ED 2 x in the past [facility] related to shortness of breath. He reports pneumonia as diagnosis and also bronchitis. He denies medication changes. States he has recently finished a course of antibiotics. He is also requesting something for his anxiety. States would like to see about adding a muscle relaxer or something. Patient is noted to have fleas on his clothing. He states the marga wrap on his right forearm is related to brusing from playing with his danish bulldog. Ingrid Thomas NP [address], [facility] [address], [place], [address], [employer] 12/08/2023 15:42:59 4 text/html pt is here for hernia groin is bothering him onset 1 month lost of pressure and buldge left side 7 of 10 pain. pt is congested affecting sinus phlem is yellow thick . pt is experiencing pressure and pain ears 3 days5 of 10 pain.. otc nasal spray and mucinex not helping He had hernia repairs in the past about 1.5 years ago and the areas are painful again.He also was treated for sinusitis a few weeks ago and is still very symptomatic. Ingrid Thomas NP [address], [place], [address], [employer] 02/13/2024 11:36:19
[2024-06-11] MEDS: diphenhydrAMINE HCl INJ 50 MG/ML VIAL IV PUSH (07:39)
[2024-06-11] MEDS: BENZTROPINE MESYLATE INJ 1 MG/ML AMPUL IM (07:51)
[2024-06-11 08:10] LABS: NT Pro B Type Natriuretic Pept 31 pg/mL (19.9-100)
[2024-06-11 08:14] LABS: D Dimer 0.39 ug/mL (<0.48)
[2024-06-11 08:41] LABS: Fractional Inspired Oxygen 21 %; HCO3 VBG 21.2 mEq/l (24.0-30.0)
[2024-06-11 08:42] LABS: Device ROOM AIR; PCO2 VBG 27.4 mmHg (42.0-48.0); pH VBG 7.507 (7.300-7.400)
--- NOTE | 2024-06-11 09:26 | ED_ITS ---
HPI - General Adult General Chief complaint: Shortness of Breath/Dyspnea Stated complaint: COUGH/CONGESTION X 3 WEEKS; HTN Time Seen by Provider: 06/11/24 07:00 History of Present Illness HPI narrative: This is a 64-year-old male history of psychiatric illness, coronary artery disease, muscle cramps, hypertension and diabetes presenting for multiple complaints. Patient says he has been having chest pain and difficulty breathing weeks. He describes pain is an achy pain in the center of his chest that is nonradiating, moderate intensity and comes and goes. He has had pain like this in the past. There are no exacerbating alleviating factors. The patient's 2nd complaint is muscle cramps. He says he has muscle cramps in his legs and feet. He says that he always has cramps like this but they are worse today. He is on multiple psychiatric medications and has a history of dystonic reactions. Related Data Home Medications ?Medication ?Instructions ?Recorded ?Confirmed ?Last Taken ?Type amlodipine 10 mg tablet 10 mg PO DAILY 03/22/23 01/24/24 11/30/23 History atorvastatin 20 mg tablet 20 mg PO DAILY 03/22/23 01/24/24 11/30/23 History clopidogrel 75 mg tablet (Plavix) 75 mg PO DAILY 03/22/23 01/24/24 11/30/23 History cyclobenzaprine 10 mg tablet 10 mg PO HS 03/22/23 01/24/24 Unknown History escitalopram oxalate 20 mg tablet 20 mg PO DAILY 03/22/23 01/24/24 11/30/23 History fluticasone 500 mcg-salmeterol 50 1 inh inhalation Q12H 03/22/23 01/24/24 Unknown History mcg/dose blistr powdr for inhalation fluticasone propionate 50 2 spray intranasal DAILY 03/22/23 01/24/24 Unknown History mcg/actuation nasal spray,suspension (Allergy Relief (fluticasone)) gabapentin 300 mg tablet 900 mg PO HS 03/22/23 01/24/24 Unknown History glipizide 10 mg tablet 10 mg PO DAILY 03/22/23 01/24/24 Unknown History lisinopril 20 mg tablet 20 mg PO DAILY 03/22/23 01/24/24 11/30/23 History lumateperone 42 mg capsule 42 mg PO DAILY 0101/24/24 11/30/23 History (Caplyta) meloxicam 15 mg tablet 15 mg PO DAILY 03/22/23 01/24/24 11/30/23 History metformin 500 mg tablet,extended 500 mg PO BID 03/22/23 01/24/24 11/30/23 History release 24hr (osmotic) metoprolol succinate 25 mg 25 mg PO DAILY 03/22/23 01/24/24 11/30/23 History tablet,extended release 24 hr quetiapine 25 mg tablet 25 mg PO BID 03/22/23 01/24/24 11/30/23 History glimepiride 2 mg tablet 2 mg PO DAILY 11/30/23 01/24/24 11/30/23 History Allergies Allergy/AdvReac Type Severity Reaction Status Date / Time indomethacin AdvReac Mild Nausea Verified 01/31/24 14:59 [facility] Past Medical History Medical History Cirrhosis Leukocytosis Abnormal CT scan, colon Coffee ground emesis Anxiety Obstructive sleep apnea Does not use CPAP ?because I toss and turn? due to chronic back pain. Gastroesophageal reflux disease Coronary artery disease Status post stent x1. Chronic back pain Degenerative disc disease Type 2 diabetes mellitus Asthma Hypercholesterolemia Hypertension Bipolar disorder Surgical History Surgical History History of heart artery stent History of arthroscopy of left knee History of cholecystectomy Family History Family History Father Family history of congestive heart failure Sibling Family history of congestive heart failure Other Diabetes mellitus Family history of cardiovascular disease Family history of chronic obstructive pulmonary disease Family history of coronary artery disease Family history of kidney disease Family history of malignant neoplasm Family history of mental disorder Hypertension Social History Social History Social History: The patient lives in [place] with his and sister. He is on disability. Former cigarette smoker, quit about 25 years ago. Endorses smoking marijuana. No alcohol abuse. His , Carol Banks, as his surrogate decision maker. He wishes to be a full code. Smoking packs per day: 1.25 Smoking cigarettes per day: 25.0 Years smoked: 22 Smoking pack-years: 27.50 Smoking status: Former smoker Tobacco type: cigarettes Second hand tobacco smoke exposure: Yes Smoking end date: 08/20/94 Alcohol intake: former Substance use: current Substance use type: marijuana Other substance usage details: SMOKES MARIJUANA 4 TIMES/DAY Last use: 03/20/2023 Do You Feel Safe in your Home?: Yes Lack of Transportation: YES Lack of Food: Never True Current Housing: I Have Housing Concerned About Future Housing: No Difficulty Paying Gas/Electric Bills: No Difficulty Paying for Meds: No Currently Unemployed: No Education: High School Diploma/GED Difficulty w/ Childcare or Family Care: No Living arrangements: with family Additional living arrangements comments: & SISTER Gender identity (if verbalized by the patient): Male Spiritual care concerns: No Exam 2 Narrative: APPEARANCE: No apparent distress. Patient not sit still Head: atraumatic. EYES: EOMI, NOSE: Atraumatic NECK: Trachea midline RESPIRATORY: No increased rate of breathing CTAB CARDIOVASCULAR: RRR, no peripheral edema ABDOMINAL: Non-distended soft nontender MUSCULOSKELETAl: No obvious deformities NEURO: Alert. Moving 4/4 extremities SKIN:: Warm, dry. Normal color PSYCHIATRIC: Normal affect Course Vital Signs Vital signs: Vital Signs Temperature 98 F 06/11/24 06:00 Pulse Rate 77 06/11/24 06:00 Respiratory Rate 14 06/11/24 06:00 Blood Pressure 198/92 H 06/11/24 06:00 Pulse Oximetry 100 06/11/24 06:00 Oxygen Delivery Room Air 06/11/24 06:00 Temperature 98 F 06/11/24 06:00 Pulse Rate 76 06/11/24 11:34 Respiratory Rate 16 06/11/24 11:32 Blood Pressure 176/88 H 06/11/24 11:32 Pulse Oximetry 100 06/11/24 11:32 Oxygen Delivery Room Air 06/11/24 07:17 Medical Decision Making [facility] Narrative Medical decision making narrative: -Course: 64-year-old male history of psychiatric illness presenting for multiple complaints. Patient is a poor historian has history of psychiatric illness. Physical exam revealed an anxious appearing 64-year-old to could not seem to sit still. Lungs were clear. No objective signs of respiratory distress. He was given Benadryl/cogentin for suspected EPS which improved his jitteriness. Initially he was only complaining of chest pain and difficulty breathing. His workup including chest x-ray, CT without contrast, troponin, EKG, D-dimer and venous blood gas were all unremarkable. However after that was completed he started complaining of severe abdominal pain. CTA chest abdomen pelvis has been added on. CTA did not reveal any causative findings. Patient received Valium due to anxiety about the CT scanner. When I re-evaluated him after CT said that his symptoms had all improved. He is no longer complaining of abdominal pain. Discussed admission versus discharge the patient is comfortable going home with. Unclear what the etiology of his symptoms were although anxiety is definitely a consideration. Patient's blood pressure was elevated on arrival but he is not taking his home medications yet. Patient given home medications. Patient be discharged to follow-up with his primary care physician. Given strict return precautions. -DDX includes but is not limited to: ACS, pneumonia, copd, PE, dissection, anxiety, pneumothorax, dystonic reaction muscle cramps, electrolyte abnormality Vital Signs Vital Signs: Vital Signs Temperature 98 F 06/11/24 06:00 Pulse Rate 77 06/11/24 06:00 Respiratory Rate 14 06/11/24 06:00 Blood Pressure 198/92 H 06/11/24 06:00 Pulse Oximetry 100 06/11/24 06:00 Oxygen Delivery Room Air 06/11/24 06:00 Temperature 98 F 06/11/24 06:00 Pulse Rate 76 06/11/24 11:34 Respiratory Rate 16 06/11/24 11:32 Blood Pressure 176/88 H 06/11/24 11:32 Pulse Oximetry 100 06/11/24 11:32 Oxygen Delivery Room Air 06/11/24 07:17 Lab Data 06/11/24 05:58 06/11/24 05:59 Labs: Lab Results 06/11/24 06/11/24 06/11/24 Range/Units 05:58 05:59 06:01 WBC 11.8 H (4.5-10.0) K/mm3 RBC 5.14 (4.6-6.20) M/mm3 Hgb 14.7 (14.0-18.0) g/dL Hct 44.0 (42.0-52.0) % MCV 85.6 (80-100) fl MCH 28.6 (26-34) pg MCHC 33.4 (32-36) g/dl RDW 13.2 (11.5-14.5) % Plt Count 221 (150-375) k/mm3 MPV 8.8 (7.4-10.4) fl Immature Gran % (Auto) 0.4 (0-0.5) % Neut % (Auto) 71.5 (45.5-73.1) % Lymph % (Auto) 19.1 (18.3-44.2) % [place] % (Auto) 5.5 (2.6-8.5) % Eos % (Auto) 2.6 (0-4.4) % Baso % (Auto) 0.9 (0.2-1.2) % Lymph # (Auto) 2.24 (0.9-3.2) K/mm3 [place] # (Auto) 0.7 H (0.1-0.6) K/mm3 Eos # (Auto) 0.3 (0-0.3) K/mm3 Baso # (Auto) 0.1 (0.0-0.1) K/mm3 Abs Immat Gran (auto) 0.05 H (0.00-0.031) K/mm3 Absolute Neuts (auto) 8.4 H (1.3-6.7) K/mm3 Absolute Nucleated RBC 0.000 (0.0-0.012) K/mm3 Nucleated RBC % 0.0 (0.0-0.2) % D-Dimer 0.39 (<0.48) ug/mL Sodium 137 (137-145) mmol/L Potassium 3.3 L (3.4-5.0) mmol/L Chloride 99 (98-107) mmol/L Carbon Dioxide 23 (22-30) mmol/L Anion Gap 15 H (4-12) mmol/L BUN 11 D (9-20) mg/dL Creatinine 0.61 L (0.7-1.3) mg/dL Estim Creat Clear Calc 129 ml/min Estimated GFR > 60 (59 - ) Glucose 230 H (65-110) mg/dL Calcium 9.2 (8.4-10.2) mg/dL Total Bilirubin 0.8 (0.2-1.3) mg/dL AST 50 (17-59) U/L ALT 46 (6-50) U/L Alkaline Phosphatase 94 (38-126) U/L Troponin I < 0.012 (0.000-0.034) ng/mL NT-Pro-B Natriuret Pep 31 (19.9-100) pg/mL Total Protein 9.0 H (6.3-8.2) g/dL Albumin 4.8 (3.5-5.1) g/dL Influenza A (RT-PCR) Negative (Negative) Influenza B (RT-PCR) Negative (Negative) RSV (RT-PCR) Negative (Negative) SARS-CoV-2 RNA (RT-PCR) Negative (Negative) 06/11/24 Range/Units 11:06 WBC (4.5-10.0) K/mm3 RBC (4.6-6.20) M/mm3 Hgb (14.0-18.0) g/dL Hct (42.0-52.0) % MCV (80-100) fl MCH (26-34) pg MCHC (32-36) g/dl RDW (11.5-14.5) % Plt Count (150-375) k/mm3 MPV (7.4-10.4) fl Immature Gran % (Auto) (0-0.5) % Neut % (Auto) (45.5-73.1) % Lymph % (Auto) (18.3-44.2) % [place] % (Auto) (2.6-8.5) % Eos % (Auto) (0-4.4) % Baso % (Auto) (0.2-1.2) % Lymph # (Auto) (0.9-3.2) K/mm3 [place] # (Auto) (0.1-0.6) K/mm3 Eos # (Auto) (0-0.3) K/mm3 Baso # (Auto) (0.0-0.1) K/mm3 Abs Immat Gran (auto) (0.00-0.031) K/mm3 Absolute Neuts (auto) (1.3-6.7) K/mm3 Absolute Nucleated RBC (0.0-0.012) K/mm3 Nucleated RBC % (0.0-0.2) % D-Dimer (<0.48) ug/mL Sodium (137-145) mmol/L Potassium (3.4-5.0) mmol/L Chloride (98-107) mmol/L Carbon Dioxide (22-30) mmol/L Anion Gap (4-12) mmol/L BUN (9-20) mg/dL Creatinine (0.7-1.3) mg/dL Estim Creat Clear Calc ml/min Estimated GFR (59 - ) Glucose (65-110) mg/dL Calcium (8.4-10.2) mg/dL Total Bilirubin (0.2-1.3) mg/dL AST (17-59) U/L ALT (6-50) U/L Alkaline Phosphatase (38-126) U/L Troponin I < 0.012 (0.000-0.034) ng/mL NT-Pro-B Natriuret Pep (19.9-100) pg/mL Total Protein (6.3-8.2) g/dL Albumin (3.5-5.1) g/dL Influenza A (RT-PCR) (Negative) Influenza B (RT-PCR) (Negative) RSV (RT-PCR) (Negative) SARS-CoV-2 RNA (RT-PCR) (Negative) ABG Data ABG results: 06/11/24 08:35 VBG pH 7.507 H* VBG pCO2 27.4 L* VBG pO2 44.0 VBG HCO3 21.2 L O2 Delivery Device Room air O2 Liters/Min Not Reportable FiO2 21 Discharge Plan Discharge Clinical Impression: Extrapyramidal symptom, Atypical chest pain, Anxiety Patient Disposition: Home Condition: Stable Instructions: Antibiotic Form, Chest Pain (DC) Additional Instructions: You seen in the emergency department for multiple complaints. Your workup here was reassuring without an clear cause of your symptoms. Please follow-up with your primary care physician for further management. Please return to the ED if you develop any new or worsening symptoms. Patient Language: Vincentian Prescriptions: No Action doxycycline hyclate 100 mg capsule 100 mg PO BID 7 Days Qty: 14 0RF promethazine-DM 6.25-15 mg/5 mL syrup 5 ml PO Q4-6H PRN (Reason: cough) Qty: 120 0RF prednisone 20 mg tablet 40 mg PO DAILY 5 Days Qty: 10 0RF lisinopril 20 mg Tablet 20 mg PO DAILY glipizide 10 mg Tablet 10 mg PO DAILY amlodipine 10 mg Tablet 10 mg PO DAILY escitalopram oxalate 20 mg Tablet 20 mg PO DAILY metformin 500 mg Tablet Extended Release 24 Hr 500 mg PO BID gabapentin 300 mg Tablet 900 mg PO HS quetiapine 25 mg Tablet 25 mg PO BID atorvastatin 20 mg Tablet 20 mg PO DAILY meloxicam 15 mg Tablet 15 mg PO DAILY clopidogrel [Plavix] 75 mg Tablet 75 mg PO DAILY fluticasone propion-salmeterol 500-50 mcg/dose Blister With Device 1 inh INHALATION Q12H fluticasone propionate [Allergy Relief (fluticasone)] 50 mcg/actuation [place],Suspension 2 spray INTRANASAL DAILY Rx Instructions: administer into each nostril Caplyta 42 mg Capsule 42 mg PO DAILY cyclobenzaprine 10 mg Tablet 10 mg PO HS metoprolol succinate 25 mg Tablet Extended Release 24 Hr 25 mg PO DAILY pantoprazole [Protonix] 40 mg Tablet,Delayed Release (Dr/Ec) 40 mg PO BID Qty: 60 0RF glimepiride 2 mg tablet 2 mg PO DAILY albuterol sulfate 90 mcg/actuation HFA aerosol inhaler 2 puff inhalation QID PRN (Reason: shortness of breath or wheezing) Qty: 8.5 0RF famotidine 20 mg tablet 20 mg PO DAILY Qty: 30 0RF ondansetron 4 mg tablet,disintegrating 4 mg PO Q8H PRN (Reason: nausea and vomiting) Qty: 10 0RF Follow-up/Referrals: Tremayne,Ziggy Morgan MD [Primary Care Provider] -
[2024-06-11] MEDS: diazePAM INJ (*CRX) 10 MG/2 ML SYRINGE 5 MG IV PUSH (09:44)
[2024-06-11] MEDS: POTASSIUM CHLORIDE 20 MEQ PACKET (FOR LIQUID) 40 MEQ PO (10:18)
[2024-06-11] MEDS: MAGNESIUM SULF 2 GM/WATER 50ML 2 GM/50 ML BAG IVPB (10:20)
[2024-06-11 11:31] LABS: Troponin I < 0.012 ng/mL (0.000-0.034)
[2024-06-11] MEDS: METOPROLOL SUCCINATE EXT REL 25 MG TABCR PO (11:34)
[2024-06-11] MEDS: lisinopriL 10 MG TABLET PO (11:34)
[2024-06-11] MEDS: amLODIPine BESYLATE 10 MG TABLET PO (11:34)
[2024-06-11 11:39] LABS: Troponin I < 0.012 ng/mL (0.000-0.034)
--- NOTE | 2024-06-11 12:10 | PC.NURSE ---
Per pt. request, pt. Carol called by this RN to wake up my roommate to come pick me up. This RN did exactly that. Carol states his roommate is on his way.
== END 2024-06-11 12:23 | disposition home or self-care (01) ==
PROVIDERS: Emergency Medicine; Emergency Provider Emergency Medicine; PCP Internal Medicine
DX: R07.89 Other chest pain (principal); F41.9 Anxiety disorder, unspecified; G25.9 Extrapyramidal and movement disorder, unspecified; Z20.822 Contact with and (suspected) exposure to COVID-19; G47.30 Sleep apnea, unspecified; K21.9 Gastro-esophageal reflux disease without esophagitis; I25.10 Atherosclerotic heart disease of native coronary artery without angina pectoris; E11.9 Type 2 diabetes mellitus without complications; E78.5 Hyperlipidemia, unspecified; I10 Essential (primary) hypertension
CPT/HCPCS: 36415; 71045; 71250; 71275; 74174; 80053; 82803; 83880; 84484; 85025; 85380; 87637; 93005; 96365; 96366; 96372; 96375; 99284; A9270; J0515; J1200; J3360; J3475; Q9967

== ENCOUNTER 2024-06-18 10:18 | Emergency (ER) | payer MEDICARE, MEDICAID, SELFPAY ==
[2024-06-18 10:25] VITALS: BP 116/56; PULSE 64; RESP 16; TEMP 37.1; O2SAT 97
--- NOTE | 2024-06-18 10:47 | ED.URI ---
HPI - URI/Sore Throat General Chief Complaint: Upper Respiratory Infection Stated Complaint: cough,sinus pressure,ear pain Time Seen by Provider: 06/18/24 10:47 Source: patient, RN notes reviewed and old records reviewed Mode of arrival: ambulatory Limitations: no limitations History of Present Illness HPI Narrative: 64-year-old male presents to [facility] with 1 week history of bilateral ear pain, decreased hearing, facial brain, productive cough. Has been using Flonase, his Advair and saline spray. Patient is a smoker Patient denies chest pain, shortness of breath. Patient denies fevers Related Data Home Medications ?Medication ?Instructions ?Recorded ?Confirmed ?Last Taken ?Type amlodipine 10 mg tablet 10 mg PO DAILY 03/22/23 06/18/24 11/30/23 History atorvastatin 20 mg tablet 20 mg PO DAILY 03/22/23 06/18/24 11/30/23 History clopidogrel 75 mg tablet (Plavix) 75 mg PO DAILY 03/22/23 06/18/24 11/30/23 History cyclobenzaprine 10 mg tablet 10 mg PO HS 03/22/23 06/18/24 Unknown History escitalopram oxalate 20 mg tablet 20 mg PO DAILY 03/22/23 06/18/24 11/30/23 History fluticasone 500 mcg-salmeterol 50 1 inh inhalation Q12H 03/22/23 06/18/24 Unknown History mcg/dose blistr powdr for inhalation fluticasone propionate 50 2 spray intranasal DAILY 03/22/23 01/24/24 Unknown History mcg/actuation nasal spray,suspension (Allergy Relief (fluticasone)) gabapentin 300 mg tablet 900 mg PO HS 03/22/23 01/24/24 Unknown History glipizide 10 mg tablet 10 mg PO DAILY 03/22/23 01/24/24 Unknown History lisinopril 20 mg tablet 20 mg PO DAILY 03/22/23 06/18/24 11/30/23 History lumateperone 42 mg capsule 42 mg PO DAILY 03/22/23 06/18/24 11/30/23 History (Caplyta) meloxicam 15 mg tablet 15 mg PO DAILY 03/22/23 06/18/24 11/30/23 History metformin 500 mg tablet,extended 500 mg PO BID 03/22/23 06/18/24 11/30/23 History release 24hr (osmotic) metoprolol succinate 25 mg 25 mg PO DAILY 03/22/23 06/18/24 11/30/23 History tablet,extended release 24 hr quetiapine 25 mg tablet 25 mg PO BID 03/22/23 06/18/24 11/30/23 History glimepiride 2 mg tablet 2 mg PO DAILY 11/30/23 06/18/24 11/30/23 History Allergies Allergy/AdvReac Type Severity Reaction Status Date / Time indomethacin AdvReac Mild Nausea Verified 06/18/24 10:36 Review of Systems Review of Systems: All systems reviewed & are unremarkable except as noted in HPI and below Constitutional: Constitutional: Reports no additional constitutional complaints ENT: Reports as per HPI Cardiovascular: Cardiovascular: Reports no additional cardiovascular complaints, Denies chest pain and Denies dyspnea Respiratory: Respiratory: Reports as per HPI, Denies chest congestion, Reports cough and Denies dyspnea Musculoskeletal: Musculoskeletal: Reports no additional musculoskeletal complaints Integumentary/Breasts: Skin/Breast: Reports system reviewed and no additional complaints, except as docu PMFSH Past Medical History Medical History Cirrhosis Leukocytosis Abnormal CT scan, colon Coffee ground emesis Anxiety Obstructive sleep apnea Does not use CPAP ?because I toss and turn? due to chronic back pain. Gastroesophageal reflux disease Coronary artery disease Status post stent x1. Chronic back pain Degenerative disc disease Type 2 diabetes mellitus Asthma Hypercholesterolemia Hypertension Bipolar disorder Surgical History Surgical History History of heart artery stent History of arthroscopy of left knee History of cholecystectomy Family History Family History Father Family history of congestive heart failure Sibling Family history of congestive heart failure Other Diabetes mellitus Family history of cardiovascular disease Family history of chronic obstructive pulmonary disease Family history of coronary artery disease Family history of kidney disease Family history of malignant neoplasm Family history of mental disorder Hypertension Social History Social History Social History: The patient lives in [place] with his and sister. He is on disability. Former cigarette smoker, quit about 25 years ago. Endorses smoking marijuana. No alcohol abuse. His , Carol Banks, as his surrogate decision maker. He wishes to be a full code. Smoking packs per day: 1.25 Smoking cigarettes per day: 25.0 Years smoked: 22 Smoking pack-years: 27.50 Smoking status: Former smoker Tobacco type: cigarettes Second hand tobacco smoke exposure: Yes Smoking end date: 08/20/94 Alcohol intake: former Substance use: current Substance use type: marijuana Other substance usage details: SMOKES MARIJUANA 4 TIMES/DAY Last use: 03/20/2023 Do You Feel Safe in your Home?: Yes Lack of Transportation: YES Lack of Food: Never True Current Housing: I Have Housing Concerned About Future Housing: No Difficulty Paying Gas/Electric Bills: No Difficulty Paying for Meds: No Currently Unemployed: No Education: High School Diploma/GED Difficulty w/ Childcare or Family Care: No Living arrangements: with family Additional living arrangements comments: & SISTER Gender identity (if verbalized by the patient): Male Spiritual care concerns: No Comments At the time of my signature, I reviewed and agree with the nursing past medical, surgical, social, and family history. There is no relevant family history pertinent to the patient complaint. Exam Const: General: cooperative, comfortable, no acute distress, well developed, alert, ill appearing chronically and well nourished Nutritional Appearance: well nourished Orientation/consciousness: patient oriented x3 Limitations: no limitations HENMT: Head: normal to inspection Ears: hearing grossly normal bilaterally, external ears normal and TM abnormal with fluid behind the TM bilateral; not erythematous Face/Nose/Sinus: Normal external nose present and Nasal discharge present clear bilateral Face and sinus: face symmetric and sinus tenderness frontal and maxillary Mouth: Yes Normal oral and palatal mucosa present, Yes lip normal, Yes tongue normal and Yes moist mucous membranes Throat: posterior oropharynx normal, uvula midline, postnasal drainage and no uvular edema Eyes: General: appearance normal, both eyes and all related structures Alignment and Position: alignment normal Neck: Neck: normal visual inspection, full ROM, no lymphadenopathy and no meningeal signs Chest: Chest palpation & inspection: normal inspection of the chest Resp: Effort & Inspection: normal respiratory effort and able to speak in complete sentences Auscultation: clear to auscultation bilaterally, no crackles, no rales, no rhonchi and no wheezes Cardio: Rate: regular rate Skin: General skin exam: normal color and no rashes or lesions noted Neuro: General: patient oriented x3, gait normal, moves all extremities and no meningeal signs Cognition (Neuro): normal cognition Speech: normal speech Gait exam (Neuro): Normal gait present Extrem: General: normal to inspection, full ROM, capillary refill normal and normal gait Psych: Appearance: grossly normal and well kempt Mental Status: mental status grossly normal Speech and movement: Normal speech and movement present and Clear speech present Affect: normal affect Attitude: cooperative Course Course Level of Care: Express Care Visit Vital Signs Vital signs: Vital Signs Temperature 98.7 F 06/18/24 10:25 Pulse Rate 64 06/18/24 10:25 Respiratory Rate 16 06/18/24 10:25 Blood Pressure 116/56 L 06/18/24 10:25 Pulse Oximetry 97 06/18/24 10:25 Oxygen Delivery Room Air 06/18/24 10:25 Temperature 98.7 F 06/18/24 10:25 Pulse Rate 64 06/18/24 10:25 Respiratory Rate 16 06/18/24 10:25 Blood Pressure 116/56 L 06/18/24 10:25 Pulse Oximetry 97 06/18/24 10:25 Oxygen Delivery Room Air 06/18/24 10:25 Reviewed MDM - URI/Sore Throat MDM Narrative Medical decision making narrative: Patient sitting in exam room. Patient is nontoxic, vitals are stable. Patient presents with 1 week history of sinus pain, ear pressure. Patient's exam consistent with sinusitis, due to patient's age and comorbidities so will cover with an antibiotic Patient appropriate for outpatient treatment and follow-up Discharge instructions reviewed with patient, as well as provided in writing per nursing staff. The instructions also include specific and strict return/GO TO THE ER as well as f/u information. All questions have been answered, and the patient deny any further questions with discharge and discharge plan. Some parts of this dictation were generated by voice recognition software and may contain typographical and/or grammatical inaccuracies. Differential Diagnosis Differential diagnosis: Likely upper respiratory infection, otitis media, sinusitis, viral infection, bronchitis, influenza and pharyngitis Critical Care Time Critical Care Time Critical Care Time: No Discharge Plan Discharge Clinical Impression: Sinusitis Patient Disposition: Home Condition: Stable Instructions: Antibiotic Form, Sinusitis (ED) Additional Instructions: It is very important to treat your symptoms. Drink plenty of water, Gatorade, Pedialyte, ice pops or Jell-O. -take Tylenol per package directions for fever or pain. -Antihistamine medication such as Zyrtec/Claritin/Hanh during the day can help improve symptoms. -doing daily nasal irrigations can help relieve pressure your sinuses. Things like a Neti pot -Use Flonase twice a day for 5 days then daily to help reduce the inflammation and dry up your sinuses. -You can also use Coricidin HBP sinus relief. Be sure to drink plenty of water with this medication, Water is a natural decongestant -Frequent hand washing or hand [employer] is one of the best ways to prevent spread of infection. -Using a vaporizer or humidifier at night will also help thin secretions and help with coughing up phlegm. -Follow up with primary care provider in 7-10 days if condition is not improving - For new or worsening symptoms go directly to the nearest ER Patient Language: Guatemalan Prescriptions: New doxycycline monohydrate 100 mg tablet 100 mg PO BID Qty: 14 0RF No Action promethazine-DM 6.25-15 mg/5 mL syrup 5 ml PO Q4-6H PRN (Reason: cough) Qty: 120 0RF lisinopril 20 mg Tablet 20 mg PO DAILY glipizide 10 mg Tablet 10 mg PO DAILY amlodipine 10 mg Tablet 10 mg PO DAILY escitalopram oxalate 20 mg Tablet 20 mg PO DAILY metformin 500 mg Tablet Extended Release 24 Hr 500 mg PO BID gabapentin 300 mg Tablet 900 mg PO HS quetiapine 25 mg Tablet 25 mg PO BID atorvastatin 20 mg Tablet 20 mg PO DAILY meloxicam 15 mg Tablet 15 mg PO DAILY clopidogrel [Plavix] 75 mg Tablet 75 mg PO DAILY fluticasone propion-salmeterol 500-50 mcg/dose Blister With Device 1 inh INHALATION Q12H fluticasone propionate [Allergy Relief (fluticasone)] 50 mcg/actuation [place],Suspension 2 spray INTRANASAL DAILY Rx Instructions: administer into each nostril Caplyta 42 mg Capsule 42 mg PO DAILY cyclobenzaprine 10 mg Tablet 10 mg PO HS metoprolol succinate 25 mg Tablet Extended Release 24 Hr 25 mg PO DAILY pantoprazole [Protonix] 40 mg Tablet,Delayed Release (Dr/Ec) 40 mg PO BID Qty: 60 0RF glimepiride 2 mg tablet 2 mg PO DAILY albuterol sulfate 90 mcg/actuation HFA aerosol inhaler 2 puff inhalation QID PRN (Reason: shortness of breath or wheezing) Qty: 8.5 0RF ondansetron 4 mg tablet,disintegrating 4 mg PO Q8H PRN (Reason: nausea and vomiting) Qty: 10 0RF Follow-up/Referrals: Tremayne,Ziggy Morgan MD [Primary Care Provider] - 2 Weeks ([facility] care follow up ) Time of Disposition: 10:58
== END 2024-06-18 11:06 | disposition home or self-care (01) ==
PROVIDERS: Emergency Provider Nurse Practitioner; PCP Internal Medicine
DX: J32.9 Chronic sinusitis, unspecified (principal); K74.60 Unspecified cirrhosis of liver; K21.9 Gastro-esophageal reflux disease without esophagitis; I25.10 Atherosclerotic heart disease of native coronary artery without angina pectoris; E11.9 Type 2 diabetes mellitus without complications; Z79.84 Long term (current) use of oral hypoglycemic drugs; J45.909 Unspecified asthma, uncomplicated; E78.00 Pure hypercholesterolemia, unspecified; I10 Essential (primary) hypertension; G47.33 Obstructive sleep apnea (adult) (pediatric); Z91.198 Patient's noncompliance with other medical treatment and regimen for other reason; Z95.5 Presence of coronary angioplasty implant and graft; Z79.01 Long term (current) use of anticoagulants
CPT/HCPCS: 99213; G0463

== ENCOUNTER 2024-07-18 09:30 | Emergency (ER) | payer MEDICARE, MEDICAID, SELFPAY ==
[2024-07-18 09:41] VITALS: BP 122/52; PULSE 60; RESP 16; TEMP 36.6; O2SAT 97
--- NOTE | 2024-07-18 09:45 | ED_ITS ---
HPI - Ear Problem General Chief complaint: Ear Stated complaint: Sinus/Ears Irritation Source: patient Mode of arrival: ambulatory Limitations: no limitations History of Present Illness HPI Narrative: Patient is a 64 year old male who presents to the clinic with complaints of left ear pain, sore throat, and nasal congestion for two weeks. He has not been taking anything over the counter. Denies any hearing loss, shortness of breath, or difficulty swallowing. Related Data Home Medications ?Medication ?Instructions ?Recorded ?Confirmed ?Last Taken ?Type amlodipine 10 mg tablet 10 mg PO DAILY 03/22/23 06/18/24 11/30/23 History atorvastatin 20 mg tablet 20 mg PO DAILY 03/22/23 06/18/24 11/30/23 History clopidogrel 75 mg tablet (Plavix) 75 mg PO DAILY 03/22/23 06/18/24 11/30/23 History cyclobenzaprine 10 mg tablet 10 mg PO HS 03/22/23 06/18/24 Unknown History escitalopram oxalate 20 mg tablet 20 mg PO DAILY 03/22/23 06/18/24 11/30/23 History fluticasone 500 mcg-salmeterol 50 1 inh inhalation Q12H 03/22/23 06/18/24 Unknown History mcg/dose blistr powdr for inhalation fluticasone propionate 50 2 spray intranasal DAILY 03/22/23 01/24/24 Unknown History mcg/actuation nasal spray,suspension (Allergy Relief (fluticasone)) gabapentin 300 mg tablet 900 mg PO HS 03/22/23 01/24/24 Unknown History glipizide 10 mg tablet 10 mg PO DAILY 03/22/23 01/24/24 Unknown History lisinopril 20 mg tablet 20 mg PO DAILY 03/22/23 06/18/24 11/30/23 History lumateperone 42 mg capsule 42 mg PO DAILY 03/22/23 06/18/24 11/30/23 History (Caplyta) meloxicam 15 mg tablet 15 mg PO DAILY 03/22/23 06/18/24 11/30/23 History metformin 500 mg tablet,extended 500 mg PO BID 03/22/23 06/18/24 11/30/23 Hist ory release 24hr (osmotic) metoprolol succinate 25 mg 25 mg PO DAILY 03/22/23 06/18/24 11/30/23 History tablet,extended release 24 hr quetiapine 25 mg tablet 25 mg PO BID 03/22/23 06/18/24 11/30/23 History glimepiride 2 mg tablet 2 mg PO DAILY 11/30/23 06/18/24 11/30/23 History Allergies Allergy/AdvReac Type Severity Reaction Status Date / Time indomethacin AdvReac Mild Nausea Verified 07/18/24 09:43 Review of Systems Review of Systems: CONSTITUTIONAL: Denies body aches, fever, chills, or sweats. EYES: Denies visual changes, redness, or discharge. ENT: Reports rhinorrhea, congestion, sore throat, and left otalgia. CARDIOVASCULAR: Denies chest pain, palpitations, or edema. RESPIRATORY: Denies cough or dyspnea. GASTROINTESTINAL: Denies abdominal pain, nausea, vomiting, or diarrhea. GENITOURINARY: Denies dysuria or hematuria. SKIN: Denies rash, itching, or wounds. MUSCULOSKELETAL: Denies back pain, joint pain, or myalgia. NEUROLOGIC: Denies headache, numbness, tingling, or weakness. PSYCH: Denies depression or anxiety. All systems reviewed & are unremarkable except as noted in HPI and below PMFSH Past Medical History Medical History Cirrhosis Leukocytosis Abnormal CT scan, colon Coffee ground emesis Anxiety Obstructive sleep apnea Does not use CPAP ?because I toss and turn? due to chronic back pain. Gastroesophageal reflux disease Coronary artery disease Status post stent x1. Chronic back pain Degenerative disc disease Type 2 diabetes mellitus Asthma Hypercholesterolemia Hypertension Bipolar disorder Surgical History Surgical History History of heart artery stent History of arthroscopy of left knee History of cholecystectomy Family History Family History Father Family history of congestive heart failure Sibling Family history of congestive heart failure Other Diabetes mellitus Family history of cardiovascular disease Family history of chronic obstructive pulmonary disease Family history of coronary artery disease Family history of kidney disease Family history of malignant neoplasm Family history of mental disorder Hypertension Social History Social History Social History: The patient lives in [place] with his and sister. He is on disability. Former cigarette smoker, quit about 25 years ago. Endorses smoking marijuana. No alcohol abuse. His , Carol Banks, as his surrogate decision maker. He wishes to be a full code. Smoking packs per day: 1.25 Smoking cigarettes per day: 25.0 Years smoked: 22 Smoking pack-years: 27.50 Smoking status: Former smoker Tobacco type: cigarettes Second hand tobacco smoke exposure: Yes Smoking end date: 08/20/94 Alcohol intake: former Substance use: current Substance use type: marijuana Other substance usage details: SMOKES MARIJUANA 4 TIMES/DAY Last use: 03/20/2023 Do You Feel Safe in your Home?: Yes Lack of Transportation: YES Lack of Food: Never True Current Housing: I Have Housing Concerned About Future Housing: No Difficulty Paying Gas/Electric Bills: No Difficulty Paying for Meds: No Currently Unemployed: No Education: High School Diploma/GED Difficulty w/ Childcare or Family Care: No Living arrangements: with family Additional living arrangements comments: & SISTER Gender identity (if verbalized by the patient): Male Spiritual care concerns: No Comments At time of signature, I have reviewed and agree with nursing past medical, surgical, social and family history unless otherwise noted. Please see nursing chart for further information. There is no relevant family history pertinent to the presenting complaint. Exam Narrative: GENERAL: Well-appearing, well-nourished, and in no acute distress. EYES: EOMI. No redness or drainage. Conjunctivae normal. ENT: Mucous membranes pink and moist. Nares clear. No rhinorrhea. Left TM with Erythema and purulent effusion. Right TM normal. Throat Erythematous without tonsillar exudate, uvula midline. Nasal congestion noted. NECK: Normal AROM. Supple. No lymphadenopathy. CHEST: No respiratory distress. Clear to auscultation. HEART: Regular rate and rhythm. No murmur appreciated. Normal peripheral pulses. ABDOMEN: Soft, nontender, nondistended, normal active bowel sounds. SKIN: Warm, dry, no rash. Capillary refill normal. Normal skin turgor. NEURO: No focal deficits. Alert and oriented x3. Gait steady. PSYCH: Normal affect. No signs of depression or anxiety. HENMT: Ears: TM abnormal wth effusion purulent on the left Course Course Level of Care: Express Care Visit Vital Signs Vital signs: Vital Signs Temperature 97.8 F 05/29/25 09:41 Pulse Rate 60 07/18/24 09:41 Respiratory Rate 16 07/18/24 09:41 Blood Pressure 122/52 L 07/18/24 09:41 Pulse Oximetry 97 07/18/24 09:41 Oxygen Delivery Room Air 07/18/24 09:41 Temperature 97.8 F 07/18/24 09:41 Pulse Rate 60 07/18/24 09:41 Respiratory Rate 16 07/18/24 09:41 Blood Pressure 122/52 L 07/18/24 09:41 Pulse Oximetry 97 07/18/24 09:41 Oxygen Delivery Room Air 07/18/24 09:41 Reviwed. Medical Decision Making Vital Signs Vital Signs: Vital Signs Temperature 97.8 F 07/18/24 09:41 Pulse Rate 60 07/18/24 09:41 Respiratory Rate 16 07/18/24 09:41 Blood Pressure 122/52 L 07/18/24 09:41 Pulse Oximetry 97 07/18/24 09:41 Oxygen Delivery Room Air 07/18/24 09:41 Temperature 97.8 F 07/18/24 09:41 Pulse Rate 60 07/18/24 09:41 Respiratory Rate 16 07/18/24 09:41 Blood Pressure 122/52 L 07/18/24 09:41 Pulse Oximetry 97 07/18/24 09:41 Oxygen Delivery Room Air 07/18/24 09:41 Critical Care Time Critical Care Time Critical Care Time: No Discharge Plan Discharge Clinical Impression: Acute ear pain, Acute sore throat Patient Disposition: Home Condition: Stable Instructions: Ear Infection (AC) Additional Instructions: Take antibiotics as directed. Recommend antihistamine such as Benadryl, Zyrtec or Hanh for sinus congestion Flonase nasal spray, 1 spray in each nostril once daily until symptoms improve Symptomatic treatment includes: rest, fluids, and increase humidity of the air at home. Tylenol every 8 hours as needed to reduce fever, pain Please schedule a follow-up visit with your personal physician for further evaluation and treatment within 3-5days. If your symptoms persist, change or worsen significantly, go to the emergency department for further evaluation. Patient Language: Thai Prescriptions: New amoxicillin 875 mg tablet 875 mg PO Q12H 7 Days Qty: 14 0RF No Action doxycycline monohydrate 100 mg tablet 100 mg PO BID Qty: 14 0RF promethazine-DM 6.25-15 mg/5 mL syrup 5 ml PO Q4-6H PRN (Reason: cough) Qty: 120 0RF lisinopril 20 mg Tablet 20 mg PO DAILY glipizide 10 mg Tablet 10 mg PO DAILY amlodipine 10 mg Tablet 10 mg PO DAILY escitalopram oxalate 20 mg Tablet 20 mg PO DAILY metformin 500 mg Tablet Extended Release 24 Hr 500 mg PO BID gabapentin 300 mg Tablet 900 mg PO HS quetiapine 25 mg Tablet 25 mg PO BID atorvastatin 20 mg Tablet 20 mg PO DAILY meloxicam 15 mg Tablet 15 mg PO DAILY clopidogrel [Plavix] 75 mg Tablet 75 mg PO DAILY fluticasone propion-salmeterol 500-50 mcg/dose Blister With Device 1 inh INHALATION Q12H fluticasone propionate [Allergy Relief (fluticasone)] 50 mcg/actuation [place],Suspension 2 spray INTRANASAL DAILY Rx Instructions: administer into each nostril Caplyta 42 mg Capsule 42 mg PO DAILY cyclobenzaprine 10 mg Tablet 10 mg PO HS metoprolol succinate 25 mg Tablet Extended Release 24 Hr 25 mg PO DAILY pantoprazole [Protonix] 40 mg Tablet,Delayed Release (Dr/Ec) 40 mg PO BID Qty: 60 0RF glimepiride 2 mg tablet 2 mg PO DAILY albuterol sulfate 90 mcg/actuation HFA aerosol inhaler 2 puff inhalation QID PRN (Reason: shortness of breath or wheezing) Qty: 8.5 0RF ondansetron 4 mg tablet,disintegrating 4 mg PO Q8H PRN (Reason: nausea and vomiting) Qty: 10 0RF Follow-up/Referrals: Tremayne,Ziggy Morgan MD [Primary Care Provider] - Time of Disposition: 10:04
[2024-07-18 10:04] LABS: EDSTREPNEGPOS1 Negative (Negative)
== END 2024-07-18 10:10 | disposition home or self-care (01) ==
PROVIDERS: PCP Internal Medicine
DX: H92.02 Otalgia, left ear (principal); J02.9 Acute pharyngitis, unspecified; Z87.891 Personal history of nicotine dependence; K74.60 Unspecified cirrhosis of liver; K21.9 Gastro-esophageal reflux disease without esophagitis; I25.10 Atherosclerotic heart disease of native coronary artery without angina pectoris; Z95.5 Presence of coronary angioplasty implant and graft; E11.9 Type 2 diabetes mellitus without complications; Z79.84 Long term (current) use of oral hypoglycemic drugs; J45.909 Unspecified asthma, uncomplicated; I10 Essential (primary) hypertension; E78.00 Pure hypercholesterolemia, unspecified; Z79.01 Long term (current) use of anticoagulants
CPT/HCPCS: 87880; 99213; G0463

== ENCOUNTER 2024-09-27 08:14 | Emergency (ER) | payer MEDICARE, MEDICAID, SELFPAY ==
[2024-09-27 08:24] VITALS: BP 169/75; PULSE 61; RESP 16; TEMP 36.7; O2SAT 97
--- NOTE | 2024-09-27 08:27 | ED_ITS ---
HPI - URI/Sore Throat General Chief Complaint: Upper Respiratory Infection Stated Complaint: flu symptoms Time Seen by Provider: 09/27/24 08:27 Source: patient, RN notes reviewed and old records reviewed Mode of arrival: ambulatory Limitations: no limitations History of Present Illness HPI Narrative: 64-year-old male presents to the [facility] with multiple complaints, ear pain, sinus pain, sore throat, congestion, abdominal pain. Was seen July 18, states that this symptoms have gotten worse since being seen. Patient does report that he did finish his amoxicillin but did nothing for him. Has not followed up with his primary care provider? he does nothing for him. ? Patient's biggest complaint is abdominal discomfort, bloating, feeling tight. Reports abdominal pain 08/29. Last bowel movement this morning Has a history of cirrhosis Onset (ago): week(s) Treatments prior to arrival: cold medicine Related Data Home Medications ?Medication ?Instructions ?Recorded ?Confirmed ?Last Taken ?Type amlodipine 10 mg tablet 10 mg PO DAILY 03/22/23 06/18/24 11/30/23 History atorvastatin 20 mg tablet 20 mg PO DAILY 03/22/23 06/18/24 11/30/23 History clopidogrel 75 mg tablet (Plavix) 75 mg PO DAILY 03/22/23 06/18/24 11/30/23 History cyclobenzaprine 10 mg tablet 10 mg PO HS 03/22/23 06/18/24 Unknown History escitalopram oxalate 20 mg tablet 20 mg PO DAILY 03/22/23 06/18/24 11/30/23 History fluticasone 500 mcg-salmeterol 50 1 inh inhalation Q12H 03/22/23 06/18/24 Unknown History mcg/dose blistr powdr for inhalation fluticasone propionate 50 2 spray intranasal DAILY 03/22/23 01/24/24 Unknown History mcg/actuation nasal spray,suspension (Allergy Relief (fluticasone)) gabapentin 300 mg tablet 900 mg PO HS 03/22/23 01/24/24 Unknown History glipizide 10 mg tablet 10 mg PO DAILY 03/22/23 01/24/24 Unknown History lisinopril 20 mg tablet 20 mg PO DAILY 03/22/23 06/18/24 11/30/23 History lumateperone 42 mg capsule 42 mg PO DAILY 03/22/23 06/18/24 11/30/23 History (Caplyta) meloxicam 15 mg tablet 15 mg PO DAILY 03/22/23 06/18/24 11/30/23 History metformin 500 mg tablet,extended 500 mg PO BID 03/22/23 06/18/24 11/30/23 History release 24hr (osmotic) metoprolol succinate 25 mg 25 mg PO DAILY 03/22/23 06/18/24 11/30/23 History tablet,extended release 24 hr quetiapine 25 mg tablet 25 mg PO BID 03/22/23 06/18/24 11/30/23 History glimepiride 2 mg tablet 2 mg PO DAILY 11/30/23 06/18/24 11/30/23 History Allergies Allergy/AdvReac Type Severity Reaction Status Date / Time indomethacin AdvReac Mild Nausea Verified 09/27/24 09:24 Review of Systems Review of Systems: All systems reviewed & are unremarkable except as noted in HPI and below Constitutional: Constitutional: Reports as per HPI, Reports body ache(s) and Reports fatigue ENT: Reports as per HPI, Reports otalgia and Reports sore throat Cardiovascular: Cardiovascular: Reports no additional cardiovascular complaints, Denies chest pain and Denies dyspnea Respiratory: Respiratory: Reports as per HPI, Reports chest congestion, Denies cough and Denies dyspnea Gastrointestinal: Gastrointestinal: Reports as per HPI, Reports abdominal pain, Reports bloating and Denies diarrhea Musculoskeletal: Musculoskeletal: Reports as per HPI and Reports myalgias Integumentary/Breasts: Skin/Breast: Reports system reviewed and no additional complaints, except as docu PMFSH Past Medical History Medical History Cirrhosis Leukocytosis Abnormal CT scan, colon Coffee ground emesis Anxiety Obstructive sleep apnea Does not use CPAP ?because I toss and turn? due to chronic back pain. Gastroesophageal reflux disease Coronary artery disease Status post stent x1. Chronic back pain Degenerative disc disease Type 2 diabetes mellitus Asthma Hypercholesterolemia Hypertension Bipolar disorder Surgical History Surgical History History of heart artery stent History of arthroscopy of left knee History of cholecystectomy Family History Family History Father Family history of congestive heart failure Sibling Family history of congestive heart failure Other Diabetes mellitus Family history of cardiovascular disease Family history of chronic obstructive pulmonary disease Family history of coronary artery disease Family history of kidney disease Family history of malignant neoplasm Family history of mental disorder Hypertension Social History Social History Social History: The patient lives in [place] with his and sister. He is on disability. Former cigarette smoker, quit about 25 years ago. Endorses smoking marijuana. No alcohol abuse. His , Carol Banks, as his surrogate decision maker. He wishes to be a full code. Smoking packs per day: 1.25 Smoking cigarettes per day: 25.0 Years smoked: 22 Smoking pack-years: 27.50 Smoking status: Former smoker Tobacco type: cigarettes Second hand tobacco smoke exposure: Yes Smoking end date: 08/20/94 Alcohol intake: former Substance use: current Substance use type: marijuana Other substance usage details: SMOKES MARIJUANA 4 TIMES/DAY Last use: 03/20/2023 Do You Feel Safe in your Home?: Yes Lack of Transportation: YES Lack of Food: Never True Current Housing: I Have Housing Concerned About Future Housing: No Difficulty Paying Gas/Electric Bills: No Difficulty Paying for Meds: No Currently Unemployed: No Education: High School Diploma/GED Difficulty w/ Childcare or Family Care: No Living arrangements: with family Additional living arrangements comments: & SISTER Gender identity (if verbalized by the patient): Male Spiritual care concerns: No Comments At the time of my signature, I reviewed and agree with the nursing past medical, surgical, social, and family history. There is no relevant family history pertinent to the patient complaint. Exam Const: General: cooperative, no acute distress, well developed, alert, ill appearing acutely and chronically, tired appearing, uncomfortable and well nourished Nutritional Appearance: obese Orientation/consciousness: patient oriented x3 Limitations: no limitations HENMT: Head: normal to inspection Ears: hearing grossly normal bilaterally, external ears normal, TM's normal bilaterally, EAC's normal, mastoids normal and no periauricular adenopathy Mouth: Yes dry mucous membranes and Yes Abnormal oral and palatal mucosa present erythematous and white patches Throat: uvula midline, posterior oropharynx abnormal erythema and other (thrush) and no uvular edema Eyes: General: appearance normal, both eyes and all related structures Alignment and Position: alignment normal Neck: Neck: normal visual inspection, full ROM, no lymphadenopathy and no meningeal signs Chest: Chest palpation & inspection: normal inspection of the chest Resp: Effort & Inspection: normal respiratory effort and able to speak in complete sentences Auscultation: no crackles, no rales, no rhonchi, no wheezes and diminished lung sounds bilateral throughout Cardio: Rate: regular rate GI: GI Palp: Yes abdominal tenderness (Generalized), Yes Firmness to palpation present (GI), Yes Tenderness to palpation present (GI) and No Guarding due to palpation present (GI) Auscultation: Hypoactive bowel sounds present Skin: Other: Pale Neuro: General: patient oriented x3, gait normal, moves all extremities and no meningeal signs Cognition (Neuro): normal cognition Speech: normal speech Gait exam (Neuro): Normal gait present Extrem: General: normal to inspection, full ROM, capillary refill normal and normal gait Psych: Appearance: grossly normal and well kempt Mental Status: mental status grossly normal Speech and movement: Normal speech and movement present and Clear speech present Affect: normal affect Attitude: cooperative Course Course Level of Care: Express Care Visit Vital Signs Vital signs: Vital Signs Temperature 98.1 F 09/27/24 08:24 Pulse Rate 61 09/27/24 08:24 Respiratory Rate 16 09/27/24 08:24 Blood Pressure 169/75 H 09/27/24 08:24 Pulse Oximetry 97 09/27/24 08:24 Oxygen Delivery Room Air 09/27/24 08:24 Temperature 98.1 F 09/27/24 08:24 Pulse Rate 61 09/27/24 08:24 Respiratory Rate 16 09/27/24 08:24 Blood Pressure 169/75 H 09/27/24 08:24 Pulse Oximetry 97 09/27/24 08:24 Oxygen Delivery Room Air 09/27/24 08:24 Reviewed Transfer Transfered to: [facility] (Per patient request) Transportation: Other (POV, declined EMS) Transfer rationale: Patient with continued symptoms, increasing abdominal pain, abdominal bloating, history of cirrhosis Sending for higher level of care Accepting physician: Spoke with Dr. Bay CARPIO - URI/Sore Throat BALAJI Narrative Medical decision making narrative: Patient sitting in exam room. Patient is nontoxic, vitals except blood pressure are within normal limits. Blood pressure is elevated. Patient appears uncomfortable, acutely on chronic appearance of illness Patient being transferred for higher level of care Transfer instructions reviewed with patient to go directly to the ER. Do not eat or drink until clear rely your provider. EMS is offered, patient declined All questions have been answered, and the patient deny any further questions with discharge and discharge plan. Some parts of this dictation were generated by voice recognition software and may contain typographical and/or grammatical inaccuracies. Differential Diagnosis Differential diagnosis: Likely upper respiratory infection and other (Acute abdomen) Lab Data Labs: Lab Results 09/27/24 Range/Units 08:22 POC Influenza A Ag Negative (Negative) POC Influenza B Ag Negative (Negative) POC SARS CoV-2 Ag Negative (Negative) Reviewed Critical Care Time Critical Care Time Critical Care Time: No Discharge Plan Discharge Clinical Impression: Hx of cirrhosis, Thrush, Elevated blood pressure reading Abdominal pain Qualifiers: Abdominal location: generalized Qualified Code(s): R10.84 - Generalized abdominal pain Patient Disposition: Acute Care Hospital Condition: Stable Patient Language: Luxembourgish Prescriptions: No Action doxycycline monohydrate 100 mg tablet 100 mg PO BID Qty: 14 0RF amoxicillin 875 mg tablet 875 mg PO Q12H 7 Days Qty: 14 0RF promethazine-DM 6.25-15 mg/5 mL syrup 5 ml PO Q4-6H PRN (Reason: cough) Qty: 120 0RF lisinopril 20 mg Tablet 20 mg PO DAILY glipizide 10 mg Tablet 10 mg PO DAILY amlodipine 10 mg Tablet 10 mg PO DAILY escitalopram oxalate 20 mg Tablet 20 mg PO DAILY metformin 500 mg Tablet Extended Release 24 Hr 500 mg PO BID gabapentin 300 mg Tablet 900 mg PO HS quetiapine 25 mg Tablet 25 mg PO BID atorvastatin 20 mg Tablet 20 mg PO DAILY meloxicam 15 mg Tablet 15 mg PO DAILY clopidogrel [Plavix] 75 mg Tablet 75 mg PO DAILY fluticasone propion-salmeterol 500-50 mcg/dose Blister With Device 1 inh INHALATION Q12H fluticasone propionate [Allergy Relief (fluticasone)] 50 mcg/actuation [place],Suspension 2 spray INTRANASAL DAILY Rx Instructions: administer into each nostril Caplyta 42 mg Capsule 42 mg PO DAILY cyclobenzaprine 10 mg Tablet 10 mg PO HS metoprolol succinate 25 mg Tablet Extended Release 24 Hr 25 mg PO DAILY pantoprazole [Protonix] 40 mg Tablet,Delayed Release (Dr/Ec) 40 mg PO BID Qty: 60 0RF glimepiride 2 mg tablet 2 mg PO DAILY albuterol sulfate 90 mcg/actuation HFA aerosol inhaler 2 puff inhalation QID PRN (Reason: shortness of breath or wheezing) Qty: 8.5 0RF ondansetron 4 mg tablet,disintegrating 4 mg PO Q8H PRN (Reason: nausea and vomiting) Qty: 10 0RF dicyclomine 20 mg tablet 20 mg PO QID Qty: 20 0RF ondansetron 4 mg tablet,disintegrating 4 mg PO Q6H PRN (Reason: nausea and vomiting) Qty: 10 0RF Follow-up/Referrals: Tremayne,Ziggy Morgan MD [Primary Care Provider] -
[2024-09-27 08:46] LABS: EDCOVIDSCREEN Negative (Negative); EDINFLUASCREEN Negative (Negative); EDINFLUBSCREEN Negative (Negative)
== END 2024-09-27 08:44 | disposition short-term general hospital (02) ==
PROVIDERS: Emergency Provider Nurse Practitioner; PCP Internal Medicine
DX: K74.60 Unspecified cirrhosis of liver (principal); B37.0 Candidal stomatitis; I10 Essential (primary) hypertension; R10.84 Generalized abdominal pain; Z20.822 Contact with and (suspected) exposure to COVID-19; K21.9 Gastro-esophageal reflux disease without esophagitis; I25.10 Atherosclerotic heart disease of native coronary artery without angina pectoris; Z95.5 Presence of coronary angioplasty implant and graft; E11.9 Type 2 diabetes mellitus without complications; Z79.84 Long term (current) use of oral hypoglycemic drugs; J45.909 Unspecified asthma, uncomplicated; E78.00 Pure hypercholesterolemia, unspecified; G47.33 Obstructive sleep apnea (adult) (pediatric); Z91.198 Patient's noncompliance with other medical treatment and regimen for other reason; Z79.01 Long term (current) use of anticoagulants
CPT/HCPCS: 87426; 87804; 99212; G0463

== ENCOUNTER 2024-09-27 08:59 | Emergency (ER) | payer MEDICARE, MEDICAID, SELFPAY ==
--- NOTE | ~2024-09-27 | CT_ITS ---
EXAMINATION: CT abdomen pelvis w con DATE: 09/27/2024 10:27 INDICATION: Nonlocalized abdominal pain TECHNIQUE: Computed tomography (CT) of the abdomen and pelvis was performed with 100 cc Omnipaque 350 intravenous contrast. The dose-length product was 1139.19 mGy-cm. Automated exposure control and iterative reconstruction technique were employed. COMPARISON: CT dated 06/11/2024 FINDINGS: There is bilateral lower lobe atelectasis. Heart size normal. There is coronary atheroscler osis. No significant pleural or pericardial effusion. No significant vascular abnormality. No lymphad enopathy. Fatty infiltration of the liver. Somewhat nodular liver surface, consistent with cirrhosis. Gallbladd er is surgically absent. The pancreas, adrenal glands and right kidney are unremarkable. There is a l eft renal cyst. There are calcified granulomas of the spleen. Nonobstructive bowel gas pattern. Colon ic diverticulosis without evidence for diverticulitis. No free air or free fluid. Mildly prominent pr ostate gland. Small fat-containing left inguinal hernia. Moderate lower thoracic and upper lumbar spo ndylosis. No free air or free fluid. Colonic diverticulosis without evidence for diverticulitis. Blad marcial is collapsed. IMPRESSION: 1. No acute abdominal abnormality. Reviewed, dictated and finalized at location A.
--- OUTSIDE RECORDS SUMMARY | 2024-09-27 09:05 | XMS_ITS | Clinical Summary ---
Author Organization [facility] Address [address] [place] [address] Care Team Providers Care Rn Lvn Name Role Phone Unavailable Primary Care Provider Unavailabl e Source Comments [facility],non-owned Affiliates and Associated Physician Practices is amultiple site organization consisting of ambulatory clinics and hospital sitesin [place], [place], [place] and [place]. This disclosure is being madepursuant to the Care Everywhere program and may not contain all information available regarding this patient. Last updated 17.[facility] [place] Allergies Active Allergy Reactions Criticality Noted Date [...] on file Legal Sex Male 5:55 AM TRAVEL RN OR Gender Identity Not on file Sexual Orientation [...] - URINE PROTEIN SCREENING 02/21/2024 INFLUENZA VACCINE (#1) 2024 HEPATITIS B VACCINE Aged Out No [...] topic Insurance MEDICARE MEDICAID - OUT OF [facility] [place]IC[place]
--- OUTSIDE RECORDS SUMMARY | 2024-09-27 09:05 | XMS_ITS | Continuity of Care Document ---
Author Organization [facility] Address [address] [place] [id number] Phone Care Team Providers Care Azure Architect Name Role Phone Wally Blackburn NP Unavailable Unavailable Allergies, Adverse Reactions, Alerts Substance Reaction Status Criticality indomethacin Active No Information Medications Medication Instructions Dosage Effective Dates (start - stop) Status Comments azelastine 137 mcg (0.1 %) nasal spray - Active meloxicam 15 mg tablet - Act derrick pantoprazole 40 mg tablet,delayed release TAKE 1 TABLET BY MOUTH ONCE DAILY - Active hydroxyzine HCl 25 mg tablet - Active clopidogrel 75 mg tablet TAKE 1 TABLET B Y MOUTH ONCE DAILY - Active Caplyta 42 mg capsule - Acti ve quetiapine 50 mg tablet - Ac tive metoprolol succinate ER 25 mg tablet,extended release 24 hr TAKE 1 TABLET BY MOUTH ONCE DAILY DIRECTED - Active dicyclomine 10 mg capsule TAKE 1 CAPSULE BY MOUTH 4 TIMES DAILY BEFORE MEAL(S) AND NIGHTLY - Active hydralazine 50 mg tablet - A ctive lisinopril 40 mg tablet - Ac tive OneTouch Ultra Test strips USE [address] RIP TO CHECK GLUCOSE ONCE DAILY - Active amoxicillin 875 mg tablet TAKE 1 TABLET BY MOUTH EVERY 12 HOURS FOR 7 DAYS - Active metoprolol tartrate 25 mg tablet TAKE 1/2 (ONE-HALF) TABLET BY MOUTH TWICE DAILY - Active isosorbide mononitrate ER 60 mg tablet,extended release 24 hr TAKE 1 TABLET BY MOUTH ONCE DAILY FOR 30 DAYS - Active escitalopram 20 mg tablet - Active metoprolol succinate ER 50 mg tablet,extended release 24 hr - Active Trelegy Ellipta 200 mcg-62.5 mcg-25 mcg powder for inhalation - Active glimepiride 2 mg tablet - Ac tive metformin ER 500 mg tablet,extended release 24 hr TAKE 2 TABLETS BY MOUTH TWICE DAILY - Active fluticasone propionate 50 mcg/actuation nasal spray,suspension USE 2 SPRAY(S) IN EACH NOSTRIL ONCE DAILY . APPOINTMENT REQUIRED FOR FUTURE REFILLS - Active montelukast 10 mg tablet - A ctive lorazepam 1 mg tablet - Acti ve tizanidine 4 mg tablet TAKE 1 TABLET BY MOUTH EVERY 6 HOURS FOR 30 DAYS - Active atorvastatin 20 mg tablet - Active doxycycline monohydrate 100 mg tablet - Active fluticasone 250 mcg-salmeterol 50 mcg/dose blistr powdr for inhalation - Active lisinopril 20 mg tablet - Ac tive Breo Ellipta 100 mcg-25 mcg/dose powder for inhalation - Active ondansetron HCl 4 mg tablet - Active hydrochlorothiazide 25 mg tablet - Active isosorbide mononitrate ER 30 mg tablet,extended release 24 hr - Active nitroglycerin 0.4 mg sublingual tablet DISSOLVE ONE TABLET UNDER THE TONGUE EVERY 5 MINUTES NEEDED FOR CHEST PAIN. DO NOT EXCEED A TOTAL OF 3 DOSES IN 15 MINUTES - Active escitalopram 10 mg tablet - Active amlodipine 10 mg tablet - Ac tive acetaminophen 300 mg-codeine 30 mg tablet - Active amoxicillin 500 mg capsule TAKE 1 CAPSUL E BY MOUTH 4 TIMES DAILY UNTIL ALL TAKEN - Active azithromycin 250 mg tablet - Active methylprednisolone 4 mg tablets in a dose pack - Active albuterol sulfate HFA 90 mcg/actuation aerosol inhaler INHALE 2 PUFFS BY MOUTH EVERY 4 HOURS - Active lactulose 10 gram/15 mL oral solution TAKE 15 ML BY MOUTH EVERY 4 HOURS - Active levofloxacin 500 mg tablet TAKE 1 TABLET BY MOUTH EVERY 24 HOURS FOR 7 DAYS - Active prednisone 10 mg tablet TAKE 3 TABLETS B Y MOUTH ONCE DAILY FOR 3 DAYS THEN 2 ONCE DAILY FOR 3 DAYS THEN 1 ONCE DAILY FOR 3 DAYS - Active gabapentin 300 mg capsule TAKE 3 CAPSULE S BY MOUTH ONCE DAILY AT BEDTIME - Active prednisone 20 mg tablet TAKE 2 TABLETS B Y MOUTH ONCE DAILY FOR 5 DAYS - Active promethazine-DM 6.25 mg-15 mg/5 mL oral syrup TAKE 5 ML BY MOUTH EVERY 4 TO 6 HOURS NEEDED FOR COUGH - Active doxycycline hyclate 100 mg capsule TAKE 1 CAPSULE BY MOUTH TWICE DAILY FOR 7 DAYS - Active buspirone 10 mg tablet TAKE 1 TABLET BY MOUTH TWICE DAILY NEEDED - Active cyclobenzaprine 5 mg tablet TAKE 1 TABLE T BY MOUTH THREE TIMES DAILY NEEDED - Active clonazepam 0.5 mg tablet TAKE 1 TABLET B Y MOUTH TWICE DAILY NEEDED FOR SEVERE ANXIETY ATTACK NOT RELIEVED BY BUSPAR DOSE - Active cyclobenzaprine 10 mg tablet TAKE 1 TABLET BY MOUTH ONCE DAILY AT BEDTIME MUST CONTACT MD FOR REFILLS - Active famotidine 20 mg tablet TAKE 1 TABLET BY MOUTH ONCE DAILY - Active ondansetron 4 mg disintegrating tablet DISSOLVE 1 TABLET IN MOUTH EVERY 8 HOURS NEEDED FOR NAUSEA AND VOMITING - Active amoxicillin 875 mg-potassium clavulanate 125 mg tablet TAKE 1 TABLET BY MOUTH EVERY 12 HOURS FOR 7 DAYS - Active escitalopram 5 mg tablet TAKE 1 TABLET B Y MOUTH ONCE DAILY FOR 7 DAYS - Active Advance Directives Directive Yes / No Effective Date File Name No Information Encounters Encounter Description Practice Location Reason(s) For Visit Diagnoses Date Provider Providers Copied on Encounter [facility], [address] [place] [address], [id number] , tel: [phone] [facility] Ed follow up (chief complaint) Essential (primary) hypertensionHyperlip idemia, unspecifiedPain in lower limbArteriosclerosis of [place] w/ other form of angina pectorisSleep apnea Bonareri Verah. [address] , [place], [place], [id number] , [place]. tel: [phone] Referring Provider: Ziggy Casper, [address] [facility], [place], [place], [facility] [place]. tel:[phone] [facility], [address] [place] [address], [id number] , tel: [phone] [facility] Ed No Information [facility] . [address] , [place], [place], [id number] , . tel: [phone] Family History Family Member Type Diagnosis Age At Onset No Information Payers Payer name Insurance type Covered green party ID Authoriza tisriram(s) [employer] MEDICARE PREMIER ADVANTRA P [id number] Social History Type Description Quantity Date Captured Comments Alcohol Use Details No Caffeine Use Details soda and chocolate 1 cup per day Tobacco Use Status Ex-cigarette smoker 025 Smoking Status Former smoker Smoking Tobacco Use Details Cigarette: Age Stopped: 34 Cigarette: No Details Available Sex Male Vital Signs Date / Time: Height Weight BMI Pulse Rate Blood Pressure Temperature Respiratory Rate Body Surface Area Head Circumference Head Circ. Percentile Wt./Jorge. Percentile BMI percentile Pulse Ox Inhaled Ox 9:20 AM 69.00 in 99.337 kg (219.00 lbs) 32.3 4 kg/m eter (2) 55 /min 141/77 mm[Hg] 18 /min 2.20 meter(2) 98 % Chief Complaint And Reason For Visit From encounter dated '08/27/2024 10:30'. follow up (chief complaint) Reason For Referral Reason For Referral No Information Plan Of Treatment Date Type Action Status Appointment Rob Freeman BOOKED Appointment Rob Banks Future Order: Radiology Order LH C ([id number]), Ordered on: Ordered Future Order: Radiology Order IV US ([id number]), Ordered on: Ordered Future Order: Radiology Order PT CA W/MÓNICA ([id number]), Ordered on: Ordered Future Order: Lab Order CBC w/di ff ([id number]), Ordered on: Ordered Future Order: Lab Order [id number] FR ([id number]), Ordered on: Ordered Future Order: Lab Order Lipid Pa ronald ([id number]), Ordered on: Ordered Future Order: Lab Order PT/INR ( [id number]), Ordered on: Ordered History Of Present Illness Encounter Date Complaint History Of Prese nt Illness follow up Functional Status Date Functional Assessmen t No Information Instructions Date Instruction Additional Infor mation No Information Assessments Type Assessment Date assessment Essential (primary) hypertension assessment Hyperlipidemia, unspecified assessment Pain in lower limb assessment Arteriosclerosis of [place] w/ other form of angina pectoris assessment Sleep apnea Patient Care Teams Name Effective Dates (start - stop) Status Members No Information
--- OUTSIDE RECORDS SUMMARY | 2024-09-27 09:05 | XMS_ITS | Patient Health Record ---
Author Organization [facility] [employer] Address [address] [place] [address] Care Team Providers Care Qualitative Field Coordinator Name Role Phone Ziggy Casper MD Primary Care Provider Unavail able Raji Ng Unavailable [phone] Allergies No Known Allergies Reason For Referral No Information Medications Medication SIG (Take, Route, Frequency, Duration) Notes Start Date End Date Status Cyclobenzaprine HCl 10 MG Oral 04/12/2023 Active ProAir HFA 108 (90 Base) MCG/ACT Inhalation 04/12/2023 Active FLUTICASONE 250 MCG-SALMETEROL 50 MCG/DOSE BLISTR POWDR FOR INHALATION *Reorder from [facility] for eRx and Interaction Alerts* 04/12/2023 Active Ondansetron HCl 4 MG Oral 04/12/2023 Active Glimepiride 2 MG Oral 04/12/2023 Ac tive Pantoprazole Sodium 40 MG Oral 04/12/2023 Active Escitalopram Oxalate 20 MG Take 1 tablet by mouth once daily Orally Once a day; Duration: 90 days Active Clopidogrel Bisulfate 75 MG Oral 04/12/2023 Active QUEtiapine Fumarate 50 MG 1 tablet Oral twice daily; Duration: 90 days Active Montelukast Sodium 10 MG Oral 04/12/2023 Active Caplyta 42 MG 1 capsule Oral Once a day; Duration: 90 days *Reorder from [facility] for eRx and Interaction Alerts* Active glipiZIDE 10 MG Oral 04/12/2023 Act derrick Gabapentin 300 MG Oral 04/12/2023 A ctive Metoprolol Succinate ER 25 MG Oral 04/12/2023 Active Atorvastatin Calcium 40 MG Oral 04/12/2023 Active amLODIPine Besylate 10 MG Oral 04/12/2023 Active QUEtiapine Fumarate 50 MG 1 tablet Oral twice daily; Duration: 30 days appointment needed Active MARIJUANA (CANNABIS) BUDS/LEAVES FOR SMOKING *Reorder from [facility] for eRx and Interaction Alerts* 04/12/2023 Active Escitalopram Oxalate 10 MG Take 1 tablet by mouth once daily; Duration: 30 Active OneTouch Ultra 2 w/Device 04/12/2023 Active Escitalopram Oxalate 5 MG 1 tablet Orally Once a day; Duration: 7 days 10/19/2023 Active Lisinopril-hydroCHLOROt hiazide 20-12.5 MG Oral 04/12/2023 Active OneTouch Delica Plus [id number] 04/12/2023 Active OneTouch Ultra In Vitro 04/12/2023 Acti ve Benzonatate 100 MG Oral 04/12/2023 Active Fluticasone Propionate Diskus 50 MCG/ACT Inhalation *Reorder from [facility] for eRx and Interaction Alerts* 04/12/2023 Active metFORMIN HCl 1000 MG Oral 04/12/2023 Active Isosorbide Mononitrate ER 60 MG Oral; Duration: 30 Days Active Lisinopril 20 MG Oral 04/12/2023 Ac tive Azelastine HCl 137 MCG/SPRAY Nasal 04/12/2023 Active Immunizations Vaccine Route Administration Date Status Comme nts Pfizer Biontech Covid-19 Vac cine 2nd dose Unknown 05/18/2020 Administered Pfizer Biontech Covid-19 Vac cine 2nd dose Unknown 06/14/2020 Administered Social History Tobacco Use: Social History Observation Description Date Details (start date - stop date) Current Smoker NA - NA Sex Assigned At : Social History Observation Description Sex Assigned At Male Tobacco Control (Standard) Question Answer Notes Tobacco use: Current smoker Problems Problem Type SNOMED Code ICD Code Onset Dates Problem Status W/U Status Risk Notes Problem Cannabis dependence (73927775) Cannabis dependence, uncomplicated (F12.20) Active confirmed Problem Severe depressed bipolar I disorder without psychotic features (54030130) Bipolar disorder, current episode depressed, severe, without psychotic features (F31.4) Active confirmed Problem Generalized anxiety disorder (58425938) Generalized anxiety disorder (F41.1) Active confirmed Problem Insomnia (300322360) Other insomnia (G47.09) Active confirmed Vital Signs Heart Rate 62 /min 07/09/2024 Height-cm 177.80 cm 07/09/2024 Blood pressure diastolic 74 mm Hg 07/09/2024 Weight-kg 103.42 kg 07/09/2024 Height 70.00 in 07/09/2024 Blood pressure systolic 140 mm Hg 07/09/2024 Weight 228 lbs 07/09/2024 BMI 32.71 kg/m2 07/09/2024 Encounters Encounter Location Date Provider Diagnosis [facility] [employer] [facility] [address] [place] [address] 10/19/2023 Raji Ng Bipolar disorder, current episode depressed, severe, without psychotic features F31.4 ; Generalized anxiety disorder F41.1 ; Other insomnia G47.09 ; Other exterminator helper (current) drug therapy Z79.899 and Cannabis dependence, uncomplicated F12.20 [facility] [address] [place] [address] 06/04/2024 Raji Juareza [facility] [address] [place] [address] 07/09/2024 Raji Ng Nicotine use Z72.0 ; Encounter for screening for depression Z13.31 ; Encounter for screening for cardiovascular disorders Z13.6 ; Dietary counseling and surveillance Z71.3 ; Bipolar disorder, current episode depressed, severe, without psychotic features F31.4 ; Generalized anxiety disorder F41.1 ; Other insomnia G47.09 ; Other exterminator helper (current) drug therapy Z79.899 and Cannabis dependence, uncomplicated F12.20 [facility] [employer] [facility] [address] [place] [address] 08/15/2024 Raji Juareza [facility] [address] [place] [address] 11/13/2023 Raji Ng Generalized anxiety disorder F41.1 [facility] [address] [place] [address] 11/14/2023 Raji Ng Generalized anxiety disorder F41.1 [facility] [address] [place] [address] 06/12/2024 Raji Ng Generalized anxiety disorder F41.1 [facility] [address] [place] [address] 07/01/2024 Raji Juareza Bipolar disorder, current episode depressed, severe, without psychotic features F31.4 Assessments Encounter Date Diagnosis (ICD Code) Assessment Notes Treatment Notes Treatment Clinical Notes Section Notes 10/19/2023 Bipolar disorder, current episode depressed, severe, without psychotic features (ICD-10 - F31.4) Caplyta 42mg daily, Quetiapine 50mg bid Lumateperone capsule (Caplyta)THC/C BD may affect the metabolism of Lumateperone capsuleby [...] 11/14/2023 Generalized anxiety disorder (ICD-10 - F41.1) 06/12/2024 Generalized anxiety disorder (ICD-10 - F41.1) 07/01/2024 Bipolar disorder, current episode depressed, severe, without psychotic features (ICD-10 - F31.4) 07/09/2024 Nicotine use (ICD-10 - Z72.0) 07/09/2024 Encounter for screening for depression (ICD-10 - Z13.31) 10/19/2023 Other insomnia (ICD-10 - G47.09) persistent [...] results during the follow-up visit 10/19/2023 Other detention (current) drug therapy (ICD-10 - Z79.899) 1. [...] recent lab results during the follow-up visit 07/09/2024 Encounter for screening for cardiovascular disorders (ICD-10 - Z13.6) 07/09/2024 Dietary counseling and surveillance (ICD-10 - Z71.3) 10/19/2023 Cannabis dependence, uncomplicated (ICD-10 - F12.20) [...] recent lab results during the follow-up visit 07/09/2024 Bipolar disorder, current episode depressed, severe, without psychotic features (ICD-10 - F31.4) Caplyta 42mg daily, Quetiapine 50mg bid Lumateperone capsule (Caplyta)THC/C BD may affect the metabolism of Lumateperone capsuleby decreasing its drug effect by the CY Substrateby increasing its drug effect by the CYP2C8 Substrateby increasing or decreasing its drug effect by the CY Substrate 07/09/2024 Generalized anxiety disorder (ICD-10 - F41.1) Escitalopram 20mg daily 07/09/2024 Other insomnia (ICD-10 - G47.09) persistent 07/09/2024 Other detention (current) drug therapy (ICD-10 - Z79.899) 07/09/2024 Cannabis dependence, uncomplicated (ICD-10 - F12.20) daily cannabis use 07/09/2024 Other Gwendolyn Banks, a patient with a history of mood swings, anxiety, and recent cardiac issues, presents with ongoing depression symptoms, significant anxiety, and sleep disturbances. Bipolar disorder with Anxiety Assessment: Patient reports ongoing depression symptoms and significant anxiety. Mood swings have been quite frequent. Current medications include Caplyta 42 mg, quetiapine 50 mg twice daily, and escitalopram 10 mg. Cannabis use continues every 2-3 days. Recent cardiac issues (stents placed) have resulted in increased fatigue. Sleep has improved since cardiac intervention, but the patient still reports not sleeping much overall. Plan: - Increase escitalopram to 20 mg PO daily - May help with anxiety and potentially improve sleep - Continue Caplyta 42 mg daily - Continue quetiapine 50 mg twice daily - Follow up in 6 weeks to assess response to increased escitalopram dose Cannabis Use Assessment: Patient continues to use cannabis every 2-3 days, primarily during the day. Reports it does not make him tired and that he needs it to eat. Plan: - No changes to current cannabis use discussed the note is transcribed using speech recognition software. It is a reflection of a visit with the patient. It might have some inaccuracy, including medication names and transcribing errors, though efforts have been made to correct them. Plan Of Treatment No Information Insurance Providers Payer Name Payer Address Payer Phone Subscriber Number Group Number Insured Name Patient Relationship to Insured Coverage Start Date Coverage End Date Medicare-I l Medicare [address] [place] [address] [id number] GWENDOLYN BANKS Self - patient is the insured Medicaid-I l Medicaid [address] [address] [place] [address] [id number] GWENDOLYN BANKS Self - patient is the insured Medical (General) History Medical History History ICD Code Problems: Bipolar affective disorder, cu rrent episode depression Cannabis dependence Generalized anxiety disorder Long-term current use of drug therapy Obstructive sleep apnea syndrome Persistent insomnia , Surgical History Surgery Date(Month/Year) Removal of gallbladder (74566) Cardiac stent
--- OUTSIDE RECORDS SUMMARY | 2024-09-27 09:05 | XMS_ITS ---
Author Organization [facility] [employer] [facility] Address [address] [place] [address] Care Team Providers Care Asparagus Buncher Name Role Phone Ziggy Casper MD Primary Care Provider Unavail able Raji Ng Unavailable [phone] REASON FOR VISIT PT is sick Social History Sex Assigned At : Social History Observation Description Sex Assigned At Male Encounters Encounter Location Date Provider Diagnosis [facility] [employer] [place] [address] [address] [facility] [address] [place] [address] 07/03/2024 Raji gN Plan Of Treatment No Information Progress Notes * GWENDOLYN MASTERSONDOB:1960 ( 64 yo M)Acc No.[id number]:07/03/2024 Patient: GWENDOLYN ARMSTRONG Provider: DAMIEN IQBAL :1960 A ge:64 Y S ex:Male Date:07/03/2024 Phone: Address:[address] [place] [id number] Pcp:Ziggy Casper MD Subjective: * Chief Complaints: * 1 . PT is sick. * Medical History: Objective: * Vitals: Assessment: Plan: * Treatment: * Billing Information: * Visit Code: * Procedure Codes: * Electronic signature of DAMIEN Watkins on 09/27/2024 at 09:04 AM CDT Sign off status: Pending * Provider: DAMIEN IQBAL Date: 07/03/2024 Generated for Anaisi ng/Fajonathang/eTransmitting on: 09/27/2024 09:04 AM CDT
--- OUTSIDE RECORDS SUMMARY | 2024-09-27 09:05 | XMS_ITS | Clinical Summary ---
Author Organization [facility] Address [address] [place] [address] Care Team Providers Care Section Laborer Name Role Phone Abelardo Booker MD Primary Care Provider [phone] Social History Tobacco Use Types Packs/Day Years [...] age to complete this topic Care Teams Section Laborer Relationship Specialty Start Date End Date Abelardo Booker MD PCP - General 10/06/10
[2024-09-27 09:09] VITALS: BP 158/82; PULSE 63; RESP 12; TEMP 36.7; O2SAT 99
--- NOTE | 2024-09-27 09:35 | ECG_ITS ---
Test Date: 2024-09-27 09:58:07 Measurements Intervals [place] Rate: 63 P: -74 HI: 127 QRS: 27 QRSD: 108 T: 9 QT: 453 QTc: 466 Interpretive Statements ECTOPIC ATRIAL RHYTHM NONSPECIFIC T-WAVE ABNORMALITY- ANT/INF LEADS ABNORMAL ECG Compared to ECG 06/11/2024 05:55:30 SINUS RHYTHM NO LONGER PRESENT Electronically Signed On 09-27-2024 10:02:54 CDT by Demian Colindres D.O.
[2024-09-27 09:48] LABS: Hematocrit 41.1 % (42.0-52.0); Hemoglobin 13.7 g/dL (14.0-18.0); Immature Granulocyte Percent A 0.3 % (0-0.5); Lymphocytes Absolute Auto 2.55 K/mm3 (0.9-3.2); Mean Corpuscular HGB Conc 33.3 g/dl (32-36); Mean Corpuscular Hemoglobin 28.3 pg (26-34); Mean Corpuscular Volume 84.9 fl (80-100); Nucleated Red Blood Cells Absolute Auto 0.000 K/mm3 (0.0-0.012); Nucleated Red Blood Cells Perc 0.0 % (0.0-0.2); Platelet Count Result 191 k/mm3 (150-375); Red Blood Count 4.84 M/mm3 (4.6-6.20); White Blood Count 9.7 K/mm3 (4.5-10.0)
--- OUTSIDE RECORDS SUMMARY | 2024-09-27 09:54 | XMS_ITS | Clinical Summary ---
Author Organization [facility] Address [address] [place] [address] Care Team Providers Care Director Of Accounts Payable Name Role Phone Unavailable Primary Care Provider Unavailabl e Source Comments [facility],non-owned Affiliates and Associated Physician Practices is amultiple site organization consisting of ambulatory clinics and hospital sitesin [place], [place], [place] and [place]. This disclosure is being madepursuant to the Care Everywhere program and may not contain all information available regarding this patient. 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
--- OUTSIDE RECORDS SUMMARY | 2024-09-27 09:54 | XMS_ITS | Continuity of Care Document ---
Author Organization [facility] Address [address] [place] [address] Phone Care Team Providers Care Radiation Safety Officer Name Role Phone Wally Blackburn NP Unavailable [...] Diagnoses Date Provider Providers Copied on Encounter [facility], [address] [place] [address], [id number] , tel: [phone] [facility] Ed follow up (chief complaint) Essential (primary) hypertensionHyperlip idemia, unspecifiedPain in lower limbArteriosclerosis of [place] w/ other form of angina pectorisSleep apnea Bonare[facility] Verah. [address] , [place], [place], [id number] , [place]. tel: [phone] Referring Provider: Ziggy Casper, [address] [facility], [place], [place], [facility]. tel:[phone] [facility], [address] [place] [address], [id number] , tel: [phone] [facility] Ed No Information [facility] . [address] , [place], [place], [id number] , . tel: [phone] Family History Family Member Type Diagnosis Age At Onset No Information Payers Payer name Insurance type Covered constitution party ID Authoriza tisriram(s) A[employer]NA MEDICARE PREMIER ADVANTRA P [id number] Social History Type Description Quantity Date Captured [...] Banks Future Order: Radiology Order LH C ([id number]), Ordered on: Ordered Future Order: Radiology Order IV US ([id number]), Ordered on: Ordered Future Order: Radiology Order PT CA W/MÓNICA ([id number]), Ordered on: Ordered Future Order: Lab Order CBC w/di ff ([id number]), Ordered on: Ordered Future Order: Lab Order [id number] ([id number]), Ordered on: Ordered Future Order: Lab Order Lipid Pa ronald ([id number]), Ordered on: Ordered Future Order: Lab Order PT/INR ( [id number]), Ordered on: Ordered History Of Present Illness Encounter Date Complaint History Of Prese nt Illness follow up Functional Status Date Functional Assessmen t No Information Instructions Date Instruction Additional Infor mation No Information Assessments Type Assessment Date assessment Essential (primary) hypertension assessment Hyperlipidemia, unspecified assessment Pain in lower limb assessment 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
--- OUTSIDE RECORDS SUMMARY | 2024-09-27 09:54 | XMS_ITS | Clinical Summary ---
Author Organization [facility] Address [address] [place] [address] Care Team Providers Care Job Placement Specialist Name Role Phone Abelardo Booker MD Primary Care Provider [phone] Social History Tobacco Use Types Packs/Day Years [...] age to complete this topic Care Teams Job Placement Specialist Relationship Specialty Start Date End Date Abelardo Booker MD PCP - General 10/06/10
[2024-09-27 10:01] LABS: INR 1.0; Prothrombin Time 12.9 Seconds (11.1-14.7)
[2024-09-27 10:02] LABS: Partial Thromboplastin Time 27.4 Seconds (22.3-36.8)
[2024-09-27] MEDS: ONDANSETRON INJ 4 MG/2 ML VIAL IV PUSH (10:02)
[2024-09-27] MEDS: MORPHINE SULFATE (*CRX) 4 MG/ML INJ IV PUSH (10:02)
[2024-09-27 10:08] LABS: Alanine Aminotransferase 39 U/L (6-50); Albumin Level 4.7 g/dL (3.5-5.1); Alkaline Phosphatase 134 U/L (38-126); Anion Gap 13 mmol/L (4-12); Aspartate Amino Transferase 45 U/L (17-59); Bilirubin,Total 0.4 mg/dL (0.2-1.3); Blood Urea Nitrogen 10 mg/dL (9-20); Calcium 9.7 mg/dL (8.4-10.2); Carbon Dioxide 26 mmol/L (22-30); Chloride 100 mmol/L (98-107); Estimated CRCL calculation 114 ml/min; Estimated Glomerular Filt Rate > 60; Glucose 179 mg/dL (65-110); Lipase 383 U/L (23-300); Potassium 3.6 mmol/L (3.4-5.0); Sodium 139 mmol/L (137-145); Total Protein 8.6 g/dL (6.3-8.2)
[2024-09-27 10:11] VITALS: PULSE 51
[2024-09-27 10:14] LABS: Add Urine Microscopic? YES; Appearance Urine Clear (Clear); Glucose Urine UA 2+ mg/dL (Negative); Leukocyte Esterase Ur Negative LEU/UL (Negative); Nitrate Urine Negative (Negative); Non Pathogenic Casts 0-2; Specific Grav Ur 1.017 (1.001-1.035)
[2024-09-27 10:19] LABS: Troponin I < 0.012 ng/mL (0.000-0.034)
--- NOTE | 2024-09-27 10:30 | ED_ITS ---
HPI - General Adult General Chief complaint: Unspecified Stated complaint: abd. pain x1 month, from Time Seen by Provider: 09/27/24 09:18 History of Present Illness HPI narrative: Patient is a 64-year-old male who presents ER with abdominal pain. Ongoing over last month. Diffuse cramping. He feels like it is related to a head cold that has moved into his chest and down to his abdomen. No diarrhea. No vomiting. Cannot identify any aggravating or alleviating factors. No exertional chest pain. No diarrhea. Related Data Home Medications ?Medication ?Instructions ?Recorded ?Confirmed ?Last Taken ?Type amlodipine 10 mg tablet 10 mg PO DAILY 03/22/23 06/18/24 11/30/23 History atorvastatin 20 mg tablet 20 mg PO DAILY 03/22/23 06/18/24 11/30/23 History clopidogrel 75 mg tablet (Plavix) 75 mg PO DAILY 03/22/23 06/18/24 11/30/23 History cyclobenzaprine 10 mg tablet 10 mg PO HS 03/22/23 06/18/24 Unknown History escitalopram oxalate 20 mg tablet 20 mg PO DAILY 03/22/23 06/18/24 11/30/23 History fluticasone 500 mcg-salmeterol 50 1 inh inhalation Q12H 03/22/23 06/18/24 Unknown History mcg/dose blistr powdr for inhalation fluticasone propionate 50 2 spray intranasal DAILY 03/22/23 01/24/24 Unknown History mcg/actuation nasal spray,suspension (Allergy Relief (fluticasone)) gabapentin 300 mg tablet 900 mg PO HS 03/22/23 01/24/24 Unknown History glipizide 10 mg tablet 10 mg PO DAILY 03/22/23 01/24/24 Unknown History lisinopril 20 mg tablet 20 mg PO DAILY 03/22/23 06/18/24 11/30/23 History lumateperone 42 mg capsule 42 mg PO DAILY 03/22/23 06/18/24 11/30/23 History (Caplyta) meloxicam 15 mg tablet 15 mg PO DAILY 03/22/23 06/18/24 11/30/23 History metformin 500 mg tablet,extended 500 mg PO BID 03/22/23 06/18/24 11/30/23 History release 24hr (osmotic) metoprolol succinate 25 mg 25 mg PO DAILY 03/22/23 06/18/24 11/30/23 History tablet,extended release 24 hr quetiapine 25 mg tablet 25 mg PO BID 03/22/23 06/18/24 11/30/23 History glimepiride 2 mg tablet 2 mg PO DAILY 11/30/23 06/18/24 11/30/23 History Allergies Allergy/AdvReac Type Severity Reaction Status Date / Time indomethacin AdvReac Mild Nausea Verified 09/27/24 09:24 Review of Systems 2 Review of Systems: All systems reviewed & are unremarkable except as noted in HPI and below Constitutional: Constitutional: Reports no additional constitutional complaints ENT: Reports system reviewed and no additional complaints, except as documented Cardiovascular: Cardiovascular: Reports no additional cardiovascular complaints Respiratory: Respiratory: Reports no additional respiratory complaints Gastrointestinal: Gastrointestinal: Reports no additional gastrointestinal complaints [facility] Past Medical History Medical History Cirrhosis Leukocytosis Abnormal CT scan, colon Coffee ground emesis Anxiety Obstructive sleep apnea Does not use CPAP ?because I toss and turn? due to chronic back pain. Gastroesophageal reflux disease Coronary artery disease Status post stent x1. Chronic back pain Degenerative disc disease Type 2 diabetes mellitus Asthma Hypercholesterolemia Hypertension Bipolar disorder Surgical History Surgical History History of heart artery stent History of arthroscopy of left knee History of cholecystectomy Family History Family History Father Family history of congestive heart failure Sibling Family history of congestive heart failure Other Diabetes mellitus Family history of cardiovascular disease Family history of chronic obstructive pulmonary disease Family history of coronary artery disease Family history of kidney disease Family history of malignant neoplasm Family history of mental disorder Hypertension Social History Social History Social History: The patient lives in [place] with his and sister. He is on disability. Former cigarette smoker, quit about 25 years ago. Endorses smoking marijuana. No alcohol abuse. His , Carol Banks, as his surrogate decision maker. He wishes to be a full code. Smoking packs per day: 1.25 Smoking cigarettes per day: 25.0 Years smoked: 22 Smoking pack-years: 27.50 Smoking status: Former smoker Tobacco type: cigarettes Second hand tobacco smoke exposure: Yes Smoking end date: 08/20/94 Alcohol intake: former Substance use: current Substance use type: marijuana Other substance usage details: SMOKES MARIJUANA 4 TIMES/DAY Last use: 03/20/2023 Do You Feel Safe in your Home?: Yes Lack of Transportation: YES Lack of Food: Never True Current Housing: I Have Housing Concerned About Future Housing: No Difficulty Paying Gas/Electric Bills: No Difficulty Paying for Meds: No Currently Unemployed: No Education: High School Diploma/GED Difficulty w/ Childcare or Family Care: No Living arrangements: with family Additional living arrangements comments: & SISTER Gender identity (if verbalized by the patient): Male Spiritual care concerns: No Exam 2 Narrative: GENERAL: Chronically ill-appearing, well-nourished, and in no acute distress. HEAD: Normocephalic, atraumatic. ENT: Mucous membranes moist. TMs normal bilaterally. NECK: Supple. CHEST: Clear to auscultation. No respiratory distress. HEART: Regular rate and rhythm. Normal peripheral pulses. ABDOMEN: Soft, diffuse abdominal tenderness most notable on left side and in left upper quadrant, nondistended. EXTREMITIES: Normal range of motion. No edema. SKIN: Warm, dry, no rash. NEURO: Alert and oriented x3. PSYCH: Normal mood and affect. Course Course Emergency Course: Patient resting comfortably. Informed of results. No source for abdominal discomfort. Appropriate for discharge home. Vital Signs Vital signs: Vital Signs Temperature 98.1 F 09/27/24 09:09 Pulse Rate 63 09/27/24 09:09 Respiratory Rate 12 09/27/24 09:09 Blood Pressure 158/82 H 09/27/24 09:09 Pulse Oximetry 99 09/27/24 09:09 Oxygen Delivery Room Air 09/27/24 09:09 Temperature 98.1 F 09/27/24 09:09 Pulse Rate 50 L 09/27/24 11:54 Respiratory Rate 18 09/27/24 11:54 Blood Pressure 136/66 09/27/24 11:54 Pulse Oximetry 99 09/27/24 11:54 Oxygen Delivery Room Air 09/27/24 09:09 Medical Decision Making Vital Signs Vital Signs: Vital Signs Temperature 98.1 F 09/27/24 09:09 Pulse Rate 63 09/27/24 09:09 Respiratory Rate 12 09/27/24 09:09 Blood Pressure 158/82 H 09/27/24 09:09 Pulse Oximetry 99 09/27/24 09:09 Oxygen Delivery Room Air 09/27/24 09:09 Temperature 98.1 F 09/27/24 09:09 Pulse Rate 50 L 09/27/24 11:54 Respiratory Rate 18 09/27/24 11:54 Blood Pressure 136/66 09/27/24 11:54 Pulse Oximetry 99 09/27/24 11:54 Oxygen Delivery Room Air 09/27/24 09:09 Lab Data 09/27/24 09:41 09/27/24 09:41 Labs: Lab Results 09/27/24 09/27/24 09/27/24 Range/Units 09:41 10:04 11:57 WBC 9.7 (4.5-10.0) K/mm3 RBC 4.84 (4.6-6.20) M/mm3 Hgb 13.7 L (14.0-18.0) g/dL Hct 41.1 L (42.0-52.0) % MCV 84.9 (80-100) fl MCH 28.3 (26-34) pg MCHC 33.3 (32-36) g/dl RDW 13.4 (11.5-14.5) % Plt Count 191 (150-375) k/mm3 MPV 9.1 (7.4-10.4) fl Immature Gran % (Auto) 0.3 (0-0.5) % Neut % (Auto) 63.8 (45.5-73.1) % Lymph % (Auto) 26.3 (18.3-44.2) % [place] % (Auto) 5.5 (2.6-8.5) % Eos % (Auto) 2.8 (0-4.4) % Baso % (Auto) 1.3 H (0.2-1.2) % Lymph # (Auto) 2.55 (0.9-3.2) K/mm3 [place] # (Auto) 0.5 (0.1-0.6) K/mm3 Eos # (Auto) 0.3 (0-0.3) K/mm3 Baso # (Auto) 0.1 (0.0-0.1) K/mm3 Abs Immat Gran (auto) 0.03 (0.00-0.031) K/mm3 Absolute Neuts (auto) 6.2 (1.3-6.7) K/mm3 Absolute Nucleated RBC 0.000 (0.0-0.012) K/mm3 Nucleated RBC % 0.0 (0.0-0.2) % PT 12.9 (11.1-14.7) Seconds INR 1.0 APTT 27.4 (22.3-36.8) Seconds Sodium 139 (137-145) mmol/L Potassium 3.6 (3.4-5.0) mmol/L Chloride 100 (98-107) mmol/L Carbon Dioxide 26 (22-30) mmol/L Anion Gap 13 H (4-12) mmol/L BUN 10 (9-20) mg/dL Creatinine 0.69 L (0.7-1.3) mg/dL Estim Creat Clear Calc 114 ml/min Estimated GFR > 60 (59 - ) Glucose 179 H (65-110) mg/dL Lactic Acid 2.4 H 1.9 (0.7-2.0) mmol/L Calcium 9.7 (8.4-10.2) mg/dL Total Bilirubin 0.4 (0.2-1.3) mg/dL AST 45 (17-59) U/L ALT 39 (6-50) U/L Alkaline Phosphatase 134 H (38-126) U/L Troponin I < 0.012 (0.000-0.034) ng/mL Total Protein 8.6 H (6.3-8.2) g/dL Albumin 4.7 (3.5-5.1) g/dL Lipase 383 H (23-300) U/L Urine Color Yellow (Yellow) Urine Appearance Clear (Clear) Urine pH 6.5 (5.0-9.0) Ur Specific [place] 1.017 (1.001-1.035) Urine Protein 1+ H (Negative) mg/dL Urine Glucose (UA) 2+ H (Negative) mg/dL Urine Ketones Negative (Negative) mg/dL Ur Blood (Man) Negative (Negative) Urine Nitrate Negative (Negative) Urine Bilirubin Negative (Negative) Urine Urobilinogen 1.0 (<2.0) mg/dL Leukocyte Esterase Rfl Negative (Negative) NIGHAT/UL Urine RBC 0-2 (0-2) /hpf Urine WBC 0-5 (0-3) /hpf Ur Squamous Epith Cells None seen (Few) /hpf Urine Bacteria None seen /hpf Urine Casts 0-2 Imaging Data Radiologist's impression: ITS Impressions Abdomen/Pelvis CT 09/27/24 10:33 IMPRESSION: 1. No acute abdominal abnormality. ECG Data EKG #1: ECG completion date: 09/27/24 ECG completion time: 10:33 EKG Interpretation: normal rate (63), non-specific ST changes, normal QRS and normal QT Discharge Plan Discharge Clinical Impression: Left sided abdominal pain Patient Disposition: Home Condition: Stable Instructions: Acute Abdominal Pain (ED) Additional Instructions: Return to the emergency department if you develop severe abdominal pain, severe nausea and vomiting to the point where you are unable to keep down fluids, if you develop chest pain or difficulty breathing, blood in your stool, dizziness or fainting, or if you develop any other new or concerning symptoms as these could be signs of more serious medical illness. Try to stay well hydrated. Patient Language: Ukrainian Prescriptions: New dicyclomine 20 mg tablet 20 mg PO QID Qty: 20 0RF ondansetron 4 mg tablet,disintegrating 4 mg PO Q6H PRN (Reason: nausea and vomiting) Qty: 10 0RF No Action doxycycline monohydrate 100 mg tablet 100 mg PO BID Qty: 14 0RF amoxicillin 875 mg tablet 875 mg PO Q12H 7 Days Qty: 14 0RF promethazine-DM 6.25-15 mg/5 mL syrup 5 ml PO Q4-6H PRN (Reason: cough) Qty: 120 0RF lisinopril 20 mg Tablet 20 mg PO DAILY glipizide 10 mg Tablet 10 mg PO DAILY amlodipine 10 mg Tablet 10 mg PO DAILY escitalopram oxalate 20 mg Tablet 20 mg PO DAILY metformin 500 mg Tablet Extended Release 24 Hr 500 mg PO BID gabapentin 300 mg Tablet 900 mg PO HS quetiapine 25 mg Tablet 25 mg PO BID atorvastatin 20 mg Tablet 20 mg PO DAILY meloxicam 15 mg Tablet 15 mg PO DAILY clopidogrel [Plavix] 75 mg Tablet 75 mg PO DAILY fluticasone propion-salmeterol 500-50 mcg/dose Blister With Device 1 inh INHALATION Q12H fluticasone propionate [Allergy Relief (fluticasone)] 50 mcg/actuation S [place],Suspension 2 spray INTRANASAL DAILY Rx Instructions: administer into each nostril Caplyta 42 mg Capsule 42 mg PO DAILY cyclobenzaprine 10 mg Tablet 10 mg PO HS metoprolol succinate 25 mg Tablet Extended Release 24 Hr 25 mg PO DAILY pantoprazole [Protonix] 40 mg Tablet,Delayed Release (Dr/Ec) 40 mg PO BID Qty: 60 0RF glimepiride 2 mg tablet 2 mg PO DAILY albuterol sulfate 90 mcg/actuation HFA aerosol inhaler 2 puff inhalation QID PRN (Reason: shortness of breath or wheezing) Qty: 8.5 0RF ondansetron 4 mg tablet,disintegrating 4 mg PO Q8H PRN (Reason: nausea and vomiting) Qty: 10 0RF Follow-up/Referrals: Tremayne,Ziggy Morgan MD [Primary Care Provider] - 1 Week
[2024-09-27] MEDS: SODIUM CHLORIDE 0.9% IV 1,000 ML 999 ML IV CONT (10:50)
[2024-09-27 11:54] VITALS: BP 136/66; PULSE 50; RESP 18; O2SAT 99
== END 2024-09-27 14:43 | disposition home or self-care (01) ==
PROVIDERS: Emergency Provider Emergency Medicine; PCP Internal Medicine
DX: R10.9 Unspecified abdominal pain (principal); F41.9 Anxiety disorder, unspecified; G47.33 Obstructive sleep apnea (adult) (pediatric); K21.9 Gastro-esophageal reflux disease without esophagitis; G89.29 Other chronic pain; M54.9 Dorsalgia, unspecified; J45.909 Unspecified asthma, uncomplicated; E78.00 Pure hypercholesterolemia, unspecified; I10 Essential (primary) hypertension; F31.9 Bipolar disorder, unspecified; Z87.891 Personal history of nicotine dependence
CPT/HCPCS: 36415; 74177; 80053; 81001; 83605; 83690; 84484; 85025; 85610; 85730; 93005; 96361; 96374; 96375; 99284; J2270; J2405; J7030; Q9967